=== PATIENT | female | born 1935 | race Caucasian/White ===

== ENCOUNTER 2016-05-08 07:19 | Inpatient (IN) | payer OTHER ==
[~2016-05-08] VITALS: Ht 154.9 cm; Wt 75.5 kg
[2016-05-08] VITALS (19 sets, daily range): BP systolic 97–136; BP diastolic 53–80; PULSE 81–98; TEMP 36.3–37.1; O2SAT 92–97; Ht 154.9 cm; Wt 75.5 kg
[~2016-05-08 07:19] MED LIST: ASPI81TA28 PO; CALC-354 PO; CLOP1TAB15 PO; DILT120C68 PO; IBUP-103 PO; LEVO25TA5 PO; LISI-787 PO; METO-551 PO; OMEG10007 PO; SIMV20TA2 PO; TRAM-10 PO
--- NOTE | 2016-05-08 07:33 | EMERGENCY ROOM VISIT NOTE ---
History Report prepared by Sejalibindiana: Lara Najera Under the Supervision of: Dr. Ad Means M.D. First contact with patient: 07:27 Chief Complaint: SHORTNESS OF BREATH Stated Complaint: SHORTNESS OF BREATH History of Present Illness The patient is a 81 year old female who presents to the Emergency Room via ambulance with complaints of persistent shortness of breath over the past couple of days. She also complains of a dry, hacking cough. She has been blowing her nose more than usual. She does not typically have shortness of breath and is not on oxygen at home. The patient was started on oxygen in the field. 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 She does not have any residual deficits. Denies fevers, or other complaints. 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 A total of 10 systems reviewed and were otherwise negative. Past Medical & Surgical Medical Problems: (1) Foreign body (2) Localized, primary osteoarthritis of the pelvic region and thigh Surgical Problems: (1) H/O colonoscopy Family History Patient reports no known family medical history. Social History Smoking Status: Never Smoker Marital Status: Housing Status: lives with significant other Occupation Status: retired Current/Historical Medications Scheduled Aspirin (Aspirin Ec), 81 MG PO DAILY Calcium Carbonate-Cholecalcife (Caltrate 600+D), 1 TAB PO BID Clopidogrel (Plavix), 75 MG PO QAM Diltiazem Hcl Ext Rel (Tiazac), 120 MG PO QAM Ibuprofen Tab (Advil), 400 MG PO Q4 Levothyroxine Sodium (Levothyroxine Sodium), 12.5 MG PO DAILY Lisinopril/Hctz (Zestoretic 20MG/12.5MG), 1 TAB PO QAM Metoprolol Tartrate (Lopressor), 25 MG PO BID Simvastatin (Zocor), 20 MG PO QPM Scheduled PRN Alprazolam (Xanax), 0.5 MG PO Q6H PRN for Anxiety Allergies Coded Allergies: Sulfa Antibiotics (Verified Allergy, Unknown, `, 03/05/16) Physical Exam Vital Signs Date Time Temp Pulse Resp B/P Pulse Ox O2 Delivery O2 Flow Rate FiO2 12/30/16 08:33 91 18 130/67 100 Nebulizer 05/08/16 07:55 81 16 95 Nasal Cannula 05/08/16 07:32 83 05/08/16 07:30 94 Nasal Cannula 2.0 05/08/16 07:20 91 Room Air 05/08/16 07:20 36.6 84 18 135/82 94 Nasal Cannula 2.0 Physical Exam GENERAL: Patient is a healthy-appearing well-nourished 81 year old female. HEAD: Normocephalic atraumatic EYES: Ocular movements intact pupils equal and react to light OROPHARYNX mucous membranes are moist no exudates present no erythema or edema present NECK: Supple no nuchal rigidity CHEST: Good equal expansion LUNGS: Clear and equal to auscultation CARDIAC: Normal S1 and S2 ABDOMEN: Soft nontender no guarding RECTAL: Brown stool, heme positive. BACK: No CVA tenderness EXTREMITIES: No pain upon palpation normal muscle strength in all groups no clubbing cyanosis or edema NEURO: Patient is following commands is answering questions appropriately. Alert and oriented x3 Cranial Nerves 2-12 grossly intact Medical Decision & Procedures ER Provider Diagnostic Interpretation: X-ray results as stated below per interpretation by me and the radiologist: CHEST ONE VIEW PORTABLE CLINICAL HISTORY: Pt c/o SOB dyspnea COMPARISON STUDY: 01/08/2015 FINDINGS: Development of a left and to lesser extent right basilar parenchymal infiltrative change. Upper lungs are considered clear. Heart is mildly enlarged. IMPRESSION: Bibasilar parenchymal infiltrates Electronically signed by: Jermaine Mullen M.D. 05/08/2016 7:58 AM Laboratory Results 05/08/16 06:42 Red Blood Count 2.39, Mean Corpuscular Volume 83.7, Mean Corpuscular Hemoglobin 25.9, Mean Corpuscular Hemoglobin Concent 31.0, Mean Platelet Volume 10.0, Neutrophils (%) (Auto) 59.9, Lymphocytes (%) (Auto) 28.3, Monocytes (%) (Auto) 7.5, Eosinophils (%) (Auto) 3.7, Basophils (%) (Auto) 0.4, Neutrophils # (Auto) 5.05, Lymphocytes # (Auto) 2.38, Monocytes # (Auto) 0.63, Eosinophils # (Auto) 0.31, Basophils # (Auto) 0.03 05/08/16 06:42 Test 05/08/16 06:42 05/08/16 06:48 05/08/16 07:45 White Blood Count 8.42 K/uL (4.8-10.8) Red Blood Count 2.39 M/uL (4.2-5.4) Hemoglobin 6.2 g/dL (12.0-16.0) Hematocrit 20.0 % (37-47) Mean Corpuscular Volume 83.7 fL (80-100) Mean Corpuscular Hemoglobin 25.9 pg (25-34) Mean Corpuscular Hemoglobin Concent 31.0 g/dl (32-36) Platelet Count 379 K/uL (130-400) Mean Platelet Volume 10.0 fL (7.4-10.4) Neutrophils (%) (Auto) 59.9 % Lymphocytes (%) (Auto) 28.3 % Monocytes (%) (Auto) 7.5 % Eosinophils (%) (Auto) 3.7 % Basophils (%) (Auto) 0.4 % Neutrophils # (Auto) 5.05 K/uL (1.4-6.5) Lymphocytes # (Auto) 2.38 K/uL (1.2-3.4) Monocytes # (Auto) 0.63 K/uL (0.11-0.59) Eosinophils # (Auto) 0.31 K/uL (0-0.5) Basophils # (Auto) 0.03 K/uL (0-0.2) RDW Standard Deviation 47.6 fL (36.4-46.3) RDW Coefficient of Variation 15.4 % (11.5-14.5) Immature Granulocyte % (Auto) 0.2 % Immature Granulocyte # (Auto) 0.02 K/uL (0.00-0.02) Polychromasia 1+ Hypochromasia PRESENT Prothrombin Time 11.1 SECONDS (9.0-12.0) Prothromb Time International Ratio 1.0 (0.9-1.1) Activated Partial Thromboplast Time 22.2 SECONDS (21.0-31.0) Partial Thromboplastin Ratio 0.9 Anion Gap 11.0 mmol/L (3-11) Est Creatinine Clear Calc Drug Dose 37.3 ml/min Estimated GFR () 54.5 Estimated GFR (Non- 47.0 BUN/Creatinine Ratio 19.0 (10-20) Calcium Level 8.1 mg/dl (8.5-10.1) Total Bilirubin 0.2 mg/dl (0.2-1) Aspartate Amino Transf (AST/SGOT) 16 U/L (15-37) Alanine Aminotransferase (ALT/SGPT) 17 U/L (12-78) Alkaline Phosphatase 96 U/L (45-117) Total Creatine Kinase 74 U/L (26-192) Creatine Kinase MB 2.7 ng/ml (0.5-3.6) Creatine Kinase MB Ratio 3.6 (0-3.0) Troponin I 0.018 ng/ml (0-0.045) Total Protein 6.1 gm/dl (6.4-8.2) Albumin 3.1 gm/dl (3.4-5.0) Globulin 3.0 gm/dl (2.5-4.0) Albumin/Globulin Ratio 1.0 (0.9-2) Iron Level 20 mcg/dl (35-150) Total Iron Binding Capacity 502 mcg/dl (250-450) Ferritin 7.8 ng/ml (8.0-388.0) Influenza Type A Antigen Neg for Influ A (NEG) Influenza Type B Antigen Neg for Influ B (NEG) Labs reviewed by ED physician. Medications Administered Medications (Trade) Dose Ordered Sig/Miguel Route Start Time Stop Time Status Last Admin Dose Admin Albuterol/ Ipratropium 12 ml 12 ml ONE ONCE INH 05/08/16 07:45 05/08/16 07:46 DC 05/08/16 07:55 12 ML Pantoprazole Sodium/Dextrose (Protonix Inj/D5 100ml) 120 ml @ 480 mls/hr NOW ONCE IV 05/08/16 09:00 05/08/16 09:14 DC 05/08/16 09:06 480 MLS/HR ECG Indication: SOB/dyspnea Rate (beats per minute): 78 Rhythm: sinus rhythm Findings: T-wave inversion (Inferior), no acute ischemic change, other ( premature supraventricular complexes) ED Course 0730: The patient was evaluated in room B. A complete history and physical examination was performed. 0745: Ordered DuoNeb 12 ml INH. 0821: I discussed the case with Dr. Sawant - [facility] [place] [facility]. The patient will be evaluated for further management. 0823: Upon reexamination the patient is resting comfortably. I discussed results and treatment plan with the patient. She verbalizes agreement and understanding. 0833: Ordered Pantoprazole Sodium 1 ea IV. Medical Decision Differential diagnosis: Etiologies such as infections, reactive airway disease, pneumonia, pneumothorax , COPD, CHF, cardiac ischemia, pulmonary embolism, musculoskeletal, gastrointestinal, as well as others were entertained. This is an 81-year-old female who presents emergency department complaining of shortness of breath. The patient is pale in appearance. She also has a heme positive rectal exam of of the stool is brown. For this reason the patient was started on a Protonix bolus and drip. She was found to be anemic with a hemoglobin of 6. She was typed and crossed with 2 units of packed red blood cells. I did discuss the case with the hospitalist service who agreed to admit the patient. Both patient and family were in agreement with the treatment plan. Consults Time Called: 08 Consulting Physician: Dr. Jese QUINONES Hospitalist Returned Call: 08 I discussed the case with him. The patient will be evaluated for further management. Impression Primary Impression: SOB (shortness of breath) Additional Impressions: Anemia, GI bleed Critical Care I have personally spent greater than 30 minutes of critical care time in the direct management of this patient. This includes bedside care, interpretation of diagnostic studies, and testing, discussion with consultants, patient, and family members, and other required patient management activities. This 30 minutes is in excess of all separately billable procedures. Scribe Attestation The scribe's documentation has been prepared under my direction and personally reviewed by me in its entirety. I confirm that the note above accurately reflects all work, treatment, procedures, and medical decision making performed by me. Departure Information Dispostion Being Evaluated By Hospitalist Referrals Timothy Garcia M.D. (PCP) Patient Instructions A Signature Page, My [facility]
[2016-05-08] MEDS ORDERED: ALPR-411 PO (07:39)
[2016-05-08] MEDS ORDERED: ALBUT/IPRATROP 3MG/0.5MG NEB 3 ML VIAL INH ONE (07:45)
--- NOTE | 2016-05-08 08:00 | DIAGNOSTIC IMAGING REPORT ---
CHEST ONE VIEW PORTABLE CLINICAL HISTORY: Pt c/o SOB dyspnea COMPARISON STUDY: 01/08/2015 FINDINGS: Development of a left and to lesser extent right basilar parenchymal infiltrative change. Upper lungs are considered clear. Heart is mildly enlarged. IMPRESSION: Bibasilar parenchymal infiltrates Electronically signed by: Jermaine Mullen M.D. 05/08/2016 7:58 AM
[2016-05-08 08:05] LABS: MEAN CELL VOLUME 83.7 fL (80-100); MEAN CORPUSCULAR HEMOGLOBIN 25.9 pg (25-34); PLATELET COUNT 379 K/uL (130-400); RED BLOOD COUNT 2.39 M/uL (4.2-5.4); WHITE BLOOD COUNT 8.42 K/uL (4.8-10.8)
[2016-05-08 08:13] LABS: CALCIUM 8.1 mg/dl (8.5-10.1); CREATININE 1.1 mg/dl (0.60-1.20); POTASSIUM 3.9 mmol/L (3.5-5.1)
[2016-05-08 08:18] LABS: CKMB/CK RATIO 3.6 (0-3.0)
[2016-05-08 08:28] LABS: BASO % 0.4 %; BASO ABS # 0.03 K/uL (0-0.2); COMPLETE YES; EOS % 3.7 %; HYPOCHROMIA PRESENT; IG% 0.2 %; LYMPH % 28.3 %; LYMPH ABS # 2.38 K/uL (1.2-3.4); MONO % 7.5 %; NEUT % 59.9 %; POLYCHROMASIA 1+
[2016-05-08] MEDS ORDERED: PANTOprazole INJ 80 MG in DEXTROSE 5% 100ML IV ONE (09:00)
[2016-05-08] MEDS ORDERED: ALPRAZOLAM 0.5 MG TAB PO PRN (09:15)
[2016-05-08] MEDS ORDERED: ONDANSETRON INJ 2 MG/ML 2 ML VIAL IV PRN (09:15)
[2016-05-08] MEDS ORDERED: ACETAMINOPHEN 325 MG TAB PO PRN (09:15)
[2016-05-08] MEDS ORDERED: PANTOprazole INJ 40 MG in DEXTROSE 5% 100ML IV SCH (09:15)
[2016-05-08 09:31] LABS: PARTIAL THROMBOPLASTIN RATIO 0.9; PROTHROMBIN TIME (PATIENT) 11.1 SECONDS (9.0-12.0)
--- NOTE | 2016-05-08 09:31 | History and Physical ---
History & Physical Date & Time of Service: May 08, 2016 at 09:12 Chief Complaint: Shortness Of Breath Primary Care Physician: Timothy Garcia M.D. History of Present Illness Source: patient, family, hospital records 81 yo female with history of CVA with residual right hand weakness as well as h/ o HTN and hyperlipidemia, presents to the ED with c/o progressive weakness and shortness of breath. The symptoms started a few weeks ago, started with some mild fatigue and she noticed that she would get short of breath on exertion when she would normally not have any issues. Over the past weeks she noticed that her breathing was more and more difficult whenever she exerted herself and it would take some time to catch her breath. Over the past two days she has been very tired and short of breath at rest. Her breathing reached the point last night that she and her were scared so they came to the ED for evaluation. She has had a non-productive cough, no fever or chills, no chest pain or palpitations. Her daughter noticed that she appeared more pale the past few days but patient did not recognize this. She denies any melena or bright red bleeding. She has had dark stools in the remote past but that was when she was on iron supplementation. She had a colonoscopy in 2010 that was normal. Never had an EGD. As for the breathing, she has never had shortness of breath like this. 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 She will see the neurologist in May for follow up. Otherwise, her medical issues including HTN and hyperlipidemia have been stable and she is compliant with her medications. In the ED her Hb was found to be 6.2 but vitals were all stable suggesting a probably slow bleed if in fact the source of anemia is a GI bleed. CXR showed some bibasilar opacities, likely atelectasis. Renal function stable. No coags available at this time. Consented for PRBC transfusion and two units ordered by the ED physician. 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, causing balance issues HTN hyperlipidemia s/p tonsillectomy s/p CAREY s/p hysterectomy Colonoscopy, last done in 2010 Family History Mother - of CHF complications Father - of Hodgkin's lymphoma in his 30's Brothers - all had colon cancer Children - all healthy Social History Smoking Status: Never Smoker Marital Status: Occupational Status: retired Immunizations History of Influenza Vaccine: Yes History of Tetanus Vaccine?: Unknown History of Pneumococcal: Yes History of Hepatitis B Vaccine: No Multi-Drug Resistant Organisms History of MDRO: No Allergies Coded Allergies: Sulfa Antibiotics (Verified Allergy, Unknown, `, 03/05/16) Home Medications Scheduled Aspirin (Aspirin Ec), 81 MG PO DAILY Calcium Carbonate-Cholecalcife (Caltrate 600+D), 1 TAB PO BID Clopidogrel (Plavix), 75 MG PO QAM Diltiazem Hcl Ext Rel (Tiazac), 120 MG PO QAM Ibuprofen Tab (Advil), 400 MG PO Q4 Levothyroxine Sodium (Levothyroxine Sodium), 12.5 MG PO DAILY Lisinopril/Hctz (Zestoretic 20MG/12.5MG), 1 TAB PO QAM Metoprolol Tartrate (Lopressor), 25 MG PO BID Simvastatin (Zocor), 20 MG PO QPM Scheduled PRN Alprazolam (Xanax), 0.5 MG PO Q6H PRN for Anxiety Review of Systems Constitutional: + fatigue, + weakness, No chills, No fever, No sweats, No weight loss Eyes: No diplopia, No discharge, No eye pain, No problem reported, No redness, No worsening of vision ENT: No dental problems, No hearing loss, No nasal symptoms, No problem reported, No sore throat, No tinnitus, No trouble swallowing, No unusual epistaxis Respiratory: + cough, + dyspnea at rest, + dyspnea on exertion, No hemoptysis, No shortness of breath, No sputum, No wheezing Cardiovascular: No PND, No chest pain, No claudication, No edema, No orthopnea , No palpitations, No problem reported Abdomen: No GI bleeding, No constipation, No diarrhea, No nausea, No pain, No problem reported, No vomiting Musculoskeletal: No calf pain, No joint pain, No muscle pain, No problem reported, No swelling Genitourinary - Female: No dysuria, No hematuria, No urinary frequency, No urinary incontinence, No urinary retention, No urinary urgency Neurologic: + balance problems, + weakness, No memory loss, No numbness/ tingling, No paralysis, No vertigo Psychiatric: No anhedonism, No anxiety, No depression symptoms, No insomnia, No problem reported, No substance abuse Endocrine: No excessive thirst, No excessive urination, No fatigue, No problem reported Hematologic / Lymphatic: No abnormal bleeding/bruising, No clotting problems, No night sweats, No problem reported, No swollen lymph nodes Integumentary: + color change (pale), No bleeding, No itch, No new/changing skin lesions, No problem reported, No rash Allergic / Immunologic: No environmental allergies, No food allergies, No frequent infections, No hives, No pet sensitivities, No poor healing, No problem reported, No prolonged convalescence, No seasonal allergies Physical Exam Vital Signs Date Time Temp Pulse Resp B/P Pulse Ox O2 Delivery O2 Flow Rate FiO2 05/08/16 08:33 91 18 130/67 100 Nebulizer 05/08/16 07:55 81 16 95 Nasal Cannula 05/08/16 07:32 83 05/08/16 07:30 94 Nasal Cannula 2.0 05/08/16 07:20 91 Room Air 05/08/16 07:20 36.6 84 18 135/82 94 Nasal Cannula 2.0 General Appearance: WD/WN, no apparent distress Head: normocephalic, atraumatic Eyes: normal inspection, EOMI, + abnormal sclerae exam (pallor) ENT: normal ENT inspection, hearing grossly normal, pharynx normal Neck: supple, no adenopathy, thyroid normal, no JVD, trachea midline Respiratory/Chest: chest non-tender, lungs clear, normal breath sounds, no respiratory distress, no accessory muscle use Cardiovascular: regular rate, rhythm, no edema, no gallop, no JVD, no murmur, normal peripheral pulses Abdomen/GI: normal bowel sounds, non tender, soft, no organomegaly Back: normal inspection, no CVA tenderness, no muscle spasm, normal range of motion Extremities/Musculoskelatal: normal inspection, no calf tenderness, normal capillary refill, no pedal edema, normal range of motion, pelvis stable 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, alert, normal mood/affect, normal reflexes, oriented x 3, + motor weakness (right hand mild weakness and poor grasp, chronic issue) Skin: warm/dry, no rash, + pallor Diagnostics Laboratory Results Results Past 24 Hours Test 05/08/16 06:42 05/08/16 07:45 05/08/16 09:04 Range/Units White Blood Count 8.42 4.8-10.8 K/uL Red Blood Count 2.39 4.2-5.4 M/uL Hemoglobin 6.2 12.0-16.0 g/dL Hematocrit 20.0 37-47 % Mean Corpuscular Volume 83.7 80-100 fL Mean Corpuscular Hemoglobin 25.9 25-34 pg Mean Corpuscular Hemoglobin Concent 31.0 32-36 g/dl Platelet Count 379 130-400 K/uL Mean Platelet Volume 10.0 7.4-10.4 fL Neutrophils (%) (Auto) 59.9 % Lymphocytes (%) (Auto) 28.3 % Monocytes (%) (Auto) 7.5 % Eosinophils (%) (Auto) 3.7 % Basophils (%) (Auto) 0.4 % Neutrophils # (Auto) 5.05 1.4-6.5 K/uL Lymphocytes # (Auto) 2.38 1.2-3.4 K/uL Monocytes # (Auto) 0.63 0.11-0.59 K/uL Eosinophils # (Auto) 0.31 0-0.5 K/uL Basophils # (Auto) 0.03 0-0.2 K/uL RDW Standard Deviation 47.6 36.4-46.3 fL RDW Coefficient of Variation 15.4 11.5-14.5 % Immature Granulocyte % (Auto) 0.2 % Immature Granulocyte # (Auto) 0.02 0.00-0.02 K/uL Polychromasia 1+ Hypochromasia PRESENT Sodium Level 144 136-145 mmol/L Potassium Level 3.9 3.5-5.1 mmol/L Chloride Level 111 98-107 mmol/L Carbon Dioxide Level 22 21-32 mmol/L Anion Gap 11.0 3-11 mmol/L Blood Urea Nitrogen 21 7-18 mg/dl Creatinine 1.10 0.60-1.20 mg/dl Est Creatinine Clear Calc Drug Dose 37.3 ml/min Estimated GFR () 54.5 Estimated GFR (Non- 47.0 BUN/Creatinine Ratio 19.0 10-20 Random Glucose 112 70-99 mg/dl Calcium Level 8.1 8.5-10.1 mg/dl Total Bilirubin 0.2 0.2-1 mg/dl Aspartate Amino Transf (AST/SGOT) 16 15-37 U/L Alanine Aminotransferase (ALT/SGPT) 17 12-78 U/L Alkaline Phosphatase 96 45-117 U/L Total Creatine Kinase 74 26-192 U/L Creatine Kinase MB 2.7 0.5-3.6 ng/ml Creatine Kinase MB Ratio 3.6 0-3.0 Troponin I 0.018 0-0.045 ng/ml Total Protein 6.1 6.4-8.2 gm/dl Albumin 3.1 3.4-5.0 gm/dl Globulin 3.0 2.5-4.0 gm/dl Albumin/Globulin Ratio 1.0 0.9-2 Influenza Type A Antigen Neg for Influ A NEG Influenza Type B Antigen Neg for Influ B NEG Diagnostic Radiology CXR: bibasilar parenchymal infiltrates EKG NSR, TW inversions and TW flattening in inferior leads, no signs of acute ischemia Impression Assessment and Plan 81 yo female with history of CVA, HTN 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, presents with profound dyspnea, fatigue, progressive and found to have Hb of 6.2 - Anemia causing dyspnea and fatigue: will transfuse 2 units PRBC no signs of GI bleeding but would be top of differential, d/w GI, they will evaluate for EGD today, NPO order anemia panel (iron, TIBC, ferritin, b12, folic acid) H/H q8, check coagulation profile admit to telemetry - Dyspnea: appears that anemia would be source, look for symptoms to improve with transfusion no evidence of heart failure, pneumonia or COPD - HTN: will continue metoprolol but hold Lisinopril/HCTZ and diltiazem, will add back if she is hypertensive - h/o CVA: hold aspirin and Plavix until okay to resume per GI - 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 Y/N: Yes Risk Level: High Given or contraindicated: SCD's Additional Copies To Timothy Garcia M.D.
[2016-05-08 09:50] LABS: FERRITIN 7.8 ng/ml (8.0-388.0)
[2016-05-08] MEDS ORDERED: ERYTHROMYCIN IV 250 MG in SODIUM CHLORIDE 0.9% 250ML 250 ML IV ONE (11:00)
--- NOTE | 2016-05-08 11:06 | Gastrointestinal Consultation ---
Gastrointestinal Consultation Date of Consultation: May 08, 2016 Attending Physician: Dr. Sawant Consulting Physician: Dr. Villegas Reason for Consultation: Anemia History of Present Illness Patient is a 81 year old female patient of Dr. Timothy Garcia with a hx of distant, mild CVA, HTN and a balance issue that is being worked up by neurology. She presented to the ED today for SOB. GI is consulted for anemia. The patient is awake, alert, oriented, talkative, w/o hypotension or tachycardia who is seen and examined while she is resting in bed on the telemetry floor. 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 She tells me that she first noticed exertional SOB a few months ago. This became persistent a few weeks ago, then worsened 2-3 days ago. She has not had any epigastric pain, nausea/vomiting, chest pain, melena, hematochezia. Her baseline bowel pattern has been 1-3 formed brown BMs/day. This has not changed. On arrival, Hb 6. 2/Hct 20. MCV is 83. BUN is normal at 21. INR is also normal. She denies any regular use of NSAIDs and is not on any antiplatelets or anticoagulant medications. Past Medical/Surgical History Medical Problems: (1) Anemia Status: Acute (2) GI bleed Status: Acute (3) Iliopsoas muscle hematoma Status: Acute (4) SOB (shortness of breath) Status: Acute Past Medical History: 1. HTN 2. Distant CVA 3. 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 Past Surgical History: 1. KALYN and appendectomy in the 1969's. 2. Right hip replacement 2013. 3. Childhood tonsillectomy. 4. Most recent Colonoscopy with Dr. Arora in 2010. No prior EGDs. Family History Patient reports no known family medical history. Social History Smoking Status: Never Smoker Marital Status: Housing Status: lives with significant other Occupation Status: retired Allergies Coded Allergies: Sulfa Antibiotics (Verified Allergy, Unknown, `, 03/05/16) Current Medications Home Meds and Scripts Medications Dose Route/Sig Max Daily Dose Days Date Category Dose Instructions Xanax (Alprazolam) 0.5 Mg Tab 0.5 Mg PO Q6H PRN 05/08/16 Reported Advil (Ibuprofen) 200 Mg Tab 400 Mg PO Q4 03/05/16 Reported Lopressor (Metoprolol Tartrate) 50 Mg Tab 25 Mg PO BID 03/05/16 Reported half tab BID Levothyroxine Sodium 25 Mcg Tab 12.5 Mg PO DAILY 03/05/16 Reported Plavix (Clopidogrel Bisulfate) 75 Mg Tab 75 Mg PO QAM 03/05/16 Reported Zocor (Simvastatin) 20 Mg Tab 20 Mg PO QPM 03/05/16 Reported Caltrate 600+D (Calcium Carbonate-Cholecalcife) 1 Tab Tab 1 Tab PO BID 03/05/16 Reported 1 at 0530 1 at 1730 Aspirin Ec (Aspirin) 81 Mg Tab 81 Mg PO DAILY 03/05/16 Reported 1 at 1730 daily Tiazac (Diltiazem HCl) 120 Mg Capcr 120 Mg PO QAM 03/05/16 Reported Zestoretic 20MG/12.5MG (HCTZ/Lisinopril) Tab 1 Tab PO QAM 03/05/16 Reported half tab in morning Review of Systems Constitutional: No chills, No fever, No sweats, No weakness, No weight loss Eyes: No eye pain, No redness ENT: No pain on swallowing, No sore throat, No trouble swallowing Respiratory: + cough (chronic, non productive cough), + dyspnea on exertion, + shortness of breath, No wheezing Cardiac: No chest pain, No edema, No palpitations Abdomen: + see HPI, No GI bleeding, No constipation, No diarrhea, No nausea, No pain, No vomiting Neuro: No balance problems, No memory loss, No numbness/tingling, No vertigo, No weakness Psych: No anxiety, No depression symptoms, No insomnia Heme: No abnormal bleeding/bruising, No night sweats Endo: No excessive thirst, No excessive urination Skin: No itch, No jaundice, No new/changing skin lesions, No rash Physical Exam Date Time Temp Pulse Resp B/P Pulse Ox O2 Delivery O2 Flow Rate FiO2 05/08/16 10:45 36.5 94 22 111/77 05/08/16 10:00 36.6 94 16 114/71 94 Nasal Cannula 2.0 05/08/16 09:31 101 18 138/62 96 Nasal Cannula 2.0 05/08/16 09:20 100 05/08/16 08:33 91 18 130/67 100 Nebulizer 05/08/16 07:55 81 16 95 Nasal Cannula 12/30/16 07:32 83 05/08/16 07:30 94 Nasal Cannula 2.0 05/08/16 07:20 91 Room Air 05/08/16 07:20 36.6 84 18 135/82 94 Nasal Cannula 2.0 General Appearance: no apparent distress Eyes: normal inspection, EOMI Neck: supple, no adenopathy, thyroid normal Respiratory/Chest: chest non-tender, lungs clear, normal breath sounds, no accessory muscle use Cardiovascular: regular rate, rhythm, no JVD, no murmur Abdomen: normal bowel sounds, non tender, soft, no organomegaly Extremities: normal inspection, no pedal edema, normal capillary refill Neurologic/Psych: alert, normal mood/affect, oriented x 3 Skin: normal color, no jaundice, warm/dry, no rash Laboratory Results Last 24 Hours Test 05/08/16 06:42 05/08/16 06:48 05/08/16 07:45 05/08/16 10:06 White Blood Count 8.42 K/uL Red Blood Count 2.39 M/uL Hemoglobin 6.2 g/dL Hematocrit 20.0 % Mean Corpuscular Volume 83.7 fL Mean Corpuscular Hemoglobin 25.9 pg Mean Corpuscular Hemoglobin Concent 31.0 g/dl Platelet Count 379 K/uL Mean Platelet Volume 10.0 fL Neutrophils (%) (Auto) 59.9 % Lymphocytes (%) (Auto) 28.3 % Monocytes (%) (Auto) 7.5 % Eosinophils (%) (Auto) 3.7 % Basophils (%) (Auto) 0.4 % Neutrophils # (Auto) 5.05 K/uL Lymphocytes # (Auto) 2.38 K/uL Monocytes # (Auto) 0.63 K/uL Eosinophils # (Auto) 0.31 K/uL Basophils # (Auto) 0.03 K/uL RDW Standard Deviation 47.6 fL RDW Coefficient of Variation 15.4 % Immature Granulocyte % (Auto) 0.2 % Immature Granulocyte # (Auto) 0.02 K/uL Polychromasia 1+ Hypochromasia PRESENT Prothrombin Time 11.1 SECONDS Prothromb Time International Ratio 1.0 Activated Partial Thromboplast Time 22.2 SECONDS Partial Thromboplastin Ratio 0.9 Sodium Level 144 mmol/L Potassium Level 3.9 mmol/L Chloride Level 111 mmol/L Carbon Dioxide Level 22 mmol/L Anion Gap 11.0 mmol/L Blood Urea Nitrogen 21 mg/dl Creatinine 1.10 mg/dl Est Creatinine Clear Calc Drug Dose 37.3 ml/min Estimated GFR () 54.5 Estimated GFR (Non- 47.0 BUN/Creatinine Ratio 19.0 Random Glucose 112 mg/dl Calcium Level 8.1 mg/dl Total Bilirubin 0.2 mg/dl Aspartate Amino Transf (AST/SGOT) 16 U/L Alanine Aminotransferase (ALT/SGPT) 17 U/L Alkaline Phosphatase 96 U/L Total Creatine Kinase 74 U/L Creatine Kinase MB 2.7 ng/ml Creatine Kinase MB Ratio 3.6 Troponin I 0.018 ng/ml Total Protein 6.1 gm/dl Albumin 3.1 gm/dl Globulin 3.0 gm/dl Albumin/Globulin Ratio 1.0 Iron Level 20 mcg/dl Total Iron Binding Capacity 502 mcg/dl Ferritin 7.8 ng/ml Influenza Type A Antigen Neg for Influ A Influenza Type B Antigen Neg for Influ B Vitamin B12 Level 506 pg/mL Folate 13.39 ng/mL Impression Patient is a 81 year old female with normocytic anemia, progressive SOB, no gross GI bleeding. UGI bleeding from ulcers should be ruled out, but she doesn' t have risk factor or symptoms for this. Plan 1. EGD. Unfortunately, at 5AM she drank one cup of coffee and ate one donut. She has been NPO since then. Will give a dose of e-mycin to emypty the stomach and plan to do the procedure around 1PM (8 hrs after). Will need to get anesthesia approval to go forward with procedure due to having eaten this morning. 2. If normal EGD will need colonoscopy, though not necessarily as an OP. 3. If normal EGD, would also recommend full lab testing to w/u anemia: iron, ferritin, B12, folate, sed rate, Haptoglobin and LDH. I have seen and examined the patient with GAURI Pop whose note reflects our findings and plan. Halie was admitted with SOB and symptomatic anemia. No melena or hematochezia. She tells me she was on iron a few months ago and at that time her stools were dark, however, they have been brown since she stopped the iron. MCV is normal. BUN is not elevated. No history of ulcer disease. She has never had an EGD. Last colonoscopy was almost 30 years ago. Will do an EGD today. If the EGD is negative, agree with work-up for other non- GI causes of anemia and she will need an outpatient colonoscopy.
[2016-05-08] MEDS ORDERED: LIDOCAINE HCL 2% 2 ML VIAL (20MG/ML) ONE (12:41)
[2016-05-08] MEDS ORDERED: ONDANSETRON INJ 2 MG/ML 2 ML VIAL ONE (12:41)
[2016-05-08] MEDS ORDERED: MIDAZOLAM HCL 1 MG/ML 2ML VIAL ONE (12:41)
[2016-05-08] MEDS ORDERED: PROPOFOL IV EMULSION 10 MG/ML 20 ML VIAL IV ONE (12:41)
[2016-05-08 13:18] LABS: URINE APPEARANCE CLEAR (CLEAR); URINE BILIRUBIN NEG (NEG); URINE COLOR YELLOW; URINE NITRITE NEG (NEG); URINE SPECIFIC GRAVITY 1.017 (1.000-1.030); UROBILINOGEN NEG (NEG)
[2016-05-08 13:21] LABS: MANUAL MICROSCOPIC REQUIRED? NO; REVIEW REQ? NO
[2016-05-08] MEDS ORDERED: PHENYLEPHRINE 100MCG/ML 5ML SYR ONE (14:04)
--- NOTE | 2016-05-08 14:06 | GI REPORT ---
Procedure Date: 05/08/2016 1:39 PM Procedure: Upper GI endoscopy Indications: Symptomatic anemia, no melena or hematochezia Medicines: Propofol per Anesthesia Complications: No immediate complications. Estimated blood loss: Minimal. Estimated Blood Loss: Estimated blood loss was minimal. Procedure: Pre-Anesthesia Assessment: - Prior to the procedure, a History and Physical was performed, and patient medications, allergies and sensitivities were reviewed. The patient's tolerance of previous anesthesia was reviewed. - The risks and benefits of the procedure and the sedation options and risks were discussed with the patient. All questions were answered and informed consent was obtained. - Patient identification and proposed procedure were verified prior to the procedure by the physician and the nurse. The procedure was verified in the pre-procedure area in the procedure room. - Mental Status Examination: alert and oriented. Airway Examination: normal oropharyngeal airway and neck mobility. Respiratory Examination: clear to auscultation. CV Examination: normal. Abdominal Examination: bowel sounds present, abdomen soft and non-tender, no masses or organomegaly noted. - ASA Grade Assessment: IV - A patient with severe systemic disease that is a constant threat to life. After obtaining informed consent, the endoscope was passed under direct vision. Throughout the procedure, the patient's blood pressure, pulse, and oxygen saturations were monitored continuously. The scope was introduced through the mouth, and advanced to the second part of duodenum. The upper GI endoscopy was accomplished without difficulty. The patient tolerated the procedure well. Findings: The esophagus was normal. The stomach was normal. The examined duodenum was normal. Biopsies for histology were taken with a cold forceps for evaluation of celiac disease. Verification of patient identification for the specimen was done by the physician and nurse using the patient's name and date. Estimated blood loss was minimal. Impression: - Normal esophagus. - Normal stomach. - Normal examined duodenum. Biopsied. Recommendation: - Await pathology results. - Return patient to [facility] for ongoing care. Jayda Villegas D.O. Jayda Villegas DO 05/08/2016 2:04:33 PM This report has been signed electronically. Note Initiated On: 05/08/2016 1:39 PM
--- NOTE | 2016-05-08 14:35 | Anesthesiology Progress Note ---
Anesthesia Post Op Note Date & Time May 08, 2016 at 14:34 Vital Signs Pain Intensity: 0 Vital Signs Past 12 Hours Date Time Temp Pulse Resp B/P Pulse Ox O2 Delivery O2 Flow Rate FiO2 05/08/16 14:20 91 16 108/62 95 Nasal Cannula 2 05/08/16 14:05 99 16 112/70 92 Nasal Cannula 2 05/08/16 13:28 36.9 96 20 127/58 97 2.0 05/08/16 13:26 36.9 96 20 127/58 97 Nasal Cannula 2 05/08/16 13:15 36.7 96 18 130/72 92 Nasal Cannula 2.0 05/08/16 12:32 36.7 96 18 130/72 92 Nasal Cannula 05/08/16 12:00 Room Air 05/08/16 11:57 36.9 91 16 105/54 94 05/08/16 11:30 36.4 92 18 97/53 97 Nasal Cannula 2.0 05/08/16 11:00 36.3 98 18 109/62 95 05/08/16 10:45 36.5 94 22 111/77 05/08/16 10:00 36.6 94 16 114/71 94 Nasal Cannula 2.0 05/08/16 09:31 101 18 138/62 96 Nasal Cannula 2.0 05/08/16 09:20 100 05/08/16 08:33 91 18 130/67 100 Nebulizer 05/08/16 07:55 81 16 95 Nasal Cannula 05/08/16 07:32 83 05/08/16 07:30 94 Nasal Cannula 2.0 05/08/16 07:20 91 Room Air 05/08/16 07:20 36.6 84 18 135/82 94 Nasal Cannula 2.0 Notes Mental Status: alert / awake / arousable Nausea / Vomiting: adequately controlled Pain: adequately controlled Airway Patency, RR, SpO2: stable & adequate BP & HR: stable & adequate Hydration State: stable & adequate Anesthetic Complications: no major complications apparent
[2016-05-08 19:23] LABS: HEMATOCRIT 26.5 % (37-47)
[2016-05-08] MEDS ORDERED: FUROSEMIDE INJ 40 MG in SYRINGE 0 ML IV ONE (21:15)
[2016-05-08] MEDS ORDERED: NURSING VERBAL MED ORDER ONE (21:15)
[2016-05-08] MEDS: METOPROLOL TARTRATE 50 MG TAB PO SCH (21:24)
[2016-05-08] MEDS: PANTOprazole INJ 40 MG in SYRINGE 0 ML IV SCH (21:24)
[2016-05-09] VITALS (17 sets, daily range): BP systolic 120–137; BP diastolic 63–83; PULSE 57–105; TEMP 36.6–36.9; O2SAT 90–96
[2016-05-09 05:45] LABS: BASO % 0.1 %; BASO ABS # 0.01 K/uL (0-0.2); COMPLETE YES; EOS % 5.3 %; HEMATOCRIT 28.3 % (37-47); IG% 0.1 %; LYMPH % 18.7 %; LYMPH ABS # 1.28 K/uL (1.2-3.4); MEAN CORPUSCULAR HEMOGLOBIN 26.4 pg (25-34); MEAN CORPUSCULAR HGB CONC 32.2 g/dl (32-36); MONO % 8.2 %; NEUT % 67.6 %; PLATELET COUNT 296 K/uL (130-400); RED BLOOD COUNT 3.45 M/uL (4.2-5.4); WHITE BLOOD COUNT 6.84 K/uL (4.8-10.8)
[2016-05-09] MEDS: LEVOTHYROXINE 25 MCG TAB PO SCH (06:05)
[2016-05-09 06:11] LABS: BUN/CREATININE RATIO 12.3 (10-20); CALCIUM 8.1 mg/dl (8.5-10.1); CREATININE 1.3 mg/dl (0.60-1.20); POTASSIUM 3.9 mmol/L (3.5-5.1)
[2016-05-09] MEDS: PANTOprazole INJ 40 MG in SYRINGE 0 ML IV SCH ×2 (08:31→20:02)
[2016-05-09] MEDS: METOPROLOL TARTRATE 50 MG TAB PO SCH ×2 (08:32→18:38)
[2016-05-09] MEDS ORDERED: FERROUS SULFATE 325 MG TAB PO ONE (09:15)
[2016-05-09] MEDS ORDERED: AZITHROMYCIN 250 MG TAB PO ONE (09:15)
[2016-05-09] MEDS: ALBUT/IPRATROP 3MG/0.5MG NEB 3 ML VIAL INH SCH ×3 (11:32→20:00)
[2016-05-09 14:16] LABS: HEMATOCRIT 30.9 % (37-47)
--- NOTE | 2016-05-09 15:20 | Progress Note ---
Subjective Date of Service: May 09, 2016. Subjective Pt evaluation today including: conversation w/ patient, physical exam, lab review, review of inpatient medication list Pain: no pain PO Intake: adequate Voiding: no voiding problems patient feeling slightly better but she has more shortness of breath she received Lasix over night and had a brisk response most likely some edema due to PRBC transfusion slight wheezing today OOB in chair later in the morning, breathing better, off of oxygen d/w family, going to try to d/c tomorrow Problem List Medical Problems: (1) Anemia Status: Acute (2) GI bleed Status: Acute (3) Iliopsoas muscle hematoma Status: Acute (4) SOB (shortness of breath) Status: Acute Review of Systems Constitutional: + fatigue, + weakness Respiratory: + cough, + dyspnea on exertion, + shortness of breath, + wheezing All Other Systems: Reviewed and Negative Medications Current Inpatient Medications Medications (Trade) Dose Ordered Sig/Miguel Route Start Time Stop Time Status Last Admin Dose Admin Acetaminophen (Tylenol Tab) 650 mg Q4H PRN PO 05/08/16 09:15 06/07/16 09:14 Ondansetron HCl (Zofran Inj) 4 mg Q6H PRN IV 05/08/16 09:15 06/07/16 09:14 Alprazolam (Xanax Tab) 0.5 mg Q6H PRN PO 05/08/16 09:15 06/07/16 09:14 Levothyroxine Sodium (Synthroid Tab) 12.5 mcg DAILYBB PO 05/09/16 06:30 06/08/16 06:59 Metoprolol Tartrate 25 mg 25 mg BID PO 05/08/16 21:00 06/07/16 20:59 05/09/16 08:32 25 MG Pantoprazole Sodium/Syringe (Protonix Inj/ Syringe) 10 ml @ 5 mls/min DAILY@ IV 05/08/16 21:00 06/07/16 20:59 05/09/16 08:31 5 MLS/MIN Albuterol/ Ipratropium (Duoneb) 3 ml QIDR INH 05/09/16 12:00 06/08/16 11:59 05/09/16 11:32 3 ML Ferrous Sulfate (Feosol Tab) 325 mg BIDM PO 05/09/16 17:00 06/08/16 16:59 Docusate Sodium (coLACE CAP) 100 mg BID PO 05/09/16 21:00 06/08/16 08:59 Objective Vital Signs Date Time Temp Pulse Resp B/P Pulse Ox O2 Delivery O2 Flow Rate FiO2 05/09/16 12:03 36.8 75 20 125/83 93 Room Air 05/09/16 12:00 96 Nasal Cannula 05/09/16 11:32 84 16 95 Nasal Cannula 05/09/16 08:30 64 05/09/16 08:00 96 Nasal Cannula 2.0 05/09/16 07:39 36.6 57 18 133/76 96 Nasal Cannula 2.0 05/09/16 04:43 36.6 95 18 137/71 91 2.0 05/09/16 04:00 92 Nasal Cannula 2.0 05/09/16 00:10 36.9 75 18 126/75 95 2.0 05/09/16 00:05 92 Nasal Cannula 2.0 05/08/16 20:05 92 Nasal Cannula 2.0 05/08/16 19:23 37.1 92 20 124/62 92 Nasal Cannula 2.0 05/08/16 17:05 36.8 82 18 130/74 95 Nasal Cannula 2.0 05/08/16 16:35 36.6 84 18 128/68 95 05/08/16 16:22 36.8 88 18 118/73 95 Nasal Cannula 2.0 88 05/08/16 16:05 36.6 87 132/76 95 87 05/08/16 16:00 94 Nasal Cannula 2.0 05/08/16 15:48 36.8 86 18 136/80 96 Nasal Cannula 2.0 86 05/08/16 15:34 36.8 90 18 103/61 96 Physical Exam General Appearance: WD/WN, no apparent distress ENT: normal ENT inspection, hearing grossly normal, pharynx normal Neck: supple, no adenopathy, no JVD, trachea midline Respiratory/Chest: chest non-tender, no respiratory distress, no accessory muscle use, + wheezing Cardiovascular: regular rate, rhythm, no edema, no gallop, no JVD, no murmur Abdomen: normal bowel sounds, non tender, soft, no organomegaly Extremities: normal range of motion, non-tender, normal inspection, no pedal edema, no calf tenderness Neurologic/Psychiatric: manager drive II-XII nml as tested, no motor/sensory deficits, alert, normal mood/affect, oriented x 3 Skin: normal color, warm/dry, no rash Laboratory Results Last 24 Hours Test 05/08/16 19:15 05/09/16 05:07 05/09/16 14:02 Hemoglobin 8.5 g/dL 9.1 g/dL 10.0 g/dL Hematocrit 26.5 % 28.3 % 30.9 % White Blood Count 6.84 K/uL Red Blood Count 3.45 M/uL Mean Corpuscular Volume 82.0 fL Mean Corpuscular Hemoglobin 26.4 pg Mean Corpuscular Hemoglobin Concent 32.2 g/dl Platelet Count 296 K/uL Mean Platelet Volume 10.0 fL Neutrophils (%) (Auto) 67.6 % Lymphocytes (%) (Auto) 18.7 % Monocytes (%) (Auto) 8.2 % Eosinophils (%) (Auto) 5.3 % Basophils (%) (Auto) 0.1 % Neutrophils # (Auto) 4.62 K/uL Lymphocytes # (Auto) 1.28 K/uL Monocytes # (Auto) 0.56 K/uL Eosinophils # (Auto) 0.36 K/uL Basophils # (Auto) 0.01 K/uL RDW Standard Deviation 45.4 fL RDW Coefficient of Variation 15.3 % Immature Granulocyte % (Auto) 0.1 % Immature Granulocyte # (Auto) 0.01 K/uL Sodium Level 144 mmol/L Potassium Level 3.9 mmol/L Chloride Level 109 mmol/L Carbon Dioxide Level 27 mmol/L Anion Gap 8.0 mmol/L Blood Urea Nitrogen 16 mg/dl Creatinine 1.30 mg/dl Est Creatinine Clear Calc Drug Dose 32.2 ml/min Estimated GFR () 44.6 Estimated GFR (Non- 38.4 BUN/Creatinine Ratio 12.3 Random Glucose 96 mg/dl Calcium Level 8.1 mg/dl Magnesium Level 2.0 mg/dl Assessment and Plan 81 yo female with history of CVA, HTN 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, presents with profound dyspnea, fatigue, progressive and found to have Hb of 6.2 - Anemia causing dyspnea and fatigue: will transfuse 2 units PRBC no signs of GI bleeding but would be top of differential, d/w GI, they will evaluate for EGD today, NPO order anemia panel (iron, TIBC, ferritin, b12, folic acid) H/H q8, check coagulation profile admit to telemetry - Dyspnea: appears that anemia would be source, symptoms slightly better today had some edema last night due to transfusion, diuresed well with Lasix one dose no hypoxia today on room air - Bronchitis: mild wheezing on exam, will treat with Prednisone and Zithromax, nebulizers - HTN: will continue metoprolol and add back Diltiazem, Lisinopril/HCTZ - h/o CVA: resume aspirin and Plavix - 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
[2016-05-09] MEDS: FERROUS SULFATE 325 MG TAB PO SCH (18:31)
[2016-05-09] MEDS: DOCUSATE SODIUM 100 MG CAP PO SCH ×2 (18:31→18:32)
[2016-05-09] MEDS ORDERED: SIMVASTATIN 20 MG TAB PO SCH (21:00)
[2016-05-10 05:04] VITALS: BP 138/73; PULSE 108; TEMP 36.7; O2SAT 90
[2016-05-10] MEDS: LEVOTHYROXINE 25 MCG TAB PO SCH (06:16)
[2016-05-10 08:00] VITALS: PULSE 94; O2SAT 93
[2016-05-10] MEDS: ALBUT/IPRATROP 3MG/0.5MG NEB 3 ML VIAL INH SCH (08:00)
[2016-05-10 08:01] LABS: BASO % 0.2 %; BASO ABS # 0.02 K/uL (0-0.2); COMPLETE YES; HEMATOCRIT 28.2 % (37-47); IG% 0.2 %; LYMPH % 23.1 %; LYMPH ABS # 2.44 K/uL (1.2-3.4); MEAN CELL VOLUME 81.3 fL (80-100); MEAN CORPUSCULAR HEMOGLOBIN 26.5 pg (25-34); MEAN CORPUSCULAR HGB CONC 32.6 g/dl (32-36); MEAN PLATELET VOLUME 10.4 fL (7.4-10.4); MONO % 9.4 %; NEUT % 66.1 %; PLATELET COUNT 326 K/uL (130-400); RED BLOOD COUNT 3.47 M/uL (4.2-5.4); WHITE BLOOD COUNT 10.54 K/uL (4.8-10.8)
[2016-05-10] MEDS: FERROUS SULFATE 325 MG TAB PO SCH (08:06)
[2016-05-10] MEDS: PANTOprazole INJ 40 MG in SYRINGE 0 ML IV SCH (08:06)
[2016-05-10] MEDS: DOCUSATE SODIUM 100 MG CAP PO SCH ×2 (08:07)
[2016-05-10] MEDS: METOPROLOL TARTRATE 50 MG TAB PO SCH (08:08)
[2016-05-10 08:11] VITALS: BP 159/77; PULSE 100; TEMP 36.5; O2SAT 91
[2016-05-10 08:30] LABS: BUN/CREATININE RATIO 16.7 (10-20); CALCIUM 8.5 mg/dl (8.5-10.1); CREATININE 1.1 mg/dl (0.60-1.20); MAGNESIUM 2.1 mg/dl (1.8-2.4); POTASSIUM 3.4 mmol/L (3.5-5.1)
[2016-05-10] MEDS ORDERED: ASPIRIN 81 MG ECTAB PO SCH (09:00)
[2016-05-10] MEDS ORDERED: DILTIAZEM HCL 120 MG EXT REL CAP PO SCH (09:00)
[2016-05-10] MEDS ORDERED: LISINOPRIL/HCTZ 20/12.5MG TAB PO SCH (09:00)
[2016-05-10] MEDS ORDERED: CLOPIDOGREL BISULFATE 75 MG TAB PO SCH (09:00)
--- NOTE | 2016-05-10 09:30 | DIAGNOSTIC IMAGING REPORT ---
TWO VIEW CHEST CLINICAL HISTORY: Hypoxia. FINDINGS: PA and lateral chest radiographs are compared to study dated 05/08/2016 and correlated with chest CT dated 10/27/2015. The heart is. Minimal projection and there is atherosclerotic calcification of the thoracic aorta. A large hiatal hernia is noted. Chronic interstitial thickening is unchanged. There are small to moderate pleural effusions with bibasilar consolidation. The upper lobes appear clear. There is no pneumothorax. The skeletal structures are osteopenic. There are healed right-sided rib fractures. Degenerative change is present throughout the thoracic spine. IMPRESSION: Bilateral pleural effusions with associated consolidation. This likely represents atelectasis. Correlate clinically for evidence of superimposed pneumonia. Electronically signed by: Carlos Saha M.D. 05/10/2016 9:28 AM
[2016-05-10 11:24] VITALS: BP 120/74; PULSE 78; TEMP 36.6; O2SAT 93
[2016-05-10] MEDS ORDERED: ZTHM250 PO (11:33)
[2016-05-10] MEDS ORDERED: PRED20TA PO (11:33)
[2016-05-10] MEDS ORDERED: DOCU-94 PO (11:33)
[2016-05-10] MEDS ORDERED: FERR325T74 PO (11:33)
--- NOTE | 2016-05-10 11:39 | Discharge Instructions ---
Discharge Instructions Admission Reason for Admission: Anemia, Sob (Shortness Of Breath) Discharge Discharge Diagnosis / Problem: Severe anemia, dyspnea, acute bronchitis Discharge Goals Goal(s): Decrease discomfort, Improve function Activity Recommendations Activity Limitations: resume your previous activity Lifting Limitations: none Exercise/Sports Limitations: as tolerated May Resume Sexual Activity: when tolerated Shower/Bathe: no limitations Driving or Machine Use: no limitations . Instructions / Follow-Up Instructions / Follow-Up Medications: - ZITHROMAX: 250mg daily x 3 more days then stop - PREDNISONE: 20mg daily x 5 more days then stop - FERROUS GLUCONATE: 325mg twice a day, do not stop until instructed to stop by PCP - COLACE: take twice a day to help prevent constipation Anemia: hemoglobin was 6.2, up to 9.0 after transfused 2 units, appropriate response, normal EGD, gastroenterology will call to schedule you for colonoscopy outpatient Iron deficiency: very deficient with ferritin quite low at 7, started on ferrous gluconate twice a day Bronchitis: contributing to shortness of breath, treated with Zithromax ( antibiotic) and Prednisone (steroid) and beta agonist inhalers FOLLOW UP - Please follow up with Dr. Garcia in one week, please call for appointment and request a hospital follow up, very important so that Dr. Garcia can review details of admission and new medications - [facility] gastroenterology will call to schedule a colonoscopy as outpatient You should have a repeat chest x-ray in one week, script provided You should have repeat lab work in one week, script provided Current Hospital Diet Patient's current hospital diet: AHA Diet (Heart Healthy) Discharge Diet Recommended Diet: AHA Diet (Heart Healthy) Pending Studies Studies pending at discharge: no Laboratory Results Last Resulted CBC 05/10/16 07:26 Red Blood Count 3.47, Mean Corpuscular Volume 81.3, Mean Corpuscular Hemoglobin 26.5, Mean Corpuscular Hemoglobin Concent 32.6, Mean Platelet Volume 10.4, Neutrophils (%) (Auto) 66.1, Lymphocytes (%) (Auto) 23.1, Monocytes (%) (Auto) 9.4, Eosinophils (%) (Auto) 1.0, Basophils (%) (Auto) 0.2, Neutrophils # (Auto) 6.96, Lymphocytes # (Auto) 2.44, Monocytes # (Auto) 0.99, Eosinophils # (Auto) 0.11, Basophils # (Auto) 0.02 Last Resulted BMP 05/10/16 07:26 Medical Emergencies . Who to Call and When: Medical Emergencies: If at any time you feel your situation is an emergency, please call 911 immediately. . Non-Emergent Contact Non-Emergency issues call your: Primary Care Provider Call Non-Emergent contact if: you have a fever, you have any medication questions . . "Provider Documentation" section prepared by Octavio Sawant. VTE Core Measure Inpt VTE Proph given/why not?: SCD's [place] Drug Monitoring Program Search Results: no issues identified
[2016-05-10] MEDS ORDERED: PRVHFAIN INH (11:40)
[2016-05-10] MEDS ORDERED: AZITHROMYCIN 250 MG TAB PO ONE (11:45)
[2016-05-10 11:59] VITALS: BP 120/74; PULSE 78; TEMP 36.6; O2SAT 93
[2016-05-10] MEDS ORDERED: IPRATROPIUM BROMIDE/ALBUTEROL respimat INH INH SCH (12:00)
--- NOTE | 2016-05-10 15:20 | Discharge Summary ---
Discharge Summary Admission Date: May 08, 2016 at 09:10 Discharge Date: May 10, 2016 Discharge Disposition: Home Principal Diagnosis: Acute anemia, iron deficiency Problems/Secondary Diagnoses: Acute bronchitis Pulmonary edema after PRBC transfusion Immunizations: Have You Had Influenza Vaccine: Yes History of Tetanus Vaccine?: Unknown History of Pneumococcal: Yes History of Hepatitis B Vaccine: No Procedures: EGD - normal findings PRBC transfusion x 2 Consultations: Gastroenterology Medication Reconciliation New Medications: Albuterol (Ventolin Hfa) 60 Puffs/5400 Mcg Aers 2 PUFFS INH QID PRN for Shortness of Breath for 5 Days, #1 INHALER 2 Refills Azithromycin (Azithromycin) 250 Mg Tab 250 MG PO DAILY for 3 Days, #3 TABS 0 Refills Docusate Sodium (Colace) 100 Mg Cap 1 CAP PO BID for 30 Days, #60 CAP 2 Refills Ferrous Gluconate (Ferrous Gluconate) 325 Mg Tab 1 TAB PO BID for 30 Days, #60 TABS 3 Refills Prednisone (Prednisone) 20 Mg Tab 1 TAB PO DAILY for 5 Days, #5 TAB Continued Medications: Alprazolam (Xanax) 0.5 Mg Tab 0.5 MG PO Q6H PRN for Anxiety, TAB Aspirin (Aspirin Ec) 81 Mg Tab 81 MG PO DAILY 1 at 1730 daily Calcium Carbonate-Cholecalcife (Caltrate 600+D) 1 Tab Tab 1 TAB PO BID 1 at 0530 1 at 1730 Clopidogrel (Plavix) 75 Mg Tab 75 MG PO QAM, TAB Diltiazem Hcl Ext Rel (Tiazac) 120 Mg Capcr 120 MG PO QAM, CAP Ibuprofen Tab (Advil) 200 Mg Tab 400 MG PO Q4 for Pain, TAB Levothyroxine Sodium (Levothyroxine Sodium) 25 Mcg Tab 12.5 MG PO DAILY, TAB Lisinopril/Hctz (Zestoretic 20MG/12.5MG) Tab 1 TAB PO QAM, TAB half tab in morning Metoprolol Tartrate (Lopressor) 50 Mg Tab 25 MG PO BID, TAB half tab BID Simvastatin (Zocor) 20 Mg Tab 20 MG PO QPM, TAB Discharge Exam Patient feeling much better today, breathing stable, sitting up in chair. No issues over night. Long talk with patient and family about plan for d/c to home, all questions answered. Review of Systems: Constitutional: No chills, No fatigue, No fever, No problem reported, No sweats, No weakness, No weight loss Eyes: No diplopia, No discharge, No eye pain, No problem reported, No redness, No worsening of vision ENT: No dental problems, No hearing loss, No nasal symptoms, No problem reported, No sore throat, No tinnitus, No trouble swallowing, No unusual epistaxis Respiratory: + dyspnea on exertion (minimal), No cough, No dyspnea at rest, No hemoptysis, No problem reported, No shortness of breath, No sputum, No wheezing Cardiovascular: No PND, No chest pain, No claudication, No edema, No orthopnea, No palpitations, No problem reported Abdomen: No GI bleeding, No constipation, No diarrhea, No nausea, No pain, No problem reported, No vomiting Musculoskeletal: No calf pain, No joint pain, No muscle pain, No problem reported, No swelling Genitourinary - Female: No dysuria, No urinary frequency, No urinary incontinence, No urinary urgency Neurologic: No balance problems, No memory loss, No numbness/tingling, No paralysis, No problem reported, No vertigo, No weakness Psychiatric: No anhedonism, No anxiety, No depression symptoms, No insomnia , No problem reported, No substance abuse Endocrine: No excessive thirst, No excessive urination, No fatigue, No problem reported Hematologic / Lymphatic: No abnormal bleeding/bruising, No clotting problems , No night sweats, No problem reported, No swollen lymph nodes Integumentary: No bleeding, No color change, No itch, No new/changing skin lesions, No problem reported, No rash Physical Exam: General Appearance: WD/WN, no apparent distress Eyes: normal inspection, EOMI, sclerae normal ENT: normal ENT inspection, hearing grossly normal, pharynx normal Neck: supple, no adenopathy, no JVD, trachea midline Respiratory/Chest: chest non-tender, lungs clear, normal breath sounds, no respiratory distress, no accessory muscle use Cardiovascular: regular rate, rhythm, no edema, no gallop, no JVD, no murmur , normal peripheral pulses Abdomen / GI: normal bowel sounds, non tender, soft, no organomegaly Extremities: normal inspection, no calf tenderness, normal capillary refill , no pedal edema, normal range of motion Neurologic/Psychiatric: 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 as tested, no motor/sensory deficits , alert, normal mood/affect, normal reflexes, oriented x 3 Skin: normal color, warm/dry, no rash Lymphatic: no adenopathy Hospital Course 81 yo female with history of CVA, HTN 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, presents with profound dyspnea, fatigue, progressive and found to have Hb of 6.2 - Severe anemia, iron deficient: transfused 2 units PRBC, Hb responded will, up 9 and stable for two days normal EGD on 05/08, GI will arrange for colonoscopy outpatient Ferritin quite low at 7, ferrous gluconate started BID, Colace added to prevent constipation d/c to home today, Hb stable, no signs of bleeding - Dyspnea: experienced some pulmonary edema after two units PRBC, responded well to Lasix with UO 2500cc breathing stable today no further wheezing, will continue to treat Bronchitis as outpatient - Bronchitis: Zithromax 250mg daily x 3 more days, Prednisone for 5 more days, provided with Ventolin to use PRN - Small pleural effusions: will order repeat CXR for one week from now with results to PCP - HTN: will continue metoprolol and add back Diltiazem, Lisinopril/HCTZ - h/o CVA: resume aspirin and Plavix - 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 Discharge Instructions Please refer to the electronic Patient Visit Report (Discharge Instructions) for additional information. Follow-Up Dr. Garcia in one week Additional Copies To Timothy Garcia M.D.; Keyona Sawant C.R.N.P.
[2016-05-12] MEDS ORDERED: ONDA4TAB65 PO (11:46)
[2016-05-12] MEDS ORDERED: PRLSR20 PO (11:46)
[2016-05-14] MEDS ORDERED: MCRK20 PO (12:08)
[2016-07-29] MEDS ORDERED: FERR325T49 PO (15:47)
[2016-12-09] MEDS ORDERED: IBUP-103 PO (09:06)
[2016-12-09] MEDS ORDERED: QSTP PO (09:06)
== END 2016-05-10 12:56 | disposition home or self-care (01) | DRG 812 ==
LOC: ENRESERVDT → ENRESERVTM → EDBD 07:19 → C.EDB 07:21 → C.MED 09:10
PROVIDERS: ADMIT Internal Medicine; ATTEND Internal Medicine
PROC: 0DB98ZX Excision of Duodenum, Via Natural or Artificial Opening Endoscopic, Diagnostic (ICD-10-PCS; principal; 2016-05-08 13:22)
DX: D50.9 Iron deficiency anemia, unspecified (principal); G12.21 Amyotrophic lateral sclerosis; J81.1 Chronic pulmonary edema; E78.5 Hyperlipidemia, unspecified; I10 Essential (primary) hypertension; M19.90 Unspecified osteoarthritis, unspecified site; R29.898 Other symptoms and signs involving the musculoskeletal system; J20.9 Acute bronchitis, unspecified; I69.398 Other sequelae of cerebral infarction; Z91.81 History of falling; Z80.7 Family history of other malignant neoplasms of lymphoid, hematopoietic and related tissues; Z80.0 Family history of malignant neoplasm of digestive organs; Z82.49 Family history of ischemic heart disease and other diseases of the circulatory system; Z79.02 Long term (current) use of antithrombotics/antiplatelets; Z79.82 Long term (current) use of aspirin; Z79.899 Other long term (current) drug therapy

== ENCOUNTER 2016-05-11 17:22 | Inpatient (IN) | payer OTHER ==
[~2016-05-11] VITALS: Ht 154.9 cm; Wt 71.3 kg
[~2016-05-11 17:22] MED LIST changes: +ALPR-411 PO; +AZIT-57 PO; +DOCU-94 PO; +FERR325T74 PO; -OMEG10007 PO; +PRED20TA PO; +PRVHFAIN INH; -TRAM-10 PO
[2016-05-11] MEDS ORDERED: SODIUM CHLORIDE 0.9% 1000ML 1,000 ML IV STA (18:28)
[2016-05-11] MEDS ORDERED: SODIUM CHLORIDE 0.9% 500ML 500 ML IV STA (18:28)
[2016-05-11 19:19] LABS: HEMATOCRIT 35.2 % (37-47); MEAN CELL VOLUME 84.4 fL (80-100); MEAN CORPUSCULAR HEMOGLOBIN 27.1 pg (25-34); MEAN CORPUSCULAR HGB CONC 32.1 g/dl (32-36); MEAN PLATELET VOLUME 10.5 fL (7.4-10.4); PLATELET COUNT 433 K/uL (130-400); RED BLOOD COUNT 4.17 M/uL (4.2-5.4)
[2016-05-11 19:22] LABS: ALKALINE PHOSPHATASE 104 U/L (45-117); ALT/SGPT 20 U/L (12-78); AST/SGOT 21 U/L (15-37); BUN/CREATININE RATIO 22.5 (10-20); CALCIUM 8.7 mg/dl (8.5-10.1); CARBON DIOXIDE 17 mmol/L (21-32); CHLORIDE 113 mmol/L (98-107); GLUCOSE 150 mg/dl (70-99); SODIUM 142 mmol/L (136-145)
[2016-05-11 19:35] LABS: COMPLETE YES; ECHINOCYTES 1+; EOS % 0.2 %; IG% 0.4 %; LYMPH % 8.4 %; LYMPH ABS # 0.42 K/uL (1.2-3.4); MONO % 6.2 %; NEUT % 84.8 %
[2016-05-11 19:43] LABS: BLOOD UREA NITROGEN 34 mg/dl (7-18)
[2016-05-11] MEDS ORDERED: METOPROLOL TARTRATE 50 MG TAB PO STA (22:32)
[2016-05-11] MEDS ORDERED: AZITHROMYCIN 250 MG TAB PO ONE (22:45)
[2016-05-11] MEDS ORDERED: LOPERAMIDE HCL 2 MG CAP PO STA (23:30)
[2016-05-12] MEDS ORDERED: ALBUTEROL HFA 8 GM INHALER INH PRN (00:45)
[2016-05-12] MEDS ORDERED: ONDANSETRON INJ 2 MG/ML 2 ML VIAL IV PRN (00:45)
[2016-05-12] MEDS ORDERED: ALPRAZOLAM 0.5 MG TAB PO PRN (00:45)
[2016-05-12] MEDS ORDERED: ACETAMINOPHEN 325 MG TAB PO PRN (00:45)
[2016-05-12 01:50] VITALS: BP 150/83; PULSE 83; TEMP 36.9; O2SAT 96; Ht 154.9 cm; Wt 71.3 kg
--- NOTE | 2016-05-12 02:01 | HISTORY & PHYSICAL EXAMINATION ---
DATE OF ADMISSION: 05/12/2016 REASON FOR ADMISSION: Nausea, vomiting, diarrhea, dehydration. HISTORY OF PRESENT ILLNESS: This is an 81-year-old female recently admitted to the hospital with anemia thought due to an occult GI bleed. She has a history of hypertension, hyperlipidemia and CVA with residual right-sided weakness. The patient had also been treated for bronchitis with a course of Zithromax and steroids prior to discharge. Upon discharge from the hospital, she developed diarrhea, then nausea and vomiting, and states that she has become progressively weak. She denies fever. She states that while in the hospital, an elderly patient that was transferred into her room developed a diarrheal illness which she feels she may have contracted by sharing her bathroom. She had been complaining of shortness of breath with exertion for several weeks and this has persisted, although it has not gotten worse. She denies a cough presently and states that her acute respiratory issues had largely resolved. PAST MEDICAL HISTORY: 1. 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 2. Hypertension. 3. She is under evaluation for primary lateral sclerosis. 4. Hyperlipidemia. 5. Anemia. She had presented with a hemoglobin of 6.2 on 05/08/2016 with a low iron. She had a normal endoscopy and is scheduled for an outpatient colonoscopy. She was transfused 2 units of PRBCs while in the hospital. SURGICAL HISTORY: 1. CAREY. 2. Hysterectomy. 3. She had a normal colonoscopy in 2010. SOCIAL HISTORY: The patient does not drink or smoke. She lives with her . FAMILY HISTORY: Mother from complications of CHF. Father from Hodgkin's lymphoma in his 30s. She has a brother that had colon cancer. REVIEW OF SYSTEMS: GENERAL: Describes weakness which has been progressive and malaise. CARDIOVASCULAR: Denies chest pain, palpitations, PND, orthopnea. RESPIRATORY: She has chronic exertional dyspnea which has not worsened. She denies productive cough or wheezing. GASTROINTESTINAL: The patient describes nausea, vomiting and diarrhea without hematochezia or hematemesis as above. All other systems reviewed and negative. PHYSICAL EXAMINATION: VITAL SIGNS: Blood pressure is 119/68, heart rate 101, respirations 18, temperature 36.8, satting at 98% on room air. GENERAL: This is a pleasant overweight elderly female. She is awake, alert, oriented x3, in no distress. HEAD AND NECK: No JVD, bruits, thrush or icterus. Dry mucosal membranes. HEART: S1, S2, regular. No murmurs. LUNGS: Clear to auscultation bilaterally with no crackles or wheezing. ABDOMEN: Nontender, nondistended. Bowel sounds present and hyperactive. EXTREMITIES: No clubbing, cyanosis or edema, with positive pulses. NEUROLOGIC: She has chronic right upper extremity weakness with contracture and no new focal deficits. She is awake, alert and oriented x3. SKIN: Negative for rashes or ulcers. LABORATORY DATA: White count is 5, hemoglobin 11.3, platelets 433. Sodium 142, potassium 4, chloride 113, CO2 17, BUN 34, creatinine 1.5 and glucose 150. ASSESSMENT AND PLAN: This is an 81-year-old female recently admitted to the hospital with anemia and upper respiratory symptoms. The patient had been transfused 2 units of packed red blood cells and underwent an endoscopy which was normal. She was treated for her upper respiratory symptoms with a short course of Zithromax and prednisone in addition to albuterol. While in the hospital, she states that she had a roommate that developed a diarrheal illness and was sharing the bathroom with her. Over the last 2 days following her discharge, she developed nausea, vomiting, diarrhea and resultant dehydration. The patient is admitted with the followin. Nausea, vomiting, diarrhea, dehydration. The patient will be given IV fluids, kept on a clear liquid diet, and we will culture her stool. C. diff toxin is currently negative. Electrolytes will be repeated in the a.m. as her BUN and creatinine are slightly elevated due to dehydration. 2. Upper respiratory symptoms during her previous admission. She has been treated with a short course of Zithromax and prednisone. This may be contributing to her nausea and vomiting. She does not currently have any acute respiratory symptoms. There is also no clear evidence of pneumonia, although she does have chronic bilateral pleural effusions on imaging. We will hold her antibiotics and steroids pending a.m. reevaluation as these can likely be discontinued. She does describe exertional dyspnea, but again, this is chronic. 3. History of cerebrovascular accident. The patient is on aspirin and Plavix which we will continue. 4. Hypertension. We will continue her beta madelyn; however, we have held her lisinopril and HCTZ due to dehydration and BUN and creatinine increase. 5. Anemia, appears to have stabilized. We will repeat hemoglobin in the a.m. following IV hydration and she will continue her daily iron supplementation. She has apparently been scheduled for an outpatient colonoscopy as she had a normal EGD when in the hospital. Total time for this admit including chart review, discussion with the ER physician, review of labs, imaging, extensive recent records and discussion with the patient 40 minutes. The patient is a full code and has been placed on SCDs for prophylaxis due to suspected occult GI bleed. MTDD
--- NOTE | 2016-05-12 02:16 | EMERGENCY ROOM VISIT NOTE ---
History Report prepared by Mason: Devonte Peters Under the Supervision of: Dr. Colton Peres M.D. First contact with patient: 18:18 Chief Complaint: DIARRHEA Stated Complaint: SENT BY DOCTOR Nursing Triage Summary: Pt reports d/c from [facility] yesterday for vomiting Pt reports continued n/v/d into last night no vomiting today, just diarrhea Pt told to come back to ED for more nausea meds Pt denies nausea at this time History of Present Illness The patient is a 81 year old female who presents to the Emergency Room with complaints of persistent diarrhea beginning yesterday. She was discharged from the hospital yesterday with vomiting. She notes that she was found to be anemic at her visit, and was given two units of blood. The patient states that she had no diarrhea before her previous ED visit. She has associated continued vomiting. Her most recent episode of vomiting was 11 hours ago. The patient notes some shortness of breath but this is better than when she was first admitted. She feels generally weak. Pt denies LOC, headache, fevers, chills, diaphoresis, visual changes, neck pain, chest pain, abdominal pain, back pain, melena, hematochezia, urinary symptoms, numbness, lymphadenopathy, rash, or other complaints. Source of History: patient Onset: Yesterday Quality: other (diarrhea) Timing: other (persistent) Associated Symptoms: + vomiting, No abdominal pain, No nausea Review of Systems See HPI for pertinent positives and negatives. A total of ten systems were reviewed and were otherwise negative. Past Medical & Surgical Medical Problems: (1) Dehydration (2) Foreign body (3) Localized, primary osteoarthritis of the pelvic region and thigh (4) Nausea & vomiting Surgical Problems: (1) H/O colonoscopy Family History Patient reports no known family medical history. Social History Smoking Status: Never Smoker Marital Status: Housing Status: lives with significant other Occupation Status: retired Current/Historical Medications Scheduled Aspirin (Aspirin Ec), 81 MG PO DAILY Azithromycin (Azithromycin), 250 MG PO DAILY Calcium Carbonate-Cholecalcife (Caltrate 600+D), 1 TAB PO BID Clopidogrel (Plavix), 75 MG PO QAM Diltiazem Hcl Ext Rel (Tiazac), 120 MG PO QAM Docusate Sodium (Colace), 1 CAP PO BID Ferrous Gluconate (Ferrous Gluconate), 1 TAB PO BID Ibuprofen Tab (Advil), 400 MG PO Q4 Levothyroxine Sodium (Levothyroxine Sodium), 12.5 MG PO DAILY Lisinopril/Hctz (Zestoretic 20MG/12.5MG), 1 TAB PO QAM Metoprolol Tartrate (Lopressor), 25 MG PO BID Prednisone (Prednisone), 1 TAB PO DAILY Simvastatin (Zocor), 20 MG PO QPM Scheduled PRN Albuterol (Ventolin Hfa), 2 PUFFS INH QID PRN for Shortness of Breath Alprazolam (Xanax), 0.5 MG PO Q6H PRN for Anxiety Allergies Coded Allergies: Sulfa Antibiotics (Verified Allergy, Unknown, `, 03/05/16) Physical Exam Vital Signs Date Time Temp Pulse Resp B/P Pulse Ox O2 Delivery O2 Flow Rate FiO2 05/12/16 01:13 95 16 121/72 93 05/11/16 23:07 92 05/11/16 22:30 101 18 119/68 98 Room Air 05/11/16 19:42 96 20 124/73 98 Room Air 05/11/16 17:26 36.8 119 20 115/68 96 Room Air Physical Exam GENERAL: Awake, alert, uncomfortable appearing, no acute distress HEAD: Normocephalic, atraumatic. No edema. EYES: Normal conjunctiva. Sclera non-icteric. OROPHARYNX: Mucous membranes are dry. Lips, tongue, and mucosa unremarkable. No erythema or exudate. NECK: Supple. No nuchal rigidity. FROM. No adenopathy. RESPIRATORY: CTA bilaterally. No wheezes rales or rhonchi. CARDIAC: Regular rate, normal rhythm. ABDOMEN: Soft, non distended. No tenderness to palpation. No rebound or guarding. MUSCULOSKELETAL: Atraumatic. No edema. NEURO: Normal sensorium. SKIN: No rash or jaundice noted Medical Decision & Procedures Laboratory Results 05/11/16 18:43 Red Blood Count 4.17, Mean Corpuscular Volume 84.4, Mean Corpuscular Hemoglobin 27.1, Mean Corpuscular Hemoglobin Concent 32.1, Mean Platelet Volume 10.5, Neutrophils (%) (Auto) 84.8, Lymphocytes (%) (Auto) 8.4, Monocytes (%) (Auto) 6.2, Eosinophils (%) (Auto) 0.2, Basophils (%) (Auto) 0.0, Neutrophils # (Auto) 4.24, Lymphocytes # (Auto) 0.42, Monocytes # (Auto) 0.31, Eosinophils # (Auto) 0.01, Basophils # (Auto) 0.00 05/11/16 18:43 Test 05/11/16 18:43 White Blood Count 5.00 K/uL (4.8-10.8) Red Blood Count 4.17 M/uL (4.2-5.4) Hemoglobin 11.3 g/dL (12.0-16.0) Hematocrit 35.2 % (37-47) Mean Corpuscular Volume 84.4 fL (80-100) Mean Corpuscular Hemoglobin 27.1 pg (25-34) Mean Corpuscular Hemoglobin Concent 32.1 g/dl (32-36) Platelet Count 433 K/uL (130-400) Mean Platelet Volume 10.5 fL (7.4-10.4) Neutrophils (%) (Auto) 84.8 % Lymphocytes (%) (Auto) 8.4 % Monocytes (%) (Auto) 6.2 % Eosinophils (%) (Auto) 0.2 % Basophils (%) (Auto) 0.0 % Neutrophils # (Auto) 4.24 K/uL (1.4-6.5) Lymphocytes # (Auto) 0.42 K/uL (1.2-3.4) Monocytes # (Auto) 0.31 K/uL (0.11-0.59) Eosinophils # (Auto) 0.01 K/uL (0-0.5) Basophils # (Auto) 0.00 K/uL (0-0.2) RDW Standard Deviation 48.3 fL (36.4-46.3) RDW Coefficient of Variation 15.9 % (11.5-14.5) Immature Granulocyte % (Auto) 0.4 % Immature Granulocyte # (Auto) 0.02 K/uL (0.00-0.02) Echinocytes 1+ Anion Gap 12.0 mmol/L (3-11) Estimated GFR () 37.5 Estimated GFR (Non- 32.3 BUN/Creatinine Ratio 22.5 (10-20) Calcium Level 8.7 mg/dl (8.5-10.1) Total Bilirubin 0.3 mg/dl (0.2-1) Direct Bilirubin mg/dl (0-0.2) Aspartate Amino Transf (AST/SGOT) 21 U/L (15-37) Alanine Aminotransferase (ALT/SGPT) 20 U/L (12-78) Alkaline Phosphatase 104 U/L (45-117) Total Protein 7.2 gm/dl (6.4-8.2) Albumin 3.4 gm/dl (3.4-5.0) Lipase 76 U/L (73-393) Date/Time Source Procedure Growth Status 05/11/16 18:59 Stool C.difficile Toxin B Gene (PCR) - Final No C. difficile toxin B gene detected Complete Laboratory results reviewed by me Medications Administered Medications (Trade) Dose Ordered Sig/Miguel Route Start Time Stop Time Status Last Admin Dose Admin Sodium Chloride 1,000 ml @ 125 mls/hr Q8H STAT IV 05/11/16 18:28 05/12/16 02:27 05/11/16 18:28 125 MLS/HR Sodium Chloride (Nss 500ml) 500 ml @ 999 mls/hr Q31M STAT IV 05/11/16 18:28 05/11/16 18:58 DC 05/11/16 18:28 999 MLS/HR Metoprolol Tartrate (Lopressor Tab) 25 mg NOW STAT PO 05/11/16 22:32 05/11/16 22:34 DC 05/11/16 22:32 25 MG Prednisone (PredniSONE TAB) 20 mg NOW STAT PO 05/11/16 22:32 05/11/16 22:34 DC 05/11/16 22:32 20 MG Azithromycin (Zithromax Tab) 250 mg NOW ONCE PO 05/11/16 22:45 05/11/16 22:46 DC 05/11/16 22:45 250 MG Loperamide HCl (Imodium Cap) 2 mg NOW STAT PO 05/11/16 23:30 05/11/16 23:31 DC 05/11/16 23:30 2 MG ED Course 1823: The patient was evaluated in room A3. A complete history and physical exam was performed. 1827: Ordered NSS 500 mL @ 999 mL/hr IV, NSS 1000 mL @ 999 mL/hr IV. 1955: I reassessed the patient. She is resting comfortably. 2231: Ordered Prednisone Tab 20 mg PO, Lopressor Tab 25 mg PO, Zithromax Tab 250 mg PO. 2330: Ordered Imodium Cap 2 mg PO. 2335: Upon reexamination, the patient was resting comfortably. I discussed the test results and treatment plan with her. The patient will be evaluated for further management. Medical Decision Prior records/ancillary studies reviewed and summarized above. Nursing notes reviewed and agree them. Additional history obtained from family. The patient's history was concerning for altered mental status. Differential diagnosis: Etiologies such as gastroenteritis, food borne illness, infections, obstruction , pancreatitis, appendicitis, diverticulitis, inflammatory bowel disease, GI bleed, biliary pathology, toxicologic as well as others were entertained. Physical examination: As above. The patient appeared dehydrated. ER treatment provided: IV Lock Normal saline hydration at 125 mL an hour after a 500 mL bolus Patient declined nausea medication as her last episode of vomiting was early this morning. On reassessment the patient felt somewhat better. She was taking oral fluids. The patient then had multiple episodes of diarrhea. She still felt she would like to try and go home. She requested her evening medications. She was given 25 mg of Lopressor, 20 mg of prednisone, and her Zithromax. On reassessment the patient had several episodes of diarrhea and requested Imodium. She was given a dose. She felt generally weak, too weak to go home. Diagnostics interpretation by me: The labs revealed a mild anemia on CBC. Likely hemoconcentration present. Mild dehydration on chemistry panel. Stool testing revealed a negative C. difficile analysis. Culture pending. The patient is doing relatively well but is short of breath and weak with exertion. She was not hypoxic on exertion however did not feel well enough to go home here and she has had multiple episodes of vomiting and diarrhea throughout last night and today. She continues to have multiple episodes of diarrhea emergency department. I suspect a gastroenteritis on top of her pre- existing conditions. Consultation: A consultation was placed with the hospitalist. The case was discussed and diagnostics were reviewed. The patient was evaluated in the ER for further treatment. The chart was completed utilizing [employer] voice recognition software. Grammatical errors, random word insertions, pronoun errors, and incomplete sentences are an occasional consequence of this system due to software limitations, ambient noise, and hardware issues. Any formal questions or concerns about the content, text, or information contained within the body of this dictation should be directly addressed to the physician for clarification. Consults Time Called: 2315 Consulting Physician: Dr. John -STACIE Returned Call: [phone] Discussed the patient's case. The patient will be evaluated for further treatment and disposition. Impression Primary Impression: Nausea vomiting and diarrhea Additional Impressions: SOB (shortness of breath), Dehydration Scribe Attestation The scribe's documentation has been prepared under my direction and personally reviewed by me in its entirety. I confirm that the note above accurately reflects all work, treatment, procedures, and medical decision making performed by me. Departure Information Dispostion Being Evaluated By Hospitalist Timothy Lane M.D. (PCP) Patient Instructions A Signature Page, My [facility]
[2016-05-12] MEDS: SODIUM CHLORIDE 0.9% 1000ML 1,000 ML IV SCH ×5 (03:57→23:53)
[2016-05-12] MEDS ORDERED: IBUPROFEN 200 MG TAB PO PRN (04:00)
[2016-05-12] MEDS: LEVOTHYROXINE 25 MCG TAB PO SCH (05:44)
[2016-05-12] MEDS: DOCUSATE SODIUM 100 MG CAP PO SCH ×2 (08:00→20:36)
[2016-05-12] MEDS: CLOPIDOGREL BISULFATE 75 MG TAB PO SCH (08:17)
[2016-05-12] MEDS: FERROUS GLUCONATE 324 MG TAB PO SCH ×2 (08:18→20:37)
[2016-05-12] MEDS: ASPIRIN 81 MG ECTAB PO SCH (08:18)
[2016-05-12] MEDS: CALCIUM 600MG + VIT D 400 IU TAB PO SCH ×2 (08:18→20:36)
[2016-05-12] MEDS: DILTIAZEM HCL 120 MG EXT REL CAP PO SCH (08:19)
[2016-05-12 08:56] VITALS: BP 160/92; PULSE 83; TEMP 36.4; O2SAT 96
[2016-05-12 09:37] VITALS: BP 131/77; PULSE 92
[2016-05-12] MEDS: METOPROLOL TARTRATE 25 MG TAB PO SCH ×2 (09:41→20:39)
--- NOTE | 2016-05-12 10:03 | Clinical Documentation Query ---
CLINICAL DOCUMENTATION QUERY Dr. SMART, In your clinical opinion is this patient being managed for: ( x ) Acute kidney failure (POA) on CKD stage III ( ) Other explanation of clinical findings (Please Explain) ( ) Unable to determine (Please Define) ( ) Need to Discuss ( ) Not Agree The medical record reflects the following clinical findings, treatment, and risk factors. Clinical Indicators: 81 yo female presenting with persistent diarrhea as well as nausea and vomiting. Cr 1.5 compared to Cr 1.1 the prior day. Review of EMR showed Cr range of 1.1-1.2. GFR range of 32.3-47. Treatment:500 cc NSS bolus then continuous, stool for C diff as well as cultures, monitor PRP Risk Factors: age, vomiting and diarrhea Acute Kidney Injury is defined as any of the following: o Increase in SCr by (>/=) 0.3 mg/dl within 48 hours; or o Increase in SCr to (>/=)1.5 times baseline, which is known or presumed to have occurred within the prior 7 days; or o Urine volume <0.5 ml/kg/h for 6 hours. Please clarify and document your clinical opinion in the progress notes and discharge summary. Terms such as "probable", "suspected", "likely", "questionable", "possible", or "still to be ruled out" are acceptable. IF IN AGREEMENT, YOU MUST DOCUMENT ABOVE DIAGNOSTIC STATEMENT IN DAILY PROGRESS NOTES AND DISCHARGE SUMMARY. This document is not part of the patient's record. Thank You, Astrid Maher, PAULA [phone]
[2016-05-12] MEDS ORDERED: PRLSR20 PO (11:46)
[2016-05-12] MEDS ORDERED: ONDA4TAB65 PO (11:46)
--- NOTE | 2016-05-12 11:48 | Discharge Instructions ---
Discharge Instructions Admission Reason for Admission: Dehydration,Nausea And Vomiting Discharge Discharge Diagnosis / Problem: gastroenteritis Discharge Goals Goal(s): Increase independence, Improve disease control, Diagnostic testing, Therapeutic intervention Activity Recommendations Activity Limitations: resume your previous activity . Instructions / Follow-Up Instructions / Follow-Up . . stop oral steroids, ibuprofen and azithromycin start oral omeprazole twice a day and oral zofran as needed for nausea follow up Dr Villegas for colonoscopy in few weeks . . Current Hospital Diet Patient's current hospital diet: Full Liquid Diet Discharge Diet Recommended Diet: Regular Diet Pending Studies Studies pending at discharge: no Laboratory Results Last 24 Hours Test 05/11/16 18:43 White Blood Count 5.00 K/uL Red Blood Count 4.17 M/uL Hemoglobin 11.3 g/dL Hematocrit 35.2 % Mean Corpuscular Volume 84.4 fL Mean Corpuscular Hemoglobin 27.1 pg Mean Corpuscular Hemoglobin Concent 32.1 g/dl Platelet Count 433 K/uL Mean Platelet Volume 10.5 fL Neutrophils (%) (Auto) 84.8 % Lymphocytes (%) (Auto) 8.4 % Monocytes (%) (Auto) 6.2 % Eosinophils (%) (Auto) 0.2 % Basophils (%) (Auto) 0.0 % Neutrophils # (Auto) 4.24 K/uL Lymphocytes # (Auto) 0.42 K/uL Monocytes # (Auto) 0.31 K/uL Eosinophils # (Auto) 0.01 K/uL Basophils # (Auto) 0.00 K/uL RDW Standard Deviation 48.3 fL RDW Coefficient of Variation 15.9 % Immature Granulocyte % (Auto) 0.4 % Immature Granulocyte # (Auto) 0.02 K/uL Echinocytes 1+ Sodium Level 142 mmol/L Potassium Level 4.0 mmol/L Chloride Level 113 mmol/L Carbon Dioxide Level 17 mmol/L Anion Gap 12.0 mmol/L Blood Urea Nitrogen 34 mg/dl Creatinine 1.50 mg/dl Estimated GFR () 37.5 Estimated GFR (Non- 32.3 BUN/Creatinine Ratio 22.5 Random Glucose 150 mg/dl Calcium Level 8.7 mg/dl Total Bilirubin 0.3 mg/dl Direct Bilirubin mg/dl Aspartate Amino Transf (AST/SGOT) 21 U/L Alanine Aminotransferase (ALT/SGPT) 20 U/L Alkaline Phosphatase 104 U/L Total Protein 7.2 gm/dl Albumin 3.4 gm/dl Lipase 76 U/L Medical Emergencies . Who to Call and When: Medical Emergencies: If at any time you feel your situation is an emergency, please call 911 immediately. . Non-Emergent Contact Non-Emergency issues call your: Primary Care Provider Call Non-Emergent contact if: your pain is not controlled . Past History Medical & Surgical History: (1) Gastroenteritis . "Provider Documentation" section prepared by Jabari Reilly. VTE Core Measure Inpt VTE Proph given/why not?: SCD's
[2016-05-12 11:52] VITALS: BP 131/77; PULSE 83; TEMP 36.4; O2SAT 96
--- NOTE | 2016-05-12 11:52 | Discharge Summary ---
Discharge Summary Admission Date: May 12, 2016 at 00:38 Discharge Date: May 14, 2016 Discharge Disposition: Home Principal Diagnosis: gastroenteritis Problems/Secondary Diagnoses: acidosis, hypokalemia sec to diarrhea Immunizations: Have You Had Influenza Vaccine: Yes History of Tetanus Vaccine?: Unknown History of Pneumococcal: Yes History of Hepatitis B Vaccine: No Medication Reconciliation New Medications: Omeprazole (Prilosec) 20 Mg Capcr 20 MG PO BID, #60 CAP Ondansetron Hcl (Zofran) 4 Mg Tab 4 MG PO PRN PRN for Nausea, #20 TAB Potassium Chloride (Klor-Con M20) 20 Meq Tabcr 20 MEQ PO DAILY, #14 TABS Continued Medications: Albuterol (Ventolin Hfa) 60 Puffs/5400 Mcg Aers 2 PUFFS INH QID PRN for Shortness of Breath for 5 Days, #1 INHALER 2 Refills Alprazolam (Xanax) 0.5 Mg Tab 0.5 MG PO Q6H PRN for Anxiety, TAB Aspirin (Aspirin Ec) 81 Mg Tab 81 MG PO DAILY 1 at 1730 daily Calcium Carbonate-Cholecalcife (Caltrate 600+D) 1 Tab Tab 1 TAB PO BID 1 at 0530 1 at 1730 Clopidogrel (Plavix) 75 Mg Tab 75 MG PO QAM, TAB Diltiazem Hcl Ext Rel (Tiazac) 120 Mg Capcr 120 MG PO QAM, CAP Docusate Sodium (Colace) 100 Mg Cap 1 CAP PO BID for 30 Days, #60 CAP 2 Refills Ferrous Gluconate (Ferrous Gluconate) 325 Mg Tab 1 TAB PO BID for 30 Days, #60 TABS 3 Refills Levothyroxine Sodium (Levothyroxine Sodium) 25 Mcg Tab 12.5 MG PO DAILY, TAB Lisinopril/Hctz (Zestoretic 20MG/12.5MG) Tab 1 TAB PO QAM, TAB half tab in morning Metoprolol Tartrate (Lopressor) 50 Mg Tab 25 MG PO BID, TAB half tab BID Simvastatin (Zocor) 20 Mg Tab 20 MG PO QPM, TAB Discontinued Medications: Azithromycin (Azithromycin) 250 Mg Tab 250 MG PO DAILY for 3 Days, #3 TABS 0 Refills Ibuprofen Tab (Advil) 200 Mg Tab 400 MG PO Q4, TAB Prednisone (Prednisone) 20 Mg Tab 1 TAB PO DAILY for 5 Days, #5 TAB Referrals At Discharge Follow up Referrals: [facility] Referral - Within 2 Weeks with Jayda Villegas, DO Discharge Exam Review of Systems: Constitutional: No chills ENT: No unusual epistaxis Respiratory: No sputum Abdomen: No nausea Musculoskeletal: No muscle pain Genitourinary - Female: No urinary incontinence, No urinary retention Neurologic: No paralysis, No weakness Endocrine: No fatigue Integumentary: No rash Physical Exam: General Appearance: WD/WN, no apparent distress Eyes: normal inspection, PERRL ENT: hearing grossly normal, pharynx normal Neck: no adenopathy, no JVD Respiratory/Chest: chest non-tender, normal breath sounds Cardiovascular: no edema, no JVD Abdomen / GI: soft, no pulsatile mass Extremities: no calf tenderness Neurologic/Psychiatric: normal mood/affect Skin: normal color, no rash Hospital Course 81-year-old female recently admitted to the hospital with anemia and upper respiratory symptoms. The patient had been transfused 2 units of packed red blood cells and underwent an endoscopy which was normal. She was treated for her upper respiratory symptoms with a short course of Zithromax and prednisone in addition to albuterol. While in the hospital, she states that she had a roommate that developed a diarrheal illness and was sharing the bathroom with her. Over the last 2 days following her discharge, she developed nausea, vomiting, diarrhea and resultant dehydration. The patient is admitted with the followin. Nausea, vomiting, diarrhea, dehydration. Likely gastroenteritis in the setting of taking ibuprofen and prednisone and azithromycin, which we stopped tolerated clear liquid diet, nausea/vomiting and diarrhea improved, advanced diet, d/c on po potassium due to hypokalemia, drink plenty of fluids culture her stool neg. C. diff toxin is currently negative. start PPI bid, zofran prn po f/u GI 2 weeks 2. Upper respiratory symptoms during her previous admission. She has been treated with a short course of Zithromax and prednisone. This may be contributing to her nausea and vomiting. She does not currently have any acute respiratory symptoms. There is also no clear evidence of pneumonia, although she does have chronic bilateral pleural effusions on imaging. stopped prednisone and azithromycin 3. History of cerebrovascular accident. The patient is on aspirin and Plavix which we will continue. 4. Hypertension. We will continue her beta madelyn; lisinopril and HCTZ 5. Anemia, appears to have stabilized. She has apparently been scheduled for an outpatient colonoscopy as she had a normal EGD when in the hospital. d/c home and follow up Dr Villegas few weeks for colonoscopy pt was discharged home on 05/14/16 recs given: stop oral steroids, ibuprofen and azithromycin start oral omeprazole twice a day and oral zofran as needed for nausea start oral potassium daily follow up Dr Villegas for colonoscopy in few weeks Total Time Spent: Greater than 30 minutes This includes examination of the patient, discharge planning, medication reconciliation, and communication with other providers. Discharge Instructions Please refer to the electronic Patient Visit Report (Discharge Instructions) for additional information. Additional Copies To Jayda Villegas, DO
[2016-05-12] MEDS ORDERED: LOPERAMIDE HCL 2 MG CAP PO PRN (14:45)
--- NOTE | 2016-05-12 15:10 | Progress Note ---
Subjective Subjective Date of Service: May 12, 2016. Pt evaluation today including: conversation w/ patient, physical exam, chart review, review of studies, review of inpatient medication list Notes: discharge cancelled due to diarrhea x5 today, did not tolerate diet Problem List Medical Problems: (1) Anemia Status: Acute (2) GI bleed Status: Acute (3) Iliopsoas muscle hematoma Status: Acute (4) Nausea vomiting and diarrhea Status: Acute (5) SOB (shortness of breath) Status: Acute (6) SOB (shortness of breath) Status: Acute Review of Systems Constitutional: No fever ENT: No see HPI Respiratory: No cough Cardiac: No chest pain Abdomen: + diarrhea, No pain Female : No dysuria Neurologic: No memory loss Psychiatric: No depression symptoms Endo: No fatigue Physical Exam Vital Signs Vital Signs Past 24 Hours: Date Time Temp Pulse Resp B/P Pulse Ox O2 Delivery O2 Flow Rate FiO2 05/12/16 11:52 36.4 83 20 96 Room Air 05/12/16 09:37 92 131/77 05/12/16 08:56 36.4 83 20 160/92 96 Room Air 05/12/16 07:50 Room Air 05/12/16 01:50 36.9 83 22 150/83 96 Room Air 05/12/16 01:13 95 16 121/72 93 05/11/16 23:07 92 05/11/16 22:30 101 18 119/68 98 Room Air 05/11/16 19:42 96 20 124/73 98 Room Air 05/11/16 17:26 36.8 119 20 115/68 96 Room Air Physical Exam: General Appearance: WD/WN, no apparent distress Eyes: bilateral eyes normal inspection ENT: hearing grossly normal, pharynx normal Neck: supple, no JVD Respiratory/Chest: chest non-tender, normal breath sounds Cardiovascular: regular rate, rhythm, no gallop Abdomen: normal bowel sounds, soft Extremities: non-tender, no pedal edema Neurologic/Psychiatric: alert, normal mood/affect Skin: normal color, warm/dry Medications Medications: Current Inpatient Medications Medications (Trade) Dose Ordered Sig/Miguel Route Start Time Stop Time Status Last Admin Dose Admin Albuterol (Ventolin Hfa Inhaler) 2 puffs QID PRN INH 05/12/16 00:45 06/11/16 00:44 Alprazolam (Xanax Tab) 0.5 mg Q6H PRN PO 05/12/16 00:45 06/11/16 00:44 Aspirin (Ecotrin Tab) 81 mg DAILY PO 05/12/16 08:00 06/11/16 08:59 05/12/16 08:18 81 MG Clopidogrel Bisulfate (plAVix TAB) 75 mg QAM PO 05/12/16 08:00 06/11/16 08:59 05/12/16 08:17 75 MG Diltiazem HCl (TIAzac CAP) 120 mg QAM PO 05/12/16 08:00 06/11/16 08:59 05/12/16 08:19 120 MG Docusate Sodium (coLACE CAP) 100 mg BID PO 05/12/16 08:00 06/11/16 08:59 Ibuprofen (Advil Tab) 400 mg Q4 PRN PO 05/12/16 04:00 06/11/16 03:59 Levothyroxine Sodium (Synthroid Tab) 12.5 mcg DAILYBB PO 05/12/16 06:30 06/11/16 06:29 Metoprolol Tartrate (Lopressor Tab) 25 mg BID PO 05/12/16 08:00 06/11/16 08:59 05/12/16 09:41 25 MG Simvastatin (Zocor Tab) 20 mg QPM PO 05/12/16 21:00 06/11/16 20:59 Calcium/Vitamin D (Caltrate Plus Tab) 1 tab BID PO 05/12/16 08:00 06/11/16 08:59 05/12/16 08:18 1 TAB Ferrous Gluconate 324 mg 324 mg BID PO 05/12/16 08:00 06/11/16 08:59 05/12/16 08:18 324 MG Sodium Chloride (Nss 1000ml) 1,000 ml @ 125 mls/hr Q8H IV 05/12/16 00:45 06/11/16 00:44 05/12/16 14:39 125 MLS/HR Acetaminophen (Tylenol Tab) 650 mg Q4H PRN PO 05/12/16 00:45 06/11/16 00:44 Ondansetron HCl (Zofran Inj) 4 mg Q6H PRN IV 05/12/16 00:45 06/11/16 00:44 Loperamide HCl (Imodium Cap) 2 mg Q3H PRN PO 05/12/16 14:45 06/11/16 14:44 05/12/16 14:42 2 MG Laboratory Data Labs: Last 24 Hours Test 05/11/16 18:43 05/12/16 15:07 White Blood Count 5.00 K/uL Red Blood Count 4.17 M/uL Hemoglobin 11.3 g/dL Hematocrit 35.2 % Mean Corpuscular Volume 84.4 fL Mean Corpuscular Hemoglobin 27.1 pg Mean Corpuscular Hemoglobin Concent 32.1 g/dl Platelet Count 433 K/uL Mean Platelet Volume 10.5 fL Neutrophils (%) (Auto) 84.8 % Lymphocytes (%) (Auto) 8.4 % Monocytes (%) (Auto) 6.2 % Eosinophils (%) (Auto) 0.2 % Basophils (%) (Auto) 0.0 % Neutrophils # (Auto) 4.24 K/uL Lymphocytes # (Auto) 0.42 K/uL Monocytes # (Auto) 0.31 K/uL Eosinophils # (Auto) 0.01 K/uL Basophils # (Auto) 0.00 K/uL RDW Standard Deviation 48.3 fL RDW Coefficient of Variation 15.9 % Immature Granulocyte % (Auto) 0.4 % Immature Granulocyte # (Auto) 0.02 K/uL Echinocytes 1+ Sodium Level 142 mmol/L Potassium Level 4.0 mmol/L Chloride Level 113 mmol/L Carbon Dioxide Level 17 mmol/L Anion Gap 12.0 mmol/L Blood Urea Nitrogen 34 mg/dl Creatinine 1.50 mg/dl Estimated GFR () 37.5 Estimated GFR (Non- 32.3 BUN/Creatinine Ratio 22.5 Random Glucose 150 mg/dl Calcium Level 8.7 mg/dl Total Bilirubin 0.3 mg/dl Direct Bilirubin mg/dl Aspartate Amino Transf (AST/SGOT) 21 U/L Alanine Aminotransferase (ALT/SGPT) 20 U/L Alkaline Phosphatase 104 U/L Total Protein 7.2 gm/dl Albumin 3.4 gm/dl Lipase 76 U/L Assessment and Plan 81-year-old female recently admitted to the hospital with anemia and upper respiratory symptoms. The patient had been transfused 2 units of packed red blood cells and underwent an endoscopy which was normal. She was treated for her upper respiratory symptoms with a short course of Zithromax and prednisone in addition to albuterol. While in the hospital, she states that she had a roommate that developed a diarrhea, Over the last 2 days following her discharge, she developed nausea, vomiting, diarrhea and resultant dehydration. The patient is admitted with the followin. Nausea, vomiting, diarrhea, dehydration. Likely gastroenteritis in the setting of taking ibuprofen and prednisone and azithromycin, which we stopped tolerated clear liquid diet, nausea/vomiting and diarrhea which still persists today and her discharge was cancelled loperamide added, cdiff is negative culture her stool neg. PPI bid, zofran prn po f/u GI 2 weeks 2. Upper respiratory symptoms during her previous admission. She has been treated with a short course of Zithromax and prednisone. This may be contributing to her nausea and vomiting. She does not currently have any acute respiratory symptoms. There is also no clear evidence of pneumonia, although she does have chronic bilateral pleural effusions on imaging. stopped prednisone and azithromycin 3. History of cerebrovascular accident. The patient is on aspirin and Plavix which we will continue. 4. Hypertension. We will continue her beta madelyn; lisinopril and HCTZ 5. Anemia, appears to have stabilized. She has apparently been scheduled for an outpatient colonoscopy as she had a normal EGD when in the hospital. d/c home when ready and follow up Dr Villegas few weeks for colonoscopy
[2016-05-12 16:00] VITALS: BP 149/81; PULSE 75; TEMP 36.8; O2SAT 96
[2016-05-12 16:32] LABS: BUN/CREATININE RATIO 18.6 (10-20); CALCIUM 8.1 mg/dl (8.5-10.1); CREATININE 1.1 mg/dl (0.60-1.20); POTASSIUM 3.3 mmol/L (3.5-5.1)
[2016-05-12 16:39] LABS: BASO % 0.2 %; BASO ABS # 0.01 K/uL (0-0.2); COMPLETE YES; EOS % 0.2 %; HEMATOCRIT 29.8 % (37-47); IG% 0.6 %; LYMPH % 26.5 %; LYMPH ABS # 1.36 K/uL (1.2-3.4); MEAN CELL VOLUME 82.8 fL (80-100); MEAN CORPUSCULAR HEMOGLOBIN 26.4 pg (25-34); MEAN CORPUSCULAR HGB CONC 31.9 g/dl (32-36); MEAN PLATELET VOLUME 10.4 fL (7.4-10.4); NEUT % 58.5 %; PLATELET COUNT 324 K/uL (130-400); WHITE BLOOD COUNT 5.14 K/uL (4.8-10.8)
[2016-05-12 20:39] VITALS: BP 153/73; PULSE 110; O2SAT 97
[2016-05-12] MEDS: SIMVASTATIN 20 MG TAB PO SCH (21:00)
[2016-05-13 00:12] VITALS: BP 149/79; PULSE 78; TEMP 36.8; O2SAT 97
[2016-05-13] MEDS: LEVOTHYROXINE 25 MCG TAB PO SCH (06:00)
[2016-05-13] MEDS: SODIUM CHLORIDE 0.9% 1000ML 1,000 ML IV SCH (06:27)
[2016-05-13 08:14] VITALS: BP 153/75; PULSE 86; TEMP 36.8; O2SAT 95
[2016-05-13] MEDS ORDERED: POTASSIUM CHLORIDE 20 MEQ TABCR PO STA (08:30)
[2016-05-13 08:43] LABS: HEMATOCRIT 29.3 % (37-47); MEAN CELL VOLUME 82.1 fL (80-100); MEAN CORPUSCULAR HEMOGLOBIN 26.9 pg (25-34); MEAN CORPUSCULAR HGB CONC 32.8 g/dl (32-36); MEAN PLATELET VOLUME 9.9 fL (7.4-10.4); PLATELET COUNT 307 K/uL (130-400); RED BLOOD COUNT 3.57 M/uL (4.2-5.4); WHITE BLOOD COUNT 8.61 K/uL (4.8-10.8)
[2016-05-13] MEDS ORDERED: POTASSIUM CHLORIDE IV SCH (09:00)
[2016-05-13] MEDS ORDERED: DEXTROSE IV SCH (09:00)
[2016-05-13] MEDS ORDERED: [UNRECOGNIZED DRUG - OTHER] IV SCH (09:00)
[2016-05-13] MEDS ORDERED: SODIUM BICARBONATE IV SCH (09:00)
[2016-05-13 09:10] LABS: BUN/CREATININE RATIO 15.9 (10-20); CALCIUM 7.4 mg/dl (8.5-10.1); CREATININE 0.88 mg/dl (0.60-1.20); MAGNESIUM 1.7 mg/dl (1.8-2.4); POTASSIUM 2.9 mmol/L (3.5-5.1)
[2016-05-13 09:16] VITALS: BP 153/76; PULSE 87
[2016-05-13] MEDS: DOCUSATE SODIUM 100 MG CAP PO SCH ×2 (09:18→20:00)
[2016-05-13] MEDS: CALCIUM 600MG + VIT D 400 IU TAB PO SCH ×2 (09:18→20:52)
[2016-05-13] MEDS: CLOPIDOGREL BISULFATE 75 MG TAB PO SCH (09:19)
[2016-05-13] MEDS: FERROUS GLUCONATE 324 MG TAB PO SCH ×2 (09:19→20:51)
[2016-05-13] MEDS: DILTIAZEM HCL 120 MG EXT REL CAP PO SCH (09:19)
[2016-05-13] MEDS: ASPIRIN 81 MG ECTAB PO SCH (09:19)
[2016-05-13] MEDS: METOPROLOL TARTRATE 25 MG TAB PO SCH ×2 (09:19→20:54)
[2016-05-13] MEDS: [UNRECOGNIZED DRUG - OTHER] IV SCH ×2 (09:37→18:51)
[2016-05-13] MEDS: POTASSIUM CHLORIDE IV SCH ×2 (09:37→18:51)
[2016-05-13] MEDS: SODIUM BICARBONATE IV SCH ×2 (09:37→18:51)
[2016-05-13 11:13] LABS: ARTERIAL BLD GAS O2 SATURATION 96.4 % (90-95); ARTERIAL BLOOD GAS BASE EXCESS -6.8 mEq/L (-9-1.8); ARTERIAL BLOOD GAS HCO3 16 mmol/L (19-24); ARTERIAL BLOOD GAS PO2 85 mm/Hg (80-95); ARTERIAL BLOOD GAS pH 7.44 (7.35-7.45)
[2016-05-13 11:16] LABS: ALLEN TEST POS (POS); O2 ADMINISTRATION ROOM AIR
[2016-05-13] MEDS: MAGNESIUM SULFATE 1GM / D5W 1 GM in PREMIXED IN D5W 100 ML IV SCH ×2 (12:27→13:26)
[2016-05-13 15:41] VITALS: BP 138/72; PULSE 68; TEMP 36.6; O2SAT 97
[2016-05-13 16:00] VITALS: O2SAT 97
[2016-05-13 18:22] LABS: BUN/CREATININE RATIO 11.5 (10-20); CALCIUM 7.1 mg/dl (8.5-10.1); CREATININE 0.87 mg/dl (0.60-1.20); POTASSIUM 3.2 mmol/L (3.5-5.1)
[2016-05-13] MEDS ORDERED: POTASSIUM CHLORIDE 20 MEQ TABCR PO ONE (18:33)
--- NOTE | 2016-05-13 18:38 | Progress Note ---
Subjective Subjective Date of Service: May 13, 2016. Pt evaluation today including: conversation w/ patient, physical exam, chart review, review of studies, review of inpatient medication list Notes: diarrhea improving Problem List Medical Problems: (1) Anemia Status: Acute (2) GI bleed Status: Acute (3) Iliopsoas muscle hematoma Status: Acute (4) Nausea vomiting and diarrhea Status: Acute (5) SOB (shortness of breath) Status: Acute (6) SOB (shortness of breath) Status: Acute Review of Systems Constitutional: No fever ENT: No hearing loss Respiratory: No cough Cardiac: No chest pain Abdomen: + diarrhea, No pain Female : No dysuria Neurologic: No memory loss Endo: No fatigue Physical Exam Vital Signs Vital Signs Past 24 Hours: Date Time Temp Pulse Resp B/P Pulse Ox O2 Delivery O2 Flow Rate FiO2 05/13/16 15:41 36.6 68 20 138/72 97 Room Air 05/13/16 09:16 87 153/76 05/13/16 08:14 36.8 86 18 153/75 95 Room Air 05/13/16 07:30 Room Air 05/13/16 00:18 Room Air 05/13/16 00:12 36.8 78 18 149/79 97 Room Air 05/12/16 20:39 110 20 153/73 97 Room Air 05/12/16 20:00 Room Air Physical Exam: General Appearance: WD/WN, no apparent distress Eyes: bilateral eyes normal inspection ENT: hearing grossly normal, pharynx normal Neck: supple, no JVD Respiratory/Chest: lungs clear, no accessory muscle use Cardiovascular: regular rate, rhythm, no gallop Abdomen: normal bowel sounds, soft Extremities: normal range of motion, normal inspection Neurologic/Psychiatric: no motor/sensory deficits, alert Medications Medications: Current Inpatient Medications Medications (Trade) Dose Ordered Sig/Miguel Route Start Time Stop Time Status Last Admin Dose Admin Albuterol (Ventolin Hfa Inhaler) 2 puffs QID PRN INH 05/12/16 00:45 06/11/16 00:44 Alprazolam (Xanax Tab) 0.5 mg Q6H PRN PO 05/12/16 00:45 06/11/16 00:44 Aspirin (Ecotrin Tab) 81 mg DAILY PO 05/12/16 08:00 06/11/16 08:59 05/13/16 09:19 81 MG Clopidogrel Bisulfate (plAVix TAB) 75 mg QAM PO 05/12/16 08:00 06/11/16 08:59 05/13/16 09:19 75 MG Diltiazem HCl (TIAzac CAP) 120 mg QAM PO 05/12/16 08:00 06/11/16 08:59 05/13/16 09:19 120 MG Docusate Sodium (coLACE CAP) 100 mg BID PO 05/12/16 08:00 06/11/16 08:59 Ibuprofen (Advil Tab) 400 mg Q4 PRN PO 05/12/16 04:00 06/11/16 03:59 Levothyroxine Sodium (Synthroid Tab) 12.5 mcg DAILYBB PO 05/12/16 06:30 06/11/16 06:29 Metoprolol Tartrate (Lopressor Tab) 25 mg BID PO 05/12/16 08:00 06/11/16 08:59 05/13/16 09:19 25 MG Simvastatin (Zocor Tab) 20 mg QPM PO 05/12/16 21:00 06/11/16 20:59 Calcium/Vitamin D (Caltrate Plus Tab) 1 tab BID PO 05/12/16 08:00 06/11/16 08:59 05/12/16 08:18 1 TAB Ferrous Gluconate (Ferrous Gluconate Tab) 324 mg BID PO 05/12/16 08:00 06/11/16 08:59 05/13/16 09:19 324 MG Acetaminophen (Tylenol Tab) 650 mg Q4H PRN PO 05/12/16 00:45 06/11/16 00:44 Ondansetron HCl (Zofran Inj) 4 mg Q6H PRN IV 05/12/16 00:45 06/11/16 00:44 05/13/16 09:44 4 MG Loperamide HCl 2 mg 2 mg Q3H PRN PO 05/12/16 14:45 06/11/16 14:44 05/12/16 14:42 2 MG Sodium Bicarbonate/ Potassium Chloride/Dextrose/ Sodium Chloride (Sodium Bicarbonate 8.4% Inj/KCl Inj/D5W And 1/2nss) 1,110 ml @ 125 mls/hr Q8H53M IV 05/13/16 09:00 06/12/16 08:59 05/13/16 09:37 125 MLS/HR Laboratory Data Labs: Last 24 Hours Test 05/13/16 07:50 05/13/16 11:03 05/13/16 17:52 White Blood Count 8.61 K/uL Red Blood Count 3.57 M/uL Hemoglobin 9.6 g/dL Hematocrit 29.3 % Mean Corpuscular Volume 82.1 fL Mean Corpuscular Hemoglobin 26.9 pg Mean Corpuscular Hemoglobin Concent 32.8 g/dl RDW Standard Deviation 47.2 fL RDW Coefficient of Variation 16.0 % Platelet Count 307 K/uL Mean Platelet Volume 9.9 fL Sodium Level 144 mmol/L 142 mmol/L Potassium Level 2.9 mmol/L 3.2 mmol/L Chloride Level 117 mmol/L 113 mmol/L Carbon Dioxide Level 15 mmol/L 19 mmol/L Anion Gap 12.0 mmol/L 10.0 mmol/L Blood Urea Nitrogen 14 mg/dl 10 mg/dl Creatinine 0.88 mg/dl 0.87 mg/dl Est Creatinine Clear Calc Drug Dose 45.3 ml/min 45.8 ml/min Estimated GFR () 71.4 72.4 Estimated GFR (Non- 61.6 62.5 BUN/Creatinine Ratio 15.9 11.5 Random Glucose 82 mg/dl 125 mg/dl Calcium Level 7.4 mg/dl 7.1 mg/dl Magnesium Level 1.7 mg/dl Arterial Blood pH 7.44 Arterial Blood Partial Pressure CO2 24 mmHg Arterial Blood Partial Pressure O2 85 mm/Hg Arterial Blood HCO3 16 mmol/L Arterial Blood Oxygen Saturation 96.4 % Arterial Blood Base Excess -6.8 mEq/L Arterial Blood Gas Delivery ROOM AIR Juan J Test POS Lactic Acid Level 0.6 mmol/L Assessment and Plan 81-year-old female recently admitted to the hospital with anemia and upper respiratory symptoms. The patient had been transfused 2 units of packed red blood cells and underwent an endoscopy which was normal. She was treated for her upper respiratory symptoms with a short course of Zithromax and prednisone in addition to albuterol. While in the hospital, she states that she had a roommate that developed a diarrhea, Over the last 2 days following her discharge, she developed nausea, vomiting, diarrhea and resultant dehydration. The patient is admitted with the followin. Nausea, vomiting, diarrhea, dehydration. Likely gastroenteritis in the setting of taking ibuprofen and prednisone and azithromycin, which we stopped tolerated diet, diarrhea is improving loperamide added, cdiff is negative culture her stool neg. PPI bid, zofran prn po f/u GI 2 weeks 2. Metabolic acidosis with hypokalemia sec to diarrhea, cont IVF with bicarb, potassium replaced 2. ARF POA on CKD st 3, watch creatinine, cont IVF 2. Upper respiratory symptoms during her previous admission. She has been treated with a short course of Zithromax and prednisone. This may be contributing to her nausea and vomiting. She does not currently have any acute respiratory symptoms. There is also no clear evidence of pneumonia, although she does have chronic bilateral pleural effusions on imaging. stopped prednisone and azithromycin 3. History of cerebrovascular accident. The patient is on aspirin and Plavix which we will continue. 4. Hypertension. We will continue her beta madelyn; lisinopril and HCTZ 5. Anemia, appears to have stabilized. She has apparently been scheduled for an outpatient colonoscopy as she had a normal EGD when in the hospital. d/c home when ready and follow up Dr Villegas few weeks for colonoscopy
[2016-05-13] MEDS: SIMVASTATIN 20 MG TAB PO SCH (20:52)
[2016-05-13 20:54] VITALS: BP 121/78; PULSE 80
[2016-05-13 22:25] LABS: URINE APPEARANCE CLEAR (CLEAR); URINE BILIRUBIN NEG (NEG); URINE COLOR YELLOW; URINE NITRITE NEG (NEG); URINE PH 5.5 (4.5-7.5); URINE SPECIFIC GRAVITY 1.013 (1.000-1.030); UROBILINOGEN NEG (NEG); ZZUR CULT IF INDIC CLEAN CATCH NO
[2016-05-13 22:27] LABS: MANUAL MICROSCOPIC REQUIRED? NO; REVIEW REQ? NO
[2016-05-14 00:47] VITALS: BP 137/68; PULSE 75; TEMP 36.6; O2SAT 92
[2016-05-14] MEDS: SODIUM BICARBONATE IV SCH (02:53)
[2016-05-14] MEDS: [UNRECOGNIZED DRUG - OTHER] IV SCH (02:53)
[2016-05-14] MEDS: POTASSIUM CHLORIDE IV SCH (02:53)
[2016-05-14] MEDS: LEVOTHYROXINE 25 MCG TAB PO SCH (06:09)
[2016-05-14 06:59] LABS: BASO % 0.2 %; BASO ABS # 0.02 K/uL (0-0.2); EOS % 1.6 %; HEMATOCRIT 26.4 % (37-47); IG% 0.3 %; MEAN CELL VOLUME 81.7 fL (80-100); MEAN CORPUSCULAR HEMOGLOBIN 26.9 pg (25-34); MEAN PLATELET VOLUME 9.8 fL (7.4-10.4); MONO % 8.9 %; PLATELET COUNT 269 K/uL (130-400); RED BLOOD COUNT 3.23 M/uL (4.2-5.4); WHITE BLOOD COUNT 10.01 K/uL (4.8-10.8)
[2016-05-14 07:34] LABS: CREATININE 0.8 mg/dl (0.60-1.20)
[2016-05-14 07:35] LABS: CALCIUM 7.1 mg/dl (8.5-10.1); MAGNESIUM 1.9 mg/dl (1.8-2.4); POTASSIUM 3.3 mmol/L (3.5-5.1)
[2016-05-14 07:37] VITALS: BP 122/71; PULSE 72; TEMP 36.7; O2SAT 94
[2016-05-14 07:47] LABS: COMPLETE YES
[2016-05-14] MEDS: DOCUSATE SODIUM 100 MG CAP PO SCH (08:00)
[2016-05-14] MEDS ORDERED: POTASSIUM CHLORIDE 20 MEQ TABCR PO STA (08:08)
[2016-05-14] MEDS: DILTIAZEM HCL 120 MG EXT REL CAP PO SCH (08:45)
[2016-05-14] MEDS: METOPROLOL TARTRATE 25 MG TAB PO SCH (08:45)
[2016-05-14] MEDS: CLOPIDOGREL BISULFATE 75 MG TAB PO SCH (08:45)
[2016-05-14] MEDS: FERROUS GLUCONATE 324 MG TAB PO SCH (08:45)
[2016-05-14] MEDS: CALCIUM 600MG + VIT D 400 IU TAB PO SCH (08:45)
[2016-05-14] MEDS: ASPIRIN 81 MG ECTAB PO SCH (08:45)
[2016-05-14] MEDS ORDERED: MCRK20 PO (12:08)
[2016-05-14 12:12] VITALS: BP 122/71; PULSE 72; TEMP 36.7; O2SAT 94
[2016-07-29] MEDS ORDERED: FERR325T49 PO (15:47)
[2016-12-09] MEDS ORDERED: IBUP-103 PO (09:06)
[2016-12-09] MEDS ORDERED: QSTP PO (09:06)
== END 2016-05-14 15:14 | disposition home health service (06) | DRG 683 ==
LOC: ENRESERVTM → ENRESERVDT → C.EDB 17:23 → C.MS4W 05-12 00:38
PROVIDERS: ADMIT Internal Medicine; ATTEND Hospitalist
DX: N17.9 Acute kidney failure, unspecified (principal); E87.2 Acidosis; J90 Pleural effusion, not elsewhere classified; I69.359 Hemiplegia and hemiparesis following cerebral infarction affecting unspecified side; K52.9 Noninfective gastroenteritis and colitis, unspecified; N18.9 Chronic kidney disease, unspecified; D64.9 Anemia, unspecified; E86.0 Dehydration; E78.5 Hyperlipidemia, unspecified; I12.9 Hypertensive chronic kidney disease with stage 1 through stage 4 chronic kidney disease, or unspecified chronic kidney disease; E87.6 Hypokalemia; R06.02 Shortness of breath; Z79.82 Long term (current) use of aspirin; Z79.02 Long term (current) use of antithrombotics/antiplatelets; Z79.899 Other long term (current) drug therapy; Z79.1 Long term (current) use of non-steroidal anti-inflammatories (NSAID); Z79.52 Long term (current) use of systemic steroids

== ENCOUNTER → 2016-05-15 | Outpatient (CLI) | payer OTHER ==
[~2016-05-15] MED LIST changes: +ASPEC81 PO; -AZIT-57 PO; +DOCU100C31 PO; +FERR325T49 PO; +FRRG PO; +MCRK20 PO; +METH-307 PO; +ONDA4TAB65 PO; -PRED20TA PO; +PRLSR20 PO; +QSTP PO
[2016-05-15 10:06] LABS: HEMATOCRIT 30.2 % (37-47); MEAN CELL VOLUME 83.4 fL (80-100); MEAN CORPUSCULAR HEMOGLOBIN 26.5 pg (25-34); MEAN CORPUSCULAR HGB CONC 31.8 g/dl (32-36); MEAN PLATELET VOLUME 10.5 fL (7.4-10.4); PLATELET COUNT 305 K/uL (130-400); RED BLOOD COUNT 3.62 M/uL (4.2-5.4); WHITE BLOOD COUNT 9.66 K/uL (4.8-10.8)
== END | disposition home or self-care (01) ==
LOC: C.LABSPEC 09:50
PROVIDERS: ATTEND Internal Medicine
DX: D50.9 Iron deficiency anemia, unspecified (principal)

== ENCOUNTER → 2016-05-16 | Outpatient (CLI) | payer OTHER ==
[~2016-05-16] MED LIST changes: -DOCU100C31 PO
[2016-05-16 10:39] LABS: HEMATOCRIT 29.5 % (37-47); MEAN CELL VOLUME 81.7 fL (80-100); MEAN CORPUSCULAR HEMOGLOBIN 26.6 pg (25-34); MEAN PLATELET VOLUME 10.4 fL (7.4-10.4); PLATELET COUNT 302 K/uL (130-400); RED BLOOD COUNT 3.61 M/uL (4.2-5.4); WHITE BLOOD COUNT 8.98 K/uL (4.8-10.8)
[2016-05-16 10:41] LABS: MEAN CORPUSCULAR HGB CONC 32.5 g/dl (32-36)
== END | disposition home or self-care (01) ==
LOC: C.LABSPEC 14:28
PROVIDERS: ATTEND Family Medicine
DX: D64.9 Anemia, unspecified (principal)

== ENCOUNTER → 2016-05-18 | Outpatient (CLI) | payer OTHER ==
[~2016-05-18] MED LIST changes: +DOCU100C31 PO
[2016-05-18 13:18] LABS: BASO % 0.4 %; BASO ABS # 0.03 K/uL (0-0.2); HEMATOCRIT 31.3 % (37-47); LYMPH % 26.1 %; LYMPH ABS # 1.89 K/uL (1.2-3.4); MEAN CELL VOLUME 82.6 fL (80-100); MEAN CORPUSCULAR HEMOGLOBIN 25.9 pg (25-34); MEAN PLATELET VOLUME 10.8 fL (7.4-10.4); MONO % 10.4 %; NEUT % 58.1 %; PLATELET COUNT 356 K/uL (130-400); RED BLOOD COUNT 3.79 M/uL (4.2-5.4); WHITE BLOOD COUNT 7.23 K/uL (4.8-10.8)
[2016-05-18 13:20] LABS: MEAN CORPUSCULAR HGB CONC 31.3 g/dl (32-36)
[2016-05-18 13:41] LABS: FERRITIN 15.6 ng/ml (8.0-388.0)
[2016-05-18 14:05] LABS: COMPLETE YES
--- NOTE | 2016-05-29 06:54 | CODING QUERY NO DIAGNOSIS ---
Valid Physician Order Needed A valid physician order must be submitted in order to properly bill for the service(s) provided, including date of service(s), valid diagnosis, and physician signature. If these tests are done on a recurring basis the original physican order must be submitted in order to code and bill for the service(s) provided. Please fax us the original, signed physician order so that we may expedite billing to [phone] DOS 05/18/16 * CBC, retic count, vitamin B12, ferritin, iron ordered by Dr. Obregon Thank you [facility] Information Management
== END | disposition home or self-care (01) ==
LOC: C.LABSPEC 12:44
PROVIDERS: ATTEND Family Medicine
DX: D64.9 Anemia, unspecified (principal)

== ENCOUNTER → 2016-06-03 | Outpatient (CLI) | payer OTHER ==
[~2016-06-03] MED LIST changes: -DOCU100C31 PO; -ONDA4TAB65 PO
[2016-06-03 11:24] LABS: HEMATOCRIT 34.2 % (37-47); MEAN CELL VOLUME 84.9 fL (80-100); MEAN CORPUSCULAR HEMOGLOBIN 26.8 pg (25-34); MEAN CORPUSCULAR HGB CONC 31.6 g/dl (32-36); MEAN PLATELET VOLUME 11.1 fL (7.4-10.4); PLATELET COUNT 379 K/uL (130-400); RED BLOOD COUNT 4.03 M/uL (4.2-5.4); WHITE BLOOD COUNT 5.91 K/uL (4.8-10.8)
--- NOTE | 2016-06-06 07:52 | CODING QUERY NO DIAGNOSIS ---
Valid Physician Order Needed A valid physician order must be submitted in order to properly bill for the service(s) provided, including date of service(s), valid diagnosis, and physician signature. If these tests are done on a recurring basis the original physican order must be submitted in order to code and bill for the service(s) provided. Please fax us the original, signed physician order so that we may expedite billing to [phone] DOS 06/03/16 * CBC AND OCCULT STOOL ORDERED BY DR. AMADO Thank you Swathi [facility] Information Management
== END | disposition home or self-care (01) ==
LOC: C.LABSPEC 11:06
PROVIDERS: ATTEND Family Medicine
DX: D50.9 Iron deficiency anemia, unspecified (principal); E86.0 Dehydration; I10 Essential (primary) hypertension

== ENCOUNTER → 2016-06-10 | Outpatient (CLI) | payer OTHER | END | disposition home or self-care (01) | LOC: C.LABSPEC 10:41 | PROVIDERS: ATTEND Family Medicine | DX: E86.0 Dehydration (principal); D50.9 Iron deficiency anemia, unspecified; I10 Essential (primary) hypertension ==

== ENCOUNTER → 2016-06-17 | Outpatient (CLI) | payer OTHER ==
--- NOTE | 2016-06-18 10:45 | CODING QUERY NO DIAGNOSIS ---
Valid Physician Order Needed A valid physician order must be submitted in order to properly bill for the service(s) provided, including date of service(s), valid diagnosis, and physician signature. If these tests are done on a recurring basis the original physician order must be submitted in order to code and bill for the service(s) provided. Please fax us the original, signed physician order so that we may expedite billing to [phone] DOS 06/17/2016 * OCCULT BLOOD, FECAL Thank you Everette [facility] Information Management
== END | disposition home or self-care (01) ==
LOC: C.LABSPEC 09:53
PROVIDERS: ATTEND Family Medicine
DX: E86.0 Dehydration (principal); D50.9 Iron deficiency anemia, unspecified; I10 Essential (primary) hypertension

== ENCOUNTER 2016-06-19 14:09 | Emergency (ER) | payer OTHER ==
[~2016-06-19] VITALS: Ht 152.4 cm; Wt 73.0 kg
[~2016-06-19 14:09] MED LIST changes: -ASPEC81 PO; -FERR325T49 PO; -FRRG PO; -IBUP-103 PO; -METH-307 PO; -QSTP PO
[2016-06-19 14:13] VITALS: TEMP 36.6; Ht 152.4 cm; Wt 73.0 kg
[2016-06-19] MEDS ORDERED: IBUPROFEN 200 MG TAB PO STA (14:39)
--- NOTE | 2016-06-19 15:49 | DIAGNOSTIC IMAGING REPORT ---
RIGHT HIP UNILATERAL 2 VIEWS CLINICAL HISTORY: eval for fx Right trauma COMPARISON: None. DISCUSSION: Total right hip arthroplasty good position. No evidence for acetabular protrusion. There is no evidence for soft tissue swelling. IMPRESSION: No acute process Electronically signed by: Jermaine Mullen M.D. 06/19/2016 3:48 PM Dictated Date/Time: 06/19/2016 3:47 PM
--- NOTE | 2016-06-19 15:50 | DIAGNOSTIC IMAGING REPORT ---
RIGHT HUMERUS MIN 2 VIEWS ROUTINE CLINICAL HISTORY: upper humeral pain eval for fx Right pain COMPARISON: None. DISCUSSION: The bones and joint spaces appear intact. There is no evidence of fracture, dislocation or bony disease. Moderate degenerative change right shoulder. Cortical margins are intact. Several old right-sided rib fractures. 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 No acute process. Electronically signed by: Jermaine Mullen M.D. 06/19/2016 3:49 PM Dictated Date/Time: 06/19/2016 3:48 PM
--- NOTE | 2016-06-19 15:51 | DIAGNOSTIC IMAGING REPORT ---
PELVIS 1 OR 2 VIEW ROUTINE CLINICAL HISTORY: eval for fx trauma. Pain. COMPARISON: 06/23/2012 DISCUSSION: Prior total right hip replacement. Moderate degenerative change left hip as well as low lumbar spine. No acute bony abnormality. There is no evidence for soft tissue swelling. IMPRESSION: No acute process. Chronic and postoperative change is noted. Electronically signed by: Jermaine Mullen M.D. 06/19/2016 3:50 PM Dictated Date/Time: 06/19/2016 3:49 PM
[2016-06-19 17:07] VITALS: BP 140/64; PULSE 73; O2SAT 95
--- NOTE | 2016-06-19 17:07 | DIAGNOSTIC IMAGING REPORT ---
CT OF THE PELVIS WITHOUT CONTRAST CT DOSE: 1304.28 mGy.cm CLINICAL HISTORY: Right hip and groin pain. Evaluate for fracture. TECHNIQUE: Axial images of the pelvis and hips were obtained without IV contrast. Coronal and sagittal reformats were viewed. COMPARISON STUDY: CT of the pelvis March 05, 2016 and right hip radiographs performed earlier today. FINDINGS: Alignment of the total right hip arthroplasty is anatomic. There is no periprosthetic fracture. The hardware is intact. No acute fracture is identified within the pelvis or the hips. This exam is mildly compromised by streak artifact from the surgical hardware. The left iliacus hematoma shown on exam of March 05, 2016 has resolved. No hematoma is identified within the pelvis. There is sigmoid diverticulosis without evidence for acute diverticulitis. The appendix is normal. There is no pelvic lymphadenopathy or mass. IMPRESSION: 1. No acute fracture within the pelvis or hips. 2. Status post total right hip arthroplasty. Anatomic alignment with no periprosthetic fracture. Electronically signed by: Etienne Paredes M.D. 06/19/2016 5:05 PM Dictated Date/Time: 06/19/2016 4:59 PM
--- NOTE | 2016-06-19 22:12 | EMERGENCY ROOM VISIT NOTE ---
History Report prepared by Mason: Nicol Galloway Under the Supervision of: Dr. Jese Bellamy M.D. First contact with patient: 14:30 Chief Complaint: HIP PAIN Stated Complaint: PAIN IN RT HIP/GROIN History of Present Illness The patient is an 81 year old female who presents to the Emergency Room with complaints of worsening right hip pain for the past 6 days. She is accompanied by her . She reports she fell 6 days ago, when she lost on her balance going down steps on her porch and fell, landing on her buttocks and right hip. Her was able to partially catch her, but her face hit the porch railing as she fell. She denies any loss of consciousness. The pain radiates into her groin and she rates her discomfort as a 7/10. Movement worsens her discomfort. She describes the pain as feeling "sharp" in nature and notes Advil has only provided mild relief. The patient denies any headache or neck pain. She is on daily Plavix, but denies any dizziness or lightheadedness. She denies any abdominal pain, nausea or vomiting. 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 A total of 10 systems reviewed and were otherwise negative. Past Medical & Surgical Medical Problems: (1) Dehydration (2) Foreign body (3) Gastroenteritis (4) Localized, primary osteoarthritis of the pelvic region and thigh (5) Nausea & vomiting Surgical Problems: (1) H/O colonoscopy Family History Patient reports no known family medical history. Social History Smoking Status: Never Smoker Alcohol Use: occasionally Drug Use: none Marital Status: Housing Status: lives with significant other Occupation Status: retired Current/Historical Medications Scheduled Calcium Carbonate-Cholecalcife (Caltrate 600+D), 1 TAB PO BID Clopidogrel (Plavix), 75 MG PO QAM Diltiazem Hcl Ext Rel (Tiazac), 120 MG PO QAM Docusate Sodium (Colace), 1 CAP PO BID Ferrous Gluconate (Fe Gluconate), 1 TAB PO BID Levothyroxine Sodium (Levothyroxine Sodium), 25 MCG PO DAILY Lisinopril/Hctz (Zestoretic 20MG/12.5MG), 0.5 TAB PO QAM Metoprolol Tartrate (Lopressor), 25 MG PO BID Simvastatin (Zocor), 20 MG PO QPM Scheduled PRN Albuterol (Ventolin Hfa), 2 PUFFS INH QID PRN for Shortness of Breath Alprazolam (Xanax), 0.5 MG PO Q6H PRN for Anxiety Allergies Coded Allergies: Sulfa Antibiotics (Verified Allergy, Unknown, `, 06/19/16) Physical Exam Vital Signs Date Time Temp Pulse Resp B/P Pulse Ox O2 Delivery O2 Flow Rate FiO2 06/19/16 17:07 73 16 140/64 95 Room Air 06/19/16 14:13 36.6 95 20 163/77 96 Room Air Physical Exam Constitutional: Vital signs reviewed. Eyes: Pupils are equal round reactive to light. Conjunctiva are noninjected. ENT: Pharynx is clear without erythema or exudate. Mucous membranes are moist. Neck supple without meningeal signs. No midline tenderness to the cervical spine. Slight bruising to right cheekbone, without bony tenderness to face or orbit. Respiratory: Clear to auscultation bilaterally. Breath sounds are equal bilaterally. Cardiovascular: Regular rate and rhythm. No rubs or gallops. GI: Soft, nondistended and nontender. Bowel sounds are present. Musculoskeletal: Bruising and tenderness to the proximal right humerus, without deformity. Normal distal pulses. Contracture of the right arm at the elbow and wrist. Tenderness to right hip, without shortening or deformity. Integumentary: No cyanosis. Neurological: The patient is awake and alert. Cranial nerves II-XII are intact. Motor is 5 out of 5 all extremities, except unable to assess right hand and arm due to chronic deficit. Sensation is intact to light touch all extremities. Normal speech. No pronator drift. Psychiatric: Normal affect. Medical Decision & Procedures ER Provider Diagnostic Interpretation: These X-Rays were reviewed and interpreted by myself and the radiologist. RIGHT HIP UNILATERAL 2 VIEWS CLINICAL HISTORY: eval for fx Right trauma COMPARISON: None. DISCUSSION: Total right hip arthroplasty good position. No evidence for acetabular protrusion. There is no evidence for soft tissue swelling. IMPRESSION: No acute process Electronically signed by: Jermaine Mullen M.D. 06/19/2016 3:48 PM RIGHT HUMERUS MIN 2 VIEWS ROUTINE CLINICAL HISTORY: upper humeral pain eval for fx Right pain COMPARISON: None. DISCUSSION: The bones and joint spaces appear intact. There is no evidence of fracture, dislocation or bony disease. Moderate degenerative change right shoulder. Cortical margins are intact. Several old right-sided rib fractures. 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 No acute process. Electronically signed by: Jermaine Mullen M.D. 06/19/2016 3:49 PM PELVIS 1 OR 2 VIEW ROUTINE CLINICAL HISTORY: eval for fx trauma. Pain. COMPARISON: 06/23/2012 DISCUSSION: Prior total right hip replacement. Moderate degenerative change left hip as well as low lumbar spine. No acute bony abnormality. There is no evidence for soft tissue swelling. IMPRESSION: No acute process. Chronic and postoperative change is noted. Electronically signed by: Jermaine Mullen M.D. 06/19/2016 3:[address] scan was reviewed and interpreted by the radiologist and reviewed by myself. CT OF THE PELVIS WITHOUT CONTRAST CT DOSE: 1304.28 mGy.cm CLINICAL HISTORY: Right hip and groin pain. Evaluate for fracture. TECHNIQUE: Axial images of the pelvis and hips were obtained without IV contrast. Coronal and sagittal reformats were viewed. COMPARISON STUDY: CT of the pelvis March 05, 2016 and right hip radiographs performed earlier today. FINDINGS: Alignment of the total right hip arthroplasty is anatomic. There is no periprosthetic fracture. The hardware is intact. No acute fracture is identified within the pelvis or the hips. This exam is mildly compromised by streak artifact from the surgical hardware. The left iliacus hematoma shown on exam of March 05, 2016 has resolved. No hematoma is identified within the pelvis. There is sigmoid diverticulosis without evidence for acute diverticulitis. The appendix is normal. There is no pelvic lymphadenopathy or mass. IMPRESSION: 1. No acute fracture within the pelvis or hips. 2. Status post total right hip arthroplasty. Anatomic alignment with no periprosthetic fracture. Electronically signed by: Etienne Paredes M.D. 06/19/2016 5:05 PM Medications Administered Medications (Trade) Dose Ordered Sig/Miguel Route Start Time Stop Time Status Last Admin Dose Admin Ibuprofen (Advil Tab) 400 mg NOW STAT PO 06/19/16 14:39 06/19/16 14:42 DC 06/19/16 14:47 400 MG ED Course 1432: The patient was evaluated in room B4B. A complete history and physical exam was performed. 1439: Ibuprofen 400 mg PO. 1605: I reevaluated the patient. I let her know her X-Rays are negative and she agrees to a CT scan. 1747: I reevaluated the patient. I discussed her test results. She states she has Tylenol with Codeine in it which she will use for pain. She also has a walker to help her ambulate. She will follow up with [facility]. Medical Decision This is an 81-year-old female who presents with right hip pain after a fall. Differential diagnosis includes muscle tear, hip fracture, prosthetic hardware failure, pelvic fracture, radiculopathy. I did perform a limited focused review of portions of the patient's old chart on the electronic medical record. The patient was admitted to the hospital on May 12, 2016, for gastroenteritis. She has a history of anemia and her Hemoglobin was 10.8 on June 03, 2016. I did evaluate the patient as noted above. The patient is presenting with hip and groin pain after a fall 6 days ago. She did hit her face but denies any headache, nausea, vomiting or dizziness. I did treat patient with ibuprofen. I did order and personally review the patient's x-rays as described above. There is no evidence of acute fracture or dislocation. I did order a CT of the pelvis. I did review the images myself as well as the radiology report as described above. There is no evidence of fracture on CT scanning. I did discuss the test results with the patient. She was advised follow with [facility] for further evaluation and possible outpatient MRI should she have continued pain. She does state that she has Tylenol No. 3 at home which she will use for breakthrough pain. She also will use a walker. She was discharged in good condition. Impression Primary Impression: Right hip pain Additional Impressions: Facial contusion Right shoulder injury Fall Scribe Attestation The scribe's documentation has been prepared under my direct and personally reviewed by me in its entirety. I confirm that the note above accurately reflects all work, treatment, procedures, and medical decision making performed by me. Departure Information Dispostion Home / Self-Care Referrals Timothy Garcia M.D. (PCP) Patient Instructions ED Head Injury Closed, My [facility] Additional Instructions You have been examined and treated today on an emergency basis only. This is not a substitute for, or an effort to provide, complete comprehensive medical care. It is impossible to recognize and treat all injuries or illnesses in a single emergency department visit. It is therefore important that you follow up closely with [facility]. Call as soon as possible for an appointment. If you have persistent pain to your hip you may require an outpatient MRI to look for a possible occult fracture or muscular/tendon injury. Return for worsening symptoms or if you develop fever, vomiting, abdominal pain, swelling or redness to the hip or leg or any other concerning symptoms. Problem Qualifiers
[2016-07-29] MEDS ORDERED: FERR325T49 PO (15:47)
[2016-12-09] MEDS ORDERED: QSTP PO (09:06)
[2016-12-09] MEDS ORDERED: IBUP-103 PO (09:06)
== END 2016-06-19 18:13 | disposition home or self-care (01) ==
LOC: C.EDB 14:10
DX: M25.551 Pain in right hip (principal); S00.83XA Contusion of other part of head, initial encounter; S49.91XA Unspecified injury of right shoulder and upper arm, initial encounter; W10.9XXA Fall (on) (from) unspecified stairs and steps, initial encounter

== ENCOUNTER → 2016-06-23 | Outpatient (CLI) | payer OTHER ==
[~2016-06-23] MED LIST changes: +ASPEC81 PO; -ASPI81TA28 PO; +FERR325T49 PO; -FERR325T74 PO; +FRRG PO; +IBUP-103 PO; -MCRK20 PO; +METH-307 PO; -PRLSR20 PO; +QSTP PO
--- NOTE | 2016-06-25 09:46 | CODING QUERY NO DIAGNOSIS ---
Valid Physician Order Needed A valid physician order must be submitted in order to properly bill for the service(s) provided, including date of service(s), valid diagnosis, and physician signature. If these tests are done on a recurring basis the original physican order must be submitted in order to code and bill for the service(s) provided. Please fax us the original, signed physician order so that we may expedite billing to [phone] DOS 06/23/16 * OCCULT STOOL ORDERED BY DR. AMADO Thank you Swathi [facility] Information Management
== END | disposition home or self-care (01) ==
LOC: C.LABSPEC 11:08
PROVIDERS: ATTEND Family Medicine
DX: E86.0 Dehydration (principal); D50.9 Iron deficiency anemia, unspecified; I10 Essential (primary) hypertension

== ENCOUNTER 2016-07-29 19:47 | Inpatient (IN) | payer OTHER ==
[~2016-07-29] VITALS: Ht 152.4 cm; Wt 72.1 kg
[~2016-07-29 19:47] MED LIST changes: -ASPEC81 PO; -FRRG PO; -IBUP-103 PO; -METH-307 PO; -QSTP PO
[2016-07-29] MEDS ORDERED: SODIUM CHLORIDE 0.9% 1000ML 1,000 ML IV SCH (20:02)
[2016-07-29 20:09] LABS: BASO % 0.3 %; BASO ABS # 0.02 K/uL (0-0.2); COMPLETE YES; EOS % 3.1 %; HEMATOCRIT 37.7 % (37-47); IG% 0.2 %; LYMPH ABS # 1.53 K/uL (1.2-3.4); MEAN CELL VOLUME 87.7 fL (80-100); MEAN CORPUSCULAR HEMOGLOBIN 29.1 pg (25-34); MEAN CORPUSCULAR HGB CONC 33.2 g/dl (32-36); NEUT % 63.4 %; PLATELET COUNT 215 K/uL (130-400); WHITE BLOOD COUNT 5.89 K/uL (4.8-10.8)
[2016-07-29] MEDS ORDERED: IBUP-103 PO (20:15)
[2016-07-29 20:22] LABS: BLOOD UREA NITROGEN 24 mg/dl (7-18); BUN/CREATININE RATIO 19.9 (10-20); CALCIUM 8.7 mg/dl (8.5-10.1); CARBON DIOXIDE 24 mmol/L (21-32); CHLORIDE 109 mmol/L (98-107); GLUCOSE 201 mg/dl (70-99); POTASSIUM 3.8 mmol/L (3.5-5.1); SODIUM 141 mmol/L (136-145)
[2016-07-29 20:27] LABS: CKMB/CK RATIO 3.1 (0-3.0)
--- NOTE | 2016-07-29 20:30 | DIAGNOSTIC IMAGING REPORT ---
CHEST ONE VIEW PORTABLE CLINICAL HISTORY: Stroke COMPARISON STUDY: 05/10/2016 FINDINGS: The heart is normal in size. There is no failure. There is no lobar consolidation. There is a retrocardiac opacity consistent with a hiatal hernia. There are old right-sided rib deformities. There are linear subsegmental atelectatic changes within the left midlung zone.[ IMPRESSION: No active disease in the chest. Electronically signed by: Tez العلي M.D. 07/29/2016 8:29 PM Dictated Date/Time: 07/29/2016 8:29 PM
[2016-07-29 20:41] LABS: INR 1.1 (0.9-1.1)
--- NOTE | 2016-07-29 20:42 | DIAGNOSTIC IMAGING REPORT ---
CT HEAD WITHOUT CONTRAST (CT) CLINICAL HISTORY: Stroke COMPARISON STUDY: 03/05/2016 TECHNIQUE: Axial CT of the brain is performed from the vertex to the skull base. IV contrast was not administered for this examination. CT DOSE: 537.48 mGy.cm FINDINGS: No intra or extra-axial mass lesions are visualized. There is no CT evidence of acute cortical infarction. There is no evidence of midline shift. There is no acute hemorrhage. No calvarial fractures are visualized. There are minimal white matter hypodensities likely on a small vessel basis. There is no evidence of pathologic ventricular dilatation. There is no evidence of acute sinusitis IMPRESSION: No acute intracranial findings Electronically signed by: Tez العلي M.D. 07/29/2016 8:41 PM Dictated Date/Time: 07/29/2016 8:39 PM
[2016-07-29 20:57] LABS: ALKALINE PHOSPHATASE 104 U/L (45-117); ALT/SGPT 17 U/L (12-78); AST/SGOT 15 U/L (15-37)
[2016-07-29 21:33] LABS: URINE APPEARANCE CLEAR (CLEAR); URINE BILIRUBIN NEG (NEG); URINE COLOR YELLOW; URINE EPITHELIAL CELL AUTO 20-30 /lpf (0-5); URINE NITRITE NEG (NEG); URINE SPECIFIC GRAVITY 1.011 (1.000-1.030); UROBILINOGEN NEG (NEG)
[2016-07-29 21:37] LABS: MANUAL MICROSCOPIC REQUIRED? NO; REVIEW REQ? NO
[2016-07-29 21:53] LABS: BENZODIAZEPINE, URINE NEG (NEG); COCAINE,URINE NEG (NEG); PHENCYCLIDINE, URINE NEG (NEG)
--- NOTE | 2016-07-29 22:45 | History and Physical ---
History & Physical Date & Time of Service: Jul 29, 2016 at 22:40 Chief Complaint: Tia Sx Primary Care Physician: Timothy Garcia M.D. 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 She was standing in the kitchen and noticed she couldn't remember what words to say, and started asking her about irrelevant foods. This lasted for 1 hour. She did not fall, but has a history of multiple falls due to her neurological disease. She denied any chest pain, shortness of breath, nausea or vomiting at the time. During that hour she continued to eat her supper. This ended about 3 hours ago, but her was concerned so brought her to the ED. Currently, she denies any change in cognition and is aware of her symptoms which occurred. Past Medical/Surgical History Medical Problems: (1) Foreign body Status: Resolved (2) Localized, primary osteoarthritis of the pelvic region and thigh Status: Resolved (3) UTI (urinary tract infection) Status: Resolved (4) Partial lateral sclerosis (5) Hx of TIA Surgical Problems: (1) H/O colonoscopy Status: Resolved Family History Patient reports no known family medical history. No pertinent FHx Social History Smoking Status: Current Every Day Smoker Drug Use: none Marital Status: Occupational Status: retired Immunizations History of Influenza Vaccine: Yes History of Tetanus Vaccine?: Unknown History of Pneumococcal: Yes History of Hepatitis B Vaccine: No Multi-Drug Resistant Organisms History of MDRO: No Allergies Coded Allergies: Sulfa Antibiotics (Verified Allergy, Unknown, `, 06/19/16) Home Medications Scheduled Calcium Carbonate-Cholecalcife (Caltrate 600+D), 1 TAB PO BID Clopidogrel (Plavix), 75 MG PO QAM Diltiazem Hcl Ext Rel (Tiazac), 120 MG PO QAM Docusate Sodium (Colace), 1 CAP PO BID Ferrous Gluconate (Fe Gluconate), 1 TAB PO BID Levothyroxine Sodium (Levothyroxine Sodium), 25 MCG PO DAILY Lisinopril/Hctz (Zestoretic 20MG/12.5MG), 0.5 TAB PO QAM Metoprolol Tartrate (Lopressor), 25 MG PO BID Simvastatin (Zocor), 20 MG PO QPM Scheduled PRN Ibuprofen Tab (Advil), 400 MG PO Q4 PRN for Pain Review of Systems See HPI for pertinent positives & negatives. A total of 10 systems reviewed and were otherwise negative. Physical Exam Vital Signs Date Time Temp Pulse Resp B/P Pulse Ox O2 Delivery O2 Flow Rate FiO2 07/29/16 22:07 69 18 169/95 96 Room Air 07/29/16 21:00 70 18 159/76 97 Room Air 07/29/16 20:53 73 07/29/16 20:45 70 18 146/67 93 Room Air 07/29/16 20:30 79 20 166/102 96 Room Air 07/29/16 20:13 73 20 167/72 96 Room Air 07/29/16 20:00 97 Room Air 07/29/16 19:53 36.8 85 20 158/87 97 Room Air GENERAL: Awake, alert, well appearing, no distress HENT: Normocephalic, atraumatic. TM's normal. Oropharynx unremarkable. EYES: PERRL. Normal conjunctiva. Sclera non-icteric. Fundi normal. EOMI NECK: Supple. No nuchal rigidity. FROM. RESPIRATORY: CTA CARDIAC: RRR. Extremities warm and well perfused. ABDOMEN: Soft, non distended. No tenderness to palpation. No rebound or guarding. No masses. MUSCULOSKELETAL: Unremarkable. EXTREMITIES: No edema. No discoloration. Gross motor strength 5/5 bilaterally. NEURO: Normal sensorium. No sensory or motor deficits noted. Gait normal. Speech normal. Cranial nerves two through 12 intact. No pronator drift. Negative Romberg. Normal rapid alternating movements. SKIN: No rash or jaundice noted. LYMPH: No adenopathy. Diagnostics Laboratory Results Results Past 24 Hours Test 07/29/16 19:55 07/29/16 20:09 07/29/16 21:10 Range/Units White Blood Count 5.89 4.8-10.8 K/uL Red Blood Count 4.30 4.2-5.4 M/uL Hemoglobin 12.5 12.0-16.0 g/dL Hematocrit 37.7 37-47 % Mean Corpuscular Volume 87.7 80-100 fL Mean Corpuscular Hemoglobin 29.1 25-34 pg Mean Corpuscular Hemoglobin Concent 33.2 32-36 g/dl Platelet Count 215 130-400 K/uL Mean Platelet Volume 11.0 7.4-10.4 fL Neutrophils (%) (Auto) 63.4 % Lymphocytes (%) (Auto) 26.0 % Monocytes (%) (Auto) 7.0 % Eosinophils (%) (Auto) 3.1 % Basophils (%) (Auto) 0.3 % Neutrophils # (Auto) 3.74 1.4-6.5 K/uL Lymphocytes # (Auto) 1.53 1.2-3.4 K/uL Monocytes # (Auto) 0.41 0.11-0.59 K/uL Eosinophils # (Auto) 0.18 0-0.5 K/uL Basophils # (Auto) 0.02 0-0.2 K/uL RDW Standard Deviation 56.7 36.4-46.3 fL RDW Coefficient of Variation 17.9 11.5-14.5 % Immature Granulocyte % (Auto) 0.2 % Immature Granulocyte # (Auto) 0.01 0.00-0.02 K/uL Prothrombin Time 12.0 9.0-12.0 SECONDS Prothromb Time International Ratio 1.1 0.9-1.1 Activated Partial Thromboplast Time 25.8 21.0-31.0 SECONDS Partial Thromboplastin Ratio 1.0 Sodium Level 141 136-145 mmol/L Potassium Level 3.8 3.5-5.1 mmol/L Chloride Level 109 98-107 mmol/L Carbon Dioxide Level 24 21-32 mmol/L Anion Gap 8.0 3-11 mmol/L Blood Urea Nitrogen 24 7-18 mg/dl Creatinine 1.20 0.60-1.20 mg/dl Est Creatinine Clear Calc Drug Dose 32.9 ml/min Estimated GFR () 49.1 Estimated GFR (Non- 42.4 BUN/Creatinine Ratio 19.9 10-20 Random Glucose 201 70-99 mg/dl Calcium Level 8.7 8.5-10.1 mg/dl Total Bilirubin 0.2 0.2-1 mg/dl Direct Bilirubin < 0.1 0-0.2 mg/dl Aspartate Amino Transf (AST/SGOT) 15 15-37 U/L Alanine Aminotransferase (ALT/SGPT) 17 12-78 U/L Alkaline Phosphatase 104 45-117 U/L Total Creatine Kinase 58 26-192 U/L Creatine Kinase MB 1.8 0.5-3.6 ng/ml Creatine Kinase MB Ratio 3.1 0-3.0 Troponin I < 0.015 0-0.045 ng/ml Total Protein 7.1 6.4-8.2 gm/dl Albumin 3.5 3.4-5.0 gm/dl Bedside Prothrombin Time INR 1.1 0.9-1.1 Bedside Glucose 193 70-90 mg/dl Urine Color YELLOW Urine Appearance CLEAR CLEAR Urine pH 5.0 4.5-7.5 Urine Specific [place] 1.011 1.000-1.030 Urine Protein NEG NEG Urine Glucose (UA) NEG NEG Urine Ketones NEG NEG Urine Occult Blood NEG NEG Urine Nitrite NEG NEG Urine Bilirubin NEG NEG Urine Urobilinogen NEG NEG Urine Leukocyte Esterase NEG NEG Urine WBC (Auto) 1-5 0-5 /hpf Urine RBC (Auto) 0-4 0-4 /hpf Urine Hyaline Casts (Auto) 0 0-5 /lpf Urine Epithelial Cells (Auto) 20-30 0-5 /lpf Urine Bacteria (Auto) NEG NEG Urine Opiates Screen NEG NEG Urine Methadone, Qualitative NEG NEG Urine Barbiturates NEG NEG Urine Phencyclidine (PCP) Level NEG NEG Ur Amphetamine/Methamphetamine NEG NEG MDMA (Ecstasy) Screen NEG NEG Urine Benzodiazepines Screen NEG NEG Urine Cocaine Metabolite NEG NEG Urine Marijuana (THC) NEG NEG Diagnostic Radiology CT head: No acute intracranial findings CXR normal Normal EKG, No change from prior EKG Impression Assessment and Plan 81 yo F with previous TIA and partial lateral sclerosis presents with acute aphasia / confusion for 1 hour, which has now resolved. Plan: TIA workup - Will obtain MRI, MRA head and neck - Will obtain Echocardiogram - Consult Neuro (Dr Sharma) - Telemetry monitoring - Trend cardiac enzymes History of TIA - Will continue plavix HTN - Continue diltiazem and metoprolol Level of Care Telemetry Resuscitation Status DO NOT RESUSCITATE VTE Prophylaxis VTE Risk Assessment Done? Y/N: Yes Risk Level: Moderate Resident Tracking Resident Involvement: Resident Care Provided Care Provided: Adult Hospital Medicine Assessment and Plan Attending Addendum: I have physically seen and examined this patient, have directed their medical care, have supervised the medical residents activities, and agree with the H&P as noted above, with the following changes: The patient is awake, well-developed and adequately nourished, alert and oriented 3, normocephalic and atraumatic, lying in bed and in no acute distress. HEENT--PERRL, EOMI, mucous membranes and oropharynx dry with thrush. Neck--supple, no JVD or bruits, thyroid normal, trachea midline, no adenopathy. Heart--normal S1 and S2, no extra beats, no murmurs, rubs or gallops. Lungs--clear bilaterally, no respiratory distress, no accessory muscle use. Abdomen--normal bowel sounds and soft, nontender and nondistended, no hernias or masses, no organomegaly. Extremities--no cyanosis, clubbing or edema. There are good distal pulses b/l. Dermatologic--normal skin turgor, normal color, warm and dry, no abnormal lymph nodes, no rash. Neurologic--cranial nerves II through XII grossly intact, motor and sensory examination normal. Rheumatologic--normal range of motion, nontender, muscles and joints. Psychiatric--normal affect. Assessment and Plan: TIA/hypertension/partial lateral sclerosis--CT of the head does not show any acute event. We'll order an MRI of the brain combo, MRA of the neck combo, MRA of the head without contrast, 2-D echocardiogram with Dopplers, and an EEG. Consult her neurologist Dr. Sharma. Continue clopidogrel 75 mg by mouth every morning, diltiazem ER 120 mg by mouth every morning, lisinopril/HCTZ 20/12.5 one half tablet by mouth daily, and metoprolol tartrate 25 mg by mouth twice a day. We will add aspirin 81 mg by mouth every morning. Hypercholesterolemia--continue simvastatin 20 mg by mouth every afternoon. Hypothyroidism--continue levothyroxine sodium at 25 g by mouth daily. Pain management--we will avoid NSAIDs with could interfere with the antiplatelet effect of aspirin.
[2016-07-30] VITALS (7 sets, daily range): BP systolic 122–174; BP diastolic 68–92; PULSE 73–83; TEMP 36.4–37; O2SAT 92–96; Ht 152.4 cm; Wt 72.1 kg
--- NOTE | 2016-07-30 01:00 | EMERGENCY ROOM VISIT NOTE ---
History Report prepared by Mason: Homero Da Silva Under the Supervision of: Dr. Alex Powell D.O. First contact with patient: 19:50 Chief Complaint: STROKE SYMPTOMS Stated Complaint: TIA SX History of Present Illness The patient is an 81 year old female who presents to the Emergency Room with complaints of sudden confusion beginning two and a half hours prior to arrival. She states her memory appeared to go bad at that time. As per , the patient appeared frightened and did not understand what the was saying. The states the episode lasted about an hour. The denies experiencing slurred speech. The patient states she has a history of a stroke, in which, she has residual right arm weakness. She notes she takes aspirin and Plavix. The patient denies being on oxygen at home. She notes she recently finished antibiotics six days ago for a urinary tract infection. Pt denies new weakness in the arms or legs, headache, change in vision, fevers, chest pain, shortness of breath, nausea, vomiting, diarrhea, pain with urination, and melena. 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 A total of 10 systems reviewed and were otherwise negative. Past Medical & Surgical Medical Problems: (1) Dehydration (2) Foreign body (3) Gastroenteritis (4) Localized, primary osteoarthritis of the pelvic region and thigh (5) Nausea & vomiting (6) TIA (transient ischemic attack) (7) UTI (urinary tract infection) Surgical Problems: (1) H/O colonoscopy Family History Patient reports no known family medical history. Social History Smoking Status: Never Smoker Alcohol Use: occasionally Drug Use: none Marital Status: Housing Status: lives with significant other Occupation Status: retired Current/Historical Medications Scheduled Calcium Carbonate-Cholecalcife (Caltrate 600+D), 1 TAB PO BID Clopidogrel (Plavix), 75 MG PO QAM Diltiazem Hcl Ext Rel (Tiazac), 120 MG PO QAM Docusate Sodium (Colace), 1 CAP PO BID Ferrous Gluconate (Fe Gluconate), 1 TAB PO BID Levothyroxine Sodium (Levothyroxine Sodium), 25 MCG PO DAILY Lisinopril/Hctz (Zestoretic 20MG/12.5MG), 0.5 TAB PO QAM Metoprolol Tartrate (Lopressor), 25 MG PO BID Simvastatin (Zocor), 20 MG PO QPM Scheduled PRN Ibuprofen Tab (Advil), 400 MG PO Q4 PRN for Pain Allergies Coded Allergies: Sulfa Antibiotics (Verified Allergy, Unknown, `, 06/19/16) Physical Exam Vital Signs Date Time Temp Pulse Resp B/P Pulse Ox O2 Delivery O2 Flow Rate FiO2 07/29/16 22:07 69 18 169/95 96 Room Air 07/29/16 21:00 70 18 159/76 97 Room Air 07/29/16 20:53 73 07/29/16 20:45 70 18 146/67 93 Room Air 07/29/16 20:30 79 20 166/102 96 Room Air 07/29/16 20:13 73 20 167/72 96 Room Air 07/29/16 20:00 97 Room Air 07/29/16 19:53 36.8 85 20 158/87 97 Room Air Physical Exam GENERAL: disheveled, sitting up in bed, chronically ill appearing, no acute distress EYE EXAM: normal conjunctiva, PERRL and EOM's intact OROPHARYNX: no exudate, no erythema, lips, buccal mucosa, and tongue normal and mucous membranes are moist NECK: supple, no nuchal rigidity, no adenopathy, non-tender LUNGS: Clear to auscultation. Normal chest wall mechanics HEART: no murmurs, S1 normal and S2 normal ABDOMEN: abdomen soft, non-tender, normo-active bowel sounds, no masses, no rebound or guarding. BACK: Back is symmetrical on inspection and there is no deformity, no midline tenderness, no CVA tenderness. SKIN: no rashes and no bruising UPPER EXTREMITIES: upper extremities are grossly normal. LOWER EXTREMITIES: No pitting edema. NEURO EXAM: Normal sensorium, cranial nerves II-XII intact, normal speech, minimal grasp along with flexion/extension in elbow of right upper extremity residual from old stroke, no weakness in left upper extremity, no weakness of legs. Unable to perform drift and finger to nose test. Medical Decision & Procedures ER Provider Diagnostic Interpretation: Xray results per the radiologist and my interpretation. Other results have been interpreted by the radiologist and reviewed by me. CHEST ONE VIEW PORTABLE CLINICAL HISTORY: Stroke COMPARISON STUDY: 05/10/2016 FINDINGS: The heart is normal in size. There is no failure. There is no lobar consolidation. There is a retrocardiac opacity consistent with a hiatal hernia. There are old right-sided rib deformities. There are linear subsegmental atelectatic changes within the left midlung zone.[ IMPRESSION: No active disease in the chest. Electronically signed by: Tez العلي M.D. 07/29/2016 8:[address] HEAD WITHOUT CONTRAST (CT) CLINICAL HISTORY: Stroke COMPARISON STUDY: 03/05/2016 TECHNIQUE: Axial CT of the brain is performed from the vertex to the skull base. IV contrast was not administered for this examination. CT DOSE: 537.48 mGy.cm FINDINGS: No intra or extra-axial mass lesions are visualized. There is no CT evidence of acute cortical infarction. There is no evidence of midline shift. There is no acute hemorrhage. No calvarial fractures are visualized. There are minimal white matter hypodensities likely on a small vessel basis. There is no evidence of pathologic ventricular dilatation. There is no evidence of acute sinusitis IMPRESSION: No acute intracranial findings Electronically signed by: Tez العلي M.D. 07/29/2016 8:41 PM Laboratory Results 07/29/16 19:55 Red Blood Count 4.30, Mean Corpuscular Volume 87.7, Mean Corpuscular Hemoglobin 29.1, Mean Corpuscular Hemoglobin Concent 33.2, Mean Platelet Volume 11.0, Neutrophils (%) (Auto) 63.4, Lymphocytes (%) (Auto) 26.0, Monocytes (%) (Auto) 7.0, Eosinophils (%) (Auto) 3.1, Basophils (%) (Auto) 0.3, Neutrophils # (Auto) 3.74, Lymphocytes # (Auto) 1.53, Monocytes # (Auto) 0.41, Eosinophils # (Auto) 0.18, Basophils # (Auto) 0.02 07/29/16 19:55 Test 07/29/16 19:55 07/29/16 20:09 07/29/16 21:10 White Blood Count 5.89 K/uL (4.8-10.8) Red Blood Count 4.30 M/uL (4.2-5.4) Hemoglobin 12.5 g/dL (12.0-16.0) Hematocrit 37.7 % (37-47) Mean Corpuscular Volume 87.7 fL (80-100) Mean Corpuscular Hemoglobin 29.1 pg (25-34) Mean Corpuscular Hemoglobin Concent 33.2 g/dl (32-36) Platelet Count 215 K/uL (130-400) Mean Platelet Volume 11.0 fL (7.4-10.4) Neutrophils (%) (Auto) 63.4 % Lymphocytes (%) (Auto) 26.0 % Monocytes (%) (Auto) 7.0 % Eosinophils (%) (Auto) 3.1 % Basophils (%) (Auto) 0.3 % Neutrophils # (Auto) 3.74 K/uL (1.4-6.5) Lymphocytes # (Auto) 1.53 K/uL (1.2-3.4) Monocytes # (Auto) 0.41 K/uL (0.11-0.59) Eosinophils # (Auto) 0.18 K/uL (0-0.5) Basophils # (Auto) 0.02 K/uL (0-0.2) RDW Standard Deviation 56.7 fL (36.4-46.3) RDW Coefficient of Variation 17.9 % (11.5-14.5) Immature Granulocyte % (Auto) 0.2 % Immature Granulocyte # (Auto) 0.01 K/uL (0.00-0.02) Prothrombin Time 12.0 SECONDS (9.0-12.0) Prothromb Time International Ratio 1.1 (0.9-1.1) Activated Partial Thromboplast Time 25.8 SECONDS (21.0-31.0) Partial Thromboplastin Ratio 1.0 Anion Gap 8.0 mmol/L (3-11) Est Creatinine Clear Calc Drug Dose 32.9 ml/min Estimated GFR () 49.1 Estimated GFR (Non- 42.4 BUN/Creatinine Ratio 19.9 (10-20) Calcium Level 8.7 mg/dl (8.5-10.1) Total Bilirubin 0.2 mg/dl (0.2-1) Direct Bilirubin < 0.1 mg/dl (0-0.2) Aspartate Amino Transf (AST/SGOT) 15 U/L (15-37) Alanine Aminotransferase (ALT/SGPT) 17 U/L (12-78) Alkaline Phosphatase 104 U/L (45-117) Total Creatine Kinase 58 U/L (26-192) Creatine Kinase MB 1.8 ng/ml (0.5-3.6) Creatine Kinase MB Ratio 3.1 (0-3.0) Troponin I < 0.015 ng/ml (0-0.045) Total Protein 7.1 gm/dl (6.4-8.2) Albumin 3.5 gm/dl (3.4-5.0) Bedside Prothrombin Time INR 1.1 (0.9-1.1) Bedside Glucose 193 mg/dl (70-90) Urine Color YELLOW Urine Appearance CLEAR (CLEAR) Urine pH 5.0 (4.5-7.5) Urine Specific [place] 1.011 (1.000-1.030) Urine Protein NEG (NEG) Urine Glucose (UA) NEG (NEG) Urine Ketones NEG (NEG) Urine Occult Blood NEG (NEG) Urine Nitrite NEG (NEG) Urine Bilirubin NEG (NEG) Urine Urobilinogen NEG (NEG) Urine Leukocyte Esterase NEG (NEG) Urine WBC (Auto) 1-5 /hpf (0-5) Urine RBC (Auto) 0-4 /hpf (0-4) Urine Hyaline Casts (Auto) 0 /lpf (0-5) Urine Epithelial Cells (Auto) 20-30 /lpf (0-5) Urine Bacteria (Auto) NEG (NEG) Urine Opiates Screen NEG (NEG) Urine Methadone, Qualitative NEG (NEG) Urine Barbiturates NEG (NEG) Urine Phencyclidine (PCP) Level NEG (NEG) Ur Amphetamine/Methamphetamine NEG (NEG) MDMA (Ecstasy) Screen NEG (NEG) Urine Benzodiazepines Screen NEG (NEG) Urine Cocaine Metabolite NEG (NEG) Urine Marijuana (THC) NEG (NEG) Laboratory results per my review. Medications Administered Medications (Trade) Dose Ordered Sig/Miguel Route Start Time Stop Time Status Last Admin Dose Admin Sodium Chloride (Nss 1000ml) 1,000 ml @ 50 mls/hr Q20H IV 07/29/16 20:02 07/29/16 23:55 DC 07/29/16 20:23 50 MLS/HR ECG Indication: altered mental status Rate (beats per minute): 73 Rhythm: normal sinus Findings: other (Normal axis. Poor baseline inferiorly. Early R wave progression.) ED Course ED COURSE: Vital signs were reviewed and showed hypertensive signs. The patients medical record was reviewed The above diagnostic studies were performed and reviewed. ED treatments and interventions as stated above. 1953: The patient was evaluated in room A2. A complete history and physical examination was performed. 2001: Ordered Sodium Chloride 1,000 ml @ 50 mls/hr IV. 2036: Reevaluated the patient at this time, and she just got back from CT and is doing well. 2205: I spoke to GAIL Soler (Polishing Machine Tender) about the patient's case, and she will follow the patient for further evaluation. 2214: Upon reevaluation, the patient is doing well.I discussed my findings with the patient and she understands and agrees with the treatment plan. Based on the patients age, coexisting illnesses, exam and lab findings the decision to treat as an inpatient was made. The patient remained stable while under my care. The patient will be evaluated for further management. Medical Decision Differential diagnoses includes but is not limited to toxic, metabolic, infectious, traumatic, cardiac, neurologic, hematologic, psychiatric and inflammatory etiologies. Patient is an 81-year-old female the past mental history of previous strokes and presents the ER for an hour worth of confusion and disorientation. She is completely back to baseline. Labs show no significant leukocytosis or anemia. BMP along with LFTs are unremarkable. Tox along with UA was negative. CT head was negative. EKG was unremarkable. Patient was completely neurologically intact. There is no signs of infection. I question whether this could've been a TIA. Based on this a discussed case with internal medicine and they agreed to observe her overnight. Consults Time Called: 2203 Consulting Physician: GAIL Soler (Polishing Machine Tender) Returned Call: 2205 I spoke to GAIL Soler (Polishing Machine Tender) about the patient's case, and she will follow the patient for further evaluation. Impression Primary Impression: Altered mental status Scribe Attestation The scribe's documentation has been prepared under my direction and personally reviewed by me in its entirety. I confirm that the note above accurately reflects all work, treatment, procedures, and medical decision making performed by me. Departure Information Dispostion Being Evaluated By Hospitalist (GAIL Soler (Hospitalist Resident)) Referrals Timothy Garcia M.D. (PCP) Problem Qualifiers Primary Impression: Altered mental status Altered mental status type: unspecified Qualified Codes: R41.82 - Altered mental status, unspecified
[2016-07-30] MEDS ORDERED: LEVOTHYROXINE 25 MCG TAB PO SCH (06:00)
[2016-07-30 07:06] LABS: CKMB/CK RATIO 3.9 (0-3.0)
--- NOTE | 2016-07-30 07:15 | DIAGNOSTIC IMAGING REPORT ---
Brain MRA HISTORY: Stroke symptoms. tia TECHNIQUE: 3-D [id number] MRA of the brain was performed without contrast. COMPARISON STUDY: None. FINDINGS: Visualized intracranial internal carotid arteries, distal vertebral arteries, and basilar artery are widely patent. There is no significant stenosis, occlusion, or aneurysm seen within the bilateral ACAs, MCAs, or slotter operator helper. IMPRESSION: No significant stenosis, occlusion, or aneurysm within the [place]. Electronically signed by: Terry Centeno M.D. 07/30/2016 7:14 AM Dictated Date/Time: 07/30/2016 7:11 AM
--- NOTE | 2016-07-30 07:25 | DIAGNOSTIC IMAGING REPORT ---
MRI OF THE BRAIN WITHOUT AND WITH IV CONTRAST CLINICAL HISTORY: TIA mental status change COMPARISON STUDY: No previous studies for comparison. TECHNIQUE: Utilizing a 1.5 Shazia magnet and dedicated coil, multiplanar, multiecho imaging of the brain was performed pre and postcontrast administration. IV administration of 8 mL of Gadavist contrast was uneventful. FINDINGS: Generalized moderate cerebellar as well as cerebral atrophy. Moderate chronic small vessel change of aging. No acute intracranial abnormality. Ventricular system is midline. No evidence for abnormal postcontrast enhancement IMPRESSION: No acute process. Atrophy and chronic small vessel change. Electronically signed by: Jermaine Mullen M.D. 07/30/2016 7:24 AM Dictated Date/Time: 07/30/2016 7:20 AM
--- NOTE | 2016-07-30 07:28 | DIAGNOSTIC IMAGING REPORT ---
NECK MRA HISTORY: Mental status change TIA TECHNIQUE: [id number] and gadolinium-enhanced MRA of the neck was performed both before and after the intravenous administration of contrast. All measurements were calculated based on NASCET criteria. COMPARISON STUDY: None. FINDINGS: The aortic arch and proximal great vessels are widely patent. There is no significant stenosis, occlusion, or dissection identified within the bilateral common carotid, internal carotid, or vertebral arteries. IMPRESSION: No significant stenosis, occlusion, or dissection identified within the carotid or vertebral arteries. Electronically signed by: Jermaine Mullen M.D. 07/30/2016 7:27 AM Dictated Date/Time: 07/30/2016 7:26 AM
[2016-07-30] MEDS ORDERED: CLOPIDOGREL BISULFATE 75 MG TAB PO SCH (09:00)
[2016-07-30] MEDS ORDERED: DOCUSATE SODIUM 100 MG CAP PO SCH (09:00)
[2016-07-30] MEDS ORDERED: METOPROLOL TARTRATE 50 MG TAB PO SCH (09:00)
[2016-07-30] MEDS ORDERED: LISINOPRIL/HCTZ 20/12.5MG TAB PO SCH (09:00)
[2016-07-30] MEDS ORDERED: DILTIAZEM HCL 120 MG EXT REL CAP PO SCH (09:00)
--- NOTE | 2016-07-30 10:26 | Neurology Consultation ---
Neurology Consultation Date of Consultation: Jul 30, 2016. Attending Physician: Jesse Huff M.D. Primary Care Physician: Timothy Garcia M.D. Reason for Consultation: Episode of confusion History of Present Illness Source: patient, spouse, clinic records, hospital records The patient is an 81-year-old female who presented to the emergency department yesterday for further evaluation of change in mental status with a duration of about 1 hour. The symptoms began several hours prior to her presentation. She was at home with her , reportedly eating dinner. She appeared frightened and had difficulty with expressive speech. She cannot seem to find the proper words and made some unusual comments about food. The patient and her are unaware of any other associated symptoms. She denies headache or feeling dizzy at the time of the event. There was no loss of consciousness. Awareness was maintained during the episode. Her indicates that she seemed to be very forgetful during this time span. The patient has never had a similar episode previously. She denies expressing a significant problems with memory or word finding in the past, either episodically or as a persistent progressive problem. This patient's past medical history is notable for a somewhat undifferentiated, chronic, neurological condition characterized by progressive loss of motor control of the right upper extremity with associated rigidity or hypertonicity that began about 4 years ago. Although she is right handed, she has been learning to do many things with the left. She does not have associated tremor, atrophy, or sensory loss. She complains that the right hand and arm had become increasingly difficult to control. She sometimes needs to concentrate to keep the fingers of her right hand and extended position. The right hand sometimes seems to move in an awkward pattern on its own. She does not have a resting tremor. The patient denies associated problems with speech or swallowing. She denies experiencing significant associated problems with strength or motor function of the legs. This particular issue has been evaluated by both Dr. Aguilar and more recently Dr. Sharma. Dr. Aguilar and postulated whether or not she could have an atypical hemiparetic/spastic Parkinson's variant. She did not respond well to a trial of Sinemet or baclofen. Dr. Sharma has speculated whether or not she could have primary lateral sclerosis. An EMG of the right upper extremity was not suggestive of lower motor neuron dysfunction that may otherwise suggest ALS in spite of her lack of atrophy or fasciculations in the limb. Furthermore, recent and previous brain MRIs failed to reveal evidence of a stroke that would explain this particular issue. 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 Electrocardiogram reveals a normal sinus rhythm with PACs. A transthoracic echocardiogram has been completed, results pending. Labs obtained upon presentation are generally unremarkable although patient's blood glucose was elevated, 201. CBC within normal limits, urine tox screen unremarkable. Past Medical/Surgical History Medical Problems: (1) Altered mental status Status: Acute (2) Anemia Status: Acute (3) GI bleed Status: Acute (4) Iliopsoas muscle hematoma Status: Acute (5) Nausea vomiting and diarrhea Status: Acute (6) SOB (shortness of breath) Status: Acute (7) SOB (shortness of breath) Status: Acute Family History The patient denies any known family history of neurodegenerative disease that would potentially shed additional light on her diagnosis or affect her current evaluation and management. Social History Smoking Status: Never smoker Drug Use: none Marital Status: Housing Status: lives with significant other Occupation Status: retired Allergies Coded Allergies: Sulfa Antibiotics (Verified Allergy, Unknown, `, 06/19/16) Current Inpatient Medications Current Inpatient Medications Medications (Trade) Dose Ordered Sig/Miguel Route Start Time Stop Time Status Last Admin Dose Admin Clopidogrel Bisulfate (plAVix TAB) 75 mg QAM PO 07/30/16 09:00 08/29/16 08:59 07/30/16 08:17 75 MG Diltiazem HCl (TIAzac CAP) 120 mg QAM PO 07/30/16 09:00 08/29/16 08:59 07/30/16 08:17 120 MG Docusate Sodium (coLACE CAP) 100 mg BID PO 07/30/16 09:00 08/29/16 08:59 Levothyroxine Sodium (Synthroid Tab) 25 mcg DAILYBB PO 07/30/16 06:00 08/29/16 05:59 07/30/16 06:13 25 MCG HCTZ/Lisinopril (Prinzide 20-12.5MG Tab) 0.5 tab QAM PO 07/30/16 09:00 08/29/16 08:59 07/30/16 08:17 0.5 TAB Metoprolol Tartrate (Lopressor Tab) 25 mg BID PO 07/30/16 09:00 08/29/16 08:59 07/30/16 08:18 25 MG Simvastatin (Zocor Tab) 20 mg QPM PO 07/30/16 21:00 08/29/16 20:59 Review of Systems The patient denies fever, chills, malaise, weight loss, chest pain, palpitations , shortness of breath, coughing, wheezing, abdominal pain, diarrhea, nausea, dysuria, allyson incontinence of urine, rash, skin lesions, swollen glands, easy bruising or bleeding, muscle pain, depression or anxiety. She does complain of chronic right shoulder girdle pain related to a rotator cuff issue. A full 10 point review of systems was obtained from this patient and is as described in the history of present illness and otherwise listed above. Physical Exam Vital Signs (Past 24 Hrs): Date Time Temp Pulse Resp B/P Pulse Ox O2 Delivery O2 Flow Rate FiO2 07/30/16 07:34 36.7 73 16 146/69 94 Room Air 07/30/16 07:10 36.4 83 18 166/78 96 Room Air 07/30/16 04:00 Room Air 07/30/16 03:13 36.6 79 19 157/72 95 Room Air 07/30/16 02:16 36.6 83 20 174/92 96 Room Air 07/30/16 00:09 70 24 155/74 95 Room Air 07/29/16 23:00 66 16 151/71 97 Room Air 07/29/16 22:07 69 18 169/95 96 Room Air 07/29/16 21:00 70 18 159/76 97 Room Air 07/29/16 20:53 73 07/29/16 20:45 70 18 146/67 93 Room Air 07/29/16 20:30 79 20 166/102 96 Room Air 07/29/16 20:13 73 20 167/72 96 Room Air 07/29/16 20:00 97 Room Air 07/29/16 19:53 36.8 85 20 158/87 97 Room Air The patient is a well-developed elderly female. She is lying comfortably in bed , her is at bedside area she is pleasant and cooperative and in no acute distress. The patient is alert and oriented to person place and time. She exhibits normal attention and concentration as well as intact recent and remote memory. She is able to name objects, repeat phrases, and read simple text without difficulty. Her speech is non-dysarthric and fluent. She exhibits a normal age appropriate fund of knowledge and normal vocabulary. Visual lopez full to confrontation. Visual acuity normal with corrective eyewear. Pupils equal round reactive to light and accommodation. Eye movements intact. There is no nystagmus. There is normal facial symmetry and strength. There is no facial droop. Facial sensation intact bilaterally. The palate elevates to midline. The tongue protrudes to midline. There is no lingual atrophy or fasciculations. Shoulder shrug strength intact bilaterally. Hearing intact to finger rub bilaterally. Sensation intact to light touch, temperature, proprioception, and vibration for all 4 limbs. There is no dysmetria with finger to nose on the left or with heel to lewis bilaterally. The patient has considerable difficulty performing finger to nose with the right hand. She is able to initiate movement although movement is very slow and with a limited range of motion. The patient denies being limited by pain, however. The movement appears apractic. She is unable to demonstrate simple tasks with the right hand such as using a pair of scissors, or saluting with the right hand. She is able to do these things with the left. Ophthalmoscopic examination reveals normal-appearing optic nerves and posterior elements. No papilledema, no hemorrhages. Carotid pulses normal bilaterally, no bruits to auscultation. Musculoskeletal examination reveals normal strength for the left upper extremity as well as both lower extremities proximally and distally. There is no wrist drop for the left. There is no foot drop or either lower limb. Strength testing for the right upper extremity is difficult and cannot be reliably performed. She has considerable leadpipe rigidity of the right upper extremity or perhaps markedly increased muscle tone which can be slowly overcome with passive resistance. Muscle tone for the left upper limb as well as both lower limbs is normal. There is no atrophy of any of the limbs. No fasciculations observed. There is no rest, postural, or action tremor. The right hand appears to intermittently move on its own accord. The fingers will sometimes extended an awkward fashion with some associated abduction at the MCP joints. The patient has to keep the right upper limb in a modestly flexed posture at the elbow although the wrists are held in a somewhat extended posture. The right arm will sometimes move laterally and the patient will grab the right arm with her left hand to bring it back towards her midline. I did observe this patient ambulate at bedside to a limited degree. She tends to hold the right arm in a flexed posture with ambulation and appears a bit unsteady. Her gait does seem to resemble a hemiparetic gait pattern although it is difficult to find any significant motor deficits with direct testing of the right lower limb in isolation of her stance and walking. Laboratory Results Past 24 Hours: 07/29/16 19:55 Red Blood Count 4.30, Mean Corpuscular Volume 87.7, Mean Corpuscular Hemoglobin 29.1, Mean Corpuscular Hemoglobin Concent 33.2, Mean Platelet Volume 11.0, Neutrophils (%) (Auto) 63.4, Lymphocytes (%) (Auto) 26.0, Monocytes (%) (Auto) 7.0, Eosinophils (%) (Auto) 3.1, Basophils (%) (Auto) 0.3, Neutrophils # (Auto) 3.74, Lymphocytes # (Auto) 1.53, Monocytes # (Auto) 0.41, Eosinophils # (Auto) 0.18, Basophils # (Auto) 0.02 07/29/16 19:55 Test 07/29/16 19:55 07/29/16 20:09 07/29/16 21:10 07/30/16 06:18 White Blood Count 5.89 K/uL (4.8-10.8) Red Blood Count 4.30 M/uL (4.2-5.4) Hemoglobin 12.5 g/dL (12.0-16.0) Hematocrit 37.7 % (37-47) Mean Corpuscular Volume 87.7 fL (80-100) Mean Corpuscular Hemoglobin 29.1 pg (25-34) Mean Corpuscular Hemoglobin Concent 33.2 g/dl (32-36) Platelet Count 215 K/uL (130-400) Mean Platelet Volume 11.0 fL (7.4-10.4) Neutrophils (%) (Auto) 63.4 % Lymphocytes (%) (Auto) 26.0 % Monocytes (%) (Auto) 7.0 % Eosinophils (%) (Auto) 3.1 % Basophils (%) (Auto) 0.3 % Neutrophils # (Auto) 3.74 K/uL (1.4-6.5) Lymphocytes # (Auto) 1.53 K/uL (1.2-3.4) Monocytes # (Auto) 0.41 K/uL (0.11-0.59) Eosinophils # (Auto) 0.18 K/uL (0-0.5) Basophils # (Auto) 0.02 K/uL (0-0.2) RDW Standard Deviation 56.7 fL (36.4-46.3) RDW Coefficient of Variation 17.9 % (11.5-14.5) Immature Granulocyte % (Auto) 0.2 % Immature Granulocyte # (Auto) 0.01 K/uL (0.00-0.02) Prothrombin Time 12.0 SECONDS (9.0-12.0) Prothromb Time International Ratio 1.1 (0.9-1.1) Activated Partial Thromboplast Time 25.8 SECONDS (21.0-31.0) Partial Thromboplastin Ratio 1.0 Anion Gap 8.0 mmol/L (3-11) Est Creatinine Clear Calc Drug Dose 32.9 ml/min Estimated GFR () 49.1 Estimated GFR (Non- 42.4 BUN/Creatinine Ratio 19.9 (10-20) Calcium Level 8.7 mg/dl (8.5-10.1) Total Bilirubin 0.2 mg/dl (0.2-1) Direct Bilirubin < 0.1 mg/dl (0-0.2) Aspartate Amino Transf (AST/SGOT) 15 U/L (15-37) Alanine Aminotransferase (ALT/SGPT) 17 U/L (12-78) Alkaline Phosphatase 104 U/L (45-117) Total Protein 7.1 gm/dl (6.4-8.2) Albumin 3.5 gm/dl (3.4-5.0) Bedside Prothrombin Time INR 1.1 (0.9-1.1) Bedside Glucose 193 mg/dl (70-90) Urine Color YELLOW Urine Appearance CLEAR (CLEAR) Urine pH 5.0 (4.5-7.5) Urine Specific [place] 1.011 (1.000-1.030) Urine Protein NEG (NEG) Urine Glucose (UA) NEG (NEG) Urine Ketones NEG (NEG) Urine Occult Blood NEG (NEG) Urine Nitrite NEG (NEG) Urine Bilirubin NEG (NEG) Urine Urobilinogen NEG (NEG) Urine Leukocyte Esterase NEG (NEG) Urine WBC (Auto) 1-5 /hpf (0-5) Urine RBC (Auto) 0-4 /hpf (0-4) Urine Hyaline Casts (Auto) 0 /lpf (0-5) Urine Epithelial Cells (Auto) 20-30 /lpf (0-5) Urine Bacteria (Auto) NEG (NEG) Urine Opiates Screen NEG (NEG) Urine Methadone, Qualitative NEG (NEG) Urine Barbiturates NEG (NEG) Urine Phencyclidine (PCP) Level NEG (NEG) Ur Amphetamine/Methamphetamine NEG (NEG) MDMA (Ecstasy) Screen NEG (NEG) Urine Benzodiazepines Screen NEG (NEG) Urine Cocaine Metabolite NEG (NEG) Urine Marijuana (THC) NEG (NEG) Total Creatine Kinase 56 U/L (26-192) Creatine Kinase MB 2.2 ng/ml (0.5-3.6) Creatine Kinase MB Ratio 3.9 (0-3.0) Troponin I < 0.015 ng/ml (0-0.045) Imaging I did review the images and radiologist's interpretation of the recently completed brain MRI as well as the MR angiography of the head and neck. There is no evidence of acute or subacute stroke. There are 2, tiny, subcortical lacunar infarcts within the right cerebral hemisphere as described above in the history of present illness. There is an element of generalized atrophy although there is not appear to be a particular pattern such as prominent cerebellar or frontotemporal involvement. Both hippocampi appear to be within normal limits, but are not grossly atrophied out of proportion to other brain elements. There is no evidence of normal pressure hydrocephalus. There is no evidence of vascular lesion or occlusion on angiography. Impression This patient may have had a TIA localizing to the left cerebral hemisphere presenting with confusion and expressive speech difficulty. These symptoms have resolved. There is no evidence of acute or subacute stroke on MRI. No evidence of an occlusive lesion on MR angiography of the head or neck. Although her electrocardiogram revealed PACs, there is no supportive evidence of atrial fibrillation at this time. However, a cardioembolic TIA cannot be excluded. Also, this patient has a somewhat undifferentiated, chronic, neurological disorder that primarily affects the motor control of her right upper limb that began about 4 years ago. 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 As described in the history, she has been evaluated by 2 other neurologists, Dr. Aguilar, and Dr. Sharma for this condition and her diagnosis is by no means certain. I agree that she does not have typical Parkinson's disease or ALS. Primary lateral sclerosis or PLS is certainly possible although I think it is difficult to determine whether or not her abnormalities in muscle tone are mediated by basal ganglia dysfunction, corticospinal tract dysfunction, or are cortically based. I do not really find an upgoing toe on the right and I believe her abnormal tone for the right upper extremity (which affects flexors and extensors) could be an example a profound leadpipe rigidity. 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 Plan Follow up with results of transthoracic echocardiogram. If further testing reveals evidence of a potential cardioembolic source then it would be reasonable to consider anticoagulation for this patient given her recent, probable, TIA. Otherwise, continue with antiplatelet therapy. I do not have a treatment for this patient's chronic neurological disorder. There is no known treatment for cortical basal degeneration. She has already failed a Sinemet trial. Her medical record indicates that she has also been given baclofen in the past. Likewise, there is no known treatment for primary lateral sclerosis. Her examination and previous testing do not suggest ALS and I would therefore not recommend treatment for this disorder which is largely limited to Rilutek and supportive care. The patient will continue to follow with Dr. Sharma in neurology clinic for ongoing monitoring of her neurological condition. I did discuss with the patient the possibility of obtaining a consultation with a movement disorder specialist at a tertiary center for further consideration of cortical basal degeneration or a another atypical movement disorder. The patient may discuss this issue with Dr. Sharma. I've no further immediate recommendations.
--- NOTE | 2016-07-30 15:20 | Discharge Instructions ---
Discharge Instructions Date of Service Jul 30, 2016. Admission Reason for Admission: Tia (Transient Ischemic Attack Discharge Discharge Diagnosis / Problem: Transient Ischemic Attack - Mini Stroke Discharge Goals Goal(s): Decrease discomfort, Improve function, Increase independence Activity Recommendations Activity Limitations: resume your previous activity . Instructions / Follow-Up Instructions / Follow-Up Transient Ischemic Attack - Mini Stroke: - Given the length of your symptoms and complete resolution is suggested that the symptoms are related to a TIA or a mini stroke - Imaging of the brain and evaluation of the vessels in your neck and brain do not support findings of a stroke or poor blood perfusion to the brain - He will be continued on her home medications of Plavix and Zocor for prevention. - He will be restarted on aspirin 81 mg daily Since we restarted you on daily aspirin we would advise to avoid ibuprofen, aleve, motrin for pain as this can increase stomach issues and bleeding of the stomach. For mild pain we would recommend using Tylenol and following dosing instructions. Follow-Up: - Please follow-up with your neurologist, Dr. 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 SIGNS AND SYMPTOMS OF A STROKE - REMEMBER THE ACRONYM FAST F = FACE - facial dropping A = ARM - arm weakness/numbness S = SPEECH - slurred speech or difficulty finding words T = TIME - if you develop any symptoms it is important to call 911 immediately - DO NOT DELAY Current Hospital Diet Patient's current hospital diet: AHA Diet (Heart Healthy) Discharge Diet Recommended Diet: AHA Diet (Heart Healthy) Pending Studies Studies pending at discharge: no Laboratory Results Lipid Panel Test 07/30/16 06:18 Range/Units Triglycerides Level 162 H 0-150 mg/dl Cholesterol Level 138 0-200 mg/dl HDL Cholesterol 46 mg/dl Cholesterol/HDL Ratio 3.0 LDL Cholesterol, Calculated 60 mg/dl Medical Emergencies . Who to Call and When: Medical Emergencies: If at any time you feel your situation is an emergency, please call 911 immediately. . Non-Emergent Contact Non-Emergency issues call your: Primary Care Provider Call Non-Emergent contact if: you have a fever, your pain is concerning you, you have any medication questions . . "Provider Documentation" section prepared by Maddy Ashby. VTE Core Measure Inpt VTE Proph given/why not?: Jaime Lr, SCD's
[2016-07-30] MEDS ORDERED: ASPEC81 PO (15:34)
--- NOTE | 2016-07-30 17:50 | ECHOCARDIOGRAM REPORT ---
*NOTICE TO RECEIVING CONSTITUTION PARTY AGENCY This information is strictly Confidential and protected under [place] law. [place] law prohibits you from making any further disclosure of this information unless further disclosure is expressly permitted by the written consent of the person to whom it pertains or is authorized by law. A general authorization for the release of medical or other information is not sufficient for this purpose. Hospital accepts no responsibility if the information is made available to any other person, INCLUDING THE PATIENT. Interpretation Summary * Name: CHIKA TAPIA Study Date: 07/30/2016 07:22 AM BP: 146/69 mmHg * Patient Location: C.2T\S\S229\S\1 HR: 76 * : 1935 (M/d/yyyy) Gender: Female Height: 60 in * Age: 81 yrs Ethnicity: [place] Weight: 161 lb * Ordering Physician: Xiomara Moreno * Referring Physician: Self, Referred * Performed By: Cassidy El [facility] * * Reason For Study: ALT OF CONSCIOUSNESS / TIA * BSA: 1.7 m2 * -- Conclusions -- * 1. Normal left ventricular size with hyperdynamic systolic function. EF 65-70%. No regional wall motion abnormalities. Mild concentric left ventricular hypertrophy with asymmetric hypertrophy of the septal base. Type 2 diastolic dysfunction. * 2. The left atrium is moderately dilated. * 3. No visualized ASD or PFO via color Doppler. No visualized right to left interatrial shunt following agitated saline injection. * 4. No significant valvular abnormalities visualized. * 5. Top-normal estimated right ventricular systolic pressure; 37 mmHg. * 6. No significant change from prior study on 01/08/2015. Procedure Details * A complete two-dimensional transthoracic echocardiogram was performed (2D, M-mode, Doppler and color flow Doppler). * A saline contrast injection was performed to assess for cardiac shunting. * The injection was performed through an intravenous line in the left arm. * The attending nurse who injected the saline contrast was KURTIS LEE, RN. * A total of 20 cc of agitated saline was given. Left Ventricle * Normal left ventricular size with hyperdynamic systolic function. EF 65-70%. No regional wall motion abnormalities. Mild concentric left ventricular hypertrophy with asymmetric hypertrophy of the septal base. Type 2 diastolic dysfunction. Right Ventricle * The right ventricle is normal in size and function. Atria * The left atrium is moderately dilated. * Right atrial size is normal. * No visualized ASD or PFO via color Doppler. No visualized right to left interatrial shunt following agitated saline injection. Mitral Valve * There is mild mitral annular calcification. * There is no mitral valve stenosis. * There is trace mitral regurgitation. Tricuspid Valve * The tricuspid valve is not well visualized, but is grossly normal. * There is no tricuspid stenosis. * There is trace tricuspid regurgitation. Aortic Valve * The aortic valve is trileaflet. * No hemodynamically significant valvular aortic stenosis. * Trace aortic regurgitation. Pulmonic Valve * The pulmonary valve is inadequately visualized, but the Doppler data is adequate for interpretation. * There is no pulmonic valvular stenosis. * Trace pulmonic valvular regurgitation. Great Vessels * The aortic root is normal size. * Ascending aorta of normal dimension * Normal pulmonary venous flow pattern. Pericardium/Pleural * There is no pericardial effusion. Great Vessels * Normal inferior vena cava size and collapsability with sniff indicates a normal right atrial pressure of 3 mmHg MMode 2D Measurements and Calculations IVSd 1.2 cm IVSs 1.9 cm LVIDd 3.9 cm LVIDs 2.3 cm LVPWd 1.3 cm LVPWs 1.5 cm IVS/LVPW 0.97 FS 42.2 % EDV(Teich) 67.2 ml ESV(Teich) 17.6 ml EF(Teich) 73.9 % EDV(cubed) 60.8 ml ESV(cubed) 11.7 ml EF(cubed) 80.7 % % IVS thick 49.8 % % LVPW thick 13.8 % LV mass(C)d 172.9 grams LV mass(C)dI 101.6 grams/m\S\2 LV mass(C)s 135.2 grams LV mass(C)sI 79.4 grams/m\S\2 SV(Teich) 49.7 ml SI(Teich) 29.2 ml/m\S\2 SV(cubed) 49.1 ml SI(cubed) 28.8 ml/m\S\2 Ao root diam 3.2 cm Ao root area 8.1 cm\S\2 LA dimension 4.6 cm asc Aorta Diam 2.8 cm LA/Ao 1.4 LVOT diam 2.0 cm LVOT area 3.0 cm\S\2 Doppler Measurements and Calculations MV E max darlene 81.4 cm/sec MV A max darlene 57.7 cm/sec MV E/A 1.4 MV P1/2t max darlene 87.1 cm/sec MV P1/2t 53.7 msec MVA(P1/2t) 4.1 cm\S\2 MV dec slope 475.0 cm/sec\S\2 MV dec time 0.19 sec Ao V2 max 131.8 cm/sec Ao max PG 7.0 mmHg Ao max PG (full) 0.14 mmHg ROHAN(V,A) 3.0 cm\S\2 ROHAN(V,D) 3.0 cm\S\2 LV V1 max PG 6.8 mmHg LV V1 max 130.5 cm/sec MR max darlene 289.6 cm/sec MR max PG 33.5 mmHg PA V2 max 101.2 cm/sec PA max PG 4.1 mmHg TR max darlene 294.3 cm/sec RVSP(TR) 37.6 mmHg RAP systole 3.0 mmHg
[2016-07-30] MEDS ORDERED: SIMVASTATIN 20 MG TAB PO SCH (21:00)
--- NOTE | 2016-07-31 18:13 | Discharge Summary ---
Discharge Summary Date of Service Jul 31, 2016. Discharge Summary Admission Date: Jul 29, 2016 at 22:39 Discharge Date: Jul 30, 2016 Discharge Disposition: Home Principal Diagnosis: Transient Ischemic Attack Immunizations: Have You Had Influenza Vaccine: Yes History of Tetanus Vaccine?: Unknown History of Pneumococcal: Yes History of Hepatitis B Vaccine: No Procedures: 1. CT HEAD WITHOUT CONTRAST (CT) CLINICAL HISTORY: Stroke COMPARISON STUDY: 03/05/2016 TECHNIQUE: Axial CT of the brain is performed from the vertex to the skull base. IV contrast was not administered for this examination. CT DOSE: 537.48 mGy.cm FINDINGS: No intra or extra-axial mass lesions are visualized. There is no CT evidence of acute cortical infarction. There is no evidence of midline shift. There is no acute hemorrhage. No calvarial fractures are visualized. There are minimal white matter hypodensities likely on a small vessel basis. There is no evidence of pathologic ventricular dilatation. There is no evidence of acute sinusitis IMPRESSION: No acute intracranial findings 2. MRI OF THE BRAIN WITHOUT AND WITH IV CONTRAST CLINICAL HISTORY: TIA mental status change COMPARISON STUDY: No previous studies for comparison. TECHNIQUE: Utilizing a 1.5 Shazia magnet and dedicated coil, multiplanar, multiecho imaging of the brain was performed pre and postcontrast administration. IV administration of 8 mL of Gadavist contrast was uneventful. FINDINGS: Generalized moderate cerebellar as well as cerebral atrophy. Moderate chronic small vessel change of aging. No acute intracranial abnormality. Ventricular system is midline. No evidence for abnormal postcontrast enhancement IMPRESSION: No acute process. Atrophy and chronic small vessel change. 3. NECK MRA HISTORY: Mental status change TIA TECHNIQUE: [id number] and gadolinium-enhanced MRA of the neck was performed both before and after the intravenous administration of contrast. All measurements were calculated based on NASCET criteria. COMPARISON STUDY: None. FINDINGS: The aortic arch and proximal great vessels are widely patent. There is no significant stenosis, occlusion, or dissection identified within the bilateral common carotid, internal carotid, or vertebral arteries. IMPRESSION: No significant stenosis, occlusion, or dissection identified within the carotid or vertebral arteries. 4. Brain MRA HISTORY: Stroke symptoms. tia TECHNIQUE: 3-D [id number] MRA of the brain was performed without contrast. COMPARISON STUDY: None. FINDINGS: Visualized intracranial internal carotid arteries, distal vertebral arteries, and basilar artery are widely patent. There is no significant stenosis, occlusion, or aneurysm seen within the bilateral ACAs, MCAs, or coat cutter. IMPRESSION: No significant stenosis, occlusion, or aneurysm within the skull valley of [place]. Consultations: 1. Neurology 2. PT Medication Reconciliation New Medications: Aspirin (Aspirin EC Low Dose) 81 Mg Ectab 81 MG PO DAILY, #30 Continued Medications: Calcium Carbonate-Cholecalcife (Caltrate 600+D) 1 Tab Tab 1 TAB PO BID 1 at 0530 1 at 1730 Clopidogrel (Plavix) 75 Mg Tab 75 MG PO QAM, TAB Diltiazem Hcl Ext Rel (Tiazac) 120 Mg Capcr 120 MG PO QAM, CAP Docusate Sodium (Colace) 100 Mg Cap 1 CAP PO BID for 30 Days, #60 CAP 2 Refills Ferrous Gluconate (Fe Gluconate) 325 Mg Tab 1 TAB PO BID Levothyroxine Sodium (Levothyroxine Sodium) 25 Mcg Tab 25 MCG PO DAILY, TAB Lisinopril/Hctz (Zestoretic 20MG/12.5MG) Tab 0.5 TAB PO QAM, TAB half tab in morning Metoprolol Tartrate (Lopressor) 50 Mg Tab 25 MG PO BID, TAB half tab BID Simvastatin (Zocor) 20 Mg Tab 20 MG PO QPM, TAB Discontinued Medications: Ibuprofen Tab (Advil) 200 Mg Tab 400 MG PO Q4 PRN for Pain, TAB Discharge Exam Review of Systems: Constitutional: No chills, No fever Eyes: No worsening of vision ENT: No nasal symptoms, No sore throat, No trouble swallowing Respiratory: No cough, No shortness of breath Cardiovascular: No chest pain Abdomen: No constipation, No diarrhea, No nausea, No pain, No vomiting Musculoskeletal: No calf pain, No swelling Genitourinary - Female: No dysuria Neurologic: + problem reported (H/O R partial primary lateral sclerosis), + weakness (chronic RUE - baseline per patient) Hematologic / Lymphatic: No abnormal bleeding/bruising, No clotting problems Integumentary: No rash Physical Exam: General Appearance: WD/WN, no apparent distress, + pertinent finding (no evidence of resting or intention tremor) Eyes: sclerae normal ENT: hearing grossly normal Neck: supple, no JVD, trachea midline Respiratory/Chest: lungs clear, normal breath sounds, no respiratory distress, no accessory muscle use Cardiovascular: regular rate, rhythm, no gallop, no murmur Abdomen / GI: normal bowel sounds, non tender, soft Extremities: no calf tenderness, no pedal edema Neurologic/Psychiatric: alert, oriented x 3, + pertinent finding (Limited motion of right upper extremity; facial features symmetrical at rest and with movement; weakness of right upper extremity) Skin: normal color, warm/dry Hospital Course ADMISSION: Halie is an 81 yo 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 She was standing in the kitchen and noticed she couldn't remember what words to say, and started asking her about irrelevant foods. This lasted for 1 hour. She did not fall, but has a history of multiple falls due to her neurological disease. She denied any chest pain, shortness of breath, nausea or vomiting at the time. During that hour she continued to eat her supper. This ended about 3 hours ago, but her was concerned so brought her to the ED. Currently, she denies any change in cognition and is aware of her symptoms which occurred. HOSPITAL COURSE: Ms. Bello was admitted for suspicion of TIA given acute aphasia/ confusion that lasted approximately one hour and resolved prior to admission. Patient was admitted to telemetry for heart rhythm monitoring. Cardiac enzymes trended and negative. Head CT revealing chronic small vessel changes but no acute intracranial processes. Brain MRI obtained which reveals moderate chronic small vessel changes, moderate cerebellar and cerebral atrophy, but no acute intracranial abnormalities. Head and neck MRA without significant stenosis or evidence of dissection or occlusion. Please see procedures for official imaging report. Echocardiogram obtained with EF 65-70%, no regional wall motion abnormalities, mild concentric left ventricular hypertrophy with asymmetric hypertrophy of septal base, moderate dilated left atrium, and type II diastolic dysfunction. Echo did not reveal shunting or PFO or suggest embolic source of TIA. Neurology consulted with recommendations to continue anti-platelet therapy. Patient had a previously established follow-up appointment with neurology and was instructed to discuss possible consultation for a movement disorder specialist for her lateral sclerosis. Patient was previously prescribed ASA 81 mg and Plavix 75 mg daily. On previous admission her ASA was discontinued due to microcytic anemia and need for blood transfusion. However patient had EGD and outpatient colonoscopy which did not reveal a source of bleeding. Patient is instructed to reinstitute ASA 81 mg daily in addition to Plavix 75 mg daily. She was instructed to discontinue ibuprofen due to risk of increase bleeding with ASA. Advised to use Tylenol for mild pain. She was continued on all home medications without dosage adjustment. Lipid panel obtained which was largely unremarkable except for triglycerides 162. Due to her chronic movement condition PT evaluations obtained. Patient would benefit from further PT services and home health services. This was discussed with patient who declined home health at this time. She states she is actively in the process of obtaining assistance through the [facility]. Patient reporting at her baseline function, she is alert and oriented, and no new neurological deficits appreciated. She is optimal for discharge home with neurology follow-up. Total Time Spent: Greater than 30 minutes This includes examination of the patient, discharge planning, medication reconciliation, and communication with other providers. Discharge Instructions Please refer to the electronic Patient Visit Report (Discharge Instructions) for additional information. Additional Copies To Timothy Garcia M.D.
[2016-12-09] MEDS ORDERED: QSTP PO (09:06)
[2016-12-09] MEDS ORDERED: IBUP-103 PO (09:06)
== END 2016-07-30 17:38 | disposition home or self-care (01) | DRG 69 ==
LOC: ENRESERVDT → ENRESERVTM → EDBD 19:47 → C.EDA 19:48 → C.2T 22:39
PROVIDERS: ADMIT Hospitalist; ATTEND Hospitalist
DX: G45.9 Transient cerebral ischemic attack, unspecified (principal); G12.21 Amyotrophic lateral sclerosis; F17.210 Nicotine dependence, cigarettes, uncomplicated; E78.00 Pure hypercholesterolemia, unspecified; E03.9 Hypothyroidism, unspecified; G31.85 Corticobasal degeneration; Z88.2 Allergy status to sulfonamides

== ENCOUNTER 2016-12-31 09:21 | Emergency (ER) | payer OTHER ==
[~2016-12-31 09:21] MED LIST changes: -ALPR-411 PO; +ASPEC81 PO; -DOCU-94 PO; +IBUP-103 PO; -PRVHFAIN INH; +QSTP PO
[2016-12-31 09:22] VITALS: TEMP 36.6; Ht 152.4 cm
[2016-12-31 09:45] VITALS: O2SAT 95
[2016-12-31 10:25] LABS: BASO % 0.2 %; BASO ABS # 0.01 K/uL (0-0.2); COMPLETE YES; EOS % 4.8 %; HEMATOCRIT 30.2 % (37-47); IG% 0.2 %; LYMPH % 30.3 %; LYMPH ABS # 1.82 K/uL (1.2-3.4); MEAN CELL VOLUME 98.7 fL (80-100); MEAN CORPUSCULAR HEMOGLOBIN 31.4 pg (25-34); MEAN CORPUSCULAR HGB CONC 31.8 g/dl (32-36); MEAN PLATELET VOLUME 11.5 fL (7.4-10.4); MONO % 6.8 %; NEUT % 57.7 %; PLATELET COUNT 274 K/uL (130-400); RED BLOOD COUNT 3.06 M/uL (4.2-5.4); WHITE BLOOD COUNT 6.01 K/uL (4.8-10.8)
[2016-12-31] MEDS ORDERED: FRRG PO (10:36)
[2016-12-31] MEDS ORDERED: METH-307 PO (10:37)
[2016-12-31 10:45] LABS: BLOOD UREA NITROGEN 23 mg/dl (7-18); BUN/CREATININE RATIO 23.4 (10-20); CALCIUM 8.6 mg/dl (8.5-10.1); CARBON DIOXIDE 27 mmol/L (21-32); CHLORIDE 109 mmol/L (98-107); GLUCOSE 99 mg/dl (70-99); POTASSIUM 4.7 mmol/L (3.5-5.1); SODIUM 140 mmol/L (136-145)
[2016-12-31 11:37] VITALS: BP 129/59; PULSE 90; O2SAT 96
--- NOTE | 2016-12-31 11:49 | DIAGNOSTIC IMAGING REPORT ---
LEFT LOWER EXTREMITY VENOUS DOPPLER HISTORY: Left leg pain. COMPARISON STUDY: None. FINDINGS: There is normal compressibility, flow, and augmentation within the left lower extremity deep venous system. Within the medial distal thigh there is a heterogeneous 9.6 x 4.1 x 1.9 cm fluid collection within the deep subcutaneous fat. IMPRESSION: No DVT within the left lower extremity. A 9.6 x 4.1 x 1.9 cm heterogeneous fluid collection within the distal thigh. This favors a hematoma and could be due to direct injury or underlying muscle injury/tear. Electronically signed by: Terry Centeno M.D. 12/31/2016 11:47 AM Dictated Date/Time: 12/31/2016 11:45 AM
--- NOTE | 2016-12-31 16:48 | EMERGENCY ROOM VISIT NOTE ---
History Report prepared by Mason: Lety Peck Under the Supervision of: Dr. Alex Powell D.O. First contact with patient: 09:26 Chief Complaint: LEG PAIN,LEG INJURY Stated Complaint: CRAMP - LEFT LEG, SWOLLEN/BLACK & BLUE History of Present Illness The patient is a 81 year old female who presents to the Emergency Room with complaints of intermittent left leg cramping for the past 5 days. The patient states that initially she was having severe cramping in her left leg that was occurring every 15 minutes throughout the night. She was not massaging her calf or squeezing it. was applying heat and Icy/Hot. The patient states that nothing helped to alleviate her pain. She has continued to have cramping over the last three days, although it is less severe than it had been. She saw her PCP three days ago and they stopped her Lisinopril, HCTZ, and Nystatin. The patient states that her cramping has continued today and she noticed that her left leg is swollen and bruised today. She rates her pain as a 3/10 in severity. She denies any recent trauma or injury. She takes Plavix and aspirin and has not missed any doses. Source of History: patient, spouse/significant other Onset: 5 days ago Position: leg (left) Symptom Intensity: 3/10 Quality: cramping Timing: intermittent Note: Pt notes swelling and bruising to left leg. Pt denies recent trauma or injury. Review of Systems See HPI for pertinent positives & negatives. A total of 10 systems reviewed and were otherwise negative. Past Medical & Surgical Medical Problems: (1) Dehydration (2) Foreign body (3) Gastroenteritis (4) Localized, primary osteoarthritis of the pelvic region and thigh (5) Nausea & vomiting (6) TIA (transient ischemic attack) (7) UTI (urinary tract infection) Surgical Problems: (1) H/O colonoscopy Family History Patient reports no known family medical history. Social History Smoking Status: Never Smoker Alcohol Use: occasionally Drug Use: none Marital Status: Housing Status: lives with significant other Occupation Status: retired Current/Historical Medications Scheduled Aspirin (Aspirin EC Low Dose), 81 MG PO DAILY Calcium Carbonate-Cholecalcife (Caltrate 600+D), 1 TAB PO BID Clopidogrel (Plavix), 75 MG PO QAM Diltiazem Hcl Ext Rel (Tiazac), 120 MG PO QAM Ferrous Gluconate (Ferrous Gluconate), 324 MG PO DAILY Levothyroxine Sodium (Levothyroxine Sodium), 25 MCG PO DAILY Methocarbamol (Robaxin), 750 MG PO DAILY Metoprolol Tartrate (Lopressor), 25 MG PO BID Scheduled PRN Ibuprofen Tab (Advil), 200 MG PO Q4H PRN for PRN Allergies Coded Allergies: Sulfa Antibiotics (Verified Allergy, Unknown, `, 06/19/16) Physical Exam Vital Signs Date Time Temp Pulse Resp B/P (MAP) Pulse Ox O2 Delivery O2 Flow Rate FiO2 12/31/16 11:37 90 16 129/59 96 Room Air 12/31/16 09:50 71 12/31/16 09:45 95 Room Air 12/31/16 09:22 36.6 80 18 138/79 96 Room Air Physical Exam GENERAL: alert,sitting up in bed, well appearing, well nourished, no distress, non-toxic EYE EXAM: normal conjunctiva OROPHARYNX: no exudate, no erythema, lips, buccal mucosa, and tongue normal and mucous membranes are moist NECK: supple, no nuchal rigidity, no adenopathy, non-tender LUNGS: Clear to auscultation. Normal chest wall mechanics HEART: no murmurs, S1 normal and S2 normal ABDOMEN: abdomen soft, non-tender, normo-active bowel sounds, no masses, no rebound or guarding. SKIN: no rashes and no bruising UPPER EXTREMITIES: upper extremities are grossly normal. LOWER EXTREMITIES: Bruising on the posterior left mid-thigh tracking down to her calf with swelling, DP 2/4 bilaterally, full active and passive ROM, no bony tenderness. NEURO EXAM: Normal sensorium, cranial nerves II-XII grossly intact, normal speech, no gross weakness of arms, no gross weakness of legs. Medical Decision & Procedures ER Provider Diagnostic Interpretation: Radiology results as stated below per my review and the radiologist's interpretation: LEFT LOWER EXTREMITY VENOUS DOPPLER HISTORY: Left leg pain. COMPARISON STUDY: None. FINDINGS: There is normal compressibility, flow, and augmentation within the left lower extremity deep venous system. Within the medial distal thigh there is a heterogeneous 9.6 x 4.1 x 1.9 cm fluid collection within the deep subcutaneous fat. IMPRESSION: No DVT within the left lower extremity. A 9.6 x 4.1 x 1.9 cm heterogeneous fluid collection within the distal thigh. This favors a hematoma and could be due to direct injury or underlying muscle injury/tear. Electronically signed by: Terry Centeno M.D. 12/31/2016 11:47 AM Dictated Date/Time: 12/31/2016 11:45 AM Laboratory Results 12/31/16 09:40 Red Blood Count 3.06, Mean Corpuscular Volume 98.7, Mean Corpuscular Hemoglobin 31.4, Mean Corpuscular Hemoglobin Concent 31.8, Mean Platelet Volume 11.5, Neutrophils (%) (Auto) 57.7, Lymphocytes (%) (Auto) 30.3, Monocytes (%) (Auto) 6.8, Eosinophils (%) (Auto) 4.8, Basophils (%) (Auto) 0.2, Neutrophils # (Auto) 3.47, Lymphocytes # (Auto) 1.82, Monocytes # (Auto) 0.41, Eosinophils # (Auto) 0.29, Basophils # (Auto) 0.01 12/31/16 09:40 Test 12/31/16 09:40 White Blood Count 6.01 K/uL (4.8-10.8) Red Blood Count 3.06 M/uL (4.2-5.4) Hemoglobin 9.6 g/dL (12.0-16.0) Hematocrit 30.2 % (37-47) Mean Corpuscular Volume 98.7 fL (80-100) Mean Corpuscular Hemoglobin 31.4 pg (25-34) Mean Corpuscular Hemoglobin Concent 31.8 g/dl (32-36) Platelet Count 274 K/uL (130-400) Mean Platelet Volume 11.5 fL (7.4-10.4) Neutrophils (%) (Auto) 57.7 % Lymphocytes (%) (Auto) 30.3 % Monocytes (%) (Auto) 6.8 % Eosinophils (%) (Auto) 4.8 % Basophils (%) (Auto) 0.2 % Neutrophils # (Auto) 3.47 K/uL (1.4-6.5) Lymphocytes # (Auto) 1.82 K/uL (1.2-3.4) Monocytes # (Auto) 0.41 K/uL (0.11-0.59) Eosinophils # (Auto) 0.29 K/uL (0-0.5) Basophils # (Auto) 0.01 K/uL (0-0.2) RDW Standard Deviation 49.1 fL (36.4-46.3) RDW Coefficient of Variation 13.7 % (11.5-14.5) Immature Granulocyte % (Auto) 0.2 % Immature Granulocyte # (Auto) 0.01 K/uL (0.00-0.02) Anion Gap 4.0 mmol/L (3-11) Estimated GFR () 61.2 Estimated GFR (Non- 52.8 BUN/Creatinine Ratio 23.4 (10-20) Calcium Level 8.6 mg/dl (8.5-10.1) Chemistry Specimen Hemolysis Laboratory results per my review. ED Course ED COURSE: Vital signs were reviewed and showed hypertensive. The patients medical record was reviewed The above diagnostic studies were performed and reviewed. ED treatments and interventions as stated above. 0934: The patient was evaluated in room B6. A complete history and physical examination was performed. 1224: Upon reevaluation, the patient is feeling better and resting comfortably. I discussed my findings with the patient and she understands and agrees with the treatment plan. Based on the patients age, coexisting illnesses, exam and lab findings the decision to treat as an outpatient was made. The patient remained stable while under my care. The patient appeared well at the time of discharge. Medical Decision Differential diagnosis: Etiologies such as DVT, musculoskeletal, infection, joint effusion, trauma, lymphedema, idiopathic, CHF, as well as others were entertained. Patient is an 81-year-old female who presents the ER for bruising on the posterior aspect of her left leg. She notes that she has been getting cramps intermittently over the past several days. She denies any trauma or falls. She does take Plavix. No bony tenderness on exam. She is neurovascularly intact. CBC shows anemia at 9.6 which is close to her baseline of 10. Duplex of the lower extremities shows no DVT by 9 x 4 cm fluid collection likely hematoma. She was updated regards to findings. Her with Cipro and HCTZ has been stopped by her PCP. She was discharged follow-up with her primary care doctor for cramping and contusion to her leg. Discussed with Pt concerning signs and symptoms to watch out for. Pt was instructed to follow up with their PCP and discussed with the patient their option to return to the ED at anytime for persistent or worsening symptoms. The appropriate anticipatory guidance and out-patient management, including indications for return to the emergency department, were explained at length to the patient and understood. Medication Reconcilliation Current Medication List: was personally reviewed by me Blood Pressure Screening Patient's blood pressure: Elevated blood pressure Blood pressure disposition: Elevated BP felt to be situational Impression Primary Impression: Leg pain, left Additional Impression: Contusion of leg, left Scribe Attestation The scribe's documentation has been prepared under my direction and personally reviewed by me in its entirety. I confirm that the note above accurately reflects all work, treatment, procedures, and medical decision making performed by me. Departure Information Dispostion Home / Self-Care Referrals Timothy Garcia M.D. (PCP) Forms HOME CARE DOCUMENTATION FORM, IMPORTANT VISIT INFORMATION Patient Instructions ED Contusion Lower Ext, Leg Low Back Pain Poss Causes, My [facility] Additional Instructions Please follow up with your primary care doctor or if you are a student, [facility] with in the next 24 hours. Any worsening of your symptoms, please return to the ED immediately. This includes any fevers greater than 100.4, worsening pain, chest pain, unable to walk, shortness breath, persistent nausea, vomiting, unable to eat or drink, or any other concerning signs or symptoms from your standpoint. Please take Tylenol as needed for pain. Problem Qualifiers Additional Impression: Contusion of leg, left Encounter type: initial encounter Qualified Codes: S80.12XA - Contusion of left lower leg, initial encounter
== END 2016-12-31 12:40 | disposition home or self-care (01) ==
LOC: C.EDB 09:21
DX: S80.12XA Contusion of left lower leg, initial encounter (principal); X58.XXXA Exposure to other specified factors, initial encounter; Z79.01 Long term (current) use of anticoagulants; Z79.82 Long term (current) use of aspirin; Z87.440 Personal history of urinary (tract) infections; Z86.73 Personal history of transient ischemic attack (TIA), and cerebral infarction without residual deficits; Z79.899 Other long term (current) drug therapy

== ENCOUNTER 2017-01-25 08:13 | Observation (INO) | payer OTHER ==
[~2017-01-25] VITALS: Ht 152.4 cm; Wt 74.9 kg
[~2017-01-25 08:13] MED LIST changes: -FERR325T49 PO; +FRRG PO; -IBUP-103 PO; -LISI-787 PO; -QSTP PO; -SIMV20TA2 PO
--- NOTE | 2017-01-25 08:28 | EMERGENCY ROOM VISIT NOTE ---
History Report prepared by Mason: Luda Omalley Under the Supervision of: Dr. Carlos Kang M.D. First contact with patient: 08:18 Stated Complaint: SEVERE PAIN IN RIGHT HIP History of Present Illness The patient is an 82 year old female who presents to the Emergency Room with complaints of gradually worsening right hip pain that began Labor Day after a fall. The patient reports a history of a right hip replacement five years ago by Dr. Garcia of [facility]. She states that since the fall she has had difficulty walking. The patient states that she reports increased pain with weight bearing, but notes that her pain is alleviated with rest. She denies any additional fall since Labor Day. The patient denies any increased swelling to her right leg compared to her right. She reports a history of hypertension, noting that she took her blood pressure medications around 0630 this morning. Source of History: patient Onset: Position: other (right hip) Timing: worsening (gradually) Modifying Factors (Worsening): other (weight bearing) Modifying Factors (Relieving): other (rest) Review of Systems See HPI for pertinent positives & negatives. A total of 10 systems reviewed and were otherwise negative. Past Medical & Surgical Medical Problems: (1) Dehydration (2) Foreign body (3) Gastroenteritis (4) Localized, primary osteoarthritis of the pelvic region and thigh (5) Nausea & vomiting (6) TIA (transient ischemic attack) (7) UTI (urinary tract infection) Surgical Problems: (1) H/O colonoscopy Family History Patient reports no known family medical history. Social History Smoking Status: Never Smoker Alcohol Use: occasionally Drug Use: none Marital Status: Housing Status: lives with significant other Occupation Status: retired Current/Historical Medications Scheduled Aspirin (Aspirin EC Low Dose), 81 MG PO DAILY Calcium Carbonate-Cholecalcife (Caltrate 600+D), 1 TAB PO BID Clopidogrel (Plavix), 75 MG PO QAM Diltiazem Hcl Ext Rel (Tiazac), 120 MG PO QAM Ferrous Gluconate (Ferrous Gluconate), 324 MG PO DAILY Levothyroxine Sodium (Levothyroxine Sodium), 25 MCG PO DAILY Metoprolol Tartrate (Lopressor), 25 MG PO BID Scheduled PRN Ibuprofen Tab (Advil), 400 MG PO Q6 PRN for Pain Allergies Coded Allergies: Sulfa Antibiotics (Verified Allergy, Unknown, `, 01/25/17) Physical Exam Vital Signs Date Time Temp Pulse Resp B/P (MAP) Pulse Ox O2 Delivery O2 Flow Rate FiO2 01/25/17 14:45 74 16 129/56 95 Room Air 01/25/17 13:45 81 24 143/65 97 Room Air 01/25/17 12:14 75 01/25/17 11:40 80 16 138/61 98 Room Air 01/25/17 10:10 78 21 164/73 95 Room Air 01/25/17 08:26 73 147/74 94 Room Air 01/25/17 08:24 72 01/25/17 08:20 36.6 74 20 165/118 96 Room Air Physical Exam GENERAL: Patient is in no acute distress. HEENT: No acute trauma, normocephalic atraumatic, mucous membranes moist, no nasal congestion, no scleral icterus. NECK: No stridor, no adenopathy, no meningismus, trachea is midline. LUNGS: Clear to auscultation bilaterally, no wheeze, no rhonchi, breath sounds equal. HEART: Without murmurs gallops or rubs, regular rate and rhythm. ABDOMEN: Soft, nontender, bowel sounds positive, no hernias, no peritonitis. EXTREMITIES: Mild bilateral pedal edema. No cellulitis. No gross deformity to either lower extremity. Passive motion of the right hip does not cause any pain , but she does have some mild tenderness over the lateral right hip to palpation. NEUROLOGIC: Oriented x 3, no acute motor or sensory deficits, no focal weakness. SKIN: No rash, no jaundice, no diaphoresis. Medical Decision & Procedures ER Provider Diagnostic Interpretation: Radiology results as stated below per my review and radiologist interpretation: RIGHT LOWER EXTREMITY WITHOUT CT DOSE: 1282.72 mGy.cm HISTORY: Trauma Right hip pain, fall, replacement Right TECHNIQUE: Multiaxial CT images of the right hip were performed and reformatted in the sagittal and coronal plane without the use of contrast. A dose lowering technique was utilized adhering to the principles of ALARA. COMPARISON: None. FINDINGS: No fracture or dislocation. Soft tissues are unremarkable. Evidence for a total right hip replacement. Degenerative change of the lumbosacral spine. Sacral foramina are symmetric.] Prosthetic is intact. IMPRESSION: No acute process status post total right hip replacement. Degenerative bony change as described The above report was generated using voice recognition software. It may contain grammatical, syntax or spelling errors. Electronically signed by: Jermaine Mullen M.D. 01/25/2017 9:36 AM Dictated Date/Time: 01/25/2017 9:32 AM RIGHT HIP UNILATERAL 2 VIEWS CLINICAL HISTORY: pain right hip Right pain COMPARISON: 06/19/2016 DISCUSSION: Anatomic alignment status post total joint replacement. No evidence for fracture or dislocation. Linear lucency mid femoral shaft felt to represent a nutrient canal. No evidence for acetabular protrusion. There is no evidence for soft tissue swelling. IMPRESSION: No acute process post total right hip arthroplasty The above report was generated using voice recognition software. It may contain grammatical, syntax or spelling errors. Electronically signed by: Jermaine Mullen M.D. 01/25/2017 11:06 AM Dictated Date/Time: 01/25/2017 11:05 AM Laboratory Results 01/25/17 08:40 Red Blood Count 3.08, Mean Corpuscular Volume 96.8, Mean Corpuscular Hemoglobin 30.2, Mean Corpuscular Hemoglobin Concent 31.2, Mean Platelet Volume 10.3, Neutrophils (%) (Auto) 64.2, Lymphocytes (%) (Auto) 21.9, Monocytes (%) (Auto) 9.5, Eosinophils (%) (Auto) 3.9, Basophils (%) (Auto) 0.3, Neutrophils # (Auto) 4.11, Lymphocytes # (Auto) 1.40, Monocytes # (Auto) 0.61, Eosinophils # (Auto) 0.25, Basophils # (Auto) 0.02 01/25/17 08:40 Test 01/25/17 00:00 01/25/17 08:40 Urine Color YELLOW Urine Appearance CLEAR (CLEAR) Urine pH 5.0 (4.5-7.5) Urine Specific [place] 1.018 (1.000-1.030) Urine Protein NEG (NEG) Urine Glucose (UA) NEG (NEG) Urine Ketones NEG (NEG) Urine Occult Blood NEG (NEG) Urine Nitrite NEG (NEG) Urine Bilirubin NEG (NEG) Urine Urobilinogen NEG (NEG) Urine Leukocyte Esterase NEG (NEG) White Blood Count 6.40 K/uL (4.8-10.8) Red Blood Count 3.08 M/uL (4.2-5.4) Hemoglobin 9.3 g/dL (12.0-16.0) Hematocrit 29.8 % (37-47) Mean Corpuscular Volume 96.8 fL (80-100) Mean Corpuscular Hemoglobin 30.2 pg (25-34) Mean Corpuscular Hemoglobin Concent 31.2 g/dl (32-36) Platelet Count 366 K/uL (130-400) Mean Platelet Volume 10.3 fL (7.4-10.4) Neutrophils (%) (Auto) 64.2 % Lymphocytes (%) (Auto) 21.9 % Monocytes (%) (Auto) 9.5 % Eosinophils (%) (Auto) 3.9 % Basophils (%) (Auto) 0.3 % Neutrophils # (Auto) 4.11 K/uL (1.4-6.5) Lymphocytes # (Auto) 1.40 K/uL (1.2-3.4) Monocytes # (Auto) 0.61 K/uL (0.11-0.59) Eosinophils # (Auto) 0.25 K/uL (0-0.5) Basophils # (Auto) 0.02 K/uL (0-0.2) RDW Standard Deviation 45.5 fL (36.4-46.3) RDW Coefficient of Variation 13.0 % (11.5-14.5) Immature Granulocyte % (Auto) 0.2 % Immature Granulocyte # (Auto) 0.01 K/uL (0.00-0.02) Erythrocyte Sedimentation Rate 10 mm/hr (0-21) Prothrombin Time 11.3 SECONDS (9.0-12.0) Prothromb Time International Ratio 1.1 (0.9-1.1) Activated Partial Thromboplast Time 23.8 SECONDS (21.0-31.0) Partial Thromboplastin Ratio 0.9 Anion Gap 8.0 mmol/L (3-11) Est Creatinine Clear Calc Drug Dose 35.6 ml/min Estimated GFR () 54.1 Estimated GFR (Non- 46.7 BUN/Creatinine Ratio 24.2 (10-20) Calcium Level 8.6 mg/dl (8.5-10.1) Total Bilirubin 0.2 mg/dl (0.2-1) Aspartate Amino Transf (AST/SGOT) 16 U/L (15-37) Alanine Aminotransferase (ALT/SGPT) 18 U/L (12-78) Alkaline Phosphatase 113 U/L (45-117) Total Protein 6.7 gm/dl (6.4-8.2) Albumin 3.4 gm/dl (3.4-5.0) Globulin 3.3 gm/dl (2.5-4.0) Albumin/Globulin Ratio 1.0 (0.9-2) Laboratory results reviewed by me. ED Course 0819: The patient was evaluated in room B6. A complete history and physical exam was performed. 0956: I reevaluated the patient and she is resting comfortably. She is going to attempt to provide a urine sample. 1035: I discussed the patients case with Dr. Martinez, Orthopedics. He is going to have his PA come evaluate the patient and they will decide from there what to do for the patient. 1039: I spoke to Elias dEmondson, Orthopedics. He is going to get x-rays of the patients hip and will go from there on disposition of the patient. 1147: I discussed the patients case with [facility]. They state that the patients films are normal and they recommend rehabilitation. 1149: Case Management was consulted. They are going to look in to rehabilitation options for the patient. 1220: I reevaluated the patient and she is resting comfortably. She states that she is unsure if she wants to go to rehab. She would like to have her neurologist consulted. 1236: I discussed the patients case with Dr. Sharma, Neurology. He states that her disease process does not cause pain, but he states that it may cause weakness. He believes that rehabilitation would be worth a try for the patient. 1241: I reevaluated the patient and she is willing to undergo rehabilitation. Case Management is going to work on disposition. 1451: Per Case Management, [facility] does not have an available bed until tomorrow. They note that the patient will need to be evaluated for further treatment until then. 1457: I discussed the patients case with Dr. Harvey [facility]. He is going to evaluate the patient for further treatment. Medical Decision The patient is an 82 year old female who presents to the ED with complaints of right hip pain. Differential diagnoses considered include Hematoma or bursitis , fracture, strain, contusion, infection. There is no leukocytosis. A mild anemia was noted-the value was not critical, she has a history of anemia. No significant electrolyte abnormality, kidney failure or hepatitis. There is no coagulopathy. Urinalysis does not show infection. Right hip film does not show loosening or dislocation, no fracture seen. Right hip CT does not show fracture or loosening. The prosthesis was in proper position. Sedimentation rate was not elevated making ongoing infection/ inflammation less likely. The patient does not have pain unless she is moving or tries to bear weight. I did consult orthopedics who evaluated the patient in the ER. They recommended rehabilitation. I spoke with her neurologist who also recommended rehabilitation. I spoke to the patient at length. She did agree to rehabilitation and strengthening. The patient though cannot be sent to rehabilitation until tomorrow. She will need to stay in the hospital overnight until a rehab bed becomes available. The patient is aware of all her findings, case management has been involved, the on-call hospitalist was consulted. At this point, the cause for the hip pain is not completely clear. PTT/ rehabilitation has been suggested to alleviate symptoms. Medication Reconcilliation Current Medication List: was personally reviewed by me Blood Pressure Screening Patient's blood pressure: Elevated blood pressure Blood pressure disposition: Elevated BP felt to be situational, Did not require urgent referral Consults Time Called: 1000 Consulting Physician: Dr. Martinez, Orthopedics Returned Call: [phone] I discussed the patients case with Dr. Martinez, Orthopedics. He is going to have his PA come evaluate the patient and they will decide from there what to do for the patient. Additional Consults: Time Called: 1231 Consulted Physician: Dr. Sharma, Neurology Returned Call: [phone] Additional Comments: I discussed the patients case with Dr. Sharma, Neurology. He states that her disease process does not cause pain, but he states that it may cause weakness. He believes that rehabilitation would be worth a try for the patient. Time Called: [phone] Consulted Physician: GAIL Ortega Returned Call: [phone] Additional Comments: I discussed the patients case with GAIL Ortega. He is going to evaluate the patient for further treatment. Impression Primary Impression: Right hip pain Additional Impressions: History of recent fall History of right hip replacement Scribe Attestation The scribe's documentation has been prepared under my direction and personally reviewed by me in its entirety. I confirm that the note above accurately reflects all work, treatment, procedures, and medical decision making performed by me. Departure Information Dispostion Being Evaluated By Hospitalist Referrals Timothy Garcia M.D. (PCP) Problem Qualifiers
[2017-01-25] MEDS ORDERED: IBUP-103 PO (08:34)
[2017-01-25 08:57] LABS: BASO % 0.3 %; BASO ABS # 0.02 K/uL (0-0.2); COMPLETE YES; EOS % 3.9 %; HEMATOCRIT 29.8 % (37-47); IG% 0.2 %; LYMPH % 21.9 %; MEAN CELL VOLUME 96.8 fL (80-100); MEAN CORPUSCULAR HEMOGLOBIN 30.2 pg (25-34); MEAN CORPUSCULAR HGB CONC 31.2 g/dl (32-36); MEAN PLATELET VOLUME 10.3 fL (7.4-10.4); MONO % 9.5 %; NEUT % 64.2 %; PLATELET COUNT 366 K/uL (130-400); RED BLOOD COUNT 3.08 M/uL (4.2-5.4)
[2017-01-25 09:06] LABS: INR 1.1 (0.9-1.1); PARTIAL THROMBOPLASTIN RATIO 0.9; PROTHROMBIN TIME (PATIENT) 11.3 SECONDS (9.0-12.0)
[2017-01-25 09:09] LABS: BUN/CREATININE RATIO 24.2 (10-20); CALCIUM 8.6 mg/dl (8.5-10.1); CREATININE 1.1 mg/dl (0.60-1.20); POTASSIUM 4.5 mmol/L (3.5-5.1)
--- NOTE | 2017-01-25 09:38 | DIAGNOSTIC IMAGING REPORT ---
RIGHT LOWER EXTREMITY WITHOUT CT DOSE: 1282.72 mGy.cm HISTORY: Trauma Right hip pain, fall, replacement Right TECHNIQUE: Multiaxial CT images of the right hip were performed and reformatted in the sagittal and coronal plane without the use of contrast. A dose lowering technique was utilized adhering to the principles of ALARA. COMPARISON: None. FINDINGS: No fracture or dislocation. Soft tissues are unremarkable. Evidence for a total right hip replacement. Degenerative change of the lumbosacral spine. Sacral foramina are symmetric.] Prosthetic is intact. IMPRESSION: No acute process status post total right hip replacement. Degenerative bony change as described The above report was generated using voice recognition software. It may contain grammatical, syntax or spelling errors. Electronically signed by: Jermaine Mullen M.D. 01/25/2017 9:36 AM Dictated Date/Time: 01/25/2017 9:32 AM
[2017-01-25 10:22] LABS: URINE APPEARANCE CLEAR (CLEAR); URINE BILIRUBIN NEG (NEG); URINE COLOR YELLOW; URINE NITRITE NEG (NEG); URINE SPECIFIC GRAVITY 1.018 (1.000-1.030); UROBILINOGEN NEG (NEG)
[2017-01-25 10:23] LABS: MANUAL MICROSCOPIC REQUIRED? NO; REVIEW REQ? NO
--- NOTE | 2017-01-25 11:07 | DIAGNOSTIC IMAGING REPORT ---
RIGHT HIP UNILATERAL 2 VIEWS CLINICAL HISTORY: pain right hip Right pain COMPARISON: 06/19/2016 DISCUSSION: Anatomic alignment status post total joint replacement. No evidence for fracture or dislocation. Linear lucency mid femoral shaft felt to represent a nutrient canal. No evidence for acetabular protrusion. There is no evidence for soft tissue swelling. IMPRESSION: No acute process post total right hip arthroplasty The above report was generated using voice recognition software. It may contain grammatical, syntax or spelling errors. Electronically signed by: Jermaine Mullen M.D. 01/25/2017 11:06 AM Dictated Date/Time: 01/25/2017 11:05 AM
[2017-01-25] MEDS ORDERED: ACETAMINOPHEN 325 MG TAB PO PRN (15:30)
[2017-01-25] MEDS ORDERED: IBUPROFEN 200 MG TAB PO PRN (15:30)
[2017-01-25] MEDS ORDERED: ONDANSETRON INJ 2 MG/ML 2 ML VIAL IV PRN (15:30)
--- NOTE | 2017-01-25 15:38 | History and Physical ---
History & Physical Date & Time of Service: Jan 25, 2017 at 15:28 Chief Complaint: Severe Pain In Right Hip Primary Care Physician: Timothy Garcia M.D. History of Present Illness Source: patient, spouse Pt is an 82 yo female who presents to the ER with complaints of gradually worsening right hip pain that began Labor Day after a mechanical fall. Pt has had difficulty with ambulation for about 2 yrs and according to the has fallen about 16 times in that period. Pt has walker at home and fortunately at home has been there for all the reported falls. 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 Pt has chronic right upper extremity spasticity. The patient also reports a history of a right hip replacement five years ago by Dr. Garcia of [facility]. Pt denies any chest pain, shortness of breath, F/C/N/V/D/abd pain or urinary symptoms. Past Medical/Surgical History Medical Problems: (1) Foreign body Status: Resolved (2) Localized, primary osteoarthritis of the pelvic region and thigh Status: Resolved (3) UTI (urinary tract infection) Status: Resolved Surgical Problems: (1) H/O colonoscopy Status: Resolved Family History Patient reports no known family medical history. Social History Smoking Status: Never Smoker Smokeless Tobacco Use: No Alcohol Use: none Drug Use: none Marital Status: Housing status: lives with family Occupational Status: retired Immunizations History of Influenza Vaccine: Yes History of Tetanus Vaccine?: Unknown History of Pneumococcal: Yes History of Hepatitis B Vaccine: No Multi-Drug Resistant Organisms History of MDRO: No Allergies Coded Allergies: Sulfa Antibiotics (Verified Allergy, Unknown, `, 01/25/17) Home Medications Scheduled Aspirin (Aspirin EC Low Dose), 81 MG PO DAILY Calcium Carbonate-Cholecalcife (Caltrate 600+D), 1 TAB PO BID Clopidogrel (Plavix), 75 MG PO QAM Diltiazem Hcl Ext Rel (Tiazac), 120 MG PO QAM Ferrous Gluconate (Ferrous Gluconate), 324 MG PO DAILY Levothyroxine Sodium (Levothyroxine Sodium), 25 MCG PO DAILY Metoprolol Tartrate (Lopressor), 25 MG PO BID Scheduled PRN Ibuprofen Tab (Advil), 400 MG PO Q6 PRN for Pain Review of Systems Constitutional: No fever, No chills, No sweats, No weakness Respiratory: + dyspnea on exertion, No cough, No sputum, No wheezing, No shortness of breath Cardiovascular: No chest pain, No orthopnea, No PND, No edema Abdomen: No pain, No nausea, No vomiting, No diarrhea Musculoskeletal: + joint pain, No muscle pain, No swelling, No calf pain Genitourinary - Female: No dysuria, No urinary frequency, No urinary urgency, No urinary incontinence Neurologic: + problem reported (spasticity in right upper arm), No memory loss , No weakness Psychiatric: No depression symptoms, No anhedonism, No anxiety, No insomnia Endocrine: No fatigue, No excessive thirst Hematologic / Lymphatic: No abnormal bleeding/bruising, No clotting problems Integumentary: No rash, No itch Physical Exam Vital Signs Date Time Temp Pulse Resp B/P (MAP) Pulse Ox O2 Delivery O2 Flow Rate FiO2 01/25/17 14:45 74 16 129/56 95 Room Air 01/25/17 13:45 81 24 143/65 97 Room Air 01/25/17 12:14 75 01/25/17 11:40 80 16 138/61 98 Room Air 01/25/17 10:10 78 21 164/73 95 Room Air 01/25/17 08:26 73 147/74 94 Room Air 01/25/17 08:24 72 01/25/17 08:20 36.6 74 20 165/118 96 Room Air General Appearance: WD/WN, no apparent distress Head: normocephalic, atraumatic Eyes: normal inspection, PERRL, EOMI, sclerae normal Neck: supple, no adenopathy, thyroid normal, no JVD Respiratory/Chest: chest non-tender, lungs clear, normal breath sounds, no respiratory distress Cardiovascular: no edema, no gallop, no JVD, no murmur Abdomen/GI: normal bowel sounds, non tender, soft, no organomegaly Back: normal inspection, no CVA tenderness, no muscle spasm, normal range of motion Extremities/Musculoskelatal: normal inspection, no pedal edema Neurologic/Psych: alert, normal mood/affect, oriented x 3, + pertinent finding (right upper extremity spasticity) Skin: normal color, warm/dry, no rash Lymphatic: no adenopathy Diagnostics Laboratory Results Results Past 24 Hours Test 01/25/17 00:00 01/25/17 08:40 Range/Units Urine Color YELLOW Urine Appearance CLEAR CLEAR Urine pH 5.0 4.5-7.5 Urine Specific [place] 1.018 1.000-1.030 Urine Protein NEG NEG Urine Glucose (UA) NEG NEG Urine Ketones NEG NEG Urine Occult Blood NEG NEG Urine Nitrite NEG NEG Urine Bilirubin NEG NEG Urine Urobilinogen NEG NEG Urine Leukocyte Esterase NEG NEG White Blood Count 6.40 4.8-10.8 K/uL Red Blood Count 3.08 4.2-5.4 M/uL Hemoglobin 9.3 12.0-16.0 g/dL Hematocrit 29.8 37-47 % Mean Corpuscular Volume 96.8 80-100 fL Mean Corpuscular Hemoglobin 30.2 25-34 pg Mean Corpuscular Hemoglobin Concent 31.2 32-36 g/dl Platelet Count 366 130-400 K/uL Mean Platelet Volume 10.3 7.4-10.4 fL Neutrophils (%) (Auto) 64.2 % Lymphocytes (%) (Auto) 21.9 % Monocytes (%) (Auto) 9.5 % Eosinophils (%) (Auto) 3.9 % Basophils (%) (Auto) 0.3 % Neutrophils # (Auto) 4.11 1.4-6.5 K/uL Lymphocytes # (Auto) 1.40 1.2-3.4 K/uL Monocytes # (Auto) 0.61 0.11-0.59 K/uL Eosinophils # (Auto) 0.25 0-0.5 K/uL Basophils # (Auto) 0.02 0-0.2 K/uL RDW Standard Deviation 45.5 36.4-46.3 fL RDW Coefficient of Variation 13.0 11.5-14.5 % Immature Granulocyte % (Auto) 0.2 % Immature Granulocyte # (Auto) 0.01 0.00-0.02 K/uL Erythrocyte Sedimentation Rate 10 0-21 mm/hr Prothrombin Time 11.3 9.0-12.0 SECONDS Prothromb Time International Ratio 1.1 0.9-1.1 Activated Partial Thromboplast Time 23.8 21.0-31.0 SECONDS Partial Thromboplastin Ratio 0.9 Sodium Level 141 136-145 mmol/L Potassium Level 4.5 3.5-5.1 mmol/L Chloride Level 109 98-107 mmol/L Carbon Dioxide Level 24 21-32 mmol/L Anion Gap 8.0 3-11 mmol/L Blood Urea Nitrogen 27 7-18 mg/dl Creatinine 1.10 0.60-1.20 mg/dl Est Creatinine Clear Calc Drug Dose 35.6 ml/min Estimated GFR () 54.1 Estimated GFR (Non- 46.7 BUN/Creatinine Ratio 24.2 10-20 Random Glucose 87 70-99 mg/dl Calcium Level 8.6 8.5-10.1 mg/dl Total Bilirubin 0.2 0.2-1 mg/dl Aspartate Amino Transf (AST/SGOT) 16 15-37 U/L Alanine Aminotransferase (ALT/SGPT) 18 12-78 U/L Alkaline Phosphatase 113 45-117 U/L Total Protein 6.7 6.4-8.2 gm/dl Albumin 3.4 3.4-5.0 gm/dl Globulin 3.3 2.5-4.0 gm/dl Albumin/Globulin Ratio 1.0 0.9-2 Impression Assessment and Plan Pt is a 82 yo female who presents to ER with gradual generalized weakness s/p fall on Generalized weakness/mutliple falls - Will place on observation at this time. [facility] can't take pt till tomorrow. CT lower ext and right hip XR neg for any acute pathology. Consult PT/OT at this time. Fall likely mechanical. 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 Follows with Dr Sharma as as outpatient HTN - Cont diltiazem at this time, stable Hypothyroidism - Cont synthroid Hx of CVA in 2011 - Cont plavix and ASA DNR code status VTE Prophylaxis VTE Risk Assessment Done? Y/N: Yes Risk Level: Moderate
[2017-01-25] MEDS ORDERED: IV FLUIDS COMPLETED PRN (16:00)
[2017-01-25 17:07] VITALS: BP 144/63; PULSE 85; TEMP 36.7; O2SAT 96; Ht 152.4 cm; Wt 74.9 kg
[2017-01-25 21:00] VITALS: BP 143/69; PULSE 78
[2017-01-25] MEDS: METOPROLOL TARTRATE 25 MG TAB PO SCH (21:02)
[2017-01-25] MEDS: HEPARIN SOD 5000 UNIT/0.5 ML CARP SQ SCH (22:26)
[2017-01-25 23:25] VITALS: BP 127/72; PULSE 79; TEMP 36.6; O2SAT 94
[2017-01-26] MEDS: HEPARIN SOD 5000 UNIT/0.5 ML CARP SQ SCH (05:30)
[2017-01-26] MEDS ORDERED: LEVOTHYROXINE 25 MCG TAB PO SCH (06:00)
[2017-01-26 07:56] VITALS: BP 139/83; PULSE 95; TEMP 36.7; O2SAT 94
[2017-01-26] MEDS ORDERED: CLOPIDOGREL BISULFATE 75 MG TAB PO SCH (09:00)
[2017-01-26] MEDS ORDERED: DILTIAZEM HCL 120 MG EXT REL CAP PO SCH (09:00)
[2017-01-26] MEDS ORDERED: ASPIRIN 81 MG ECTAB PO SCH (09:00)
[2017-01-26] MEDS ORDERED: FERROUS GLUCONATE 324 MG TAB PO SCH (09:00)
[2017-01-26] MEDS: METOPROLOL TARTRATE 25 MG TAB PO SCH (09:22)
--- NOTE | 2017-01-26 11:42 | Discharge Instructions ---
Discharge Instructions Date of Service Jan 26, 2017. Admission Reason for Admission: Fall, Right Hip Pain Discharge Discharge Diagnosis / Problem: Generalized weakness; falls Discharge Goals Goal(s): Decrease discomfort, Improve function, Increase independence, Prevent Disease Progression Activity Recommendations Activity Level: Up Ad Marie, Self Positioning, OOB In Chair Therapies: Physical Therapy, Occupational Therapy . Additional Information Patient informed of condition: Yes Advance Directives: Yes DNR: Yes Level of Care: Acute Rehab Communicable Disease: No Prognosis: Stable [place] Catheter: No Instructions / Follow-Up Instructions / Follow-Up Generalized weakness/multiple falls, likely mechanical: - Lower abdominal hip x-ray and CT- negative for acute pathology/findings - PT/OT consultation- recommend rehab h/o primary lateral sclerosis, chronic right upper extremity spasticity- follows w/ Dr. Sharma HTN- STABLE: Continue Diltiazem 120 mg QAM and Metoprolol 25 mg BID Hypothyroidism: Continue Synthroid 25 mcg daily h/o CVA in 2011: Continue Plavix 75 mg daily and ASA 81 mg daily Chronic iron deficiency anemia- STABLE: Continue Ferrous Sulfate 325 mg daily DVT prophylaxis: Heparin SQ TID Code Status: LEVEL V, DNR Dispo: Discharge to [facility] FOLLOW-UPS: Follow-up with [facility] provider within 24-48 hours Please follow-up with your PCP within 5-7 days after discharge from [facility] Please follow-up/keep all of your subspecialty appointments Current Hospital Diet Patient's current hospital diet: Low Sodium Diet (2gm Na) Discharge Diet Recommended Diet: AHA Diet (Heart Healthy) Pending Studies Studies pending at discharge: no Physician Orders On Transfer Special Precautions: Fall precautions Dressing Changes: None IV Therapy: None Vital Signs: Routine POLST Discussion: without POLST completion Medical Emergencies . Who to Call and When: Medical Emergencies: If at any time you feel your situation is an emergency, please call 911 immediately. . Non-Emergent Contact Non-Emergency issues call your: Primary Care Provider Call Non-Emergent contact if: you have a fever, your pain is not controlled, your pain is worsening, your pain is unusual for you, your pain is concerning you, you have any medication questions . . "Provider Documentation" section prepared by Charmaine Brito. . Core Measure Problem Core Measures: None
--- NOTE | 2017-01-26 11:43 | Discharge Summary ---
Discharge Summary Date of Service Jan 26, 2017. 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 A dose lowering technique was utilized adhering to the principles of ALARA. COMPARISON: None. FINDINGS: No fracture or dislocation. Soft tissues are unremarkable. Evidence for a total right hip replacement. Degenerative change of the lumbosacral spine. Sacral foramina are symmetric.] Prosthetic is intact. IMPRESSION: No acute process status post total right hip replacement. Degenerative bony change as described The above report was generated using voice recognition software. It may contain grammatical, syntax or spelling errors. Electronically signed by: Jermaine Mullen M.D. 01/25/2017 9:36 AM Dictated Date/Time: 01/25/2017 9:32 AM The status of this report is Signed. Draft = Not yet reviewed or approved by Radiologist. Signed = Reviewed and approved by Radiologist. RIGHT HIP UNILATERAL 2 VIEWS CLINICAL HISTORY: pain right hip Right pain COMPARISON: 06/19/2016 DISCUSSION: Anatomic alignment status post total joint replacement. No evidence for fracture or dislocation. Linear lucency mid femoral shaft felt to represent a nutrient canal. No evidence for acetabular protrusion. There is no evidence for soft tissue swelling. IMPRESSION: No acute process post total right hip arthroplasty The above report was generated using voice recognition software. It may contain grammatical, syntax or spelling errors. Electronically signed by: Jermaine Mullen M.D. 01/25/2017 11:06 AM Dictated Date/Time: 01/25/2017 11:05 AM The status of this report is Signed. Draft = Not yet reviewed or approved by Radiologist. Signed = Reviewed and approved by Radiologist. (Charmaine Brito PA-C) Medication Reconciliation Continued Medications: Aspirin (Aspirin EC Low Dose) 81 Mg Ectab 81 MG PO DAILY, #30 Calcium Carbonate-Cholecalcife (Caltrate 600+D) 1 Tab Tab 1 TAB PO BID 1 at 0530 1 at 1730 Clopidogrel (Plavix) 75 Mg Tab 75 MG PO QAM, TAB Diltiazem Hcl Ext Rel (Tiazac) 120 Mg Capcr 120 MG PO QAM, CAP Ferrous Gluconate (Ferrous Gluconate) 324 Mg Tab 324 MG PO DAILY Ibuprofen Tab (Advil) 200 Mg Tab 400 MG PO Q6 PRN for Pain, TAB Levothyroxine Sodium (Levothyroxine Sodium) 25 Mcg Tab 25 MCG PO DAILY, TAB Metoprolol Tartrate (Lopressor) 50 Mg Tab 25 MG PO BID, TAB half tab BID Discharge Exam Review of Systems: Constitutional: + weakness, No fever, No chills, No sweats, No fatigue ENT: No hearing loss Respiratory: No cough, No shortness of breath, No hemoptysis Cardiovascular: No chest pain, No edema, No palpitations Abdomen: No pain, No nausea, No vomiting, No diarrhea, No constipation, No GI bleeding Musculoskeletal: No joint pain, No muscle pain, No swelling, No calf pain Genitourinary - Female: No dysuria, No hematuria Neurologic: + weakness, No numbness/tingling Psychiatric: No depression symptoms, No anxiety Endocrine: No fatigue Hematologic / Lymphatic: No abnormal bleeding/bruising Integumentary: No rash, No itch, No new/changing skin lesions Physical Exam: General Appearance: no apparent distress, + obese Eyes: normal inspection, PERRL ENT: hearing grossly normal Neck: supple Respiratory/Chest: lungs clear, no respiratory distress, no accessory muscle use Cardiovascular: regular rate, rhythm Abdomen / GI: normal bowel sounds, non tender, soft Extremities: no calf tenderness, no pedal edema Neurologic/Psychiatric: alert, normal mood/affect, oriented x 3 Skin: normal color, warm/dry, no rash (Charmaine Brito ., PA-C) Hospital Course Admission H&P: Pt is an 82 yo female who presents to the ER with complaints of gradually worsening right hip pain that began Labor Day after a mechanical fall. Pt has had difficulty with ambulation for about 2 yrs and according to the has fallen about 16 times in that period. Pt has walker at home and fortunately at home has been there for all the reported falls. 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 Pt has chronic right upper extremity spasticity. The patient also reports a history of a right hip replacement five years ago by Dr. Garcia of [facility]. Pt denies any chest pain, shortness of breath , F/C/N/V/D/abd pain or urinary symptoms. Physical Exam Vital Signs Date Time Temp Pulse Resp B/P (MAP) Pulse Ox O2 Delivery O2 Flow Rate FiO2 01/25/17 14:45 74 16 129/56 95 Room Air 01/25/17 13:45 81 24 143/65 97 Room Air 01/25/17 12:14 75 01/25/17 11:40 80 16 138/61 98 Room Air 01/25/17 10:10 78 21 164/73 95 Room Air 01/25/17 08:26 73 147/74 94 Room Air 01/25/17 08:24 72 01/25/17 08:20 36.6 74 20 165/118 96 Room Air General Appearance: WD/WN, no apparent distress Head: normocephalic, atraumatic Eyes: normal inspection, PERRL, EOMI, sclerae normal Neck: supple, no adenopathy, thyroid normal, no JVD Respiratory/Chest: chest non-tender, lungs clear, normal breath sounds, no respiratory distress Cardiovascular: no edema, no gallop, no JVD, no murmur Abdomen/GI: normal bowel sounds, non tender, soft, no organomegaly Back: normal inspection, no CVA tenderness, no muscle spasm, normal range of motion Extremities/Musculoskelatal: normal inspection, no pedal edema Neurologic/Psych: alert, normal mood/affect, oriented x 3, + pertinent finding (right upper extremity spasticity) Skin: normal color, warm/dry, no rash Lymphatic: no adenopathy Hospital Course: Generalized weakness/multiple falls, likely mechanical: - Lower abdominal hip x-ray and CT- negative for acute pathology/findings - PT/OT consultation- recommend rehab h/o primary lateral sclerosis, chronic right upper extremity spasticity- follows w/ Dr. Sharma HTN- STABLE: Continue Diltiazem 120 mg QAM and Metoprolol 25 mg BID Hypothyroidism: Continue Synthroid 25 mcg daily h/o CVA in 2012: Continue Plavix 75 mg daily and ASA 81 mg daily Chronic iron deficiency anemia- STABLE: Continue Ferrous Sulfate 325 mg daily DVT prophylaxis: Heparin SQ TID Code Status: LEVEL V, DNR Dispo: Discharge to [facility] Total Time Spent: Greater than 30 minutes This includes examination of the patient, discharge planning, medication reconciliation, and communication with other providers. (Charmaine Brito, PA-C) i personally examined pt and verified all [place] bruna Brito PAC feeling OK for rehab, no new complaints vitals noted nad breathing unlabored acute on chronic weakness -for [facility], then ongoing neurology follow up (Alex Olivera D.O.) Discharge Instructions Please refer to the electronic Patient Visit Report (Discharge Instructions) for additional information. (Charmaine Brito, PA-C) Follow-Up Follow-up with [facility] provider within 24-48 hours Please follow-up with your PCP within 5-7 days after discharge from [facility] Please follow-up/keep all of your subspecialty appointments (Charmaine Brito, PA-C) Additional Copies To Ericka Pollock
[2017-01-26 13:42] VITALS: BP 139/83; PULSE 95; TEMP 36.7; O2SAT 94
== END 2017-01-26 14:43 ==
LOC: EDBD 08:13 → C.EDB 08:14 → C.MSW 15:25 → ENRESERV 15:45 → C.MSW 21:54
PROVIDERS: ADMIT Hospitalist; ATTEND Family Medicine
DX: R53.1 Weakness (principal); Z91.81 History of falling; I10 Essential (primary) hypertension; E03.9 Hypothyroidism, unspecified; D50.9 Iron deficiency anemia, unspecified; Z86.73 Personal history of transient ischemic attack (TIA), and cerebral infarction without residual deficits; Z96.641 Presence of right artificial hip joint; Z87.440 Personal history of urinary (tract) infections; Z79.82 Long term (current) use of aspirin; Z66 Do not resuscitate

== ENCOUNTER 2017-02-13 00:50 | Emergency (ER) | payer OTHER ==
[~2017-02-13] VITALS: Ht 154.9 cm; Wt 77.1 kg
[~2017-02-13 00:50] MED LIST changes: +IBUP-103 PO
[2017-02-13 00:54] VITALS: TEMP 36.6; Ht 154.9 cm; Wt 77.1 kg
--- NOTE | 2017-02-13 01:01 | EMERGENCY ROOM VISIT NOTE ---
History Report prepared by Mason: Erin Amaro Under the Supervision of: Dr. Jarad Horn M.D. First contact with patient: 00:55 Chief Complaint: FALL Stated Complaint: FALL History of Present Illness The patient is a 82 year old female who presents to the Emergency Room with complaints of a sudden fall happening two hours prior to arrival. She states that she normally ambulates with a walker. Her states that he found the patient on the floor moaning afterwards. She states that she has pain in her forehead and her shoulder. The patient denies chest pain, neck pain, and shortness of breath. The patient reports that she was seen in the ED recently for severe hip pain and was seen at [facility]. Her states that this is the patient's 17th fall within the last 2 years. The patient states that she takes Aspirin. Source of History: patient, spouse/significant other () Onset: 2 hours prior to arrival Position: other (global) Quality: other (fall) Timing: other (sudden) Associated Symptoms: No chest pain, No SOB Note: additional symptoms:forehead and shoulder pain Review of Systems See HPI for pertinent positives & negatives. A total of 10 systems reviewed and were otherwise negative. Past Medical & Surgical Medical Problems: (1) Dehydration (2) Foreign body (3) Gastroenteritis (4) Localized, primary osteoarthritis of the pelvic region and thigh (5) Nausea & vomiting (6) TIA (transient ischemic attack) (7) UTI (urinary tract infection) Surgical Problems: (1) H/O colonoscopy Family History Patient reports no known family medical history. Social History Smoking Status: Never Smoker Alcohol Use: occasionally Drug Use: none Marital Status: Housing Status: lives with significant other Occupation Status: retired Current/Historical Medications Scheduled Aspirin (Aspirin Ec), 81 MG PO DAILY Calcium Carbonate-Cholecalcife (Caltrate 600+D), 1 TAB PO BID Clopidogrel (Plavix), 75 MG PO QAM Diltiazem Hcl Ext Rel (Tiazac), 120 MG PO QAM Docusate Sodium (Docusate Sodium), 100 MG PO BID Ferrous Gluconate (Ferrous Gluconate), 324 MG PO DAILY Levothyroxine Sodium (Levothyroxine Sodium), 25 MCG PO DAILY Metoprolol Tartrate (Lopressor), 25 MG PO BID Scheduled PRN Ibuprofen Tab (Advil), 400 MG PO Q6 PRN for Pain Allergies Coded Allergies: Sulfa Antibiotics (Verified Allergy, Unknown, `, 02/13/17) Physical Exam Vital Signs Date Time Temp Pulse Resp B/P (MAP) Pulse Ox O2 Delivery O2 Flow Rate FiO2 02/13/17 06:16 79 16 133/88 97 02/13/17 04:30 87 20 128/54 95 Room Air 02/13/17 03:05 88 20 147/70 96 Room Air 02/13/17 02:30 79 20 153/63 95 Room Air 02/13/17 00:54 36.6 81 20 148/67 93 Room Air Physical Exam GENERAL: Patient is well appearing and in no acute distress. HEENT: No acute trauma, normocephalic atraumatic, mucous membranes moist, no nasal congestion, no scleral icterus. NECK: No stridor, no adenopathy, no meningismus, trachea is midline. LUNGS: No dyspnea. Clear to auscultation and equal bilaterally. No wheeze, no rhonchi. HEART: Regular rate and rhythm. No murmurs, rubs, gallops appreciated. ABDOMEN: Soft, nontender, bowel sounds positive, no masses appreciated, no peritonitis. BACK: No midline tenderness, no CVA tenderness EXTREMITIES: Chronic frozen right arm. Bruising to the right anterior shoulder with tenderness to palpation. Abrasion on the right forehead extending down her face. NEUROLOGIC: Alert and oriented, no acute motor or sensory deficits, no focal weakness, cranial nerves grossly intact. SKIN: No rash, no jaundice, no diaphoresis. Medical Decision & Procedures ER Provider Diagnostic Interpretation: Radiology results and stated below per [employer]. CT HEAD: Patchy areas of subarachnoid hemorrhage seen within the frontal lobes. Hemorrhagic contusion within the right frontal lobe (218). No acute calvarial abnormality. CT C SPINE: Degenerative changes without evidence of fracture or traumatic malalignment. Probable mild pulmonary vessel congestion seen within the lung apices. Vascular calcifications. X-ray 1 view chest: No fracture, no dislocation, no pneumothorax. Similar to previous. X-ray 2 view right humerus: No fracture, no dislocation. Pelvis Xray: 1 view: right hip replacement. No fracture/dislocation. Laboratory Results 02/13/17 01:35 Red Blood Count 3.05, Mean Corpuscular Volume 91.5, Mean Corpuscular Hemoglobin 29.2, Mean Corpuscular Hemoglobin Concent 31.9, Mean Platelet Volume 10.4, Neutrophils (%) (Auto) 71.1, Lymphocytes (%) (Auto) 20.0, Monocytes (%) (Auto) 6.1, Eosinophils (%) (Auto) 2.4, Basophils (%) (Auto) 0.3, Neutrophils # (Auto) 5.13, Lymphocytes # (Auto) 1.44, Monocytes # (Auto) 0.44, Eosinophils # (Auto) 0.17, Basophils # (Auto) 0.02 02/13/17 01:35 Test 02/13/17 01:35 02/13/17 01:55 White Blood Count 7.21 K/uL (4.8-10.8) Red Blood Count 3.05 M/uL (4.2-5.4) Hemoglobin 8.9 g/dL (12.0-16.0) Hematocrit 27.9 % (37-47) Mean Corpuscular Volume 91.5 fL (80-100) Mean Corpuscular Hemoglobin 29.2 pg (25-34) Mean Corpuscular Hemoglobin Concent 31.9 g/dl (32-36) Platelet Count 269 K/uL (130-400) Mean Platelet Volume 10.4 fL (7.4-10.4) Neutrophils (%) (Auto) 71.1 % Lymphocytes (%) (Auto) 20.0 % Monocytes (%) (Auto) 6.1 % Eosinophils (%) (Auto) 2.4 % Basophils (%) (Auto) 0.3 % Neutrophils # (Auto) 5.13 K/uL (1.4-6.5) Lymphocytes # (Auto) 1.44 K/uL (1.2-3.4) Monocytes # (Auto) 0.44 K/uL (0.11-0.59) Eosinophils # (Auto) 0.17 K/uL (0-0.5) Basophils # (Auto) 0.02 K/uL (0-0.2) RDW Standard Deviation 43.5 fL (36.4-46.3) RDW Coefficient of Variation 13.0 % (11.5-14.5) Immature Granulocyte % (Auto) 0.1 % Immature Granulocyte # (Auto) 0.01 K/uL (0.00-0.02) Red Blood Cell Morphology Unremarkable Prothrombin Time 11.6 SECONDS (9.0-12.0) Prothromb Time International Ratio 1.1 (0.9-1.1) Activated Partial Thromboplast Time 23.2 SECONDS (21.0-31.0) Partial Thromboplastin Ratio 0.9 Anion Gap 8.0 mmol/L (3-11) Est Creatinine Clear Calc Drug Dose 45.3 ml/min Estimated GFR () 69.0 Estimated GFR (Non- 59.5 BUN/Creatinine Ratio 25.1 (10-20) Calcium Level 8.2 mg/dl (8.5-10.1) Phosphorus Level 3.1 mg/dl (2.5-4.9) Magnesium Level 2.0 mg/dl (1.8-2.4) Total Creatine Kinase 64 U/L (26-192) Creatine Kinase MB 3.0 ng/ml (0.5-3.6) Creatine Kinase MB Ratio 4.7 (0-3.0) Troponin I < 0.015 ng/ml (0-0.045) Urine Color YELLOW Urine Appearance CLEAR (CLEAR) Urine pH 5.0 (4.5-7.5) Urine Specific [place] 1.023 (1.000-1.030) Urine Protein NEG (NEG) Urine Glucose (UA) NEG (NEG) Urine Ketones NEG (NEG) Urine Occult Blood NEG (NEG) Urine Nitrite NEG (NEG) Urine Bilirubin NEG (NEG) Urine Urobilinogen NEG (NEG) Urine Leukocyte Esterase TRACE (NEG) Urine WBC (Auto) 1-5 /hpf (0-5) Urine RBC (Auto) 0-4 /hpf (0-4) Urine Hyaline Casts (Auto) 1-5 /lpf (0-5) Urine Epithelial Cells (Auto) >30 /lpf (0-5) Urine Bacteria (Auto) NEG (NEG) Laboratory results as reviewed by me. ECG Indication: other (fall) Rate (beats per minute): 77 Rhythm: sinus rhythm Findings: no acute ischemic change, no ectopy, other (poor baseline) ED Course 0055: The patient was evaluated in room B2. A complete history and physical exam was performed. 0200: I checked on the patient. She has no current complaints. 0240: The patient is stable. We are paging [place] for a neuro evaluation. 0255: Discussed the patient's case with Dr. Gibson. The patient will be evaluated for further treatment and disposition. The patient will be transferred to [facility] in [place]. 0300: The patient is stable. Medical Decision Differential: Vaso-vagal, Intracerebral Event, Neurologic, Infectious, Volume Deficiency, Hypoglycemia, Electrolyte Abnormality, Cardiac Source, Toxicologic, amongst other pathologies entertained. Pleasant 82 yr old female with frequent falls/injuries and periodic ED visits. Usually mechanical in nature secondary to lateral sclerosis, stroke, and frozen right shoulder. Today arrives with somewhat different story of remembering getting up but not the actual fall and confusion after this which was unusual. She has contusion to right forehead though by this time is completely back to baseline with GCS 15 and without complaint other than sore forehead. With head injury and loss of memory went ahead with CT head. ICH with subdural/ sah noted. No shift and patient without neuro deficits and resolution of headache. No indication for emergent surgery at this time and thus no clear evidence of need for air medivac currently. No NRSG here nor TRSG thus will transfer to tertiary care center. Patient request [place]. No TTP cervical spine thus with normal CT Cervical I do not feel that collar required. Bruising noted right shoulder though no obvious fracture by imaging. CXR and Pelv clear and without abdominal pain nor cp/sob/etc. On plavix/asa. No indication for plt transfusion currently. No evidence infection. EKG/Trop unremarkable. Stable throughout ED stay. Prolonged ED stay prior to transfer given no ground EMS availability. Patient makes clear she is DNR if cardiac/pulmonary arrest. Head Trauma GCS Score: 15 Medication Reconcilliation Current Medication List: was personally reviewed by ri Blood Pressure Screening Patient's blood pressure: Elevated blood pressure The patient is hypertensive but is improving while here. She will be continually monitored. Consults Time Called: [phone] Consulting Physician: Dr. Gibson-[place] Returned Call: [phone] Discussed the patient's case. The patient will be evaluated for further treatment and disposition. The patient will be transferred to [facility] in [place]. Impression Primary Impression: Subarachnoid hemorrhage Additional Impressions: Subdural hematoma Facial contusion Shoulder contusion Syncope Critical Care I have personally spent greater than 45 minutes of critical care time in the direct management of this patient. This was a life/limb threatening event. This includes time spent evaluating patient, direct bedside care, chart review, placing orders, interpretation of diagnostic studies, discussion with consultants, patient, and family members, as well as other required patient management activities. This 45 minutes is in excess of all separately billable procedures. Scribe Attestation The scribe's documentation has been prepared under my direction and personally reviewed by me in its entirety. I confirm that the note above accurately reflects all work, treatment, procedures, and medical decision making performed by me. Departure Information Dispostion Discharge/Transfer to [facility] Referrals Timothy Garcia M.D. (PCP) Patient Instructions [facility] Problem Qualifiers
[2017-02-13 01:42] LABS: BASO % 0.3 %; BASO ABS # 0.02 K/uL (0-0.2); EOS % 2.4 %; HEMATOCRIT 27.9 % (37-47); IG% 0.1 %; LYMPH ABS # 1.44 K/uL (1.2-3.4); MEAN CELL VOLUME 91.5 fL (80-100); MEAN CORPUSCULAR HEMOGLOBIN 29.2 pg (25-34); MEAN CORPUSCULAR HGB CONC 31.9 g/dl (32-36); MEAN PLATELET VOLUME 10.4 fL (7.4-10.4); MONO % 6.1 %; NEUT % 71.1 %; PLATELET COUNT 269 K/uL (130-400); RED BLOOD COUNT 3.05 M/uL (4.2-5.4); WHITE BLOOD COUNT 7.21 K/uL (4.8-10.8)
[2017-02-13] MEDS ORDERED: DOCU100C31 PO (01:43)
[2017-02-13] MEDS ORDERED: ASPI81TA28 PO (01:43)
[2017-02-13 02:03] LABS: BLOOD UREA NITROGEN 23 mg/dl (7-18); BUN/CREATININE RATIO 25.1 (10-20); CALCIUM 8.2 mg/dl (8.5-10.1); CARBON DIOXIDE 23 mmol/L (21-32); CHLORIDE 113 mmol/L (98-107); GLUCOSE 106 mg/dl (70-99); POTASSIUM 4.2 mmol/L (3.5-5.1); SODIUM 144 mmol/L (136-145)
[2017-02-13 02:04] LABS: INR 1.1 (0.9-1.1); PARTIAL THROMBOPLASTIN RATIO 0.9; PROTHROMBIN TIME (PATIENT) 11.6 SECONDS (9.0-12.0)
[2017-02-13 02:09] LABS: URINE APPEARANCE CLEAR (CLEAR); URINE BILIRUBIN NEG (NEG); URINE COLOR YELLOW; URINE EPITHELIAL CELL AUTO >30 /lpf (0-5); URINE NITRITE NEG (NEG); URINE SPECIFIC GRAVITY 1.023 (1.000-1.030); UROBILINOGEN NEG (NEG); ZZUR CULT IF INDIC CLEAN CATCH NO
[2017-02-13 02:14] LABS: COMPLETE YES
[2017-02-13 02:20] LABS: CKMB/CK RATIO 4.7 (0-3.0); PHOSPHORUS 3.1 mg/dl (2.5-4.9)
[2017-02-13 02:25] LABS: MANUAL MICROSCOPIC REQUIRED? NO; REVIEW REQ? NO
[2017-02-13 06:16] VITALS: BP 133/88; PULSE 79; O2SAT 97
--- NOTE | 2017-02-13 07:00 | DIAGNOSTIC IMAGING REPORT ---
HEAD WITHOUT CONTRAST (CT) CLINICAL HISTORY: 82 years-old Female with Syncope, right head injury. Acute head injury with syncope. Bruising of the right side of the head TECHNIQUE: Multiple axial CT images of the head were obtained without contrast. A dose lowering technique was utilized adhering to the principles of ALARA. CT DOSE: 940.45 mGy.cm COMPARISON: CT head 07/29/2016. FINDINGS: Focal parenchymal contusion of the right frontal lobe, 7 x 5 mm is seen on image 19 of series 2. Additionally, there is mildly increased attenuation of the adjacent frontal lobe sulci which may reflect subtle subarachnoid hemorrhage as seen on image 15 of series 2. Small right convexity subdural hematoma is seen measuring up to 3 mm on image 18 of series 2. No significant edema, mass effect or midline shift. No hydrocephalus or intracranial mass. No territorial ischemia. There is atrophy with background chronic microvascular ischemic changes. Remote lacunar infarction of the right lentiform nucleus. No calvarial fracture. Mastoid air cells are clear. Mild polypoid mucosal thickening of the right maxillary sinus. There is mild right frontal scalp soft tissue swelling with 3.5 x 0.5 cm hematoma. Mild right periorbital soft tissue swelling. IMPRESSION: 1. 7 x 5 mm parenchymal contusion of the right frontal lobe noted with adjacent subtle right frontal subarachnoid hemorrhage. 2. Tiny right convexity subdural hematoma, 3 mm without definite mass effect or midline shift. 3. Small right frontal scalp hematoma without calvarial fracture. The above report was generated using voice recognition software. It may contain grammatical, syntax or spelling errors. Electronically signed by: Pritesh Banegas M.D. 02/13/2017 6:58 AM Dictated Date/Time: 02/13/2017 6:53 AM
--- NOTE | 2017-02-13 07:01 | DIAGNOSTIC IMAGING REPORT ---
CHEST ONE VIEW PORTABLE HISTORY: 82 years-old Female Generalized Weakness acute generalized weakness. Acute right arm pain status post fall COMPARISON: Chest radiograph 07/29/2016 TECHNIQUE: Portable upright AP view of the chest FINDINGS: Cardiac silhouette is within normal limits. There is atherosclerosis of the aorta. Lateral left midlung subsegmental linear atelectasis. No pneumothorax, pleural effusion or focal airspace consolidation. Small hiatal hernia redemonstrated. Multiple remote right-sided rib fractures are again seen. Degenerative changes are seen throughout the spine and shoulders. IMPRESSION: No acute cardiopulmonary process. The above report was generated using voice recognition software. It may contain grammatical, syntax or spelling errors. Electronically signed by: Pritesh Banegas M.D. 02/13/2017 7:00 AM Dictated Date/Time: 02/13/2017 6:59 AM
--- NOTE | 2017-02-13 09:01 | DIAGNOSTIC IMAGING REPORT ---
R HUMERUS MIN 2 VIEWS ROUTINE HISTORY: 82 years-old Female right arm pain s/p fall acute right arm pain status post fall COMPARISON: Right humerus radiographs 06/19/2016 TECHNIQUE: 2 views of the right humerus FINDINGS: Severe acromioclavicular osteoarthritis. Humeral head is high right within the glenoid fossa with at least moderate glenohumeral osteoarthritis. Bones are moderately demineralized. No acute fracture or dislocation identified. Remote right-sided rib fractures noted. Soft tissues are unremarkable. IMPRESSION: Degenerative changes as above without acute bony abnormality. The above report was generated using voice recognition software. It may contain grammatical, syntax or spelling errors. Electronically signed by: Pritesh Banegas M.D. 02/13/2017 9:00 AM Dictated Date/Time: 02/13/2017 8:58 AM
--- NOTE | 2017-02-13 09:21 | DIAGNOSTIC IMAGING REPORT ---
PELVIS 1 OR 2 VIEW ROUTINE HISTORY: 82 years-old Female fall, trauma acute pelvic pain status post fall COMPARISON: Right hip radiographs 01/25/2017 TECHNIQUE: AP view of the pelvis FINDINGS: Bones are mildly demineralized. Right hip arthroplasty noted without evidence of hardware complication. Moderate osteoarthritis of the left femoral acetabular joint. There are phleboliths within the pelvis. Degenerative changes involve the lower lumbar spine. No acute fracture or dislocation identified. IMPRESSION: 1. No acute bony abnormality. 2. Right hip arthroplasty without evidence of hardware complication. 3. Moderate left hip osteoarthritis. The above report was generated using voice recognition software. It may contain grammatical, syntax or spelling errors. Electronically signed by: Pritesh Banegas M.D. 02/13/2017 9:20 AM Dictated Date/Time: 02/13/2017 9:18 AM
--- NOTE | 2017-02-13 09:27 | DIAGNOSTIC IMAGING REPORT ---
CERVICAL SPINE W/O CLINICAL HISTORY: 82 years-old Female with fall, right head injury. Acute head injury status post fall COMPARISON: CT cervical spine 03/05/2016. TECHNIQUE: Multiple axial CT images of the cervical spine were obtained without contrast. A dose lowering technique was utilized adhering to the principles of ALARA. FINDINGS: Vertebral body heights and alignment are normal. No fracture or subluxation is identified. Stepwise anterolisthesis of 2 to 3 mm is again noted involving C4-C5, C5-C6, C6-C7 and C7-T1 which appears unchanged, likely secondary to long-standing facet arthropathy. Multilevel severe facet disease is again noted. The bones are mildly demineralized. Advanced intervertebral disc space narrowing is present at C5-C6 with broad-based posterior disc osteophyte complex formation. This causes moderate left foraminal stenosis. There are varying degrees of neuroforaminal stenosis throughout the cervical spine. No high-grade central canal narrowing identified. The cervical soft tissues appear unremarkable. No pneumothorax. Atelectasis/scarring involves lung apices. There is atherosclerosis of the aortic arch. Plaquing of the carotid bulbs also noted. IMPRESSION: 1. No acute cervical spine fracture or subluxation. 2. Background osteopenia with multilevel discogenic degenerative changes and facet arthropathy as above, unchanged. 3. Remote fracture of the left clavicular head. The above report was generated using voice recognition software. It may contain grammatical, syntax or spelling errors. Electronically signed by: Pritesh Banegas M.D. 02/13/2017 9:26 AM Dictated Date/Time: 02/13/2017 9:22 AM
== END 2017-02-13 06:20 | disposition short-term general hospital (02) ==
LOC: EDBD 00:50 → C.EDB 00:51
DX: S06.6X0A Traumatic subarachnoid hemorrhage without loss of consciousness, initial encounter (principal); S06.5X0A Traumatic subdural hemorrhage without loss of consciousness, initial encounter; S00.83XA Contusion of other part of head, initial encounter; S40.011A Contusion of right shoulder, initial encounter; R55 Syncope and collapse; W19.XXXA Unspecified fall, initial encounter; Y92.019 Unspecified place in single-family (private) house as the place of occurrence of the external cause; Z86.73 Personal history of transient ischemic attack (TIA), and cerebral infarction without residual deficits; Z87.440 Personal history of urinary (tract) infections; K52.9 Noninfective gastroenteritis and colitis, unspecified; M19.90 Unspecified osteoarthritis, unspecified site; Z79.82 Long term (current) use of aspirin; Z79.02 Long term (current) use of antithrombotics/antiplatelets; Z79.899 Other long term (current) drug therapy

== ENCOUNTER 2017-06-03 10:46 | Day surgery (SDC) | payer OTHER ==
--- NOTE | 2017-05-26 10:30 | PAT Medication Instructions ---
Service Date May 26, 2017. Current Home Medication List Acetaminophen (Tylenol), 650 MG PO PRN Diltiazem Hcl Ext Rel (Tiazac), 120 MG PO QAM Docusate Sodium (Docusate Sodium), 100 MG PO QPM Ferrous Gluconate (Ferrous Gluconate), 324 MG PO BID Levothyroxine Sodium (Levothyroxine Sodium), 25 MCG PO QAM Metoprolol Tartrate (Lopressor), 25 MG PO BID Medication Instructions For Your Scheduled Surgery - Hold the following medications the morning of surgery: Ferrous Gluconate (Ferrous Gluconate), 324 MG PO BID - Take the following medications the morning of surgery with a sip of water: Metoprolol Tartrate (Lopressor), 25 MG PO BID Levothyroxine Sodium (Levothyroxine Sodium), 25 MCG PO QAM Acetaminophen (Tylenol), 650 MG PO PRN (if needed, can be taken up to four hours before surgery) Diltiazem Hcl Ext Rel (Tiazac), 120 MG PO QAM - Take the following medications as scheduled the night before surgery: Metoprolol Tartrate (Lopressor), 25 MG PO BID Ferrous Gluconate (Ferrous Gluconate), 324 MG PO BID Docusate Sodium (Docusate Sodium), 100 MG PO QPM If you have any questions please call us at [phone] or [phone] or [phone]
[2017-05-26 11:06] LABS: BASO % 0.3 %; BASO ABS # 0.02 K/uL (0-0.2); EOS % 2.4 %; EOS ABS # 0.14 K/uL (0-0.5); HEMATOCRIT 43.6 % (37-47); HEMOGLOBIN 14.3 g/dL (12.0-16.0); IG# 0.02 K/uL (0.00-0.02); LYMPH % 28.3 %; LYMPH ABS # 1.65 K/uL (1.2-3.4); MEAN CELL VOLUME 92.8 fL (80-100); MEAN CORPUSCULAR HEMOGLOBIN 30.4 pg (25-34); MEAN CORPUSCULAR HGB CONC 32.8 g/dl (32-36); MEAN PLATELET VOLUME 11.7 fL (7.4-10.4); MONO % 8.4 %; MONO ABS # 0.49 K/uL (0.11-0.59); NEUT % 60.3 %; NEUT ABS # 3.51 K/uL (1.4-6.5); PLATELET COUNT 247 K/uL (130-400); RED CELL DISTRIBUTION WIDTH CV 16.2 % (11.5-14.5); RED CELL DISTRIBUTION WIDTH SD 55.1 fL (36.4-46.3); WHITE BLOOD COUNT 5.83 K/uL (4.8-10.8)
[2017-05-26 11:20] LABS: CALCIUM 8.9 mg/dl (8.5-10.1); CREATININE 1.01 mg/dl (0.60-1.20); POTASSIUM 4.2 mmol/L (3.5-5.1)
[~2017-06-03] VITALS: Ht 152.4 cm; Wt 71.3 kg
[~2017-06-03 10:46] MED LIST changes: +ACET-1175 PO; -ASPEC81 PO; +ATROPINE SULFATE 0.1 MG/ML 5ML SYR IV PRN; -CALC-354 PO; +CIPROFLOXACIN / D5W 400 MG IV SCH; -CLOP1TAB15 PO; +DEXAMETHASONE SOD INJ 4 MG/ML VIAL ONE; +DOCU100C31 PO; +EpHEDrine SULFATE INJ 50 MG/ML AMP IV PRN; +FENTANYL CITRATE INJ 50 MCG/1 ML 2 ML VIAL IV PRN; +FENTANYL CITRATE INJ 50 MCG/1 ML 2 ML VIAL ONE; +GLYCOPYRROLATE INJ 0.2 MG/ML VIAL ONE; -IBUP-103 PO; +LACTATED RINGER'S 1000ML 1,000 ML IV SCH; +LIDOCAINE HCL 2% 2 ML VIAL (20MG/ML) ONE; +MIDAZOLAM HCL 1 MG/ML 2ML VIAL ONE; +NEOSTIGMINE METHYLSULFATE 5 MG/5 ML SYR ONE; +ONDANSETRON INJ 2 MG/ML 2 ML VIAL IV PRN; +ONDANSETRON INJ 2 MG/ML 2 ML VIAL ONE; +PROPOFOL IV EMULSION 10 MG/ML 20 ML VIAL IV ONE; +ROCURONIUM BROMIDE 10 MG/ML 5 ML VIAL IV ONE
[2017-06-03 11:22] VITALS: BP 177/81; PULSE 73; TEMP 36.6; O2SAT 95; Ht 152.4 cm; Wt 71.3 kg
--- NOTE | 2017-06-03 12:18 | History & Physical Bridge Note ---
H&P Re-Evaluation Bridge Note: I have examined the patient, reviewed the History & Physical and in the interval since the performance of the History & Physical I have noted the following changes of clinical significance: No changes noted
[2017-06-03] MEDS ORDERED: KETAMINE HCL INJ 50 MG/ML 10 ML VIAL ONE (13:35)
--- NOTE | 2017-06-03 13:55 | [facility] Post Operative Brief Note ---
Immediate Operative Summary Operative Date Jun 03, 2017. Pre-Operative Diagnosis Abnormal bladder mucosa Post-Operative Diagnosis Abnormal bladder mucosa Procedure(s) Performed cysto bladder biopsies and fulguration Surgeon jay jay Testing Coordinator Surgeon(s) none Estimated Blood Loss none Findings Consistent with Post-Op Diagnosis Specimens bladder biopsies x3 Drains None Anesthesia Type MAC Complication(s) none Disposition Accompanied Pt To Recover: yes Disposition: Recovery Room / PACU
[2017-06-03] MEDS ORDERED: TRAMTAB5 PO (13:56)
--- NOTE | 2017-06-03 13:57 | Discharge Instructions ---
Discharge Instructions Date of Service Jun 03, 2017. 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 Post Anesthesia Instructions: If you have had General Anesthesia or IV Sedation: * Do not drive today. * Resume driving when surgeon permits. * Do not make important decisions or sign legal documents today. * Call surgeon for: 1. Temperature elevations greater than 101 degrees F. 2. Uncontrollable pain. 3. Excessive bleeding. 4. Persistent nausea and vomiting. 5. Medication intolerance (nausea, vomiting or rash). * For nausea and vomiting use only clear liquids such as: tea, soda, bouillon until nausea subsides, then gradually increase diet as tolerated. * If you have any concerns or questions, call your surgeon's office. If physician is unavailable and it is an emergency, call 911 or go to the nearest emergency room. . Diet Recommendations Recommended Home Diet: resume previous diet Procedures Procedures Performed: cysto bladder biopsies and fulguration Pending Studies Studies pending at discharge: no Medical Emergencies . Who to Call and When: Medical Emergencies: If at any time you feel your situation is an emergency, please call 911 immediately. . Non-Emergent Contact Non-Emergency issues call your: Urologist Call Non-Emergent contact if: temperature is above 101.5, your pain is not controlled . . "Provider Documentation" section prepared by Filemon Jarrett. . [place] Drug Monitoring Program Search Results: patient reviewed within database
[2017-06-03] MEDS ORDERED: TRAMADOL/ACETAMINOPHEN 37.5/325MG TAB PO PRN (14:00)
--- NOTE | 2017-06-03 14:12 | [facility] Operative Report ---
Operative Report Operative Date Jun 03, 2017. Pre-Operative Diagnosis Abnormal bladder mucosa Post-Operative Diagnosis Abnormal bladder mucosa Procedure(s) Performed cysto bladder biopsies and fulguration Surgeon jay jay Field Investigator Surgeon(s) none Estimated Blood Loss none Findings Cystoscopic exam revealed a normal urethra and bladder showed several areas of erythema primarily at the dome. Both ureteral orifices were effluxing clear urine Specimens a. Abnormal bladder mucosa biopsies Drains none Anesthesia MAC Complication(s) None Disposition Recovery Room / PACU Indications 82-year-old white female who on cystoscopy for evaluation of irritative voiding symptoms was found to have abnormal bladder mucosa being brought in for biopsy Description of Procedure After the induction of an adequate level of intravenous sedation and appropriate timeout patient was placed in the dorsal lithotomy position. Lower abdomen and genitalia were prepped with Hibiclens and draped in a sterile fashion. Using a 22 [place] cystoscope routine cystoscopic exam was performed with the 30 and 70 lenses with the above-noted findings. Next using cold cup biopsy forceps the abnormal mucosa was biopsied and then using a Bugbee electrode was fulgurated for hemostasis. After completing the biopsies and fulguration patient's bladder was drained. Cystoscope and sheath removed. All needle sponge and instrument counts were correct at the end of the case. Patient tolerated the procedure well and was taken to the recovery room in stable condition. I attest to the content of the Intraoperative Record and any orders documented therein. Any exceptions are noted below.
--- NOTE | 2017-06-03 14:41 | Anesthesiology Progress Note ---
Anesthesia Post Op Note Date & Time Jun 03, 2017 at 14:41 Vital Signs Pain Intensity: 0 Vital Signs Past 12 Hours Date Time Temp Pulse Resp B/P (MAP) Pulse Ox O2 Delivery O2 Flow Rate FiO2 06/03/17 14:20 63 17 130/65 96 Oxymask 2 06/03/17 14:10 69 17 142/64 96 Oxymask 10 06/03/17 14:04 36.2 75 10 140/73 99 Oxymask 10 06/03/17 11:22 36.6 73 20 177/81 (113) 95 Room Air Notes Mental Status: alert / awake / arousable, participated in evaluation Pt Amnestic to Procedure: Yes Nausea / Vomiting: adequately controlled Pain: adequately controlled Airway Patency, RR, SpO2: stable & adequate BP & HR: stable & adequate Hydration State: stable & adequate Anesthetic Complications: no major complications apparent
[2017-06-03 14:50] VITALS: BP 143/67; PULSE 72; TEMP 36.6; O2SAT 94
[2017-06-03 15:20] VITALS: BP 155/63; PULSE 86; TEMP 36.6; O2SAT 96
== END 2017-06-03 15:58 | disposition home or self-care (01) ==
LOC: C.ACU 10:46
PROVIDERS: ATTEND Urology
DX: D49.4 Neoplasm of unspecified behavior of bladder (principal); I10 Essential (primary) hypertension; G56.03 Carpal tunnel syndrome, bilateral upper limbs; M19.90 Unspecified osteoarthritis, unspecified site; R26.9 Unspecified abnormalities of gait and mobility; G81.91 Hemiplegia, unspecified affecting right dominant side; E03.9 Hypothyroidism, unspecified; G62.9 Polyneuropathy, unspecified; G12.23 Primary lateral sclerosis; Z86.73 Personal history of transient ischemic attack (TIA), and cerebral infarction without residual deficits; Z90.710 Acquired absence of both cervix and uterus; Z96.649 Presence of unspecified artificial hip joint; Z01.810 Encounter for preprocedural cardiovascular examination; Z01.812 Encounter for preprocedural laboratory examination; Z82.49 Family history of ischemic heart disease and other diseases of the circulatory system; Z83.3 Family history of diabetes mellitus; Z80.7 Family history of other malignant neoplasms of lymphoid, hematopoietic and related tissues

== ENCOUNTER 2017-07-08 04:44 | Emergency (ER) | payer OTHER ==
[~2017-07-08] VITALS: Ht 160 cm; Wt 73.4 kg
[~2017-07-08 04:44] MED LIST changes: -ATROPINE SULFATE 0.1 MG/ML 5ML SYR IV PRN; -CIPROFLOXACIN / D5W 400 MG IV SCH; -DEXAMETHASONE SOD INJ 4 MG/ML VIAL ONE; -EpHEDrine SULFATE INJ 50 MG/ML AMP IV PRN; -FENTANYL CITRATE INJ 50 MCG/1 ML 2 ML VIAL IV PRN; -FENTANYL CITRATE INJ 50 MCG/1 ML 2 ML VIAL ONE; -GLYCOPYRROLATE INJ 0.2 MG/ML VIAL ONE; -LACTATED RINGER'S 1000ML 1,000 ML IV SCH; -LIDOCAINE HCL 2% 2 ML VIAL (20MG/ML) ONE; -MIDAZOLAM HCL 1 MG/ML 2ML VIAL ONE; -NEOSTIGMINE METHYLSULFATE 5 MG/5 ML SYR ONE; -ONDANSETRON INJ 2 MG/ML 2 ML VIAL IV PRN; -ONDANSETRON INJ 2 MG/ML 2 ML VIAL ONE; -PROPOFOL IV EMULSION 10 MG/ML 20 ML VIAL IV ONE; -ROCURONIUM BROMIDE 10 MG/ML 5 ML VIAL IV ONE; +TRAMTAB5 PO
[2017-07-08 04:49] VITALS: TEMP 37; Ht 160 cm; Wt 73.4 kg
[2017-07-08 04:56] VITALS: O2SAT 91
[2017-07-08 05:03] LABS: BASO % 0.3 %; BASO ABS # 0.03 K/uL (0-0.2); EOS % 1.7 %; EOS ABS # 0.16 K/uL (0-0.5); HEMATOCRIT 37.9 % (37-47); HEMOGLOBIN 13.1 g/dL (12.0-16.0); IG# 0.02 K/uL (0.00-0.02); LYMPH % 23.1 %; LYMPH ABS # 2.21 K/uL (1.2-3.4); MEAN CELL VOLUME 93.3 fL (80-100); MEAN CORPUSCULAR HEMOGLOBIN 32.3 pg (25-34); MEAN CORPUSCULAR HGB CONC 34.6 g/dl (32-36); MEAN PLATELET VOLUME 10.7 fL (7.4-10.4); MONO % 8.8 %; MONO ABS # 0.84 K/uL (0.11-0.59); NEUT % 65.9 %; NEUT ABS # 6.31 K/uL (1.4-6.5); PLATELET COUNT 288 K/uL (130-400); RED CELL DISTRIBUTION WIDTH CV 13.5 % (11.5-14.5); WHITE BLOOD COUNT 9.57 K/uL (4.8-10.8)
[2017-07-08 05:20] LABS: ALBUMIN 3.1 gm/dl (3.4-5.0); CALCIUM 8.9 mg/dl (8.5-10.1); CREATININE 0.94 mg/dl (0.60-1.20)
[2017-07-08 05:26] LABS: TOTAL PROTEIN 7.3 gm/dl (6.4-8.2)
--- NOTE | 2017-07-08 05:37 | EMERGENCY ROOM VISIT NOTE ---
ED Visit Note First contact with patient: 04:47 I have personally evaluated and examined this patient. I agree with assessment and plan of Amandeep Recinos PA-C. 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 Right chest wall pain this evening 6 hours ago which she came in to have checked not an NE. She looks well and has no symptoms currently. Re-affirms she is DNR and does not wish to be admitted/obs unless absolutely necessary.
[2017-07-08] MEDS ORDERED: OXYC-57 PO (06:15)
[2017-07-08] MEDS: FUROSEMIDE INJ 20 MG in SYRINGE 0 ML IV ONE (06:42)
[2017-07-08 06:57] VITALS: BP 142/77; PULSE 77; O2SAT 93
--- NOTE | 2017-07-08 07:12 | DIAGNOSTIC IMAGING REPORT ---
CHEST ONE VIEW PORTABLE CLINICAL HISTORY: right side chest pains dyspnea COMPARISON STUDY: 02/13/2017 FINDINGS: Mild cardia megaly. Fixed hiatal hernia. Diaphragms are smooth. Several old right-sided rib fractures. Scattered chronic platelike atelectasis. No acute infiltrate. IMPRESSION: Chronic change. No acute process. The above report was generated using voice recognition software. It may contain grammatical, syntax or spelling errors. Electronically signed by: Jermaine Mullen M.D. 07/08/2017 7:11 AM Dictated Date/Time: 07/08/2017 7:07 AM
--- NOTE | 2017-07-09 02:01 | EMERGENCY ROOM VISIT NOTE ---
History First contact with patient: 04:47 Chief Complaint: CHEST PAIN Stated Complaint: CHEST PAIN Nursing Triage Summary: Pt arrived from home via ALS. Pt states left sided chest pain "under the breast " started around 2300 last evening. Pt states pain radiated to right shoulder, "thats when I called the ambulance". History of Present Illness The patient is a 82 year old female who presents to the Emergency Room via ALS with complaint of right sided chest and back pain. The patient's symptoms began roughly 5 hours ago, admitted difficult for her to sleep. She took a Percocet at home, and was able to sleep for 2 or 3 hours. The patient awoke a second time with increasing tightness, and took a second Percocet. At this time her became more worried and contacted EMS. The patient states that she is DO NOT RESUSCITATE and does not wish to be admitted unless absolutely necessary. She is essentially here to make sure she is not having a heart attack. She is not having lightheadedness, dizziness, left-sided chest pains, or abdominal discomfort. The patient does have some swelling in the top of her feet that seems worse than normal. Overall the patient does not ambulate very much she has neurodegenerative disease that will cause her spasms throughout her body. She does admit that her discomfort tonight could be the result of one of her spasms. She feels significantly better after the second Percocet and rates her current discomfort a 0/10. Review of Systems More than 10 systems were reviewed and otherwise negative with the exception of history of present illness. Past Medical/Surgical History Medical Problems: (1) Dehydration (2) Foreign body (3) Gastroenteritis (4) Localized, primary osteoarthritis of the pelvic region and thigh (5) Nausea & vomiting (6) TIA (transient ischemic attack) (7) UTI (urinary tract infection) Surgical Problems: (1) H/O colonoscopy Family History Patient reports no known family medical history. Social History Smoking Status: Never Smoker Alcohol Use: occasionally Drug Use: none Marital Status: Housing Status: lives with significant other Occupation Status: retired Current/Historical Medications Scheduled Diltiazem Hcl Ext Rel (Tiazac), 120 MG PO QAM Docusate Sodium (Docusate Sodium), 100 MG PO QPM Ferrous Gluconate (Ferrous Gluconate), 324 MG PO DAILY Levothyroxine Sodium (Levothyroxine Sodium), 25 MCG PO QAM Metoprolol Tartrate (Lopressor), 25 MG PO BID Scheduled PRN Oxycodone/Acetaminophen 5MG/325MG (Percocet 5MG/325MG), 1-2 TABLETS PO q4-6 hrs PRN for Pain Physical Exam Vital Signs Date Time Temp Pulse Resp B/P (MAP) Pulse Ox O2 Delivery O2 Flow Rate FiO2 07/08/17 06:57 77 22 142/77 93 07/08/17 06:01 85 22 134/97 91 Room Air 07/08/17 05:01 82 22 127/73 90 Room Air 07/08/17 05:00 97 07/08/17 04:56 91 Room Air 07/08/17 04:49 37.0 98 18 106/66 91 Room Air 07/08/17 04:49 Room Air Physical Exam VITALS: Vitals are noted on the nurse's note and reviewed by myself. Vital signs stable. GENERAL: Elderly appearing female who is comfortable in her ER bed. She is cooperative with exam. NECK: Supple without nuchal rigidity. No lymphadenopathy. No thyromegaly. Cervical spine is nontender. HEART: Regular rate and rhythm LUNGS: Very scant bibasilar rales appreciated. Otherwise clear. ABDOMEN: Positive normal bowel sounds x 4. Soft, nontender, without masses or organomegaly. No guarding or rebound tenderness. MUSCULOSKELETAL: Trace pretibial edema. No reproducible tenderness across the right shoulder or right sided chest wall. NEURO: Patient was alert and oriented to person place and time. CN II through XII grossly intact. Medical Decision & Procedures ER Provider Diagnostic Interpretation: CHEST ONE VIEW PORTABLE CLINICAL HISTORY: right side chest pains dyspnea COMPARISON STUDY: 02/13/2017 FINDINGS: Mild cardia megaly. Fixed hiatal hernia. Diaphragms are smooth. Several old right-sided rib fractures. Scattered chronic platelike atelectasis. No acute infiltrate. IMPRESSION: Chronic change. No acute process. Laboratory Results 07/08/17 04:25 Red Blood Count 4.06, Mean Corpuscular Volume 93.3, Mean Corpuscular Hemoglobin 32.3, Mean Corpuscular Hemoglobin Concent 34.6, Mean Platelet Volume 10.7, Neutrophils (%) (Auto) 65.9, Lymphocytes (%) (Auto) 23.1, Monocytes (%) (Auto) 8.8, Eosinophils (%) (Auto) 1.7, Basophils (%) (Auto) 0.3, Neutrophils # (Auto) 6.31, Lymphocytes # (Auto) 2.21, Monocytes # (Auto) 0.84, Eosinophils # (Auto) 0.16, Basophils # (Auto) 0.03 07/08/17 04:25 Test 07/08/17 04:25 07/08/17 04:58 White Blood Count 9.57 K/uL (4.8-10.8) Red Blood Count 4.06 M/uL (4.2-5.4) Hemoglobin 13.1 g/dL (12.0-16.0) Hematocrit 37.9 % (37-47) Mean Corpuscular Volume 93.3 fL (80-100) Mean Corpuscular Hemoglobin 32.3 pg (25-34) Mean Corpuscular Hemoglobin Concent 34.6 g/dl (32-36) Platelet Count 288 K/uL (130-400) Mean Platelet Volume 10.7 fL (7.4-10.4) Neutrophils (%) (Auto) 65.9 % Lymphocytes (%) (Auto) 23.1 % Monocytes (%) (Auto) 8.8 % Eosinophils (%) (Auto) 1.7 % Basophils (%) (Auto) 0.3 % Neutrophils # (Auto) 6.31 K/uL (1.4-6.5) Lymphocytes # (Auto) 2.21 K/uL (1.2-3.4) Monocytes # (Auto) 0.84 K/uL (0.11-0.59) Eosinophils # (Auto) 0.16 K/uL (0-0.5) Basophils # (Auto) 0.03 K/uL (0-0.2) RDW Standard Deviation 46.0 fL (36.4-46.3) RDW Coefficient of Variation 13.5 % (11.5-14.5) Immature Granulocyte % (Auto) 0.2 % Immature Granulocyte # (Auto) 0.02 K/uL (0.00-0.02) Anion Gap 8.0 mmol/L (3-11) Est Creatinine Clear Calc Drug Dose 44.3 ml/min Estimated GFR () 65.5 Estimated GFR (Non- 56.5 BUN/Creatinine Ratio 15.0 (10-20) Calcium Level 8.9 mg/dl (8.5-10.1) Magnesium Level 2.1 mg/dl (1.8-2.4) Total Bilirubin 0.7 mg/dl (0.2-1) Aspartate Amino Transf (AST/SGOT) 13 U/L (15-37) Alanine Aminotransferase (ALT/SGPT) 19 U/L (12-78) Alkaline Phosphatase 150 U/L (45-117) Pro-B-Type Natriuretic Peptide 2187 pg/ml (0-1800) Total Protein 7.3 gm/dl (6.4-8.2) Albumin 3.1 gm/dl (3.4-5.0) Globulin 4.2 gm/dl (2.5-4.0) Albumin/Globulin Ratio 0.7 (0.9-2) Lipase 69 U/L (73-393) Bedside Troponin I < 0.030 ng/ml (0-0.045) Medications Administered Medications (Trade) Dose Ordered Sig/Miguel Route Start Time Stop Time Status Last Admin Dose Admin Furosemide 20 mg/ Syringe 2 ml @ 4 mls/min ONE ONCE IV 07/08/17 05:45 07/08/17 05:46 DC 07/08/17 06:42 4 MLS/MIN ED Course Physical exam and history were performed. Nursing notes, EMR, and Medication List were personally reviewed. Patient appears to have right-sided back and chest pain that began several hours ago. The patient does not appear toxic on examination. EKG was performed and was normal sinus rhythm at 97 beats per minute without ST elevation per my interpretation. EKG is essentially unchanged from 05/26/2017. IV access was established and labs were obtained. Portable chest x-ray was performed. The patient's blood work is as above and was reviewed. She does not have a significantly elevated white blood cell count, gross anemia, or significant electrolyte imbalance. Troponin 1 is negative. Chest x-ray was reviewed by myself and radiology showing no acute process. Lipase and transaminases were not diagnostic. She remained in normal sinus rhythm on the monitoring tech. Her BNP is slightly elevated, and reviewing the EMR shows that she may be roughly 2 kg heavier than her last visit. Because of this she was given 20 mg Lasix which she has tolerated in the past. I discussed the case with my attending physician, Dr. Horn, who also independently evaluated the patient. We discussed options of care with the patient who does not have any interest in admission as she is DO NOT RESUSCITATE. The patient does not appear to have had an KS at this point, and she is comfortable following with her PCP. The patient is to continue her at home medications as this appears to have helped. Her symptoms may be the result of a spasm, which she has had in the past. She was otherwise invited back to the ER with any new, worsening, or concerning symptoms. The chart was completed utilizing [employer] Speech Voice Recognition Software. Grammatical errors, random word insertions, pronoun errors, and incomplete sentences are an occasional consequence of this system due to software limitations, ambient noise, and hardware issues. Any formal questions or concerns about the content, text, or information contained within the body of this dictation should be directly addressed to the provider for clarification. . Medical Decision Differential diagnosis includes, but is not limited to: Myocardial infarction, dysrhythmia, pericarditis, pneumothorax, aortic aneurysm/dissection, DVT/PE, anxiety, GERD, PUD, electrolyte imbalance, thyroid disorder, pneumonia, bronchitis, pancreatitis, and others Impression Primary Impression: Right-sided back pain Additional Impression: CHF (congestive heart failure) Departure Information Dispostion Home / Self-Care Condition GOOD Forms HOME CARE DOCUMENTATION FORM, IMPORTANT VISIT INFORMATION Patient Instructions My [facility] [employer] Additional Instructions You were seen and evaluated today on an emergency basis only. This is not a substitute for, or an effort to provide, complete comprehensive medical care. It is not possible to recognize and treat all injuries or illnesses in a single emergency department visit. For this reason it is recommended that you followup with your primary care physician tomorrow for recheck of your condition. Continue your at-home medications You are welcome to return to the emergency department anytime with new, worsening, or concerning symptoms. Problem Qualifiers
== END 2017-07-08 06:58 | disposition home or self-care (01) ==
LOC: EDBD 04:44 → C.EDA 04:45
DX: M54.5 Low back pain (principal); I50.9 Heart failure, unspecified; Z86.73 Personal history of transient ischemic attack (TIA), and cerebral infarction without residual deficits

== ENCOUNTER 2017-12-13 08:53 | Emergency (ER) | payer OTHER ==
[~2017-12-13] VITALS: Ht 160 cm; Wt 69.0 kg
[~2017-12-13 08:53] MED LIST changes: -ACET-1175 PO; +OXYC-57 PO; -TRAMTAB5 PO
[2017-12-13 09:00] VITALS: Ht 160 cm; Wt 69.0 kg
[2017-12-13 09:05] VITALS: O2SAT 95
[2017-12-13] MEDS ORDERED: LEVO50TA6 PO (09:10)
[2017-12-13] MEDS ORDERED: FURO-85 PO (09:10)
[2017-12-13] MEDS ORDERED: TRAM-10 PO (09:11)
[2017-12-13] MEDS ORDERED: ONDANSETRON INJ 2 MG/ML 2 ML VIAL IV STA (09:20)
[2017-12-13] MEDS ORDERED: HYDROmorphone INJ 0.5 MG/0.5 ML SYR IV STA (09:20)
--- NOTE | 2017-12-13 09:34 | EMERGENCY ROOM VISIT NOTE ---
History Report prepared by Mason: Raj Frey Under the Supervision of: Dr. Ad Means M.D. First contact with patient: 09:00 Chief Complaint: HIP PAIN Stated Complaint: R HIP PAIN History of Present Illness The patient is an 82 year old female who presents to the Emergency Room with complaints of worsening pain in the right hip that began yesterday. The patient notes that she had the hip replaced 6 years ago. As of yesterday she is unable to walk or bear weight on the foot. She denies any abdominal pain but notes that she has been having trouble emptying her bladder and is following with urology. Source of History: patient Onset: Yesterday Position: leg (right hip) Timing: worsening Modifying Factors (Worsening): other (putting weight on the leg, walking) Associated Symptoms: + urinary symptoms, No abdominal pain Review of Systems See HPI for pertinent positives & negatives. A total of 10 systems reviewed and were otherwise negative. Past Medical & Surgical Medical Problems: (1) Dehydration (2) Foreign body (3) Gastroenteritis (4) Localized, primary osteoarthritis of the pelvic region and thigh (5) Nausea & vomiting (6) TIA (transient ischemic attack) (7) UTI (urinary tract infection) Surgical Problems: (1) H/O colonoscopy Family History Patient reports no known family medical history. Social History Smoking Status: Never Smoker Alcohol Use: occasionally Drug Use: none Marital Status: Housing Status: lives with significant other Occupation Status: retired Current/Historical Medications Scheduled Diltiazem Hcl Ext Rel (Tiazac), 120 MG PO QAM Ferrous Gluconate (Ferrous Gluconate), 324 MG PO DAILY Furosemide (Lasix), 20 MG PO DAILY Levothyroxine Sodium (Levothyroxine Sodium), 50 MCG PO DAILY Metoprolol Tartrate (Lopressor), 25 MG PO BID Scheduled PRN Docusate Sodium (Docusate Sodium), 100 MG PO QPM PRN for Constipation Tramadol (Ultram), 1 TAB PO UD PRN for Pain Allergies Coded Allergies: Sulfa Antibiotics (Verified Allergy, Unknown, HANDS SWELLED, 12/13/17) Physical Exam Vital Signs Date Time Temp Pulse Resp B/P (MAP) Pulse Ox O2 Delivery O2 Flow Rate FiO2 12/13/17 15:38 86 24 154/72 93 12/13/17 15:02 78 23 94 12/13/17 15:01 135/68 12/13/17 14:34 84 26 132/66 94 Nasal Cannula 2.0 12/13/17 14:09 89 26 150/75 95 Nasal Cannula 2.0 12/13/17 13:10 36.8 83 24 93 Nasal Cannula 2.0 12/13/17 13:01 143/65 12/13/17 12:58 80 24 94 12/13/17 12:31 127/63 12/13/17 12:28 77 24 92 12/13/17 12:01 122/65 12/13/17 11:58 75 27 12/13/17 11:31 78 26 128/61 93 Room Air 12/13/17 10:32 76 12/13/17 10:14 78 16 126/65 94 Nasal Cannula 2.0 12/13/17 09:05 95 Nasal Cannula 2.0 12/13/17 09:00 36.9 89 16 143/78 88 Room Air Physical Exam GENERAL: Awake, alert, well-appearing, in no acute distress HENT: Normocephalic, atraumatic. Oropharynx unremarkable. EYES: Normal conjunctiva. Sclera non-icteric. NECK: Supple. No nuchal rigidity. FROM. No JVD. RESPIRATORY: Clear to auscultation. CARDIAC: Regular rate, normal rhythm. Extremities warm and well perfused. Pulses equal. ABDOMEN: Soft, non-distended. No tenderness to palpation. No rebound or guarding. No masses. RECTAL: Deferred. MUSCULOSKELETAL: Chest examination reveals no tenderness. The back is symmetrical on inspection without obvious abnormality. There is tenderness to L4-L5. LOWER EXTREMITIES: There is tenderness to the right hip. NEURO: Normal sensorium. No sensory or motor deficits noted. SKIN: No rash or jaundice noted. Medical Decision & Procedures ER Provider Diagnostic Interpretation: Radiology results as stated below per my review and radiologist interpretation: PELVIS CT CT DOSE: 1669.57 mGy.cm HISTORY: Pelvic pain. pelvic fx TECHNIQUE: Multiaxial CT images of the pelvis were performed and reformatted in the sagittal and coronal plane without the use of contrast. A dose lowering technique was utilized adhering to the principles of ALARA. COMPARISON: Pelvis CT 06/19/2016. FINDINGS: Nondisplaced right sacral ala fracture. This demonstrates slight sclerosis and may be subacute. There are also displaced fractures within the left superior and inferior rami. These demonstrate mild surrounding callus formation and are also considered to be subacute. The inferior pubic ramus fracture demonstrates up to 9 mm of displacement. No fracture or dislocation within the proximal left femur. There is a right total hip arthroplasty. Mild superior endplate compression fracture at L4 which also demonstrates mild sclerosis and is likely subacute. The bladder is decompressed by a Richmond catheter. Small intramuscular hematoma medial to the left pubic ring fracture. This does not result significant mass effect. Cholelithiasis. IMPRESSION: 1. Fractures within the left pubic ring and right sacrum as described above. These appear to be subacute. 2. Mild superior endplate compression fracture at L4 which is also likely subacute. 3. Small intramuscular hematoma medial to the left pubic ring fracture. No associated mass effect. Electronically signed by: Terry Centeno M.D. 12/13/2017 11:49 AM Dictated Date/Time: 12/13/2017 11:[address] WITHOUT CONTRAST CLINICAL HISTORY: Low back pain. COMPARISON STUDY: No previous studies for comparison. TECHNIQUE: Axial images of the lumbar spine were obtained without IV contrast. Sagittal and coronal reconstructions were viewed. The CT of the pelvis will be reported separately. FINDINGS: For purposes of numbering on this exam, the L5-S1 disc space is assigned to axial image 230 of 274. There is mild rightward curvature of the lumbar spine. A right sacral ala fracture minimally displaced. This is likely acute. Note is made of an L2 compression fracture with 70% loss of vertebral body height centrally and 4 mm of retropulsion. There is also a moderate compression fracture of the inferior endplate of L1 and a mild compression fracture of the superior plate of L4. These fractures are age indeterminate. Central canal is suboptimally assessed by CT. A hiatal hernia is partially imaged. Note is made of moderate to marked multilevel disc space narrowing, most throughout the L4-L5 and L5-S1. IMPRESSION: 1. Age indeterminate L1, L2 and L4 compression fractures with 4 mm of retropulsion of the L2 fracture. 2. Minimally displaced right sacral fracture which is likely acute. Electronically signed by: Etienne Paredes M.D. 12/13/2017 11:47 AM Dictated Date/Time: 12/13/2017 11:[address] OF THE HEAD WITHOUT CONTRAST CLINICAL HISTORY: Increasing slurred speech. COMPARISON STUDY: MRI of the brain July 30, [address] February 13, 2017. CT DOSE: 537.48 mGy.cm TECHNIQUE: Helical axial images of the head were obtained without IV contrast. Automated exposure control was utilized for the study. A dose lowering technique was utilized adhering to the principles of ALARA. FINDINGS: No acute intracranial hemorrhage, midline shift or mass effect is present. Ventricular system is normal. Basilar cisterns are patent. There are no extra-axial collections. 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 White matter hypodensity suggests small vessel disease. There are no findings to suggest acute dural sinus thrombosis or acute territorial infarct. There are no significant calvarial abnormalities. IMPRESSION: No acute intracranial findings. Electronically signed by: Etienne Paredes M.D. 12/13/2017 9:58 AM Dictated Date/Time: 12/13/2017 9:52 AM CHEST ONE VIEW PORTABLE CLINICAL HISTORY: Right hip pain. COMPARISON STUDY: Chest radiograph July 08, 2017. FINDINGS: There is no pneumothorax or pleural effusion. Mild cardiomegaly is unchanged. Hiatal hernia is noted. There is no consolidation or evidence for pulmonary edema. There are several old right rib fractures. IMPRESSION: No acute cardiopulmonary findings. Electronically signed by: Etienne Paredes M.D. 12/13/2017 11:20 AM Dictated Date/Time: 12/13/2017 11:18 AM PELVIS 1 OR 2 VIEW ROUTINE CLINICAL HISTORY: Right hip pain. COMPARISON STUDY: Pelvis radiograph February 13, 2017. FINDINGS: Alignment of the total right hip arthroplasty is anatomic. There is no periprosthetic fracture. Note is made of acute moderately displaced fractures of the left superior and inferior pubic rami. There may be slight widening of the symphysis pubis. Sacroiliac joints are intact. IMPRESSION: 1. Acute moderately displaced fractures of the left superior and inferior pubic rami. 2. Mild widening of the symphysis pubis. 3. Anatomic alignment of total right hip arthroplasty with no periprosthetic fracture. Electronically signed by: Etienne Paredes M.D. 12/13/2017 11:51 AM Dictated Date/Time: 12/13/2017 11:48 AM Laboratory Results 12/13/17 09:25 Red Blood Count 3.68, Mean Corpuscular Volume 92.4, Mean Corpuscular Hemoglobin 31.0, Mean Corpuscular Hemoglobin Concent 33.5, Mean Platelet Volume 10.6, Neutrophils (%) (Auto) 77.6, Lymphocytes (%) (Auto) 11.7, Monocytes (%) (Auto) 8.5, Eosinophils (%) (Auto) 1.6, Basophils (%) (Auto) 0.2, Neutrophils # (Auto) 6.97, Lymphocytes # (Auto) 1.05, Monocytes # (Auto) 0.76, Eosinophils # (Auto) 0.14, Basophils # (Auto) 0.02 12/13/17 09:25 Test 12/13/17 09:25 12/13/17 11:11 White Blood Count 8.98 K/uL (4.8-10.8) Red Blood Count 3.68 M/uL (4.2-5.4) Hemoglobin 11.4 g/dL (12.0-16.0) Hematocrit 34.0 % (37-47) Mean Corpuscular Volume 92.4 fL (80-100) Mean Corpuscular Hemoglobin 31.0 pg (25-34) Mean Corpuscular Hemoglobin Concent 33.5 g/dl (32-36) Platelet Count 298 K/uL (130-400) Mean Platelet Volume 10.6 fL (7.4-10.4) Neutrophils (%) (Auto) 77.6 % Lymphocytes (%) (Auto) 11.7 % Monocytes (%) (Auto) 8.5 % Eosinophils (%) (Auto) 1.6 % Basophils (%) (Auto) 0.2 % Neutrophils # (Auto) 6.97 K/uL (1.4-6.5) Lymphocytes # (Auto) 1.05 K/uL (1.2-3.4) Monocytes # (Auto) 0.76 K/uL (0.11-0.59) Eosinophils # (Auto) 0.14 K/uL (0-0.5) Basophils # (Auto) 0.02 K/uL (0-0.2) RDW Standard Deviation 47.4 fL (36.4-46.3) RDW Coefficient of Variation 14.0 % (11.5-14.5) Immature Granulocyte % (Auto) 0.4 % Immature Granulocyte # (Auto) 0.04 K/uL (0.00-0.02) Prothrombin Time 11.6 SECONDS (9.0-12.0) Prothromb Time International Ratio 1.1 (0.9-1.1) Activated Partial Thromboplast Time 26.4 SECONDS (21.0-31.0) Partial Thromboplastin Ratio 1.0 Anion Gap 10.0 mmol/L (3-11) Est Creatinine Clear Calc Drug Dose 42.5 ml/min Estimated GFR () 64.6 Estimated GFR (Non- 55.8 BUN/Creatinine Ratio 11.5 (10-20) Calcium Level 8.3 mg/dl (8.5-10.1) Urine Color YELLOW Urine Appearance CLEAR (CLEAR) Urine pH 6.5 (4.5-7.5) Urine Specific [place] 1.010 (1.000-1.030) Urine Protein NEG (NEG) Urine Glucose (UA) NEG (NEG) Urine Ketones NEG (NEG) Urine Occult Blood TRACE (NEG) Urine Nitrite NEG (NEG) Urine Bilirubin NEG (NEG) Urine Urobilinogen NEG (NEG) Urine Leukocyte Esterase NEG (NEG) Urine WBC (Auto) 0 /hpf (0-5) Urine RBC (Auto) 0-4 /hpf (0-4) Urine Hyaline Casts (Auto) 1-5 /lpf (0-5) Urine Epithelial Cells (Auto) 20-30 /lpf (0-5) Urine Bacteria (Auto) NEG (NEG) Labs reviewed by ED physician. Medications Administered Medications (Trade) Dose Ordered Sig/Miguel Route Start Time Stop Time Status Last Admin Dose Admin Hydromorphone HCl (Dilaudid Inj) 0.25 mg NOW STAT IV 12/13/17 09:20 12/13/17 09:22 DC 12/13/17 09:20 0.25 MG Ondansetron HCl (Zofran Inj) 4 mg NOW STAT IV 12/13/17 09:20 12/13/17 09:22 DC 12/13/17 09:20 4 MG Hydromorphone HCl (Dilaudid Inj) 0.25 mg Q20M PRN IV 12/13/17 11:15 12/13/17 16:23 DC 12/13/17 15:33 0.25 MG ECG Per My Interpretation Indication: other (Fall) Rate (beats per minute): 79 Rhythm: normal sinus Findings: other (No JACKELYN/STD) ED Course 0910: Past medical records reviewed. The patient was evaluated in room B7. A complete history and physical examination was performed. 1057: The patient is now complaining of back pain as well as pain in the hip. 1237: I discussed the case with Elias [facility]. He suggests transferring the patient to a tertiary care center. 1258: I discussed the case with Dr. Scot Taylor [facility]. He suggests transferring the patient to [facility] ED. 1259: I discussed the case with Dr. Shantanu Taylor [facility]. He will accept the patient for transfer. Medical Decision Prior records reviewed and summarized above. Triage Nursing notes reviewed. Differential diagnosis: Etiologies such as fracture, dislocation, neurovascular compromise, compartment syndrome, soft tissue injury, as well as others were entertained. This is an 82-year-old female who presents emergency department complaining of right hip pain that started acutely after being transferred on Wednesday. The patient was sent to x-ray and was found to have a pelvic fracture. For this reason the patient was then sent for CAT scan of the pelvis as well as the spine. This was concerning for an L4 fracture along with multiple pelvic breaks. I did discuss the case with the on-call orthopedic surgeon who asked that the patient be transferred. I then gave the patient and her their options. They requested [facility] in [place]. I did review this with case management. I did discuss the case with the trauma team as well as the emergency department in [place] who readily accepted the patient. Patient was in agreement with treatment plan. Medication Reconcilliation Current Medication List: was personally reviewed by me Blood Pressure Screening Patient's blood pressure: Normal blood pressure Consults Time Called: 1231 Consulting Physician: Elias Springer PA-C Returned Call: 1237 I discussed the case with Elias Springer PA-C. He suggests transferring the patient to a tertiary care center. Additional Consults: Time Called: 1245 Consulted Physician: Dr. Scot Taylor [facility] Returned Call: [phone] Additional Comments: I discussed the case with Dr. Scot GOMEZ Trauma. He suggests transferring the patient to [facility] ED. Time Called: 1258 Consulted Physician: Dr. Shantanu Taylor [facility] ED Returned Call: [phone] Additional Comments: I discussed the case with Dr. Shantanu [facility]. He will accept the patient for transfer. Impression Primary Impression: Fall Additional Impressions: Pelvic fracture L4 vertebral fracture Scribe Attestation The scribe's documentation has been prepared under my direction and personally reviewed by me in its entirety. I confirm that the note above accurately reflects all work, treatment, procedures, and medical decision making performed by me. Departure Information Dispostion Transfer Acute Care Facility Referrals Timothy Garcia M.D. (PCP) Patient Instructions My [facility] Problem Qualifiers Primary Impression: Fall Encounter type: initial encounter Qualified Codes: W19.XXXA - Unspecified fall, initial encounter Additional Impressions: Pelvic fracture Encounter type: initial encounter Pelvic bone location: multiple parts Fracture type: closed Fracture alignment: with stable disruption of pelvic ring Qualified Codes: S32.810A - Multiple fractures of pelvis with stable disruption of pelvic ring, initial encounter for closed fracture L4 vertebral fracture Encounter type: initial encounter Fracture type: closed Fracture morphology : unspecified fracture morphology Qualified Codes: S32.049A - Unspecified fracture of fourth lumbar vertebra, initial encounter for closed fracture
[2017-12-13 09:43] LABS: BASO % 0.2 %; BASO ABS # 0.02 K/uL (0-0.2); EOS % 1.6 %; EOS ABS # 0.14 K/uL (0-0.5); HEMOGLOBIN 11.4 g/dL (12.0-16.0); IG# 0.04 K/uL (0.00-0.02); LYMPH % 11.7 %; LYMPH ABS # 1.05 K/uL (1.2-3.4); MEAN CELL VOLUME 92.4 fL (80-100); MEAN CORPUSCULAR HGB CONC 33.5 g/dl (32-36); MEAN PLATELET VOLUME 10.6 fL (7.4-10.4); MONO % 8.5 %; MONO ABS # 0.76 K/uL (0.11-0.59); NEUT % 77.6 %; NEUT ABS # 6.97 K/uL (1.4-6.5); PLATELET COUNT 298 K/uL (130-400); RED CELL DISTRIBUTION WIDTH SD 47.4 fL (36.4-46.3); WHITE BLOOD COUNT 8.98 K/uL (4.8-10.8)
[2017-12-13 09:54] LABS: INR 1.1 (0.9-1.1); PTT PATIENT 26.4 SECONDS (21.0-31.0)
--- NOTE | 2017-12-13 09:59 | DIAGNOSTIC IMAGING REPORT ---
CT OF THE HEAD WITHOUT CONTRAST CLINICAL HISTORY: Increasing slurred speech. COMPARISON STUDY: MRI of the brain July 30, [address] February 13, 2017. CT DOSE: 537.48 mGy.cm TECHNIQUE: Helical axial images of the head were obtained without IV contrast. Automated exposure control was utilized for the study. A dose lowering technique was utilized adhering to the principles of ALARA. FINDINGS: No acute intracranial hemorrhage, midline shift or mass effect is present. Ventricular system is normal. Basilar cisterns are patent. There are no extra-axial collections. 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 White matter hypodensity suggests small vessel disease. There are no findings to suggest acute dural sinus thrombosis or acute territorial infarct. There are no significant calvarial abnormalities. IMPRESSION: No acute intracranial findings. Electronically signed by: Etienne Paredes M.D. 12/13/2017 9:58 AM Dictated Date/Time: 12/13/2017 9:52 AM
[2017-12-13 10:01] LABS: CALCIUM 8.3 mg/dl (8.5-10.1); CREATININE 0.95 mg/dl (0.60-1.20); POTASSIUM 3.7 mmol/L (3.5-5.1)
--- NOTE | 2017-12-13 11:21 | DIAGNOSTIC IMAGING REPORT ---
CHEST ONE VIEW PORTABLE CLINICAL HISTORY: Right hip pain. COMPARISON STUDY: Chest radiograph July 08, 2017. FINDINGS: There is no pneumothorax or pleural effusion. Mild cardiomegaly is unchanged. Hiatal hernia is noted. There is no consolidation or evidence for pulmonary edema. There are several old right rib fractures. IMPRESSION: No acute cardiopulmonary findings. Electronically signed by: Etienne Paredes M.D. 12/13/2017 11:20 AM Dictated Date/Time: 12/13/2017 11:18 AM
--- NOTE | 2017-12-13 11:48 | DIAGNOSTIC IMAGING REPORT ---
LUMBAR SPINE CT WITHOUT CONTRAST CLINICAL HISTORY: Low back pain. COMPARISON STUDY: No previous studies for comparison. TECHNIQUE: Axial images of the lumbar spine were obtained without IV contrast. Sagittal and coronal reconstructions were viewed. The CT of the pelvis will be reported separately. FINDINGS: For purposes of numbering on this exam, the L5-S1 disc space is assigned to axial image 230 of 274. There is mild rightward curvature of the lumbar spine. A right sacral ala fracture minimally displaced. This is likely acute. Note is made of an L2 compression fracture with 70% loss of vertebral body height centrally and 4 mm of retropulsion. There is also a moderate compression fracture of the inferior endplate of L1 and a mild compression fracture of the superior plate of L4. These fractures are age indeterminate. Central canal is suboptimally assessed by CT. A hiatal hernia is partially imaged. Note is made of moderate to marked multilevel disc space narrowing, most throughout the L4-L5 and L5-S1. IMPRESSION: 1. Age indeterminate L1, L2 and L4 compression fractures with 4 mm of retropulsion of the L2 fracture. 2. Minimally displaced right sacral fracture which is likely acute. Electronically signed by: Etienne Paredes M.D. 12/13/2017 11:47 AM Dictated Date/Time: 12/13/2017 11:35 AM
--- NOTE | 2017-12-13 11:50 | DIAGNOSTIC IMAGING REPORT ---
PELVIS CT CT DOSE: 1669.57 mGy.cm HISTORY: Pelvic pain. pelvic fx TECHNIQUE: Multiaxial CT images of the pelvis were performed and reformatted in the sagittal and coronal plane without the use of contrast. A dose lowering technique was utilized adhering to the principles of ALARA. COMPARISON: Pelvis CT 06/19/2016. FINDINGS: Nondisplaced right sacral ala fracture. This demonstrates slight sclerosis and may be subacute. There are also displaced fractures within the left superior and inferior rami. These demonstrate mild surrounding callus formation and are also considered to be subacute. The inferior pubic ramus fracture demonstrates up to 9 mm of displacement. No fracture or dislocation within the proximal left femur. There is a right total hip arthroplasty. Mild superior endplate compression fracture at L4 which also demonstrates mild sclerosis and is likely subacute. The bladder is decompressed by a Richmond catheter. Small intramuscular hematoma medial to the left pubic ring fracture. This does not result significant mass effect. Cholelithiasis. IMPRESSION: 1. Fractures within the left pubic ring and right sacrum as described above. These appear to be subacute. 2. Mild superior endplate compression fracture at L4 which is also likely subacute. 3. Small intramuscular hematoma medial to the left pubic ring fracture. No associated mass effect. Electronically signed by: Terry Centeno M.D. 12/13/2017 11:49 AM Dictated Date/Time: 12/13/2017 11:42 AM
--- NOTE | 2017-12-13 11:52 | DIAGNOSTIC IMAGING REPORT ---
PELVIS 1 OR 2 VIEW ROUTINE CLINICAL HISTORY: Right hip pain. COMPARISON STUDY: Pelvis radiograph February 13, 2017. FINDINGS: Alignment of the total right hip arthroplasty is anatomic. There is no periprosthetic fracture. Note is made of acute moderately displaced fractures of the left superior and inferior pubic rami. There may be slight widening of the symphysis pubis. Sacroiliac joints are intact. IMPRESSION: 1. Acute moderately displaced fractures of the left superior and inferior pubic rami. 2. Mild widening of the symphysis pubis. 3. Anatomic alignment of total right hip arthroplasty with no periprosthetic fracture. Electronically signed by: Etienne Paredes M.D. 12/13/2017 11:51 AM Dictated Date/Time: 12/13/2017 11:48 AM
[2017-12-13] MEDS: HYDROmorphone INJ 0.5 MG/0.5 ML SYR IV PRN ×2 (13:06→15:33)
[2017-12-13 13:10] VITALS: TEMP 36.8
[2017-12-13 15:38] VITALS: BP 154/72; PULSE 86; O2SAT 93
== END 2017-12-13 15:38 | disposition short-term general hospital (02) ==
LOC: EDBD 08:53 → C.EDB 08:56
DX: S32.810A Multiple fractures of pelvis with stable disruption of pelvic ring, initial encounter for closed fracture (principal); S32.049A Unspecified fracture of fourth lumbar vertebra, initial encounter for closed fracture; W19.XXXA Unspecified fall, initial encounter; Z87.39 Personal history of other diseases of the musculoskeletal system and connective tissue; Z88.2 Allergy status to sulfonamides

== ENCOUNTER 2018-05-08 11:24 | Inpatient (IN) ==
--- NOTE | 2018-05-08 12:23 | XRay Report ---
XR chest 1V portable HISTORY: 83 years-old Female Dyspnea acute shortness of breath COMPARISON: Chest radiograph 12/13/2017 TECHNIQUE: Portable AP view of the chest FINDINGS: Patient is slightly rotated to the right. Cardiac silhouette is mildly enlarged. Calcification of the thoracic aortic arch. No pneumothorax. Mild pulmonary vascular congestion. Small bilateral pleural e ffusions with left greater than right bibasilar opacities. Degenerative changes are seen about the sh oulders and spine. IMPRESSION: 1. Cardiomegaly with pulmonary vascular congestion. 2. Small bilateral pleural effusions with bibasilar opacities suggesting atelectasis or pneumonitis. The above report was generated using voice recognition software. It may contain grammatical, syntax o r spelling errors. Electronically signed by: Pritesh Banegas M.D. 05/08/2018 12:22 PM
[2018-05-08 12:54] LABS: Hematocrit (blood only) 21.9 % (37-47); Hemoglobin 6.7 g/dL (12.0-16.0); INR 1.2 (0.9-1.1); Mean Corpuscular Hgb Conc 30.6 g/dL (32-36); Mean Corpuscular Volume 95.6 fL (80-100); Mean Platelet Volume 9.5 fL (7.4-10.4); Partial Thromboplastin Time 25.4 Seconds (21.0-31.0); Platelet Count 300 K/uL (130-400); Prothrombin Time 12.1 Seconds (9.0-12.0); RDW Coefficient of Variation 14.2 % (11.5-14.5); RDW Standard Deviation 48.9 fL (36.4-46.3); Red Blood Count 2.29 M/uL (4.2-5.4)
[2018-05-08 12:58] LABS: Alanine Aminotransferase 18 U/L (12-78); Albumin Level 3.1 gm/dl (3.4-5.0); Aspartate Aminotransferase 14 U/L (15-37); BUN Creatinine Ratio 16.2 (10-20); Blood Urea Nitrogen 15 mg/dl (7-18); Carbon Dioxide 23 mmol/L (21-32); Chloride 107 mmol/L (98-107); Creatinine Clr Calc Pharmacy 40.5 ml/min; Est GFR (African American) 66.7; Est GFR (Non-African American) 57.6; Glucose 104 mg/dl (70-99); Potassium 3.8 mmol/L (3.5-5.1); Sodium 140 mmol/L (136-145)
[2018-05-08 13:03] LABS: Albumin Globulin Ratio 0.9 (0.9-2); Alkaline Phosphatase 123 U/L (45-117); Bilirubin,Total 0.3 mg/dl (0.2-1); Globulin 3.4 gm/dl (2.5-4.0); NT Pro B Type Natriuretic Pept 2637 pg/ml (0-1800); Total Protein 6.5 gm/dl (6.4-8.2); Troponin I < 0.015 ng/ml (0-0.045)
[2018-05-08 13:05] LABS: Basophils # (auto) 0.02 K/uL (0-0.2); Basophils % (auto) 0.3 %; Eosinophils % (auto) 1.6 %; Hypochromasia Present; Immature Granulocytes # (auto) 0.01 K/uL (0.00-0.02); Immature Granulocytes % (auto) 0.2 %; Lymphocytes # (auto) 1.44 K/uL (1.2-3.4); Lymphocytes % (auto) 23.2 %; Monocytes # (auto) 0.43 K/uL (0.11-0.59); Monocytes % (auto) 6.9 %; Neutrophils % (auto) 67.8 %; Polychromasia 1+
[2018-05-08 13:06] LABS: Appearance Urine Clear (Clear); Bilirubin Urine Negative (Negative); Color Urine Yellow; Glucose Urine UA Negative (Negative); Ketones Urine Negative (Negative); Leukocyte Esterase Urine Negative (Negative); Nitrite Urine Negative (Negative); Protein Urine Negative (Negative); Specific Gravity Urine 1.013 (1.000-1.030); Urobilinogen Urine Negative (Negative)
[2018-05-08] MEDS ORDERED: PANTOprazole 80 MG in DEXTROSE 5% 100 ML IV ONE (13:21)
[2018-05-08] MEDS ORDERED: PANTOPRAZOLE BOLUS/DRIP 1 EA IV STA (13:21)
[2018-05-08] MEDS ORDERED: FUROSEMIDE 40 MG/4 ML VIAL IV STA (13:21)
[2018-05-08 13:29] LABS: Hematocrit (blood only) 22.3 % (37-47); Hemoglobin 6.6 g/dL (12.0-16.0)
[2018-05-08] MEDS ORDERED: PANTOprazole 40 MG in DEXTROSE 5% 100 ML IV SCH (13:30)
--- NOTE | 2018-05-08 13:58 | Emergency Department Note ---
Entered by Julian Whitfield acting as a scribe for Doug Delgado M.D. History of Present Illness General Chief complaint: Shortness of Breath/Dyspnea Stated complaint: SOB Source: patient History of Present Illness Onset (ago): week(s) (past week) Location: chest (lungs) Pain Consistency: + intermittent Quality: + other (shortness of breath) Relieved By: + other (Xopenex inhaler, Duoneb) Exacerbated By: + other (lying down) Associated symptoms: + cough (occasional) and + other (leg swelling); no fever/ chills and no nausea/vomiting The patient is an 83 year old female who presents to the Emergency Room with complaints of intermittent shortness of breath for the past week. The patient reports that her symptoms are exacerbated by lying down and were relieved by a Xopenex inhaler this morning as well as Duoneb administered prior to arrival by EMS. She states that she has been sleeping in an upright position for the past week. She reports that her symptoms have been worsening in the past few days, stating that she has been waking up in the middle of the night due to her shortness of breath. She also reports swelling of the legs and states that she has been taking her prescribed Lasix. She notes an occasional cough. She denies fevers, pain, nausea, vomiting, or sick contact. She states that she regularly takes Eliquis. Her PCP is Dr. Cary Barnett. She notes that she has seen cardiology in the past. She reports a history of PLS. Home Medications Home Medications Medication Instructions Recorded Confirmed Type apixaban [Eliquis] 5 mg PO BID 05/08/18 05/08/18 History diltiazem HCl 120 mg PO DAILY 05/08/18 05/08/18 History docusate sodium [Colace] 100 mg PO BID 05/08/18 05/08/18 History ferrous sulfate 325 mg PO DAILY 05/08/18 05/08/18 History furosemide [Lasix] 20 mg PO DAILY 05/08/18 05/08/18 History levothyroxine 75 mcg PO DAILY 05/08/18 05/08/18 History metoprolol tartrate 25 mg PO BID 05/08/18 05/08/18 History Allergies Allergy/AdvReac Type Severity Reaction Status Date / Time Sulfa (Sulfonamide Allergy Unknown HANDS Verified 12/13/17 09:11 Antibiotics) SWELLED Past Med/Surg History Medical History CHF (congestive heart failure) TIA (transient ischemic attack) Social History Feels Safe at Home: Yes Smoking Status: Never smoker Preferred Language: Indonesian Review of Systems See HPI for pertinent positives & negatives. and A total of 10 systems reviewed and were otherwise negative Physical Exam Vital Signs Vital Signs - 24 hr 05/08/18 11:31 05/08/18 11:36 05/08/18 12:57 Temperature 37.0 C Temperature Source Oral Sepsis Recent Fever Within 48 Hours No Sepsis New/Unexplained Change in Mental Status No Sepsis Action Taken by Nursing No Action Required Pulse Rate 99 H Pulse Rate [Apical] 95 H Pulse Rhythm Regular Pulse Strength Normal Respiratory Rate 20 24 Respiratory Effort / Characteristics Non-Labored Spontaneous Non-Labored Respiratory Depth Normal Normal Respiratory Pattern Regular Regular Blood Pressure 158/91 H Blood Pressure [Left Arm] 137/67 Blood Pressure Mean 113 Blood Pressure Mean [Left Arm] 90 Pulse Oximetry 91 91 Oxygen Delivery Method Room Air Room Air Room Air 05/08/18 13:43 Temperature Temperature Source Sepsis Recent Fever Within 48 Hours Sepsis New/Unexplained Change in Mental Status Sepsis Action Taken by Nursing Pulse Rate Pulse Rate [Apical] 94 H Pulse Rhythm Pulse Strength Respiratory Rate 20 Respiratory Effort / Characteristics Respiratory Depth Respiratory Pattern Blood Pressure Blood Pressure [Left Arm] 138/74 Blood Pressure Mean Blood Pressure Mean [Left Arm] 95 Pulse Oximetry 95 Oxygen Delivery Method GENERAL: Awake, alert, well-appearing, in no distress HENT: Normocephalic, atraumatic. EYES: Normal conjunctiva. Sclera non-icteric. NECK: Supple. No nuchal rigidity. RESPIRATORY: Crackles at lung bases. No wheezes. Normal respiratory effort. CARDIAC: Normal rate. Normal rhythm. Extremities warm and well perfused. GI: Soft, non-distended. No tenderness to palpation. No rebound or guarding. No masses. RECTAL: Deferred. MUSCULOSKELETAL: Atraumatic. Chest examination reveals no tenderness. LOWER EXTREMITIES: Calves are equal size bilaterally and non-tender. 2+ bilateral edema. NEURO: Normal sensorium. No sensory deficits noted. No facial droop. No slurred speech. SKIN: Warm and dry. No rash or jaundice noted. RECTAL: Black stool, hemoccult positive. Course 1145: Past medical records reviewed. The patient was evaluated in room C9, and a complete history and physical examination were performed. 1315: I obtained the patients consent for blood transfusion. 1326: I consulted Dr. Olivera [facility] Hospitalist. He will reevaluate the patient for hospitalization. Consultations Consultation #1: I consulted Dr. Olivera [facility] Hospitalist. He will reevaluate the patient for hospitalization. Time: 13:26 Administered Medications Discontinued Medications Furosemide (Lasix) 10 mg IV NOW STA Stop: 05/08/18 13:22 Last Admin: 05/08/18 13:55 Dose: 10 mg Pantoprazole Sodium (Protonix Bolus/Drip) 0 mls @ 1 mls/hr IV ONE STA Stop: 05/08/18 13:22 Last Admin: 05/08/18 13:57 Dose: Not Given Pantoprazole Sodium 80 mg/ (Dextrose) 120 mls @ 400 mls/hr IV NOW ONE Stop: 05/08/18 13:38 Last Admin: 05/08/18 13:56 Dose: 400 mls/hr Medical Decision Making Differential Diagnosis Differential diagnosis: Etiologies such as infections, reactive airway disease, pneumonia, pneumothorax , COPD, CHF, cardiac ischemia, pulmonary embolism, musculoskeletal, gastrointestinal, as well as others were entertained. Medical Records Attestation: I reviewed the patient's medical records. Home Medications Current Medication List: was personally reviewed by me Laboratory Data Attestation: I reviewed the patient's lab results. Result diagrams: 05/08/18 13:11 05/08/18 12:25 Lab Results 05/08/18 05/08/18 05/08/18 Range/Units 12:25 12:25 12:25 WBC 6.20 (4.8-10.8) K/uL RBC 2.29 L (4.2-5.4) M/uL Hgb 6.7 L* (12.0-16.0) g/dL Hct 21.9 L (37-47) % MCV 95.6 (80-100) fL MCH 29.3 (25-34) pg MCHC 30.6 L (32-36) g/dL RDW Std Deviation 48.9 H (36.4-46.3) fL RDW Coeff of Erin 14.2 (11.5-14.5) % Plt Count 300 (130-400) K/uL MPV 9.5 (7.4-10.4) fL Immature Gran % (Auto) 0.2 % Neut % (Auto) 67.8 % Lymph % (Auto) 23.2 % [place] % (Auto) 6.9 % Eos % (Auto) 1.6 % Baso % (Auto) 0.3 % Immature Gran # (Auto) 0.01 (0.00-0.02) K/uL Neut # (Auto) 4.20 (1.4-6.5) K/uL Lymph # (Auto) 1.44 (1.2-3.4) K/uL [place] # (Auto) 0.43 (0.11-0.59) K/uL Eos # (Auto) 0.10 (0-0.5) K/uL Baso # (Auto) 0.02 (0-0.2) K/uL Giant Platelets 1+ Polychromasia 1+ Hypochromasia Present PT 12.1 H (9.0-12.0) Seconds INR 1.2 H (0.9-1.1) APTT 25.4 (21.0-31.0) Seconds PTT Ratio 1.0 Sodium 140 (136-145) mmol/L Potassium 3.8 (3.5-5.1) mmol/L Chloride 107 (98-107) mmol/L Carbon Dioxide 23 (21-32) mmol/L Anion Gap 10.0 (3-11) BUN 15 (7-18) mg/dl Creatinine 0.92 (0.6-1.2) mg/dl Est Cr Clr Drug Dosing 40.5 ml/min Est GFR ( Amer) 66.7 Est GFR (Non-Af Amer) 57.6 BUN/Creatinine Ratio 16.2 (10-20) Glucose 104 H (70-99) mg/dl Calcium 8.0 L (8.5-10.1) mg/dl Total Bilirubin 0.3 (0.2-1) mg/dl AST 14 L (15-37) U/L ALT 18 (12-78) U/L Alkaline Phosphatase 123 H (45-117) U/L Troponin I < 0.015 (0-0.045) ng/ml NT-Pro-B Natriuret Pep 2637 H (0-1800) pg/ml Total Protein 6.5 (6.4-8.2) gm/dl Albumin 3.1 L (3.4-5.0) gm/dl Globulin 3.4 (2.5-4.0) gm/dl Albumin/Globulin Ratio 0.9 (0.9-2) Urine Color Urine Appearance (Clear) Urine pH (4.5-7.5) Ur Specific [place] (1.000-1.030) Urine Protein (Negative) Urine Glucose (UA) (Negative) Urine Ketones (Negative) Urine Blood (Negative) Urine Nitrite (Negative) Urine Bilirubin (Negative) Urine Urobilinogen (Negative) Ur Leukocyte Esterase (Negative) Blood Type Antibody Screen Crossmatch 05/08/18 05/08/18 05/08/18 Range/Units 12:55 13:11 13:11 WBC (4.8-10.8) K/uL RBC (4.2-5.4) M/uL Hgb 6.6 L* (12.0-16.0) g/dL Hct 22.3 L (37-47) % MCV (80-100) fL MCH (25-34) pg MCHC (32-36) g/dL RDW Std Deviation (36.4-46.3) fL RDW Coeff of Erin (11.5-14.5) % Plt Count (130-400) K/uL MPV (7.4-10.4) fL Immature Gran % (Auto) % Neut % (Auto) % Lymph % (Auto) % [place] % (Auto) % Eos % (Auto) % Baso % (Auto) % Immature Gran # (Auto) (0.00-0.02) K/uL Neut # (Auto) (1.4-6.5) K/uL Lymph # (Auto) (1.2-3.4) K/uL [place] # (Auto) (0.11-0.59) K/uL Eos # (Auto) (0-0.5) K/uL Baso # (Auto) (0-0.2) K/uL Giant Platelets Polychromasia Hypochromasia PT (9.0-12.0) Seconds INR (0.9-1.1) APTT (21.0-31.0) Seconds PTT Ratio Sodium (136-145) mmol/L Potassium (3.5-5.1) mmol/L Chloride (98-107) mmol/L Carbon Dioxide (21-32) mmol/L Anion Gap (3-11) BUN (7-18) mg/dl Creatinine (0.6-1.2) mg/dl Est Cr Clr Drug Dosing ml/min Est GFR ( Amer) Est GFR (Non-Af Amer) BUN/Creatinine Ratio (10-20) Glucose (70-99) mg/dl Calcium (8.5-10.1) mg/dl Total Bilirubin (0.2-1) mg/dl AST (15-37) U/L ALT (12-78) U/L Alkaline Phosphatase (45-117) U/L Troponin I (0-0.045) ng/ml NT-Pro-B Natriuret Pep (0-1800) pg/ml Total Protein (6.4-8.2) gm/dl Albumin (3.4-5.0) gm/dl Globulin (2.5-4.0) gm/dl Albumin/Globulin Ratio (0.9-2) Urine Color Yellow Urine Appearance Clear (Clear) Urine pH 7.0 (4.5-7.5) Ur Specific [place] 1.013 (1.000-1.030) Urine Protein Negative (Negative) Urine Glucose (UA) Negative (Negative) Urine Ketones Negative (Negative) Urine Blood Negative (Negative) Urine Nitrite Negative (Negative) Urine Bilirubin Negative (Negative) Urine Urobilinogen Negative (Negative) Ur Leukocyte Esterase Negative (Negative) Blood Type O Positive Antibody Screen NEGATIVE Crossmatch See Detail Imaging Data Radiologist's Impression: Radiology results as stated below per my review and the radiologist's interpretation: XR chest 1V portable HISTORY: 83 years-old Female Dyspnea acute shortness of breath COMPARISON: Chest radiograph 12/13/2017 TECHNIQUE: Portable AP view of the chest FINDINGS: Patient is slightly rotated to the right. Cardiac silhouette is mildly enlarged. Calcification of the thoracic aortic arch. No pneumothorax. Mild pulmonary vascular congestion. Small bilateral pleural effusions with left greater than right bibasilar opacities. Degenerative changes are seen about the shoulders and spine. IMPRESSION: 1. Cardiomegaly with pulmonary vascular congestion. 2. Small bilateral pleural effusions with bibasilar opacities suggesting atelectasis or pneumonitis. The above report was generated using voice recognition software. It may contain grammatical, syntax or spelling errors. Electronically signed by: Pritesh Banegas M.D. 05/08/2018 12:22 PM ECG Data Attestation: I personally reviewed and interpreted this ECG as follows: Indication: SOB/dyspnea Rate (beats per minute): 91 Rhythm: sinus rhythm Findings: + other (normal axis) and + PVC; no ST depression and no ST elevation Blood Pressure Blood Pressure Findings: Elevated blood pressure Blood Pressure Disposition: further management by hospitalist MDM Narrative 83-year-old female with a history of PE, CHF, & PLS presenting today complaining of week of worsening shortness of breath and inability to lay flat. Does have some leg swelling. Anticoagulated on eliqus. Concern for possible fluid overload. No real fevers but chest x-ray completed help exclude pneumonia. Doubt pneumothorax, PE on AC, or dissection. EKG and troponin were completed to help exclude ACS of which have a lower suspicion. Troponin is negative. No acute electrode abnormality or kidney injury. ProBNP is elevated and chest x-ray shows signs of fluid overload. Patient does endorse some increased weakness recently. Hemoglobin is low and confirmed low around 6.7- 6.6. Normal platelet count. Hemoccult positive and does states she takes iron as has had chronic black stools but no bloody stools. Likely her acute anemia with a drop almost six-point over 2 months is contributing to her fluid overload status. Given a small amount of Lasix, consented for blood transfusion with patient and . No significant abdominal pain will defer CT imaging of the abdomen pelvis at this time but Protonix bolus and drip will be ordered. Initially 1 unit of red cells ordered. Discussed with hospitalist for admission. Impression & Plan GI bleed, Acute blood loss anemia, Fluid overload, Weakness Critical Care Time I have personally spent 45 minutes of critical care time in the direct management of this patient. This includes bedside care, interpretation of diagnostic studies, and testing, discussion with consultants, patient, and family members, and other required patient management activities. This 45 minutes is in excess of all separately billable procedures. Critical Care Time: Yes Total Critical Care Time: 45 Discharge Plan Visit Data Chief Complaint: Shortness of Breath/Dyspnea Stated Complaint: SOB ED Provider: Doug Delgado Discharge Problem: GI bleed, Acute blood loss anemia, Fluid overload, Weakness Patient Disposition: Being Evaluated by Hospitalist Forms Stand Alone Forms: My [facility] Prescriptions Prescriptions: No Action levothyroxine 75 mcg Tablet 75 mcg PO DAILY RF: 0 diltiazem HCl 120 mg Capsule,Extended Release 12 Hr 120 mg PO DAILY RF: 0 ferrous sulfate 325 mg (65 mg iron) Tablet 325 mg PO DAILY RF: 0 metoprolol tartrate 50 mg Tablet 25 mg PO BID RF: 0 docusate sodium [Colace] 100 mg Capsule 100 mg PO BID RF: 0 furosemide [Lasix] 20 mg Tablet 20 mg PO DAILY RF: 0 apixaban [Eliquis] 5 mg Tablet 5 mg PO BID RF: 0 Referrals Referrals: Anoop Townsend MD [Primary Care Provider] - The scribe's documentation has been prepared under my direction and personally reviewed by me in its entirety. I confirm that the note above accurately reflects all work, treatment, procedures, and medical decision making performed by me.
--- NOTE | 2018-05-08 14:51 | History & Physical Report ---
Date of Service May 08, 2018 Assessment & Plan (1) Dyspnea: Her dyspnea appears to be multifactorial, related to her anemia as well as her acute on chronic diastolic CHF. See below otherwise. (2) Anemia: This appears to be subacute blood loss more than likely a slow bleed unmasked and amplified by her anticoagulation. We will heme test stools to confirm this. For now we will hold her Eliquis, and follow her hemoglobin. She has 1 unit of red cells ordered and transfusing by the ER, I suspect that she will need a second, but we will wait and see her clinical and hemoglobin response to the first unit before transfusing further. Her last colonoscopy was about 7 years ago, we discussed that if she shows ongoing active bleeding and endoscopic workup will need to be done sooner rather than later, but if the bleeding seems to resolve and stabilizes after transfusion and stopping the Eliquis, that an endoscopic workup to look for the cause of the bleeding will be more open for discussion, given with her age and comorbidities she may not want the findings treated. We discussed common causes being peptic ulcer disease, AVMs, or cancers. They expressed understanding. If they have uncertainty, would refer to GI for a follow-up as an outpatient in the near future, and obviously if her hemoglobin continues to drop we will need to consult as an inpatient (3) CHF (congestive heart failure): She appears to have diastolic dysfunction on an echo from about a year and half ago, given its been that long we will repeat echocardiogram for more up -to-date findings. She is been given 10 of IV Lasix in the ER and still is a degree of rales and still needing oxygen, will give her an additional 20 now and then additional dosing as needed, continue her home dosing otherwise. More than likely this was due to increased workload on her heart from the rather significant anemia. (4) Left femoral vein DVT: I can tell, and is best the patient can recollect, her clot in December was her only clot. This appears to have been clearly provoked by trauma. She is been on Eliquis or some form of anticoagulation for at least 3 months, and therefore it should be L to be safe to be discontinued. That said, given that her immobility and her CHF would both be risk factors for ongoing or recurrent venous thromboembolic disease, will check Dopplers to be safe, before ceasing anticoagulation altogether. If the Dopplers show any kind of positive findings for clot, then we will need to consider anticoagulation versus a filter, however clinically I suspect the clot has resolved. (5) Primary lateral sclerosis: Supportive care (6) TIA (transient ischemic attack): Her prior cerebrovascular disease appears stable. Outpatient follow-up (7) Essential hypertension: Continue her home meds. (8) Osteoporosis: Outpatient follow-up, her DEXA was just done about 10 days ago. Her vitamin D was low, and she is a bit hypocalcemic. We will start vitamin D supplementation. (9) Pelvic fracture: This occurred in December, and appears to have stabilized (10) DVT prophylaxis: Pharmacologic DVT prophylaxis is obviously contraindicated with her anemia that appears to be acute blood loss. Mechanical DVT prophylaxis is of dubious benefit and certainly would be of risk of skin breakdown in her situation. Close vigilance (11) Discharge planning issues: I would anticipate her being able to be discharged home once it is clear that her hemoglobin is stable, with the remainder of her workup and treatment being outpatient. History of Present Illness Chief Complaint: shortness of breath Primary Care Provider: Anoop Townsend MD She has been feeling gradually worse weaker and more short of breath over the last week or so. She and the note that it came on so gradually is a little hard to tell exactly when it started. Most notably the last 2 nights she has had a hard time sleeping because of shortness of breath, and while she does not clearly endorse orthopnea or paroxysmal nocturnal dyspnea, she gives an account of symptoms that appear to be heavily in that direction. Her also notes her legs been more swollen recently. She has not noted any overt GI bleed. She does not seem to have any other respiratory symptoms other than being more short of breath worse whenever she is sleeping as well as worse with any type of exertion. Initially they were attributing it to progression of her primary lateral sclerosis, but once her shortness of breath had gotten far worse they decided to bring her here to the ER for further evaluation. Here she was found to have signs and symptoms consistent with congestive heart failure, as well as a hemoglobin of about 6.5 down considerably from before. She has been on Eliquis recently due to a DVT, she notes this is the first clot in a vein she has ever formed and she is never had a clot in her lungs, this was all in the context of pelvic and lumbar spine fractures for which she was seen here in the ER and transferred to [facility] in early December. Her last colonoscopy was about 7 years ago. Allergies Allergy/AdvReac Type Severity Reaction Status Date / Time Sulfa (Sulfonamide Allergy Unknown HANDS Verified 12/13/17 09:11 Antibiotics) SWELLED Home Medications Home Medications Medication Instructions Recorded Confirmed Type apixaban [Eliquis] 5 mg PO BID 05/08/18 05/08/18 History diltiazem HCl 120 mg PO DAILY 05/08/18 05/08/18 History docusate sodium [Colace] 100 mg PO BID 05/08/18 05/08/18 History ferrous sulfate 325 mg PO DAILY 05/08/18 05/08/18 History furosemide [Lasix] 20 mg PO DAILY 05/08/18 05/08/18 History levothyroxine 75 mcg PO DAILY 05/08/18 05/08/18 History metoprolol tartrate 25 mg PO BID 05/08/18 05/08/18 History Past Med/Surg History Medical History Bladder neoplasm Pelvic fracture Osteoporosis Essential hypertension Anemia Left femoral vein DVT Primary lateral sclerosis CHF (congestive heart failure) TIA (transient ischemic attack) Surgical History Hip joint replacement status History of tonsillectomy S/P [id number]-[id number] Family History Mother Congestive heart failure Type 2 diabetes mellitus without complications Essential hypertension Father Hodgkins lymphoma Brother Colon cancer Throat cancer Social History Current Living Situation: Spouse Other Information That Helps Us Care for You: No Feels Safe at Home: Yes Safety Concerns: Feels Safe At This Time Smoking Status: Never smoker Hx Alcohol Use: No Hx Substance Use: No Beliefs That Will Affect Care: Anabaptist Anabaptist Beliefs: Yarsanism Preferred Language: Yi Communication Ability: Effective Licensing Services Clerk Required: No Review of Systems All systems reviewed & are unremarkable except as noted in HPI & below Review of systems otherwise negative except for as above Physical Exam 2 Vital Signs (Past 24 Hours): Last Vital Signs Temp 36.9 C 05/08/18 14:28 Pulse 94 H 05/08/18 14:33 Resp 20 05/08/18 14:33 BP 136/68 05/08/18 14:33 Pulse Ox 95 05/08/18 14:33 Physical Exam: In general she is awake alert oriented x3, pleasant no acute distress, does appear fatigued. HEENT normocephalic atraumatic mucous membranes moist Cardio is regular without rubs murmurs or gallops Lungs show faint rales base right greater than left but more asymmetry probably due to difficult positioning and difficulty being able to cooperate with the exam given her baseline weakness, otherwise she shows no rales rhonchi or wheeze with good effort, no accessory muscle use Abdomen is soft nondistended nontender, most notably she shows no epigastric tenderness, she has no guarding no rebound and no rigidity Extremities show no cyanosis or clubbing she does have probably trace bilateral lower extremity edema it is equal Skin shows no rashes no pallor or icterus Neuro shows cranial nerves II through XII to be grossly intact overall she may be is a hint of facial droop and slurred speech of which she notes is chronic, her muscular exam is weak diffusely, and relates that overall this is chronic as it relates to her PLS. Musculoskeletal exam shows some muscle weakness but overall no gross abnormalities Mental status shows good recent and remote recall normal mood and affect good judgment and insight Results & Data Laboratory Results Reviewed, her most notable finding is her hemoglobin of 6.7, she also has a calcium of 8, and albumin is somewhat low, and a BNP that is elevated
[2018-05-08] MEDS ORDERED: FUROSEMIDE 40 MG/4 ML VIAL IV ONE (15:26)
[2018-05-08] MEDS ORDERED: ERGOCALCIFEROL 50,000 UNITS CAP PO SCH (15:26)
[2018-05-08] MEDS ORDERED: MAGNESIUM HYDROXIDE SUSP 30 ML UDC PO PRN (15:26)
[2018-05-08] MEDS ORDERED: ONDANSETRON INJ 2 MG/ML 2 ML VIAL IV PRN (15:26)
[2018-05-08] MEDS ORDERED: ALUMINUM/MAGNESIUM SUSP 30 ML UDC PO PRN (15:26)
[2018-05-08] MEDS ORDERED: POLYETHYLENE (MIRALAX) 17 GM PACK PO PRN (15:26)
[2018-05-08] MEDS ORDERED: FUROSEMIDE 20 MG in SYRINGE 0 ML IV ONE (16:00)
--- NOTE | 2018-05-08 19:02 | Ultrasound Report ---
BILATERAL LOWER EXTREMITY VENOUS DOPPLER HISTORY: Acute pain and swelling of the bilateral lower extremities recent DVT, now bleeding - ?any acute clot COMPARISON STUDY: Venous Doppler study 12/31/2016. FINDINGS: There is normal compressibility, flow, and augmentation within the bilateral lower extremit y deep venous systems. Mild subcutaneous edema about the lower legs. IMPRESSION: No sonographic evidence of deep venous thrombosis within the right or left lower extremity. Electronically signed by: Pritesh Baneags M.D. 05/08/2018 7:01 PM
[2018-05-08] MEDS: PANTOprazole 40 MG TAB PO SCH (20:10)
[2018-05-08] MEDS: METOPROLOL TARTRATE 25 MG TAB PO SCH (20:10)
[2018-05-08] MEDS: DOCUSATE SODIUM 100 MG CAP PO SCH (20:10)
[2018-05-08] MEDS: clonazePAM 0.5 MG TAB PO PRN (20:10)
[2018-05-09] MEDS: LEVOTHYROXINE SODIUM 75 MCG TABLET PO SCH (06:20)
[2018-05-09 06:58] LABS: BUN Creatinine Ratio 13.3 (10-20); Calcium 8.1 mg/dl (8.5-10.1); Creatinine Clr Calc Pharmacy 35.8 ml/min; Est GFR (African American) 57.5; Est GFR (Non-African American) 49.6; Potassium 3.8 mmol/L (3.5-5.1)
[2018-05-09 07:34] LABS: Basophils # (auto) 0.02 K/uL (0-0.2); Basophils % (auto) 0.3 %; Eosinophils # (auto) 0.23 K/uL (0-0.5); Eosinophils % (auto) 3.8 %; Hematocrit (blood only) 23.5 % (37-47); Hemoglobin 7.4 g/dL (12.0-16.0); Immature Granulocytes # (auto) 0.01 K/uL (0.00-0.02); Immature Granulocytes % (auto) 0.2 %; Lymphocytes # (auto) 1.03 K/uL (1.2-3.4); Lymphocytes % (auto) 16.9 %; Mean Corpuscular Hgb Conc 31.5 g/dL (32-36); Mean Corpuscular Volume 93.3 fL (80-100); Mean Platelet Volume 10.3 fL (7.4-10.4); Monocytes % (auto) 9.8 %; Neutrophils # (auto) 4.21 K/uL (1.4-6.5); Platelet Count 311 K/uL (130-400); RDW Coefficient of Variation 14.5 % (11.5-14.5); RDW Standard Deviation 49.2 fL (36.4-46.3); Red Blood Count 2.52 M/uL (4.2-5.4)
[2018-05-09 08:02] LABS: Anisocytosis Present; Hypochromasia Present; Polychromasia 1+; Stomatocytes 1+
[2018-05-09] MEDS: FUROSEMIDE 20 MG TAB PO SCH (08:29)
[2018-05-09] MEDS: CHOLECALCIFEROL 1,000 UNITS TAB PO SCH (08:29)
[2018-05-09] MEDS: METOPROLOL TARTRATE 25 MG TAB PO SCH ×2 (08:30→20:35)
[2018-05-09] MEDS: DOCUSATE SODIUM 100 MG CAP PO SCH ×2 (08:30→20:35)
[2018-05-09] MEDS: FERROUS SULFATE 325 MG TAB PO SCH (08:30)
[2018-05-09] MEDS: PANTOprazole 40 MG TAB PO SCH ×2 (08:30→20:35)
[2018-05-09] MEDS: dilTIAZem ER 120 MG CAPCR PO SCH (08:30)
[2018-05-09] MEDS ORDERED: FUROSEMIDE 20 MG in SYRINGE 0 ML IV ONE (13:50)
[2018-05-09 14:11] LABS: Hematocrit (blood only) 24.6 % (37-47); Hemoglobin 7.8 g/dL (12.0-16.0)
--- NOTE | 2018-05-09 15:48 | Family Medicine Progress Note ---
Date of Service May 09, 2018 Assessment & Plan (1) Dyspnea: Her dyspnea appears to be multifactorial, related to her anemia as well as her acute on chronic diastolic CHF. See below otherwise. (2) Anemia: This appears to be subacute blood loss more than likely a slow bleed unmasked and amplified by her anticoagulation. We will heme test stools to confirm this. For now we will hold her Eliquis, and follow her hemoglobin. She has 1 unit of red cells ordered and transfusing by the ER, I suspect that she will need a second, but we will wait and see her clinical and hemoglobin response to the first unit before transfusing further. Her last colonoscopy was about 7 years ago, we discussed that if she shows ongoing active bleeding and endoscopic workup will need to be done sooner rather than later, but if the bleeding seems to resolve and stabilizes after transfusion and stopping the Eliquis, that an endoscopic workup to look for the cause of the bleeding will be more open for discussion, given with her age and comorbidities she may not want the findings treated. We discussed common causes being peptic ulcer disease, AVMs, or cancers. They expressed understanding. If they have uncertainty, would refer to GI for a follow-up as an outpatient in the near future, and obviously if her hemoglobin continues to drop we will need to consult as an inpatient (3) CHF (congestive heart failure): She appears to have diastolic dysfunction on an echo from about a year and half ago, given its been that long we will repeat echocardiogram for more up -to-date findings. She is been given 10 of IV Lasix in the ER and still is a degree of rales and still needing oxygen, will give her an additional 20 now and then additional dosing as needed, continue her home dosing otherwise. More than likely this was due to increased workload on her heart from the rather significant anemia. (4) Left femoral vein DVT: I can tell, and is best the patient can recollect, her clot in December was her only clot. This appears to have been clearly provoked by trauma. She is been on Eliquis or some form of anticoagulation for at least 3 months, and therefore it should be L to be safe to be discontinued. That said, given that her immobility and her CHF would both be risk factors for ongoing or recurrent venous thromboembolic disease, will check Dopplers to be safe, before ceasing anticoagulation altogether. If the Dopplers show any kind of positive findings for clot, then we will need to consider anticoagulation versus a filter, however clinically I suspect the clot has resolved. (5) Primary lateral sclerosis: Supportive care (6) TIA (transient ischemic attack): Her prior cerebrovascular disease appears stable. Outpatient follow-up (7) Essential hypertension: Continue her home meds. (8) Osteoporosis: Outpatient follow-up, her DEXA was just done about 10 days ago. Her vitamin D was low, and she is a bit hypocalcemic. We will start vitamin D supplementation. (9) Pelvic fracture: This occurred in December, and appears to have stabilized (10) DVT prophylaxis: Pharmacologic DVT prophylaxis is obviously contraindicated with her anemia that appears to be acute blood loss. Mechanical DVT prophylaxis is of dubious benefit and certainly would be of risk of skin breakdown in her situation. Close vigilance (11) Discharge planning issues: I would anticipate her being able to be discharged home once it is clear that her hemoglobin is stable, with the remainder of her workup and treatment being outpatient. Physical Exam 2 Vital Signs (Past 24 Hours): Last Vital Signs Temp 36.7 C 05/09/18 15:15 Pulse 81 05/09/18 15:15 Resp 24 05/09/18 15:15 BP 103/64 05/09/18 15:15 Pulse Ox 93 05/09/18 15:15
--- NOTE | 2018-05-09 16:13 | Family Medicine Progress Note ---
Date of Service May 09, 2018 Assessment & Plan (1) Dyspnea: Ms Bello is a 83 year old woman here for shortness of breath and anemia 1)Dyspnea - Likely secondary to anemia combined with acute on chronic CHF - Much improved likely due to diuresis and transfusion 2) Anemia - On apixaban 5 mg for past 3 months for large DVT in left femoral vein - Has a history of noticing a maroon stool, likely a small GI bleed exacerbated by the apixaban - Pantoprazole 40 mg PO BID - Holding Apixaban, monitoring Hemoglobin q12h - Hemoglobin 7.8 today up from 7.4 this morning - No indication of acute hemorrhage happening now. - If hemoglobin remains stable, will appliance counselor to follow up with GI outpatient, if hemoglobin begins to indicate an active bleed, we will require more urgent inpatient evaluation 3) CHF - Came in in acute on chronic CHF BNP of 2637, diffuse rales, and orthopnea. - She was diuresed in the ED with 10 mg lasix in ED and 20 mg IV on admission and is doing much better - Patient doing much better today, but still some rales on exam, will give 20 mg more IV lasix - Could have been due to increased demand of myocardium 2/2 anemia - Will continue to monitor 4) Left femoral DVT - Doppler U/S shows no evidence for venous thrombosis in either lower extremity - Will be able to d/c apixaban permanently 5) Primary Lateral Sclerosis - Supportive care 6) Osteoporosis - Outpatient follow up 7) HTN - Continue outpatient medications, currently appears well controlled 8) DVT ppx Pharmacologic DVT prophylaxis is obviously contraindicated with her anemia that appears to be acute blood loss. Mechanical DVT prophylaxis is of dubious benefit and certainly would be of risk of skin breakdown in her situation. Close vigilance (2) Anemia: (3) CHF (congestive heart failure): (4) Left femoral vein DVT: (5) Primary lateral sclerosis: (6) TIA (transient ischemic attack): (7) Essential hypertension: (8) Osteoporosis: (9) Pelvic fracture: (10) DVT prophylaxis: (11) Discharge planning issues: Supervising Physician Co-Signing Physician Notes Attending attestation Pt seen and examined in concert with Dr. Yee. In agreement with the documented findings as noted in the resident documentation with any exceptions or additions as noted here. Pt seen and examined at bedside. Presently reports feeling overall tired with mildly improved SOB. Reports no chest pain, vision/hearing changes, n/v/d/c, sensation changes, rashes/lesions. On examination, S1/S2 nl RRR no MCG, CTAB though decreased at b/l bases. Abd NT/ ND BS +ve. RUE chronically contracted w/ weakness. Anemia, acute/subacute s/p 1U PRBC - trend H/H. FOBT negative from ED. CHF - diastolic dysfunction w/ pulmonary HTN and atrial enlargement - gentle diuresis to eliminate fluid related SOB in addition to anemia. DVT - s/p 3 months of AC and neg DVT - d/c Eliquis Else as noted in resident documentation. Anamika Barlow is an 83 year old woman who presented yesterday for anemia on apixaban for the last three months for a DVT. She is resting comfortably today and says she feels much better than yesterday. Her shortness of breath is much improved. She denies any chest pain, fatigue, shortness of breath, GI upset, bleeding or tarry stools. She tolerated the transfusion, echo and doppler ultrasounds all without issue. Physical Exam 2 Vital Signs (Past 24 Hours): Last Vital Signs Temp 36.7 C 05/09/18 15:15 Pulse 81 05/09/18 15:15 Resp 24 05/09/18 15:15 BP 103/64 05/09/18 15:15 Pulse Ox 93 05/09/18 15:15 Constitutional: no acute distress Frail Respiratory: normal respiratory effort; no respiratory distress, no labored breathing and does not use accessory muscles Auscultation: + crackles ( Bilaterally at basis) Cardiovascular: Rate/Rhythm: regular rate and regular rhythm Heart Sounds: normal S1 and normal S2; no click, no gallop, no murmur and no cardiac rub Gastrointestinal (Abdomen): Inspection/Auscultation: abdomen normal to inspection and normal bowel sounds; abdomen not distended Percussion/ Palpation: abdomen soft; abdomen nontender, no guarding and no hepatosplenomegaly Rectal Exam: heme negative stool Skin: Hematoma and ecchymosis left arm near antecubital fossa about 6 cm across
[2018-05-09] MEDS ORDERED: SODIUM CHLORIDE 0.65% NA SOLN 45 ML (OCEAN) PRN (18:41)
[2018-05-10] MEDS: LEVOTHYROXINE SODIUM 75 MCG TABLET PO SCH (06:09)
[2018-05-10 07:11] LABS: Basophils # (auto) 0.02 K/uL (0-0.2); Basophils % (auto) 0.3 %; Eosinophils # (auto) 0.33 K/uL (0-0.5); Eosinophils % (auto) 5.8 %; Hematocrit (blood only) 24.9 % (37-47); Hemoglobin 7.7 g/dL (12.0-16.0); Lymphocytes # (auto) 1.42 K/uL (1.2-3.4); Lymphocytes % (auto) 24.8 %; Mean Corpuscular Volume 93.6 fL (80-100); Mean Platelet Volume 9.6 fL (7.4-10.4); Monocytes # (auto) 0.47 K/uL (0.11-0.59); Monocytes % (auto) 8.2 %; Neutrophils # (auto) 3.49 K/uL (1.4-6.5); Neutrophils % (auto) 60.9 %; Platelet Count 286 K/uL (130-400); RDW Coefficient of Variation 14.1 % (11.5-14.5); RDW Standard Deviation 47.8 fL (36.4-46.3); Red Blood Count 2.66 M/uL (4.2-5.4); White Blood Count 5.73 K/uL (4.8-10.8)
--- NOTE | 2018-05-10 07:11 | Family Medicine Progress Note ---
Date of Service May 10, 2018 Assessment & Plan (1) Dyspnea: Ms Bello is a 83 year old woman here for shortness of breath and anemia 1)Dyspnea - Likely secondary to anemia combined with acute on chronic CHF - Much improved since diuresis and transfusion of one unit PRBC's 2) Anemia - On apixaban 5 mg for past 3 months for large DVT in left femoral vein - Has a history of noticing a maroon stool, likely a small GI bleed exacerbated by the apixaban - Pantoprazole 40 mg PO BID - Holding Apixaban, monitoring Hemoglobin q12h - Hemoglobin 7.7 this morning stable - No indication of acute hemorrhage happening now. - Follow up with GI as outpatient 3) CHF - Came in in acute on chronic CHF BNP of 2637, diffuse rales, and orthopnea. - She was diuresed in the ED with 10 mg lasix in ED and 20 mg IV on admission and is doing much better - Patient doing much better today, but still some rales on exam, will give 20 mg more IV lasix - Could have been due to increased demand of myocardium 2/2 anemia - Will continue to monitor 4) Left femoral DVT - Doppler U/S shows no evidence for venous thrombosis in either lower extremity - Will be able to d/c apixaban permanently 5) Primary Lateral Sclerosis - Supportive care 6) Osteoporosis - Outpatient follow up 7) HTN - Continue outpatient medications, currently appears well controlled 8) DVT ppx Pharmacologic DVT prophylaxis contraindicated with her anemia that appears to be acute blood loss. Mechanical DVT prophylaxis is of dubious benefit and certainly would be of risk of skin breakdown in her situation. Close vigilance (2) Anemia: (3) CHF (congestive heart failure): (4) Left femoral vein DVT: (5) Primary lateral sclerosis: (6) TIA (transient ischemic attack): (7) Essential hypertension: (8) Osteoporosis: (9) Pelvic fracture: (10) DVT prophylaxis: (11) Discharge planning issues: Supervising Physician Co-Signing Physician Notes Attending attestation Pt seen and examined in concert with Dr. Yee. In agreement with the documented findings as noted in the resident documentation with any exceptions or additions as noted here. Pt reports gradual improvement in shortness of breath and fatigue. Does endorse intermittent nighttime episodes of shortness of breath on awakening which causes her anxiety which occur with snoring as reported by . No previous evaluation for MERLE. Denies melena/hematochezia, abd pain, lightheadedness, chest pain. Does report feeling mildly 'punky' or anxious today, which happens intermittently and was previously addressed outpatient with ativan, though the expresses concerns for intermittent confusion and falls on this medicine. On examination, S1/S2 nl RRR no mCG. CTAB. Abd NT/ND BS +ve Exertional dyspnea and fatigue in the setting of acute anemia - hemoglobin stable, guiac negative after d/c of Eliquis. Would recommend outpatient GI evaluation and close primary care f/u with recheck of H/H. Continue PPI Episodic nocturnal dyspnea - concerning for sleep apnea by history and with elevated pulm pressures on echo as well. Recommend outpatient sleep study Acute on chronic congestive heart failure - continue diuresis to return to baseline likely tomorrow Else per resident documentation. Anamika Bello is an 83 year old woman who presented 05/09 for iron deficiency anemia likely 2/2 to a GI bleed on apixaban. Today she is feeling much better and not complaining of any shortness of breath or fatigue. She has no complaints at this time. She had a single episode of waking up in the night short of breath. She said she woke up and was gasping for air. She calmed down and her breathing quickly went back to normal and she had no lasting dyspnoea. Physical Exam 2 Vital Signs (Past 24 Hours): Last Vital Signs Temp 36.9 C 05/09/18 23:36 Pulse 86 05/09/18 23:36 Resp 18 05/09/18 23:36 BP 115/67 05/09/18 23:36 Pulse Ox 92 05/09/18 23:36 Constitutional: no acute distress Respiratory: normal respiratory effort; no respiratory distress, no labored breathing and does not use accessory muscles Cardiovascular: Rate/Rhythm: regular rate and regular rhythm Heart Sounds: normal S1 and normal S2; no click, no gallop, no murmur and no cardiac rub Gastrointestinal (Abdomen): Inspection/Auscultation: abdomen normal to inspection and normal bowel sounds; abdomen not distended Percussion/ Palpation: abdomen soft; abdomen nontender, no guarding and no hepatosplenomegaly Rectal Exam: heme negative stool
[2018-05-10 07:42] LABS: Hypochromasia Present; Mean Corpuscular Hgb Conc 30.9 g/dL (32-36)
[2018-05-10] MEDS: DOCUSATE SODIUM 100 MG CAP PO SCH ×2 (08:30→20:37)
[2018-05-10] MEDS: CHOLECALCIFEROL 1,000 UNITS TAB PO SCH (08:30)
[2018-05-10] MEDS: PANTOprazole 40 MG TAB PO SCH ×2 (08:30→20:37)
[2018-05-10] MEDS: dilTIAZem ER 120 MG CAPCR PO SCH (08:31)
[2018-05-10] MEDS: FUROSEMIDE 20 MG TAB PO SCH (08:31)
[2018-05-10] MEDS: METOPROLOL TARTRATE 25 MG TAB PO SCH ×2 (08:31→20:37)
[2018-05-10] MEDS: FERROUS SULFATE 325 MG TAB PO SCH (08:31)
[2018-05-10] MEDS: ACETAMINOPHEN 325 MG TAB PO PRN (11:02)
[2018-05-11] MEDS: ACETAMINOPHEN 325 MG TAB PO PRN (02:13)
[2018-05-11] MEDS: clonazePAM 0.5 MG TAB PO PRN (02:55)
[2018-05-11] MEDS: LEVOTHYROXINE SODIUM 75 MCG TABLET PO SCH (06:30)
[2018-05-11 06:41] LABS: Basophils # (auto) 0.02 K/uL (0-0.2); Basophils % (auto) 0.4 %; Eosinophils # (auto) 0.34 K/uL (0-0.5); Eosinophils % (auto) 6.7 %; Hematocrit (blood only) 24.4 % (37-47); Hemoglobin 7.8 g/dL (12.0-16.0); Lymphocytes # (auto) 1.45 K/uL (1.2-3.4); Lymphocytes % (auto) 28.5 %; Mean Corpuscular Volume 93.5 fL (80-100); Mean Platelet Volume 9.4 fL (7.4-10.4); Monocytes # (auto) 0.41 K/uL (0.11-0.59); Monocytes % (auto) 8.1 %; Neutrophils # (auto) 2.86 K/uL (1.4-6.5); Neutrophils % (auto) 56.3 %; Platelet Count 290 K/uL (130-400); RDW Coefficient of Variation 13.8 % (11.5-14.5); RDW Standard Deviation 47.1 fL (36.4-46.3); Red Blood Count 2.61 M/uL (4.2-5.4); White Blood Count 5.08 K/uL (4.8-10.8)
[2018-05-11] MEDS: DOCUSATE SODIUM 100 MG CAP PO SCH (07:51)
[2018-05-11] MEDS: METOPROLOL TARTRATE 25 MG TAB PO SCH (07:52)
[2018-05-11] MEDS: dilTIAZem ER 120 MG CAPCR PO SCH (07:52)
[2018-05-11] MEDS: CHOLECALCIFEROL 1,000 UNITS TAB PO SCH (07:52)
[2018-05-11] MEDS: PANTOprazole 40 MG TAB PO SCH (07:52)
[2018-05-11] MEDS: FERROUS SULFATE 325 MG TAB PO SCH (07:53)
[2018-05-11] MEDS: FUROSEMIDE 20 MG TAB PO SCH (07:53)
--- NOTE | 2018-05-11 17:30 | History & Physical Bridge Note ---
Date of Service May 11, 2018 Supervising Physician Co-Signing Physician Notes For full attending attestation and documentation, please see accompanying discharge note from same day. Pt resting comfortably in chair without acute complaint. Shortness of breath has resolved and fatigue has diminished. No melanotic or bloody BM appreciated by patient. Reports no chest pain, nausea, lightheadedness, WALL. On examination, S1/S2 nl RRR no MCG. CTAB. Abd NT/ND BS+ve. Exertional dyspnea and fatigue in the setting of acute anemia - hgb continues to be stable, negative guiac. Follow for outpatient GI evaluation and primary care. Continue PPI on discharge Episodic nocturnal dyspnea - reinforced outpatient sleep study with primary care Acute on chronic congestive heart failure - return to symptomatic baseline, encourage avoidance of dietary salts
--- NOTE | 2018-05-11 21:31 | Discharge Summary ---
Date of Service May 11, 2018 Admission HPI Per Admitting Provider She has been feeling gradually worse weaker and more short of breath over the last week or so. She and the note that it came on so gradually is a little hard to tell exactly when it started. Most notably the last 2 nights she has had a hard time sleeping because of shortness of breath, and while she does not clearly endorse orthopnea or paroxysmal nocturnal dyspnea, she gives an account of symptoms that appear to be heavily in that direction. Her also notes her legs been more swollen recently. She has not noted any overt GI bleed. She does not seem to have any other respiratory symptoms other than being more short of breath worse whenever she is sleeping as well as worse with any type of exertion. Initially they were attributing it to progression of her primary lateral sclerosis, but once her shortness of breath had gotten far worse they decided to bring her here to the ER for further evaluation. Here she was found to have signs and symptoms consistent with congestive heart failure, as well as a hemoglobin of about 6.5 down considerably from before. She has been on Eliquis recently due to a DVT, she notes this is the first clot in a vein she has ever formed and she is never had a clot in her lungs, this was all in the context of pelvic and lumbar spine fractures for which she was seen here in the ER and transferred to [facility] in early December. Her last colonoscopy was about 7 years ago. Admission Exam Per Admitting Provider Temp 36.9 C 05/08/18 14:28 Pulse 94 H 05/08/18 14:33 Resp 20 05/08/18 14:33 BP 136/68 05/08/18 14:33 Pulse Ox 95 05/08/18 14:33 Physical Exam: In general she is awake alert oriented x3, pleasant no acute distress, does appear fatigued. HEENT normocephalic atraumatic mucous membranes moist Cardio is regular without rubs murmurs or gallops Lungs show faint rales base right greater than left but more asymmetry probably due to difficult positioning and difficulty being able to cooperate with the exam given her baseline weakness, otherwise she shows no rales rhonchi or wheeze with good effort, no accessory muscle use Abdomen is soft nondistended nontender, most notably she shows no epigastric tenderness, she has no guarding no rebound and no rigidity Extremities show no cyanosis or clubbing she does have probably trace bilateral lower extremity edema it is equal Skin shows no rashes no pallor or icterus Neuro shows cranial nerves II through XII to be grossly intact overall she may be is a hint of facial droop and slurred speech of which she notes is chronic, her muscular exam is weak diffusely, and relates that overall this is chronic as it relates to her PLS. Musculoskeletal exam shows some muscle weakness but overall no gross abnormalities Mental status shows good recent and remote recall normal mood and affect good judgment and insight Principal Diagnosis Anemia, GI bleed on apixaban Discharge Exam Constitutional no acute distress Respiratory normal respiratory effort; no respiratory distress, no labored breathing and does not use accessory muscles Auscultation: + crackles (Bilaterally at basis) Cardiovascular Rate/Rhythm: regular rate and regular rhythm Heart Sounds: normal S1 and normal S2; no click, no gallop, no murmur and no cardiac rub Gastrointestinal (Abdomen) Inspection/Auscultation: abdomen normal to inspection and normal bowel sounds; abdomen not distended Percussion/Palpation: abdomen soft; abdomen nontender, no guarding and no hepatosplenomegaly Rectal Exam: heme negative stool Discharge Data Allergies Allergy/AdvReac Type Severity Reaction Status Date / Time Sulfa (Sulfonamide Allergy Unknown HANDS Verified 12/13/17 09:11 Antibiotics) SWELLED Consultations 05/08/18 13:27 ED Decision to Admit Stat 05/08/18 15:26 Consult Case Management - Discharge Planning Routine Ordered Studies 05/08/18 15:26 US venous doppler LE Stat Hospital Course (1) Dyspnea: Ms Bello is a 83 year old woman here for shortness of breath and anemia 1)Dyspnea - Likely secondary to anemia combined with acute on chronic CHF - Much improved since diuresis and transfusion of one unit PRBC's - Nightime waking up gasping with saying she snores heavily worth outpatient workup for sleep apnoea 2) Anemia - On apixaban 5 mg for past 3 months for large DVT in left femoral vein - Has a history of noticing a maroon stool, likely a small GI bleed exacerbated by the apixaban - Pantoprazole 40 mg PO BID - Holding Apixaban, monitoring Hemoglobin q12h - Hemoglobin 8 this morning stable over last 4 readings - No indication of acute hemorrhage happening now. - Follow up with GI as outpatient 3) CHF - Came in in acute on chronic CHF BNP of 2637, diffuse rales, and orthopnea. - She was diuresed in the ED with 10 mg lasix in ED and 20 mg IV on admission and is doing much better - Patient doing much better today, but still some rales on exam, will give 20 mg more IV lasix - Could have been due to increased demand of myocardium 2/2 anemia - Will continue to monitor 4) Left femoral DVT - Doppler U/S shows no evidence for venous thrombosis in either lower extremity - Will be able to d/c apixaban permanently 5) Primary Lateral Sclerosis - Supportive care 6) Osteoporosis - Outpatient follow up 7) HTN - Continue outpatient medications, currently appears well controlled (2) Anemia: (3) CHF (congestive heart failure): (4) Left femoral vein DVT: (5) Primary lateral sclerosis: (6) TIA (transient ischemic attack): (7) Essential hypertension: (8) Osteoporosis: (9) Pelvic fracture: (10) DVT prophylaxis: (11) Discharge planning issues: Total Time Total Time Spent Total Time Spent (In Minutes): 60 Total Time Includes: Examination of the Patient, Discharge Planning and Medication Reconciliation Discharge Plan Discharge Items Patient Disposition: Home - Home Health Services Reason For Visit: ANEMIA, CHF Discharge Diagnosis: Anemia Condition: Good Discharge Goals: Improve disease control Activity: Resume your previous activity Non-emergency contact: Primary Care Provider Call non-emergency contact if: your symptoms worsen Follow-up/Referrals: Anoop Townsend MD [Primary Care Provider] - 05/16/18 10:00 am (Please, follow up at Dr. Townsend's office with Jessica ASTORGA on WednesdayMay 16 at 10:00 am. *If you need to change this appointment call the office at [phone].) Diet: Heart Healthy Addtl Provider Instructions: Ms Eugenia, we have evaluated and treated you for your anemia. We believe you had a gastrointestinal bleed while on your apixaban for your deep vein thrombosis. We stopped your apixaban and have been checking your hemoglobin levels and checking your stool for blood and we feel that your bleed has resolved now that you're no longer on a blood thinner. We strongly recommend that you follow up with your primary care doctor within the next week as well as following up with gastroenterology. Prescriptions: Continue levothyroxine 75 mcg Tablet 75 mcg PO DAILY RF: 0 diltiazem HCl 120 mg Capsule,Extended Release 12 Hr 120 mg PO DAILY RF: 0 ferrous sulfate 325 mg (65 mg iron) Tablet 325 mg PO DAILY RF: 0 metoprolol tartrate 50 mg Tablet 25 mg PO BID RF: 0 docusate sodium [Colace] 100 mg Capsule 100 mg PO BID RF: 0 furosemide [Lasix] 20 mg Tablet 20 mg PO DAILY RF: 0 Discontinued apixaban [Eliquis] 5 mg Tablet 5 mg PO BID RF: 0 Visit Report Forms: [facility] [employer] Portal Stand-Alone Forms: [facility] [employer] Krames/Other Patient Handouts: Bleeding Gastrointestinal, Anemia Iron Deficiency Ch Discharge Orders: Discharge Order (Routine); Ordered 05/11/18 Ordered By: Zhang Yee Admission Data Admit Date/Time: 05/08/18 14:38 Attending Provider: Anoop Barros Admit Provider: Alex Olivera Primary Care Provider: Anoop Townsend Other Providers: Alex Olivera Service: Medical Other Interventions: Discharge Summary Assessment (RN) Last Done: 05/11/18 09:20 Pending Studies at Discharge: No DC Date/Time DO NOT enter until pt leaves facility: 05/11/18 09:40 Supervising Physician Co-Signing Physician Notes Attending attestation Pt seen and examined in concert with Dr. Yee. In agreement with the documented findings as noted in the resident documentation with any exceptions or additions as noted here. Pt resting comfortably in chair without acute complaint. Shortness of breath has resolved and fatigue has diminished. No melanotic or bloody BM appreciated by patient. Reports no chest pain, nausea, lightheadedness, WALL. On examination, S1/S2 nl RRR no MCG. CTAB. Abd NT/ND BS+ve. Exertional dyspnea and fatigue in the setting of acute anemia - hgb continues to be stable, negative guiac. Follow for outpatient GI evaluation and primary care. Continue PPI on discharge Episodic nocturnal dyspnea - reinforced outpatient sleep study with primary care Acute on chronic congestive heart failure - return to symptomatic baseline, encourage avoidance of dietary salts Else see resident documentation as noted.
== END 2018-05-11 09:40 | disposition home health service (06) | DRG 813 ==
LOC: ED 11:24 → 4E 14:38 → SUATTDRO 14:38 → 4E 14:56

== ENCOUNTER 2019-03-06 15:15 | Inpatient (IN) ==
[2019-03-06 17:49] LABS: Basophils # (auto) 0.01 K/uL (0-0.2); Basophils % (auto) 0.2 %; Eosinophils # (auto) 0.14 K/uL (0-0.5); Eosinophils % (auto) 2.1 %; Hematocrit (blood only) 33.9 % (37-47); Hemoglobin 10.6 g/dL (12.0-16.0); Lymphocytes # (auto) 1.58 K/uL (1.2-3.4); Lymphocytes % (auto) 23.8 %; Mean Corpuscular Hemoglobin 29.6 pg (25-34); Mean Corpuscular Hgb Conc 31.3 g/dL (32-36); Mean Corpuscular Volume 94.7 fL (80-100); Monocytes % (auto) 7.5 %; Neutrophils % (auto) 66.4 %; Platelet Count 246 K/uL (130-400); RDW Coefficient of Variation 13.6 % (11.5-14.5); RDW Standard Deviation 46.9 fL (36.4-46.3); Red Blood Count 3.58 M/uL (4.2-5.4); White Blood Count 6.63 K/uL (4.8-10.8)
[2019-03-06 18:02] LABS: INR 1.1 (0.9-1.1); Partial Thromboplastin Ratio 0.9; Partial Thromboplastin Time 23.2 Seconds (21.0-31.0); Prothrombin Time 11.2 Seconds (9.0-12.0)
[2019-03-06 18:12] LABS: Alanine Aminotransferase 17 U/L (12-78); Albumin Level 3.6 gm/dl (3.4-5.0); Aspartate Aminotransferase 15 U/L (15-37); BUN Creatinine Ratio 29.9 (10-20); Blood Urea Nitrogen 30 mg/dl (7-18); Calcium 8.8 mg/dl (8.5-10.1); Carbon Dioxide 27 mmol/L (21-32); Chloride 110 mmol/L (98-107); Creatinine Clr Calc Pharmacy 36.1 ml/min; Est GFR (African American) 60.6; Est GFR (Non-African American) 52.3; Glucose 107 mg/dl (70-99); Lipase 112 U/L (73-393); Potassium 3.8 mmol/L (3.5-5.1); Sodium 143 mmol/L (136-145)
[2019-03-06 18:16] LABS: Albumin Globulin Ratio 1.1 (0.9-2); Alkaline Phosphatase 123 U/L (45-117); Bilirubin,Total 0.2 mg/dl (0.2-1); Globulin 3.4 gm/dl (2.5-4.0); Troponin I < 0.015 ng/ml (0-0.045)
[2019-03-06] MEDS ORDERED: OPTIRAY 320 125ml IV PRN (18:43)
--- NOTE | 2019-03-06 19:00 | CT Scan Report ---
CT ANGIOGRAM OF THE CHEST CLINICAL HISTORY: Shortness of breath. Possible pulmonary embolism. DVT. COMPARISON STUDY: Noncontrast study dated 10/27/2015 TECHNIQUE: Following the IV administration of 117 mL of Optiray-320, CT angiogram of the thorax was p erformed from the thoracic inlet to the lung bases utilizing the pulmonary embolus protocol. Images a re reviewed in the axial, sagittal, and coronal planes. IV contrast was administered without complica tion. MIP imaging was performed. A dose lowering technique was utilized adhering to the principles o f ALARA. CT DOSE: 470.39 mGycm FINDINGS: There is a large hiatal hernia. No pathologically enlarged axillary mediastinal or hilar lymph nodes were visualized. There was no evidence of thoracic aortic dilatation. There were no pulmonary artery filling defects to indicate acute pulmonary embolism. There are no significant pleural effusions. There is no focal pulmonary consolidation. There is slight mosaic attenuation along is likely seconda ry to mild airway disease. There is a kyphoscoliosis. There are multiple mild thoracic compression deformities. There is an old left-sided rib fracture. IMPRESSION: 1. No evidence of acute pulmonary embolism 2. No evidence of focal pulmonary consolidation 3. Kyphoscoliosis. 4. Large hiatal hernia Electronically signed by: Tez العلي M.D. 03/06/2019 6:59 PM
--- NOTE | 2019-03-06 22:01 | History & Physical Report ---
Date of Service March 06, 2019 Assessment & Plan (1) Acute deep vein thrombosis (DVT) of right peroneal vein: Patient presents with acute DVT right peroneal vein. She has a history of previous intracranial bleed, and more recently had a lower GI bleed causing anemia while on anticoagulation with apixaban for a previous DVT of left femoral vein thought secondary to trauma. We will consult vascular surgery for consideration of placement of IVC filter, and loop of increasing risk for recurrent bleeding. Present on Admission?: Yes (2) History of GI bleed: History of GI bleed causing anemia while on apixaban for treatment of DVT of left femoral vein that occurred secondary to trauma during December 2017. Apixaban was discontinued during admission of 05/08/18 after venous Doppler was found to be negative. Present on Admission?: Yes (3) Essential hypertension: Continue metoprolol tartrate 25 mg p.o. twice daily and diltiazem 20 mg p.o. daily. Hold furosemide 40 mg daily. Present on Admission?: Yes (4) Deep vein thrombosis (DVT) of left iliofemoral vein: As noted in history above, occurred secondary to trauma in December 2017. Present on Admission?: Yes (5) History of intracerebral hemorrhage without residual deficit: Noted as a risk for future anticoagulation. 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 Patient does require help in transfers, and does not walk without assistance. Present on Admission?: Yes (7) Hemiparesis, right: See above Present on Admission?: Yes History of Present Illness Chief Complaint: The patient presented to her outpatient PCP today with com plaint of lower extremity swelling, was sent for bilateral lower extremity venous Dopplers, which were significant for an occlusive DVT of the right peroneal vein. Primary Care Provider: Frank Townsend MD The patient is an 84-year-old female with a past medical history including intracranial bleed and GI bleed, previously on anticoagulation for left femoral vein DVT, who was found to have a right peroneal vein DVT and outpatient venous Dopplers today. In the emergency department, she underwent a CTA of the chest that was negative for PE. She was referred for evaluation for admission for further management. Allergies Allergy/AdvReac Type Severity Reaction Status Date / Time Sulfa (Sulfonamide Allergy Unknown HANDS Verified 03/06/19 16:57 Antibiotics) SWELLED Home Medications Home Medications Medication Instructions Recorded Confirmed Type diltiazem HCl 120 mg PO DAILY 05/08/18 03/06/19 History cholecalciferol (vitamin D3) 5,000 5,000 units PO DAILY tab 10/12/18 03/06/19 History unit tablet metoprolol tartrate 25 mg tablet 25 mg PO BID #180 tab 11/28/18 03/06/19 Rx ferrous gluconate 324 mg (38 mg 324 mg PO Q48H tab 12/23/18 03/06/19 History iron) tablet hydroxyzine HCl 25 mg tablet 25 mg PO BID PRN #30 tab 01/11/19 03/06/19 Rx furosemide 40 mg tablet 40 mg PO DAILY #90 tab 02/13/19 03/06/19 Rx docusate sodium 100 mg capsule 100 mg PO Q2D cap 03/06/19 03/06/19 History Past Med/Surg History Medical History Hypothyroidism (Acute) Acute bronchitis with bronchospasm (Acute) Bilateral pleural effusion (Acute) Carpal tunnel syndrome, bilateral (Acute) Chronic diastolic (congestive) heart failure (Chronic) Chronic osteoarthritis (Acute) DVT of leg (deep venous thrombosis) (Acute) Disorder of bone (Acute) Dyspnea on exertion (Acute) Gait disturbance (Acute) Lumbar compression fracture (Acute) Muscle spasticity (Acute) Muscular deconditioning (Acute) Nocturia (Acute) Numbness of left hand (Acute) Other specified acquired deformities of right upper arm (Acute) Polyneuropathy (Acute) Stroke syndrome (Acute) Trochanteric bursitis of left hip (Acute) Urinary incontinence (Acute) Vitamin D deficiency (Acute) Vulvovaginitis (Acute) Hemiparesis, right (Chronic) Bladder neoplasm Osteoporosis (Chronic) Essential hypertension (Chronic) Anemia (Acute) Left femoral vein DVT (Acute) Primary lateral sclerosis (Chronic) TIA (transient ischemic attack) (Resolved) Acute blood loss anemia (Acute) CHF (congestive heart failure) (Acute) GI bleed (Acute) Multiple fractures of ribs of right side (Acute) Pelvic fracture (Resolved) Surgical History Hip joint replacement status (Resolved) History of tonsillectomy (Resolved) S/P KALYN-BSO (Resolved) History of bilateral salpingo-oophorectomy History of total abdominal hysterectomy Family History Mother Congestive heart failure Type 2 diabetes mellitus without complications Essential hypertension Myocardial infarction Hypertension Father Hodgkins lymphoma Brother Colon cancer Throat cancer Grandmother Myocardial infarction Stroke Social History Preferred Language: Croatian Communication Ability: Effective [employer]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 Beliefs That Will Affect Care: None Current Living Situation: Spouse Other Information That Helps Us Care for You: No Feels Safe at Home: Yes Safety Concerns: Feels Safe At This Time Smoking Status: Never smoker Hx Alcohol Use: No Hx Substance Use: No caffeine: Yes Seatbelt Use: always Review of Systems Review of Systems: The patient denies chest pain, palpitations, shortness of breath, dyspnea on exertion, cough, sore throat, fevers, chills, sweats, weight change, nausea, vomiting, diarrhea , constipation, abdominal pain, pelvic pain, blood in urine or stool, dysuria, urinary frequency or urgency, lightheadedness, dizziness, headache, memory loss, loss of consciousness, rash, abnormal bruising or bleeding, generalized arthralgias or myalgias, back or neck pain, or night sweats. The review of systems is otherwise negative other than for that already noted above, and at least 10 systems have been reviewed. Physical Exam Physical Exam: The patient is awake, alert and oriented 3, well developed and well nourished, normocephalic and atraumatic, lying in bed and in no acute distress. HEENT--PERRL, EOMI, mucous membranes and oropharynx dry. Neck--supple. No JVD. No bruits. Thyroid normal, trachea midline, no adenopathy. Heart--normal S1 and S2. No murmurs, rubs or gallops. Lungs--clear bilaterally, no respiratory distress, no accessory muscle use. Abdomen--normal bowel sounds and soft. Nontender. Nondistended. Extremities--no cyanosis or clubbing. No edema. There are good distal pulses b/l. Dermatologic--normal skin turgor, normal color, no abnormal lymph nodes, no rash. Neurologic--cranial nerves II through XII grossly intact. Right hemiparesis Rheumatologic--limited by neuro deficiency Psychiatric--normal affect. Results & Data Vital Signs (Past 12 Hours) Vital Signs Temp Pulse Resp BP Pulse Ox 03/06/19 21:22 99 H 22 160/85 H 95 03/06/19 20:00 101 H 26 H 94 03/06/19 19:30 96 H 25 H 95 03/06/19 19:08 99 H 20 94 03/06/19 19:01 104 H 24 158/95 H 90 03/06/19 19:00 102 H 25 H 93 03/06/19 18:30 85 25 H 94 03/06/19 18:00 91 H 29 H 96 03/06/19 17:42 91 H 20 95 03/06/19 15:25 98.2 F 83 18 139/66 95 Laboratory Results Laboratory Results WBC 6.63 K/uL (4.8-10.8) 03/06/19 17:38 RBC 3.58 M/uL (4.2-5.4) L 03/06/19 17:38 Hgb 10.6 g/dL (12.0-16.0) L 03/06/19 17:38 Hct 33.9 % (37-47) L 03/06/19 17:38 MCV 94.7 fL (80-100) 03/06/19 17:38 MCH 29.6 pg (25-34) 03/06/19 17:38 MCHC 31.3 g/dL (32-36) L 03/06/19 17:38 RDW Std Deviation 46.9 fL (36.4-46.3) H 03/06/19 17:38 RDW Coeff of Erin 13.6 % (11.5-14.5) 03/06/19 17:38 Plt Count 246 K/uL (130-400) 03/06/19 17:38 MPV 11.0 fL (7.4-10.4) H 03/06/19 17:38 Immature Gran % (Auto) 0.0 % 03/06/19 17:38 Neut % (Auto) 66.4 % 03/06/19 17:38 Lymph % (Auto) 23.8 % 03/06/19 17:38 Wetzel % (Auto) 7.5 % 03/06/19 17:38 Eos % (Auto) 2.1 % 03/06/19 17:38 Baso % (Auto) 0.2 % 03/06/19 17:38 Immature Gran # (Auto) 0.00 K/uL (0.00-0.02) 03/06/19 17:38 Neut # (Auto) 4.40 K/uL (1.4-6.5) 03/06/19 17:38 Lymph # (Auto) 1.58 K/uL (1.2-3.4) 03/06/19 17:38 Wetzel # (Auto) 0.50 K/uL (0.11-0.59) 03/06/19 17:38 Eos # (Auto) 0.14 K/uL (0-0.5) 03/06/19 17:38 Baso # (Auto) 0.01 K/uL (0-0.2) 03/06/19 17:38 PT 11.2 Seconds (9.0-12.0) 03/06/19 17:38 INR 1.1 (0.9-1.1) 03/06/19 17:38 APTT 23.2 Seconds (21.0-31.0) 03/06/19 17:38 PTT Ratio 0.9 03/06/19 17:38 Sodium 143 mmol/L (136-145) 03/06/19 17:38 Potassium 3.8 mmol/L (3.5-5.1) 03/06/19 17:38 Chloride 110 mmol/L (98-107) H 03/06/19 17:38 Carbon Dioxide 27 mmol/L (21-32) 03/06/19 17:38 Anion Gap 7.0 (3-11) 03/06/19 17:38 BUN 30 mg/dl (7-18) H 03/06/19 17:38 Creatinine 0.99 mg/dl (0.6-1.2) 03/06/19 17:38 Est Cr Clr Drug Dosing 36.1 ml/min 03/06/19 17:38 Est GFR ( Amer) 60.6 03/06/19 17:38 Est GFR (Non-Af Amer) 52.3 03/06/19 17:38 BUN/Creatinine Ratio 29.9 (10-20) H 03/06/19 17:38 Glucose 107 mg/dl (70-99) H 03/06/19 17:38 Calcium 8.8 mg/dl (8.5-10.1) 03/06/19 17:38 Total Bilirubin 0.2 mg/dl (0.2-1) 03/06/19 17:38 AST 15 U/L (15-37) 03/06/19 17:38 ALT 17 U/L (12-78) 03/06/19 17:38 Alkaline Phosphatase 123 U/L (45-117) H 03/06/19 17:38 Troponin I < 0.015 ng/ml (0-0.045) 03/06/19 17:38 Total Protein 7.0 gm/dl (6.4-8.2) 03/06/19 17:38 Albumin 3.6 gm/dl (3.4-5.0) 03/06/19 17:38 Globulin 3.4 gm/dl (2.5-4.0) 03/06/19 17:38 Albumin/Globulin Ratio 1.1 (0.9-2) 03/06/19 17:38 Lipase 112 U/L (73-393) 03/06/19 17:38 Diagnostic Findings [place], [place] [phone] Ultrasound Report Patient: CHIKA TAPIA EAdmit Date: 03/06/19 MR#: [id number]: Alfonso REDDY Acct ID:[id number]: [facility] Zip[facility] [place] [address] Age: 84Location: US1 Sex: F Room/Bed: Att Phy: Jessica Wagner CRNPDiagnosis: BILATERAL LOWER EXTREMITY EDEMA,R60.0,R06.09,I10,E Blessing Phy: Frank Townsend MDService Date: 03/06/19 Fam Phy:Interpreting Phy: Elton Banegas Admit Phy: Ordering Phy: Jessica Wagner CRNP cc: ~ BILATERAL LOWER EXTREMITY VENOUS DOPPLER HISTORY: Acute pain and swelling of the lower extremity Lower extremity edema. Pt with hx DVT LLE COMPARISON STUDY: Duplex venous Doppler study 05/08/2018. FINDINGS: There is normal compressibility, flow, and augmentation within the left lower extremity deep venous structures. Occlusive deep venous thrombosis involves one of the two paired peroneal veins of the right lower extremity. No additional deep venous thrombosis within the right lower extremity. IMPRESSION: 1. Occlusive deep venous thrombosis of the right peroneal vein. 2. No sonographic evidence of left lower extremity deep venous thrombosis. Electronically signed by: Pritesh Banegas M.D. 03/06/2019 2:26 PM Dictated: 03/06/19 1425 Transcribed: 03/06/19 1425 [place], [place] [phone] CT Scan Report Patient: CHIKA TAPIA EAdmit Date: 03/06/19 MR#: [id number]: 192 REGINA REDDY Acct ID:[id number]: [facility] Zip: [place] [address] Age: 84Location: ED Sex: F Room/Bed: Att Phy:Diagnosis: BAD ULTR WAS AT [facility] Phy: Frank Townsend MDService Date: 03/06/19 Fam Phy:Interpreting Phy: Tez العلي MD Admit Phy: Ordering Phy: Colton Peres MD cc: ~ CT ANGIOGRAM OF THE CHEST CLINICAL HISTORY: Shortness of breath. Possible pulmonary embolism. DVT. COMPARISON STUDY: Noncontrast study dated 10/27/2015 TECHNIQUE: Following the IV administration of 117 mL of Optiray-320, CT angiogram of the thorax was performed from the thoracic inlet to the lung bases utilizing the pulmonary embolus protocol. Images are reviewed in the axial, sagittal, and coronal planes. IV contrast was administered without complication. MIP imaging was performed. A dose lowering technique was utilized adhering to the principles of ALARA. CT DOSE: 470.39 mGycm FINDINGS: There is a large hiatal hernia. No pathologically enlarged axillary mediastinal or hilar lymph nodes were visualized. There was no evidence of thoracic aortic dilatation. There were no pulmonary artery filling defects to indicate acute pulmonary embolism. There are no significant pleural effusions. There is no focal pulmonary consolidation. There is slight mosaic attenuation along is likely secondary to mild airway disease. There is a kyphoscoliosis. There are multiple mild thoracic compression deformities. There is an old left-sided rib fracture. IMPRESSION: 1. No evidence of acute pulmonary embolism 2. No evidence of focal pulmonary consolidation 3. Kyphoscoliosis. 4. Large hiatal hernia Electronically signed by: Tez العلي M.D. 03/06/2019 6:59 PM Dictated: 03/06/191854 Transcribed: 03/06/191854 Code Status & VTE Plan Code Status DNR/DNI VTE Prophylaxis Plan VTE Prophylaxis will be ordered: Yes PG Care Time/CCT Total # of Minutes Spent Total Time Spent with Patient: Total time spent is greater than 50% in coordination of care (as documented) at patient's floor/unit and/or counseling patient:
[2019-03-06] MEDS ORDERED: ONDANSETRON INJ 2 MG/ML 2 ML VIAL IV PRN (23:19)
[2019-03-06] MEDS: ACETAMINOPHEN 325 MG TAB PO PRN (23:46)
--- NOTE | 2019-03-07 00:03 | Emergency Department Note ---
Entered by Eula Rios acting as a scribe for Colton Peres MD ED Provider Note CHIEF COMPLAINT: Right leg swelling HISTORY OF PRESENT ILLNESS: The patient is an 84 year old female with past medical history of CVA, SOB, polyneuropathy, DVT of leg, hypothyroidism, PLS, who presents to the Emergency Room with complaints of constant right leg swelling that happened today. The patient reports she went to her doctor and had ultrasound of both legs done. She notes she was referred by her doctor to come to the ED. The patient additionally states she has low leg pain along with chest discomfort and shortness of breath on excretion. She reports she had her oxygen levels checked and was told her nocturnal pulse symmetry was abnormal. The patient denies being on blood thinners. She additionally denies having history of irregular heartbeat or heart attack. She notes she has chronic weakness. Pt denies LOC, headache, fevers, chills, diaphoresis, visual changes, neck pain, chest pain, nausea, vomiting, abdominal pain, back pain, melena, hematochezia, urinary symptoms, numbness, left leg pain, lymphadenopathy, rash, or other complaints. REVIEW OF SYSTEMS: See HPI for pertinent positives and negatives. A total of ten systems were reviewed and were otherwise negative. PMHx/PSHx: Hypothyroidism Acute bronchitis with bronchospasm Chronic diastolic heart failure Bilateral pleural effusion DVT of leg Dyspnea on exertion SOB Anemia SOCIAL HISTORY: Patient lives at home. PHYSICAL EXAM: GENERAL: Awake, alert, well-appearing, in no distress HENT: Normocephalic, atraumatic. Oropharynx unremarkable. EYES: PERRL. Normal conjunctiva. Sclera non-icteric. NECK: Inspection normal. Non-tender. Supple. No nuchal rigidity. FROM. No masses. RESPIRATORY: Clear to auscultation. No wheezes. No rales. Normal respiratory effort. CARDIAC: Normal rate. Normal rhythm. No murmurs. No rubs. Extremities warm and well perfused. Pulses equal. No JVD. GI: Soft, non-distended. No tenderness to palpation. No rebound or guarding. No masses. RECTAL: Deferred. MUSCULOSKELETAL: Atraumatic. Chest examination reveals no tenderness. The back is symmetrical on inspection without obvious abnormality. There is no CVA tenderness to palpation. No joint edema. LOWER EXTREMITIES: Calves are equal size bilaterally and non-tender. 1+ lower extremity edema bilaterally. No discoloration. UPPER EXTREMITIES: Contracture of right upper extremity. NEURO: Normal sensorium. No sensory or motor deficits noted. SKIN: No rash or jaundice noted. EMERGENCY DEPARTMENT COURSE: 1608: Past medical records reviewed. The patient was evaluated in room A12A, and a complete history and physical examination were performed. 1954: I checked on the patient. 2002: I discussed the patients case with Dr. Huff, [facility] Hospitalist. He will evaluate the patient for further management. 2109: I reevaluated the patient and talked to her about the need to admit. The patient was agreeable. MEDICAL DECISION MAKING: A12A Prior records/ancillary studies reviewed. Triage Nursing notes reviewed and agree them. Additional history obtained from the family. The patient's history was concerning for leg pain and shortness of breath. Differential diagnosis: Etiologies such as DVT, pneumonia, COPD, reactive airway disease, CHF, cardiac ischemia, pulmonary embolism, pneumothorax, musculoskeletal, infections, gastrointestinal, as well as others were entertained. Physical examination: As above. ER treatment provided: Monitoring On reassessment the patient is stable. Diagnostic interpretation by me: The electrocardiogram was negative for pathologic change. The labs revealed mild anemia on CBC. Chemistry panel and LFTs unremarkable. Imaging studies: Ultrasound performed as an outpatient revealed a peroneal DVT. CT PE study was performed and was negative for pulmonary embolus. The patient has had a intracranial bleed as well as a GI bleed in the last year. She was taken off of anticoagulation secondary to the suspected GI bleed. The source was never found. Due to the complicated nature of anticoagulation for this patient and the fact that she is high risk for propagation given her sedentary nature further management in the hospital will be appropriate. The patient may need a filter placement. Consultation: A consultation was placed with the hospitalist. The case was discussed and diagnostics were reviewed. The patient was evaluated in the ER for further treatment. IMPRESSION: DVT History of ICH History of GI bleed Anemia PLAN: Admit The scribe's documentation has been prepared under my direction and personally reviewed by me in its entirety. I confirm that the note above accurately reflects all work, treatment, procedures, and medical decision making performed by me. Impression & Plan DVT (deep venous thrombosis), Anemia, History of intracerebral hemorrhage without residual deficit, History of GI bleed Past Med/Surg History Medical History Hypothyroidism (Acute) Acute bronchitis with bronchospasm (Acute) Bilateral pleural effusion (Acute) Carpal tunnel syndrome, bilateral (Acute) Chronic diastolic (congestive) heart failure (Chronic) Chronic osteoarthritis (Acute) DVT of leg (deep venous thrombosis) (Acute) Disorder of bone (Acute) Dyspnea on exertion (Acute) Gait disturbance (Acute) Lumbar compression fracture (Acute) Muscle spasticity (Acute) Muscular deconditioning (Acute) Nocturia (Acute) Numbness of left hand (Acute) Other specified acquired deformities of right upper arm (Acute) Polyneuropathy (Acute) Stroke syndrome (Acute) Trochanteric bursitis of left hip (Acute) Urinary incontinence (Acute) Vitamin D deficiency (Acute) Vulvovaginitis (Acute) Hemiparesis, right (Chronic) Bladder neoplasm Osteoporosis (Chronic) Essential hypertension (Chronic) Anemia (Acute) Left femoral vein DVT (Acute) Primary lateral sclerosis (Chronic) TIA (transient ischemic attack) (Resolved) Acute blood loss anemia (Acute) CHF (congestive heart failure) (Acute) GI bleed (Acute) Multiple fractures of ribs of right side (Acute) Pelvic fracture (Resolved) Surgical History Hip joint replacement status (Resolved) History of tonsillectomy (Resolved) S/P KALYN-BSO (Resolved) History of bilateral salpingo-oophorectomy History of total abdominal hysterectomy Family History Mother Congestive heart failure Type 2 diabetes mellitus without complications Essential hypertension Myocardial infarction Hypertension Father Hodgkins lymphoma Brother Colon cancer Throat cancer Grandmother Myocardial infarction Stroke Social History Preferred Language: Welsh Communication Ability: Effective Stacker Driver Required: No Beliefs That Will Affect Care: None Current Living Situation: Spouse Other Information That Helps Us Care for You: No Feels Safe at Home: Yes Safety Concerns: Feels Safe At This Time Smoking Status: Never smoker Hx Alcohol Use: No Hx Substance Use: No caffeine: Yes Seatbelt Use: always Results & Data Vital Signs Vital Signs - 24 hr 03/06/19 15:25 03/06/19 17:42 03/06/19 18:00 Temperature 36.8 C Temperature Source Oral Sepsis Recent Fever Within 48 Hours No Sepsis New/Unexplained Change in Mental Status No Sepsis Action Taken by Nursing No Action Required Pulse Rate 83 91 H 91 H Pulse Rate from SpO2 Sensor 88 89 Respiratory Rate 18 20 29 H Respiratory Effort / Characteristics Non-Labored Respiratory Depth Normal Blood Pressure 139/66 Blood Pressure Mean 90 Pulse Oximetry 95 95 96 Oxygen Delivery Method Room Air 03/06/19 18:30 03/06/19 19:00 03/06/19 19:01 Temperature Temperature Source Sepsis Recent Fever Within 48 Hours Sepsis New/Unexplained Change in Mental Status Sepsis Action Taken by Nursing Pulse Rate 85 102 H 104 H Pulse Rate from SpO2 Sensor 85 102 H 104 H Respiratory Rate 25 H 25 H 24 Respiratory Effort / Characteristics Respiratory Depth Blood Pressure 158/95 H Blood Pressure Mean 116 Pulse Oximetry 94 93 90 Oxygen Delivery Method 03/06/19 19:08 03/06/19 19:30 03/06/19 20:00 Temperature Temperature Source Sepsis Recent Fever Within 48 Hours Sepsis New/Unexplained Change in Mental Status Sepsis Action Taken by Nursing Pulse Rate 99 H 96 H 101 H Pulse Rate from SpO2 Sensor 97 H 101 H Respiratory Rate 20 25 H 26 H Respiratory Effort / Characteristics Respiratory Depth Blood Pressure Blood Pressure Mean Pulse Oximetry 94 95 94 Oxygen Delivery Method Room Air 03/06/19 20:30 03/06/19 21:00 03/06/19 21:21 Temperature Temperature Source Sepsis Recent Fever Within 48 Hours Sepsis New/Unexplained Change in Mental Status Sepsis Action Taken by Nursing Pulse Rate Pulse Rate from SpO2 Sensor 101 H 95 H 98 H Respiratory Rate Respiratory Effort / Characteristics Respiratory Depth Blood Pressure 160/85 H Blood Pressure Mean 110 Pulse Oximetry 95 93 93 Oxygen Delivery Method 03/06/19 21:22 03/06/19 21:30 Temperature Temperature Source Sepsis Recent Fever Within 48 Hours Sepsis New/Unexplained Change in Mental Status Sepsis Action Taken by Nursing Pulse Rate 99 H Pulse Rate from SpO2 Sensor 101 H Respiratory Rate 22 Respiratory Effort / Characteristics Respiratory Depth Blood Pressure 160/85 H Blood Pressure Mean 110 Pulse Oximetry 95 93 Oxygen Delivery Method Room Air Home Medications Current Medication List: was personally reviewed by me Laboratory Data Attestation: I reviewed the patient's lab results. Result diagrams: 03/06/19 17:38 03/06/19 17:38 Lab Results 10/28/19 10/28/19 10/28/19 Range/Units 17:38 17:38 17:38 WBC 6.63 (4.8-10.8) K/uL RBC 3.58 L (4.2-5.4) M/uL Hgb 10.6 L (12.0-16.0) g/dL Hct 33.9 L (37-47) % MCV 94.7 (80-100) fL MCH 29.6 (25-34) pg MCHC 31.3 L (32-36) g/dL RDW Std Deviation 46.9 H (36.4-46.3) fL RDW Coeff of Erin 13.6 (11.5-14.5) % Plt Count 246 (130-400) K/uL MPV 11.0 H (7.4-10.4) fL Immature Gran % (Auto) 0.0 % Neut % (Auto) 66.4 % Lymph % (Auto) 23.8 % Hays % (Auto) 7.5 % Eos % (Auto) 2.1 % Baso % (Auto) 0.2 % Immature Gran # (Auto) 0.00 (0.00-0.02) K/uL Neut # (Auto) 4.40 (1.4-6.5) K/uL Lymph # (Auto) 1.58 (1.2-3.4) K/uL Hays # (Auto) 0.50 (0.11-0.59) K/uL Eos # (Auto) 0.14 (0-0.5) K/uL Baso # (Auto) 0.01 (0-0.2) K/uL PT 11.2 (9.0-12.0) Seconds INR 1.1 (0.9-1.1) APTT 23.2 (21.0-31.0) Seconds PTT Ratio 0.9 Sodium 143 (136-145) mmol/L Potassium 3.8 (3.5-5.1) mmol/L Chloride 110 H (98-107) mmol/L Carbon Dioxide 27 (21-32) mmol/L Anion Gap 7.0 (3-11) BUN 30 H (7-18) mg/dl Creatinine 0.99 (0.6-1.2) mg/dl Est Cr Clr Drug Dosing 36.1 ml/min Est GFR ( Amer) 60.6 Est GFR (Non-Af Amer) 52.3 BUN/Creatinine Ratio 29.9 H (10-20) Glucose 107 H (70-99) mg/dl Calcium 8.8 (8.5-10.1) mg/dl Total Bilirubin 0.2 (0.2-1) mg/dl AST 15 (15-37) U/L ALT 17 (12-78) U/L Alkaline Phosphatase 123 H (45-117) U/L Troponin I < 0.015 (0-0.045) ng/ml Total Protein 7.0 (6.4-8.2) gm/dl Albumin 3.6 (3.4-5.0) gm/dl Globulin 3.4 (2.5-4.0) gm/dl Albumin/Globulin Ratio 1.1 (0.9-2) Lipase 112 (73-393) U/L Administered Medications Acetaminophen (Tylenol) 650 mg PO Q4H PRN PRN Reason: Pain or Fever Stop: 04/05/19 23:18 Last Admin: 03/06/19 23:46 Dose: 650 mg Documented by: [id number] Ioversol (Optiray 320 125ml) 117 ml IV ONCE PRN PRN Reason: Interaction Checking Stop: 03/10/19 18:42 Last Admin: 03/06/19 18:43 Dose: 117 ml Documented by: [id number] Imaging Data Radiologist's Impression: Radiology results as stated below per my review and the radiologist's interpretation: BILATERAL LOWER EXTREMITY VENOUS DOPPLER HISTORY: Acute pain and swelling of the lower extremity Lower extremity edema. Pt with hx DVT LLE COMPARISON STUDY: Duplex venous Doppler study 05/08/2018. FINDINGS: There is normal compressibility, flow, and augmentation within the left lower extremity deep venous structures. Occlusive deep venous thrombosis involves one of the two paired peroneal veins of the right lower extremity. No additional deep venous thrombosis within the right lower extremity. IMPRESSION: 1. Occlusive deep venous thrombosis of the right peroneal vein. 2. No sonographic evidence of left lower extremity deep venous thrombosis. Electronically signed by: Pritesh Banegas M.D. 03/06/2019 2:[address] ANGIOGRAM OF THE CHEST CLINICAL HISTORY: Shortness of breath. Possible pulmonary embolism. DVT. COMPARISON STUDY: Noncontrast study dated 10/27/2015 TECHNIQUE: Following the IV administration of 117 mL of Optiray-320, CT guy ogram of the thorax was performed from the thoracic inlet to the lung bases utilizing the pulmonary embolus protocol. Images are reviewed in the axial, sagittal, and coronal planes. IV contrast was administered without complication. MIP imaging was performed. A dose lowering technique was utilized adhering to the principles of ALARA. CT DOSE: 470.39 mGycm FINDINGS: There is a large hiatal hernia. No pathologically enlarged axillary mediastinal or hilar lymph nodes were visualized. There was no evidence of thoracic aortic dilatation. There were no pulmonary artery filling defects to indicate acute pulmonary embolism. There are no significant pleural effusions. There is no focal pulmonary consolidation. There is slight mosaic attenuation along is likely secondary to mild airway disease. There is a kyphoscoliosis. There are multiple mild thoracic compression deformities. There is an old left-sided rib fracture. IMPRESSION: 1. No evidence of acute pulmonary embolism 2. No evidence of focal pulmonary consolidation 3. Kyphoscoliosis. 4. Large hiatal hernia Electronically signed by: Tez العلي M.D. 03/06/2019 6:59 PM ECG Data Attestation: I personally reviewed and interpreted this ECG as follows: Indication: SOB/dyspnea Rate (beats per minute): 99 Rhythm: sinus rhythm Findings: + other (Premature supraventricular contraction, normal QRS, normal axis) and + nonspecific-ST abn; no ST elevation Blood Pressure Blood Pressure Findings: Elevated blood pressure Blood Pressure Disposition: further management by hospitalist Discharge Plan Visit Data *Final* Discharge Date/Time: 03/06/19 22:53 Chief Complaint: Referred by Doctor Stated Complaint: BAD ULTR WAS AT ED Provider: Colton Peres Discharge Problem: DVT (deep venous thrombosis), Anemia, History of intracerebral hemorrhage without residual deficit, History of GI bleed Patient Disposition: Admitted As Inpatient Discharge Instructions Interventions: ED Discharge Assessment Last Done: 03/06/19 22:53 Discharge Problem: DVT (deep venous thrombosis) Qualifiers: Chronicity: unspecified Laterality: unspecified laterality Anemia Qualifiers: Anemia type: unspecified type Qualified Code(s): D64.9 - Anemia, unspecified The scribe's documentation has been prepared under my direction and personally reviewed by me in its entirety. I confirm that the note above accurately reflects all work, treatment, procedures, and medical decision making performed by me.
[2019-03-07] MEDS: METOPROLOL TARTRATE 25 MG TAB PO SCH ×3 (00:14→20:35)
[2019-03-07] MEDS: DOCUSATE SODIUM 100 MG CAP PO SCH (00:14)
[2019-03-07] MEDS: FERROUS GLUCONATE 324 MG TAB PO SCH (00:15)
[2019-03-07] MEDS ORDERED: dilTIAZem HCL 120 MG CAPCR PO SCH (09:00)
[2019-03-07] MEDS: CHOLECALCIFEROL 1,000 UNITS TAB PO SCH (09:18)
[2019-03-07] MEDS: FUROSEMIDE 40 MG TAB PO SCH (09:18)
--- NOTE | 2019-03-07 10:01 | Family Medicine Progress Note ---
Date of Service March 07, 2019 Assessment & Plan (1) Acute deep vein thrombosis (DVT) of right peroneal vein: Patient is a pleasant 84 year old female presenting with chief complaint of b/l LE swelling, which upon doppler revealed DVT in the R peroneal vein. DVT R Peroneal Vein with hx DVT L Iliofemoral Vein -Patient has B/L LE swelling with +DVT present in R peroneal vein on Doppler -Hx of DVT in L iliofemoral vein in December 2017 secondary to trauma. -Chest CT negative for acute PE -Vascular surgery was consulted for ?placement of IVC filter - recommended not at this time unless patient has an active bleed and is unable to be anticoagulated. -Extensive discussion held between patient, , and [id number] about the varying choices including IVC, Warfarin, NOAC, and watchful waiting. -Patient noted she would like to attempt NOAC with Xarelto since she has had problems with Eliquis in the past. -Xarelto 20mg QD started, skip loading dose as patient is at an increased risk -Interaction with Diltiazem noted, will monitor -Will monitor CBC in AM and consider DC if stable with expectation for regular Hgb checks in the outpatient setting. Hx GI Bleed and Intracerebral Hemorrhage -Noted anemia 2/2 GI bleed when being treated for DVT in December of 2017 with Eliquis. -Noted Hx Intracerebral hemorrhage as patient is at increased bleeding risk. Primary Lateral Sclerosis with Hemiparesis R Arm -Primary lateral sclerosis/right hemiparesis -Stable examination. -Patient does require help in transfers, and does not walk without assistance. HTN Continue metoprolol tartrate 25 mg p.o. twice daily and diltiazem 20 mg p.o. daily. Hold furosemide 40 mg daily. FEN/GI - Full DVT - Xarelto 20mg QD Code - DNR/DNI Dispo - Med/Surg tele Present on Admission?: Yes (2) History of GI bleed: Present on Admission?: Yes (3) Essential hypertension: Present on Admission?: Yes (4) Deep vein thrombosis (DVT) of left iliofemoral vein: Present on Admission?: Yes (5) History of intracerebral hemorrhage without residual deficit: Present on Admission?: Yes (6) Primary lateral sclerosis: Present on Admission?: Yes (7) Hemiparesis, right: Present on Admission?: Yes Supervising Physician Co-Signing Physician Notes I personally examined the patient and verified all berry points of history and exam, discussed case, and agree with decision making with Dr Watts. Time in approximately 445, time out approximately 5:30 PM Patient feeling okay. No bleeding right now. Extensive discussion with patient, , and future [id number] in regards to risk-benefit and multiple approaches. I led the discussion by explaining quite clearly that "we are working to make the best bad choice" given the difficulty of the situation of recurrent clotting in the context of a woman who had a significant GI bleed a little less than a year ago. Discussed watchful waiting with serial ultrasounds and the risks that that would entail, versus trial of anticoagulation and the risks that that would entail. Discussed different anticoagulants versus each other particularly in regards to bleeding risk, and discussed close monitoring for either watchful waiting with the clot or following for any GI bleeding with the anticoagulant. After a long and extensive discussion and answering all questions the best my ability they have opted for anticoagulation with a DOAC. Vitals noted, in general she is awake and alert pleasant no distress, HEENT normal cephalic atraumatic mucous members are moist. Breathing unlabored no accessory muscle use good effort. Skin shows no rashes no pallor or icterus. Neuro shows her to be fairly immobile and weak but nothing that appears to be a acute deficit. 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 After extensive discussions as above outlined, we all opt for a cautious trial of anticoagulation. We will start Xarelto tonight (we discussed that generally the newer anticoagulants have a less bleeding risk than Coumadin, but she did recall feeling like she had some side effect with apixaban beyond simply the GI bleed) we will follow hemoglobin tomorrow, if she is completely stable we can look towards home with close outpatient follow-up may be as soon as tomorrow, versus ongoing watchful waiting in the hospital. After discharge we will check a hemoglobin again by the end of the week and then very frequently thereafter. We discussed monitoring for any weak/lightheaded/dyspnea. She expressed very good understanding, she and her and her future [id number] all asked very good questions. possible interaction with dilt noted - will have close monitoring and will forego loading dose range and start at 20mg daily (especially since not a large proximal DVT or PE) Greater than 30 minutes [id number] as above noted Subjective Patient seen and examined at the bedside this AM with her present in the room. Patient and both very pleasant and aware of her current situation. Stated that they understand she's in a tough spot when it comes to treatment. The patient herself notes that she is not currently having any pain in her L leg. No other complaints at this time. Review of Systems Constitutional: + weakness; no fever and no chills Eyes: no eye pain Ear, Nose, Mouth, Throat: no ear pain and no dizziness Respiratory: + dyspnea on exertion; no cough, no chest congestion, no hemoptysis and no pain on inspiration Cardiovascular: + dyspnea on exertion; no chest pain, no chest pain at rest, no radiating jaw, neck or arm pain and no palpitations Gastrointestinal: no abdominal pain, no nausea, no vomiting, no constipation and no diarrhea/loose stools Genitourinary: no dysuria Musculoskeletal: + muscle weakness and + muscle atrophy Integumentary: no rash Neurologic: + paralysis; no dizziness Physical Exam Constitutional: + frail appearing and cooperative; no acute distress Eyes: PERRL, conjunctivae normal, anicteric sclerae ENMT: external ear and nose normal, oropharynx normal Ears: no hearing impairment Neck: trachea midline Respiratory: normal respiratory effort, lungs clear to auscultation Cardiovascular: Rate/Rhythm: regular rate and regular rhythm Vessels: posterior tibial pulses present, dorsalis pedis pulses present and radial pulses present; no carotid bruit Extremities: normal capillary refill and + edema (+2 BLE); no calf tenderness (Denies calf tenderness b/l) Gastrointestinal (Abdomen): normal bowel sounds, soft, nontender, no hepatosplenomegaly Musculoskeletal: Head/Neck/Chest: normocephalic and head atraumatic Extremities: + limited ROM of extremities (R extremity flexed and held against body. ) Skin: no rashes, warm and dry Neurologic: + focal motor deficit (R arm paresis) and awake; not confused and not obtunded Cranial Nerves: PERRL, normal accommodation, EOM intact bilaterally, tongue midline, normal hearing, able to rotate head bilaterally and symmetric palate elevation Psychiatric: A+Ox3, euthymic affect Eye Contact: good eye contact Results & Data Vital Signs (Past 12 Hours) Vital Signs Temp Pulse Pulse Resp BP BP BP 03/07/19 07:53 37.2 C 81 18 144/69 H 03/07/19 07:52 68 03/07/19 04:37 36.4 C L 77 22 161/76 H 03/07/19 01:12 75 03/06/19 23:20 36.7 C 107 H 20 168/77 H 03/06/19 23:19 36.6 C 75 18 91/45 L 03/06/19 22:44 104 H 22 146/94 H 03/06/19 22:30 24 Pulse Ox 03/07/19 07:53 97 03/07/19 07:52 03/07/19 04:37 98 03/07/19 01:12 03/06/19 23:20 936 H 03/06/19 23:19 96 03/06/19 22:44 95 03/06/19 22:30 92 Laboratory Results Abnormal lab results 03/07/19 Range/Units 09:53 RBC 3.49 L (4.2-5.4) M/uL Hgb 10.4 L (12.0-16.0) g/dL Hct 33.1 L (37-47) % MCHC 31.4 L (32-36) g/dL RDW Std Deviation 47.5 H (36.4-46.3) fL MPV 10.7 H (7.4-10.4) fL Medications Administered Current Inpatient Medications Acetaminophen (Tylenol) 650 mg PO Q4H PRN PRN Reason: Pain or Fever Stop: 04/05/19 23:18 Last Admin: 03/06/19 23:46 Dose: 650 mg Documented by: Diltiazem HCl (Cardizem Cd) 120 mg PO DAILY [facility] Stop: 04/06/19 08:59 Last Admin: 03/07/19 09:18 Dose: 120 mg Documented by: Docusate Sodium (Colace) 100 mg PO Q2D@0900 [facility] Stop: 04/05/19 23:18 Last Admin: 03/07/19 00:14 Dose: 100 mg Documented by: Ferrous Gluconate (Ferrous Gluconate) 324 mg PO Q2D@0900 [facility] Stop: 04/05/19 23:18 Last Admin: 03/07/19 00:15 Dose: Not Given Documented by: Furosemide (Lasix) 40 mg PO DAILY [facility] Stop: 04/06/19 08:59 Last Admin: 03/07/19 09:18 Dose: 40 mg Documented by: Hydroxyzine HCl (Vistaril) 25 mg PO BID PRN PRN Reason: anxiety Stop: 04/05/19 23:18 Ioversol (Optiray 320 125ml) 117 ml IV ONCE PRN PRN Reason: Interaction Checking Stop: 03/10/19 18:42 Last Admin: 03/06/19 18:43 Dose: 117 ml Documented by: Metoprolol Tartrate (Lopressor) 25 mg PO BID [facility] Stop: 04/05/19 23:18 Last Admin: 03/07/19 09:16 Dose: 25 mg Documented by: Ondansetron HCl (Zofran) 4 mg IV Q6H PRN PRN Reason: Nausea Stop: 04/05/19 23:18 Rivaroxaban (Xarelto) 20 mg PO TODAY@1700 [facility] Stop: 04/07/19 16:59 Vitamin D (Vitamin D3) 5,000 units PO DAILY [facility] Stop: 04/06/19 08:59 Last Admin: 03/07/19 09:18 Dose: 5,000 units Documented by: PG Care Time/CCT Total # of Minutes Spent Total Time Spent with Patient: Total time spent is greater than 50% in coordination of care (as documented) at patient's floor/unit and/or counseling patient: Prolonged Care Time Prolonged Care Time: Yes Total Prolonged Care Time: 30 Critical Care Time Prolonged Care Time Prolonged Care Time: Yes Total Prolonged Care Time: 30 Resident Activity Tracking Resident Involvement: Resident Care Provided Care Provided: Adult Hospital Medicine
[2019-03-07 10:04] LABS: Basophils # (auto) 0.02 K/uL (0-0.2); Basophils % (auto) 0.4 %; Eosinophils # (auto) 0.13 K/uL (0-0.5); Eosinophils % (auto) 2.5 %; Hematocrit (blood only) 33.1 % (37-47); Hemoglobin 10.4 g/dL (12.0-16.0); Lymphocytes # (auto) 1.24 K/uL (1.2-3.4); Lymphocytes % (auto) 24.2 %; Mean Corpuscular Hemoglobin 29.8 pg (25-34); Mean Corpuscular Hgb Conc 31.4 g/dL (32-36); Mean Corpuscular Volume 94.8 fL (80-100); Mean Platelet Volume 10.7 fL (7.4-10.4); Monocytes # (auto) 0.47 K/uL (0.11-0.59); Monocytes % (auto) 9.2 %; Neutrophils # (auto) 3.27 K/uL (1.4-6.5); Neutrophils % (auto) 63.7 %; Platelet Count 222 K/uL (130-400); RDW Coefficient of Variation 13.8 % (11.5-14.5); RDW Standard Deviation 47.5 fL (36.4-46.3); Red Blood Count 3.49 M/uL (4.2-5.4); White Blood Count 5.13 K/uL (4.8-10.8)
--- NOTE | 2019-03-07 10:18 | Consultation ---
Date of Consultation March 07, 2019 Assessment & Plan (1) Acute deep vein thrombosis (DVT) of right peroneal vein: Pt with small DVT in RLE peroneal vein. Pt has not had evidence of GI bleeding in 10 months. Recommend anticoagulation trial. No indications for IVC filter at this time. If pt develops signs of GI bleeding and AC needs to be stopped, would be happy to reconsider for IVC filter. Please call if needed. Patient was seen by PA and chart reviewed by me. Agree with exam and treatment plan of the Vascular PA. Present on Admission?: Yes History of Present Illness Reason for Consultation: RLE DVT, possible IVC filter Attending Physician: Alex Olivera, DO History of Present Illness 84 yo f with multiple medical problems, including primary lateral sclerosis and R arm paresis, HX of L femoral V DVT after trauma, CHF, osteoporosis, HTN, bladder ca, hypothyroidism, admitted with acute RLE DVT in peroneal V, seen in consultation today for same and possible IVC filter insertion. Pt's is also present. Pt states she suffered a fall in 12/2017 that caused mulitple pelvic fractures and had a L femoral DVT at that time. Was transferred to [facility] and started on Eliquis. She also has hx of an intracranial bleed after a fall as well. Pt was admitted at [facility] in 04/2018 for GI bleed and her eliquis was stopped d/t completed treatment and presumed GI bleeding. Pt states no other hx of DVT in past. Pt states she called her PCP d/t pain she was experiencing in R dorsal foot, and a venous US was ordered for yesterday that showed DVT in 1 of 2 paired peroneal veins in RLE. Pt was admitted for further treatment. Per pt and , pt has had edema in BLE for a long time and her PCP recently increased her lasix d/t this. Denies any R calf pain. Denies fever, chest pain, recent illness, abd pain, N/V, rest pain, other complaints. Pt does not ambulate any significant distance, but is able to pivot for transfer. Venous US demonstrates DVT in 1 of 2 paired peroneal veins in RLE. Allergies Allergy/AdvReac Type Severity Reaction Status Date / Time Sulfa (Sulfonamide Allergy Unknown HANDS Verified 03/06/19 16:57 Antibiotics) SWELLED Home Medications Home Medications Medication Instructions Recorded Confirmed Type diltiazem HCl 120 mg PO DAILY 05/08/18 03/06/19 History cholecalciferol (vitamin D3) 5,000 5,000 units PO DAILY tab 10/12/18 03/06/19 History unit tablet metoprolol tartrate 25 mg tablet 25 mg PO BID #180 tab 11/28/18 03/06/19 Rx ferrous gluconate 324 mg (38 mg 324 mg PO Q48H tab 12/23/18 03/06/19 History iron) tablet hydroxyzine HCl 25 mg tablet 25 mg PO BID PRN #30 tab 01/11/19 03/06/19 Rx furosemide 40 mg tablet 40 mg PO DAILY #90 tab 02/13/19 03/06/19 Rx docusate sodium 100 mg capsule 100 mg PO Q2D cap 03/06/19 03/06/19 History Patient History Medical History Hypothyroidism (Acute) Acute bronchitis with bronchospasm (Acute) Bilateral pleural effusion (Acute) Carpal tunnel syndrome, bilateral (Acute) Chronic diastolic (congestive) heart failure (Chronic) Chronic osteoarthritis (Acute) DVT of leg (deep venous thrombosis) (Acute) Disorder of bone (Acute) Dyspnea on exertion (Acute) Gait disturbance (Acute) Lumbar compression fracture (Acute) Muscle spasticity (Acute) Muscular deconditioning (Acute) Nocturia (Acute) Numbness of left hand (Acute) Other specified acquired deformities of right upper arm (Acute) Polyneuropathy (Acute) Stroke syndrome (Acute) Trochanteric bursitis of left hip (Acute) Urinary incontinence (Acute) Vitamin D deficiency (Acute) Vulvovaginitis (Acute) Hemiparesis, right (Chronic) Bladder neoplasm Osteoporosis (Chronic) Essential hypertension (Chronic) Anemia (Acute) Left femoral vein DVT (Acute) Primary lateral sclerosis (Chronic) TIA (transient ischemic attack) (Resolved) Acute blood loss anemia (Acute) CHF (congestive heart failure) (Acute) GI bleed (Acute) Multiple fractures of ribs of right side (Acute) Pelvic fracture (Resolved) Surgical History Hip joint replacement status (Resolved) History of tonsillectomy (Resolved) S/P KALYN-BSO (Resolved) History of bilateral salpingo-oophorectomy History of total abdominal hysterectomy Family History Mother Congestive heart failure Type 2 diabetes mellitus without complications Essential hypertension Myocardial infarction Hypertension Father Hodgkins lymphoma Brother Colon cancer Throat cancer Grandmother Myocardial infarction Stroke Social History Preferred Language: Monegasque Communication Ability: Effective Package Line Operator Required: No Beliefs That Will Affect Care: None Current Living Situation: Spouse Other Information That Helps Us Care for You: No Feels Safe at Home: Yes Safety Concerns: Feels Safe At This Time Smoking Status: Never smoker Hx Alcohol Use: No Hx Substance Use: No caffeine: Yes Seatbelt Use: always Review of Systems Review of Systems: All systems reviewed & are unremarkable except as noted in HPI & below Physical Exam Constitutional: + ill appearing (chronically), + frail appearing, cooperative and comfortable; not in distress and not combative Eyes: PERRL, conjunctivae normal, anicteric sclerae ENMT: external ear and nose normal, oropharynx normal Ears: no hearing impairment Neck: trachea midline Respiratory: normal respiratory effort, lungs clear to auscultation Cardiovascular: Rate/Rhythm: regular rate and regular rhythm Vessels: normal peripheral pulses, femoral pulses present, posterior tibial pulses present, dorsalis pedis pulses present and radial pulses present; no carotid bruit Extremities: normal capillary refill and + edema (+2 BLE) Gastrointestinal (Abdomen): normal bowel sounds, soft, nontender, no hepatosplenomegaly Musculoskeletal: no cyanosis or clubbing, extremities motor strength 5/5 Skin: no rashes, warm and dry Neurologic: + focal motor deficit (R arm paresis) and awake; not confused and not obtunded Psychiatric: A+Ox3, euthymic affect Results & Data Vital Signs (Past 12 Hours) Vital Signs Temp Pulse Pulse Resp BP BP BP 03/07/19 07:53 37.2 C 81 18 144/69 H 03/07/19 07:52 68 03/07/19 04:37 36.4 C L 77 22 161/76 H 03/07/19 01:12 75 03/06/19 23:20 36.7 C 107 H 20 168/77 H 03/06/19 23:19 36.6 C 75 18 91/45 L 03/06/19 22:44 104 H 22 146/94 H 03/06/19 22:30 24 03/06/19 22:00 Pulse Ox 03/07/19 07:53 97 03/07/19 07:52 03/07/19 04:37 98 03/07/19 01:12 03/06/19 23:20 936 H 03/06/19 23:19 96 03/06/19 22:44 95 03/06/19 22:30 92 03/06/19 22:00 96
[2019-03-07] MEDS ORDERED: RIVAROXABAN 20 MG TAB PO STA ×2 (17:29→17:56)
[2019-03-07] MEDS ORDERED: DABIGATRAN ETEXILATE 75 MG CAP PO STA (17:44)
[2019-03-07] MEDS: ACETAMINOPHEN 325 MG TAB PO PRN (23:51)
[2019-03-08 06:22] LABS: Hematocrit (blood only) 30.7 % (37-47); Hemoglobin 10.1 g/dL (12.0-16.0); Mean Corpuscular Hemoglobin 30.3 pg (25-34); Mean Corpuscular Hgb Conc 32.9 g/dL (32-36); Mean Corpuscular Volume 92.2 fL (80-100); Mean Platelet Volume 10.8 fL (7.4-10.4); Platelet Count 212 K/uL (130-400); RDW Coefficient of Variation 13.5 % (11.5-14.5); RDW Standard Deviation 45.7 fL (36.4-46.3); Red Blood Count 3.33 M/uL (4.2-5.4)
--- NOTE | 2019-03-08 06:42 | CT Scan Report ---
CT head/brain wo con CLINICAL HISTORY: 84 years-old Female with WHOML on xeralto. Acute head injury TECHNIQUE: Multiple axial CT images of the head were obtained without contrast. A dose lowering tech nique was utilized adhering to the principles of ALARA. CT DOSE: 614.27 mGy.cm COMPARISON: Head CT 12/13/2017 FINDINGS: No acute intracranial hemorrhage, midline shift, intracranial mass, hydrocephalus, territorial ischem ia or abnormal extra-axial collection. Age-related involutional changes. 6 mm hypodense focus of the right lentiform nucleus with adjacent calcification is unchanged suggestive of remote lacunar infarct . Scattered white matter hypodensities suggest chronic microvascular ischemic disease. Cerebral vascu lar calcifications are also noted. The calvarium is intact. Mild polypoid mucosal thickening of the inferior right maxillary sinus. Hyp oplasia of the frontal sinuses. Mild mucosal thickening of the ethmoid air cells. The mastoid air pamela ls are clear. Soft tissues and orbits are unremarkable. IMPRESSION: No acute intracranial abnormality. The above report was generated using voice recognition software. It may contain grammatical, syntax o r spelling errors. Electronically signed by: Pritesh Banegas M.D. 03/08/2019 6:40 AM
[2019-03-08 06:53] LABS: Creatinine Clr Calc Pharmacy 41.4 ml/min; Est GFR (African American) 67.1; Est GFR (Non-African American) 57.9
[2019-03-08] MEDS: FERROUS GLUCONATE 324 MG TAB PO SCH (08:57)
[2019-03-08] MEDS: DOCUSATE SODIUM 100 MG CAP PO SCH (08:57)
[2019-03-08] MEDS: CHOLECALCIFEROL 1,000 UNITS TAB PO SCH (08:57)
[2019-03-08] MEDS ORDERED: DABIGATRAN ETEXILATE 75 MG CAP PO SCH (09:00)
[2019-03-08] MEDS ORDERED: METOPROLOL TARTRATE 50 MG TAB PO SCH (09:00)
[2019-03-08] MEDS: FUROSEMIDE 40 MG TAB PO SCH (09:00)
[2019-03-08] MEDS ORDERED: dilTIAZem HCL 120 MG CAPCR PO SCH (09:00)
[2019-03-08] MEDS ORDERED: RIVAROXABAN 20 MG TAB PO SCH ×3 (09:00→17:00)
--- NOTE | 2019-03-08 11:12 | Discharge Summary ---
Date of Service March 08, 2019 Admission HPI Per Admitting Provider The patient is an 84-year-old female with a past medical history including intracranial bleed and GI bleed, previously on anticoagulation for left femoral vein DVT, who was found to have a right peroneal vein DVT and outpatient venous Dopplers today. In the emergency department, she underwent a CTA of the chest that was negative for PE. She was referred for evaluation for admission for further management. Admission Exam Per Admitting Provider The patient is awake, alert and oriented 3, well developed and well nourished, normocephalic and atraumatic, lying in bed and in no acute distress. HEENT--PERRL, EOMI, mucous membranes and oropharynx dry. Neck--supple. No JVD. No bruits. Thyroid normal, trachea midline, no adenopathy. Heart--normal S1 and S2. No murmurs, rubs or gallops. Lungs--clear bilaterally, no respiratory distress, no accessory muscle use. Abdomen--normal bowel sounds and soft. Nontender. Nondistended. Extremities--no cyanosis or clubbing. No edema. There are good distal pulses b/l. Dermatologic--normal skin turgor, normal color, no abnormal lymph nodes, no rash. Neurologic--cranial nerves II through XII grossly intact. Right hemiparesis Rheumatologic--limited by neuro deficiency Psychiatric--normal affect. Principal Diagnosis DVT Discharge Exam Constitutional + frail appearing and cooperative; no acute distress Eyes PERRL, conjunctivae normal, anicteric sclerae ENMT external ear and nose normal, oropharynx normal Ears: no hearing impairment Neck trachea midline Respiratory normal respiratory effort, lungs clear to auscultation Cardiovascular Rate/Rhythm: regular rate and regular rhythm Vessels: posterior tibial pulses present, dorsalis pedis pulses present and radial pulses present; no carotid bruit Extremities: normal capillary refill and + edema (+2 BLE); no calf tenderness (Denies calf tenderness b/l) Gastrointestinal (Abdomen) normal bowel sounds, soft, nontender, no hepatosplenomegaly Musculoskeletal Head/Neck/Chest: normocephalic and head atraumatic Extremities: + limited ROM of extremities (R extremity flexed and held against body. ) Skin no rashes, warm and dry Neurologic + focal motor deficit (R arm paresis) and awake; not confused and not obtunded Cranial Nerves: PERRL, normal accommodation, EOM intact bilaterally, tongue midline, normal hearing, able to rotate head bilaterally and symmetric palate elevation Psychiatric A+Ox3, euthymic affect Eye Contact: good eye contact Discharge Data Allergies Allergy/AdvReac Type Severity Reaction Status Date / Time Sulfa (Sulfonamide Allergy Unknown HANDS Verified 03/06/19 16:57 Antibiotics) SWELLED Consultations 03/06/19 20:26 ED Decision to Admit Stat 03/06/19 23:19 Consult Vascular Surgery Routine Ordered Studies 03/06/19 16:07 CT angio chest PE protocol Stat 03/08/19 00:28 CT head/brain wo con Urgent Hospital Course (1) Acute deep vein thrombosis (DVT) of right peroneal vein: Patient is a pleasant 84 year old female presenting with chief complaint of b/l LE swelling, which upon doppler revealed DVT in the R peroneal vein. DVT R Peroneal Vein with hx DVT L Iliofemoral Vein -Patient has B/L LE swelling with +DVT present in R peroneal vein on Doppler -Hx of DVT in L iliofemoral vein in December 2017 secondary to trauma. -Chest CT negative for acute PE -Vascular surgery was consulted for ?placement of IVC filter - No surgical intervention indicated at this time. -Extensive discussion held between patient, , and [id number] about the varying choices including IVC, Warfarin, NOAC, and watchful waiting. -Patient noted she would like to attempt NOAC with Xarelto since she has had problems with Eliquis in the past. -Xarelto 20mg QD started, skip loading dose as patient is at an increased risk -Diltiazem reduced to 60mg inpatient 2/2 interactions with Xaralto -- DC'd upon discharge. -Metoprolol was increased to 100mg BID -Hgb was stable on day of discharge -Continue to check Hgb in the outpatient setting weekly with home nursing. -Doppler in 4 weeks to screen for DVT and determine need for continued anticoagulation. Hx GI Bleed and Intracerebral Hemorrhage -Noted anemia 2/2 GI bleed when being treated for DVT in December of 2017 with Eliquis. -Noted Hx Intracerebral hemorrhage as patient is at increased bleeding risk. Primary Lateral Sclerosis with Hemiparesis R Arm -Primary lateral sclerosis/right hemiparesis -Stable examination. -Patient does require help in transfers, and does not walk without assistance. HTN -DC Diltiazem on discharge -Metoprolol increased to 100mg BID -Held furosemide 40 mg daily. FEN/GI - Full DVT - Xarelto 20mg QD Code - DNR/DNI Dispo - Home (2) History of GI bleed: (3) Essential hypertension: (4) Deep vein thrombosis (DVT) of left iliofemoral vein: (5) History of intracerebral hemorrhage without residual deficit: (6) Primary lateral sclerosis: (7) Hemiparesis, right: Total Time Total Time Spent Total Time Spent (In Minutes): <30 Discharge Plan Discharge Items Patient Disposition: Home - Home Health Services Reason For Visit: RLE DVT Discharge Diagnosis: DVT R Peroneal Vein Activity: Per Instructions section Non-emergency contact: Primary Care Provider Call non-emergency contact if: you have any medication questions, your symptoms worsen and your temperature is above 101 Follow-up/Referrals: Anoop Townsend MD [Primary Care Provider] - 03/14/19 3:00 pm (Please, follow up at Dr. Townsend's office with his associate, Raven Hope PA-C, on WednesdayMarch 14 at 3:00 pm. *If you need to change this appointment, call the office at [phone].) Diet: Regular Addtl Attending Provider Instructions: Ms. Bello, you were admitted to [facility] after it was discovered you had a distal venous thrombus (blood clot) in a vein in your Right Knee. While here we discussed the options for treatment including Watchful Waiting, IVF Filter Placement, and Anticoagulation with either a NOAC (Xarelto, Eliquis, Pradaxa) or Warfarin (Coumadin). You decided that you would prefer to treat the clot with a blood thinner and were put on Xarelto 20mg. Your blood counts were closely monitored while you were here and they appear to be stable. Upon discharge, please do the followin) Follow up with your PCP within the next 3-5 days to have your blood counts rechecked. 2) Take your blood thinner (Xarelto) 20mg once a day with food at 5PM, you can vegetable picker the prescription at the pharmacy you noted. 3) Your blood pressure medications have been adjusted as below: -Metoprolol 50mg by mouth twice a day. -Diltiazem (Cardizem) discontinued. -Please continue to take your remaining medications as prescribed -Please discuss with your PCP about having a Venous Doppler Study in the next 4- 6 weeks to screen for resolution of the clot. -If your symptoms worsen or you notice fever, headache, increased fatigue, or pa in, please call your PCP or return to the ED for evaluation. Pending Studies at Discharge: No Stand-Alone Forms: My [facility], Smoking Cessation Medications and DC Order Prescriptions: New Xarelto 20 mg Tablet 20 mg PO TODAY@1700 30 Days Qty: 30 RF: 0 metoprolol tartrate 50 mg Tablet 50 mg PO BID 30 Days Qty: 60 RF: 2 Continued hydroxyzine HCl 25 mg tablet 25 mg PO BID PRN (Reason: anxiety) Qty: 30 RF: 3 cholecalciferol (vitamin D3) 5,000 unit tablet 5,000 units PO DAILY RF: 0 ferrous gluconate 324 mg (38 mg iron) tablet 324 mg PO Q48H RF: 0 furosemide 40 mg tablet 40 mg PO DAILY Qty: 90 RF: 3 docusate sodium [Colace] 100 mg capsule 100 mg PO Q2D RF: 0 Discontinued metoprolol tartrate 25 mg tablet 25 mg PO BID Qty: 180 RF: 3 diltiazem HCl 120 mg Capsule,Extended Release 12 Hr 120 mg PO DAILY RF: 0 Discharge Orders: Discharge Order (Routine); Ordered 03/08/19 Ordered By: Gustabo Hair/Other Patient Handouts: Rivaroxaban Oral tablet Rivaroxaban Oral tablet, DVT, DVT Complications, DVT Prevent, DVT Tx, DVT Dc Admission Data Admit Date/Time: 03/06/19 21:58 Attending Provider: Alex Olivera Admit Provider: Jsese Huff Primary Care Provider: Anoop Townsend Other Providers: Jesse Huff ; John Paul Wilkins Other Interventions: Discharge Summary Assessment (RN) Last Done: 03/08/19 13:11 DC Date/Time DO NOT enter until pt leaves facility: 03/08/19 14:28 Supervising Physician Co-Signing Physician Notes I personally examined the patient and verified all berry points of history and exam, discussed case, and agree with decision making with Dr Watts. Feeling okay. No bleeding. Reiterated symptoms to watch for, reiterated plan. Otherwise feels comfortable going home. Vitals noted, in general she is awake and alert pleasant no distress, HEENT normal cephalic atraumatic mucous members are moist. Breathing unlabored no accessory muscle use good effort. Skin shows no rashes no pallor or icterus. Neuro shows her to be fairly immobile and weak but nothing that appears to be a acute deficit. 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 After extensive discussions as previously outlined, we all opt for a cautious trial of anticoagulation. She is tolerating Xarelto reasonably well so far and showing no bleeding. We had an extensive discussion on what to watch for as far as signs or symptoms of bleeding. She will have CBC checked on Wednesday and then weekly thereafter, we discussed signs and symptoms to watch for as far as needing to have a CBC sooner. We discussed that given she is a recurrent clotting patient that from that perspective she would be lifelong anticoagulation, but given that she is also a significant bleeding risk, she is more likely to be someone who will have a continuous revisit and rebalance of her risks and benefits with anticoagulation based on acuity of clot versus difficulty with bleeding. Stable for home, otherwise as above Resident Activity Tracking Resident Involvement: Resident Care Provided Care Provided: Adult Hospital Medicine
== END 2019-03-08 14:28 | disposition home health service (06) | DRG 300 ==
LOC: ED 15:15 → SUATTDRO 21:58 → 2S 21:58

== ENCOUNTER 2019-03-28 16:12 | Inpatient (IN) ==
[2019-03-28] MEDS ORDERED: PANTOprazole 80 MG in DEXTROSE 5% 100 ML IV ONE (16:30)
--- NOTE | 2019-03-28 17:08 | XRay Report ---
XR chest 1V portable CLINICAL HISTORY: 84 years-old Female presenting with Weakness. TECHNIQUE: Portable upright AP view of the chest was obtained. COMPARISON: 11/07/2018. FINDINGS: Atherosclerosis of the aortic arch. Cardiac silhouette enlarged increased from prior. Prominence of t he main pulmonary artery is suspected. The left lung demonstrates possible pleural thickening or trac e effusion new or increased from prior. Right lung clear. Trace right pleural effusion or chronic mariajose nting of the right costophrenic angle. No large pneumothorax. Osteopenia. Hiatal hernia suspected. IMPRESSION: 1. Cardiomegaly, which is slightly worse than on prior. No significant volume overload or congestive change. 2. Left pleural thickening or trace effusion, which may be new or increased from prior. Electronically signed by: Isak Cary M.D. 03/28/2019 5:07 PM
[2019-03-28 17:22] LABS: Hematocrit (blood only) 19.1 % (37-47); Mean Corpuscular Hemoglobin 30.6 pg (25-34); Mean Corpuscular Hgb Conc 31.4 g/dL (32-36); Mean Corpuscular Volume 97.4 fL (80-100); Mean Platelet Volume 10.3 fL (7.4-10.4); Platelet Count 271 K/uL (130-400); RDW Coefficient of Variation 15.9 % (11.5-14.5); Red Blood Count 1.96 M/uL (4.2-5.4); White Blood Count 5.68 K/uL (4.8-10.8)
[2019-03-28 17:24] LABS: INR 1.1 (0.9-1.1); Partial Thromboplastin Ratio 0.8; Partial Thromboplastin Time 22.2 Seconds (21.0-31.0); Prothrombin Time 11.3 Seconds (9.0-12.0)
[2019-03-28 17:27] LABS: Alanine Aminotransferase 18 U/L (12-78); Albumin Level 3.1 gm/dl (3.4-5.0); Aspartate Aminotransferase 16 U/L (15-37); BUN Creatinine Ratio 28.3 (10-20); Bilirubin Direct < 0.1 mg/dl (0-0.2); Blood Urea Nitrogen 27 mg/dl (7-18); Calcium 8.4 mg/dl (8.5-10.1); Carbon Dioxide 21 mmol/L (21-32); Chloride 109 mmol/L (98-107); Creatinine Clr Calc Pharmacy 38.2 ml/min; Est GFR (African American) 62.9; Est GFR (Non-African American) 54.3; Glucose 95 mg/dl (70-99); Lipase 162 U/L (73-393); Magnesium 1.9 mg/dl (1.8-2.4); Potassium 3.7 mmol/L (3.5-5.1); Sodium 141 mmol/L (136-145)
[2019-03-28 17:30] LABS: Basophils # (auto) 0.01 K/uL (0-0.2); Basophils % (auto) 0.2 %; Eosinophils # (auto) 0.19 K/uL (0-0.5); Eosinophils % (auto) 3.3 %; Immature Granulocytes # (auto) 0.01 K/uL (0.00-0.02); Immature Granulocytes % (auto) 0.2 %; Lymphocytes # (auto) 1.49 K/uL (1.2-3.4); Lymphocytes % (auto) 26.2 %; Monocytes # (auto) 0.53 K/uL (0.11-0.59); Monocytes % (auto) 9.3 %; Neutrophils # (auto) 3.45 K/uL (1.4-6.5); Neutrophils % (auto) 60.8 %; Polychromasia 1+
[2019-03-28] MEDS ORDERED: SODIUM CHLORIDE 0.9% 250 ML IV PRN ×2 (17:31→20:34)
[2019-03-28 17:32] LABS: Alkaline Phosphatase 100 U/L (45-117); Bilirubin,Total 0.2 mg/dl (0.2-1); Total Protein 6.2 gm/dl (6.4-8.2); Troponin I < 0.015 ng/ml (0-0.045)
[2019-03-28] MEDS: PANTOprazole 40 MG in DEXTROSE 5% 100 ML IV SCH ×2 (17:45→21:27)
--- NOTE | 2019-03-28 18:46 | History & Physical Report ---
Date of Service March 28, 2019 Assessment & Plan (1) Upper GI bleed: Halie is an 84-year-old female with a past medical history of DVT, stroke without residual deficit, intracerebral hemorrhage, GI bleeding, hypothyroidism, pleural effusion, chronic diastolic heart failure with EF 55-60% in 04/2018, TIA, and primary right-sided lateral sclerosis who was diagnosed in February 2019 with a right peroneal DVT and was placed on apixaban therapy, and who presents to the hospital with 3 days of increasing shortness of breath, hematuria, and melena. Acute upper GI bleed Hemoglobin acutely decreased from approximately 10-6.0 g/dL Type and screen ordered, 2 units packed red blood cells ordered CBC no differential 1 hour after red blood cell transfusions complete, then in the morning 2 peripheral IVs in left arm placed Hemodynamically stable No history of varices or cirrhosis Status post Protonix 80 mg IV x1, on Protonix GTT currently, anticipate conversion to 40 mg IV twice daily tomorrow Hold Xarelto No NSAIDs, aspirin Transfusion threshold 7.0 No epigastric tenderness, right lower quadrant.? Empiric treatment versus GI consult for EGD Right peroneal DVT Hold Doac for acute bleed Venous Doppler to evaluate for clot burden/resolution She has had 2 episodes of GI bleeding with both courses of anticoagulants over the last 2 years. She is not a good anticoagulation candidate. Was not felt to be a strong surgical candidate at prior admission, but also does not feel comfortable with no treatment and increased risk of stroke given her history May consider vascular consult for IVC filter evaluation if she continues to have clot burden but anticoagulation is contraindicated due to bleeding Chronic diastolic heart failure Last EF 04/28 1855-60% Continue metoprolol tartrate 50 mg p.o. twice daily Continue furosemide 20 mg p.o. every morning Lasix 20 mg after first unit of packed red blood cells is complete History of anemia Transfusion parameters as above [employer] OVER[employer] ferrous gluconate 324 mg daily Hypothyroidism Continue levothyroxine 75 mcg every morning Primary lateral sclerosis Stable, at baseline. No signs of new focal neurologic deficits. Outpatient providers Dr. Sharma. Diet: N.p.o. DVT prophylaxis: SCDs. Pharmacologic prophylaxis contraindicated Disposition: PCU/telemetry CODE STATUS: DNR/DNI, confirmed with patient at bedside (2) Deep vein thrombosis (DVT) of left iliofemoral vein: (3) Acute deep vein thrombosis (DVT) of right peroneal vein: (4) DVT (deep venous thrombosis): (5) Anemia: (6) History of intracerebral hemorrhage without residual deficit: (7) History of GI bleed: (8) Hypothyroidism: (9) Acute bronchitis with bronchospasm: (10) Bilateral pleural effusion: (11) Carpal tunnel syndrome, bilateral: (12) Chronic diastolic (congestive) heart failure: (13) Chronic osteoarthritis: (14) Dyspnea on exertion: (15) Muscle spasticity: (16) Muscular deconditioning: (17) Nocturia: (18) Numbness of left hand: (19) Primary lateral sclerosis: History of Present Illness Chief Complaint: Shortness of breath, melena Primary Care Provider: Frank Townsend MD Halie is an 84-year-old female with a past medical history of DVT, stroke without residual deficit, intracerebral hemorrhage, GI bleeding, hypothyroidism, pleural effusion, chronic diastolic heart failure with EF 55-60% in 04/2018, TIA, and primary right-sided lateral sclerosis who was diagnosed in February 2019 with a right peroneal DVT and was placed on apixaban therapy, and who presents t o the [facility] with 3 days of increasing shortness of breath, hematuria, and melena. Halie is seen at the bedside with her who is her caregiver. They report that about 3 to 4 days ago Halie developed blood in her urine and slight shortness of breath. Her shortness of breath progressively increased over the last 3 days, and she presented today when it became very concerning to her. Her notes that she takes iron so her bowel movements are dark and blackish at baseline, but in the last 3 to 4 days they have been much bandar with an unusual sticky quality. Halie denies chest pain, chest pressure, palpitations, syncope, presyncope, new focal neurologic deficits. She has felt a little lightheaded and weak intermittently. She is not able to walk at baseline, and uses a wheelchair to get around with her who assist with transfers due to lateral sclerosis. She has been nauseous, but has not had any vomiting. She has no history of alcohol abuse or liver disease, and has never had any known varices or cirrhosis. Her last colonoscopy was at age 75, up until that point she had no polyps and no history of diverticulitis. She has had intermittent GERD, with her last episode treated with ranitidine several years ago. She denies abdominal pain today. No diarrhea or constipation in the last few days. She endorses red-tinged urine, no problems urinating today, no dysuria. No difficulty with needing extra pressure to urinate today. Her prior left femoral vein DVT in 04/2018 was thought to be provoked in the setting of a traumatic injury. She was treated with apixaban at that time, which was discontinued when repeat Dopplers showed resolution of the clot and she had had an episode of GI bleeding at that time. At her last hospital admission with discharge 03/06 2019 when she had a right peroneal clot of unknown etiology a extensive discussion was had between her and the hospitalist provider between the risks and benefits of anticoagulation, a vena cava filter, and no treatment. She elected for apixaban therapy at that time. Her primary care physician is Dr. Townsend She follows with Dr. Sharma, neurology for her neurologic deficits and lateral sclerosis Medical history, reviewed, updated Surgical history, reviewed, updated Social history: Lives in [place], [place] with her Denies current and former tobacco use Allergies Allergy/AdvReac Type Severity Reaction Status Date / Time Sulfa (Sulfonamide Allergy Unknown HANDS Verified 03/28/19 17:22 Antibiotics) SWELLED Home Medications Home Medications Medication Instructions Recorded Confirmed Type cholecalciferol (vitamin D3) 5,000 5,000 units PO QPM tab 10/12/18 03/28/19 History unit tablet ferrous gluconate 324 mg (38 mg 324 mg PO Q2D tab 12/23/18 03/28/19 History iron) tablet docusate sodium 100 mg capsule 100 mg PO Q2D cap 03/06/19 03/28/19 History metoprolol tartrate 50 mg PO BID 30 Days #60 tab 03/08/19 03/28/19 Rx furosemide 20 mg PO QAM 03/28/19 03/28/19 History hydroxyzine HCl 25 mg PO BID PRN 03/28/19 03/28/19 History levothyroxine 75 mcg PO QAM 03/28/19 03/28/19 History rivaroxaban [Xarelto] 20 mg PO DAILY@1700 03/28/19 03/28/19 History Past Med/Surg History Medical History Acute blood loss anemia (Acute) Acute bronchitis with bronchospasm (Acute) Anemia (Acute) Bilateral pleural effusion (Acute) Bladder neoplasm Carpal tunnel syndrome, bilateral (Acute) CHF (congestive heart failure) (Acute) Chronic diastolic (congestive) heart failure (Chronic) Chronic osteoarthritis (Acute) Disorder of bone (Acute) DVT of leg (deep venous thrombosis) (Acute) Dyspnea on exertion (Acute) Essential hypertension (Chronic) Gait disturbance (Acute) GI bleed (Acute) Hemiparesis, right (Chronic) Hypothyroidism (Acute) Left femoral vein DVT (Acute) Lumbar compression fracture (Acute) Multiple fractures of ribs of right side (Acute) Muscle spasticity (Acute) Muscular deconditioning (Acute) Nocturia (Acute) Numbness of left hand (Acute) Osteoporosis (Chronic) Other specified acquired deformities of right upper arm (Acute) Pelvic fracture (Resolved) Polyneuropathy (Acute) Primary lateral sclerosis (Chronic) Stroke syndrome (Acute) TIA (transient ischemic attack) (Resolved) Trochanteric bursitis of left hip (Acute) Urinary incontinence (Acute) Vitamin D deficiency (Acute) Vulvovaginitis (Acute) Surgical History Hip joint replacement status (Resolved) History of bilateral salpingo-oophorectomy History of tonsillectomy (Resolved) History of total abdominal hysterectomy S/P KALYN-BSO (Resolved) Family History Mother Congestive heart failure Type 2 diabetes mellitus without complications Essential hypertension Myocardial infarction Hypertension Father Hodgkins lymphoma Brother Colon cancer Throat cancer Grandmother Myocardial infarction Stroke Social History Preferred Language: Romanian Communication Ability: Effective 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 NAD. Cooperative. Increased speech latency. Speech fluent, thought process linear and goal-directed. HEENT: Atraumatic, normocephalic. Pupils equal and reactive to light and accommodation. Pallor present. Extraocular movements intact without nystagmus. External ear and nasal anatomy intact without deformity. Mucous membranes tacky. No posterior pharynx erythema, exudate. Neck supple, nontender. No anterior or posterior cervical chain adenopathy. No clavicular adenopathy. Pulm: Moderate air movement CTAB A&P. Trace left-sided wheeze on expiration with slightly decreased air movement, otherwise no wheezes, rales or rhonchi. Symmetrical chest rise. No increase in work of breathing. No respiratory distress. Cardiac: RRR, 2/6 systolic murmur,-rg. Radial pulses intact and symmetrical. PT pulses intact and symmetrical. Abdominal: Soft, nonrigid, bowel sounds present. No epigastric tenderness. No tenderness to light palpation. Right lower quadrant tenderness to deep palpat ion. No organomegaly appreciated. Extremity: Right hand in flexion and internally rotated, index finger internally rotated, no strength at baseline due to primary lateral sclerosis. Sensation intact to soft touch in distal extremities bilaterally, slightly decreased in left hand compared to right. Hip flexion, ankle dorsiflexion/plantarflexion intact with full strength bilaterally. 1+ pitting edema to the knees bilaterally. Constitutional: WD/WN, vitals as above Eyes: normal visual lopez by confrontation and + anicteric sclerae Neck: normal visual inspection and trachea midline Respiratory: normal respiratory effort, lungs clear to auscultation Cardiovascular: Rate/Rhythm: regular rate and regular rhythm Gastrointestinal (Abdomen): Inspection/Auscultation: abdomen not distended Percussion/Palpation: abdomen soft; abdomen nontender Musculoskeletal: Head/Neck/Chest: normocephalic and head atraumatic 1+ pitting LE edema, + pedal pulses Skin: no rashes, warm and dry Neurologic: awake; not confused Speech / Cognition: normal speech Psychiatric: A+Ox3, euthymic affect Lymphatic: Exam as done by Melyssa Davis DO Results & Data Vital Signs (Past 12 Hours) Vital Signs Temp Pulse Pulse Resp BP BP Pulse Ox 03/28/19 18:31 36.2 C L 90 24 132/69 93 03/28/19 18:14 36.8 C 101 H 22 126/70 92 03/28/19 17:45 99 H 25 H 133/64 93 03/28/19 16:18 36.6 C 101 H 26 H 93 Supervising Physician Co-Signing Physician Notes Pt seen and examined by me. Pt had no abd pain, n/v. She has dark stools at baseline due to iron use, but over the last few days her stool was even more dark and there was blood in her urine. Denies chest pain or SOB. Tolerating PO without issue. Hx of GIB on xarelto in 2018 as well. There had been discussion about possible filter placement on last admission, however it was determined that she was not a good surgical candidate and there would be a trial of xarelto. Plans for LE US next week to determine if clot was still present in an effort to limit the amount of time on xarelto. Agree with HPI/ROS as noted by resident See above for my exam in PE section Agree with plan as outlined above GIB related to xarelto use Hematuria noted as well LE US to determine clot burden, which can help to determine risk/benefit to filter placement PRBC with lasix between units for Hb 6.0 Resident Activity Tracking Resident Involvement: Resident Care Provided Care Provided: Adult Hospital Medicine (1) DVT (deep venous thrombosis) Chronicity: unspecified Laterality: unspecified laterality (2) Anemia Anemia type: unspecified type Qualified Code(s): D64.9 - Anemia, unspecified
--- NOTE | 2019-03-28 19:49 | Billing Data ---
Coding Level of Care Code 86220 Initial Inpt Care Lvl 3
[2019-03-28] MEDS ORDERED: FUROSEMIDE 20 MG TAB PO SCH (21:00)
[2019-03-28] MEDS: METOPROLOL TARTRATE 50 MG TAB PO SCH (22:17)
[2019-03-28] MEDS: CHOLECALCIFEROL 1,000 UNITS TAB PO SCH (22:17)
--- NOTE | 2019-03-28 22:35 | Emergency Department Note ---
Entered by Jayda Cotter acting as a scribe for ED Provider Note Name: CHIKA TAPIA Age: 84 Arrives Via: Ambulance Informant: Patient CC: GI bleed HPI: [id number] arrives for evaluation of new onset dark stool that started since being discharged from the hospital last week. The patient reports that she was discharged last week for a DVT and was started on Xarelto. She states that she was told to follow up if she noticed any dark stools. She notes that she takes iron but her stools are darker than her baseline. She reports that she had an associated episode of shortness of breath today. She states that she had some nausea but denies any vomiting or abdominal pain. The patient notes that she is not currently nauseous, but nursing staff states that the patient received Zofran prior to arrival by EMS. The patient endorses a throbbing headache earlier today that has since resolved. Her notes that the patient is slightly paler today than usual. The patient states that she has a history of GI bleeds of unknown origin. She notes that she has received blood transfusions in the past. ROS: See above HPI for pertinent positives & negatives. A total of 10 systems reviewed and were otherwise negative. Past Medical History:See Below Past Surgical History:See Below Family History:See Below Social History:See Below Home Medications:See Below Allergies:Sulfa drugs Vitals:BP: 133/64; Pulse: 99; Resp: 25; Temp: 97.9F; O2 Sat: 93% RA Physical Exam: GENERAL: Patient is elderly and mildly anxious appearing and in no acute distress. EYES: No scleral icterus, unremarkable pupils. Pale conjunctiva. ENT: Mucous membranes moist, no nasal congestion. NECK: No masses appreciated, nomeningismus, trachea is midline. RESPIRATORY: No dyspnea. Clear to auscultation and equal bilaterally. No wheeze, no rhonchi. CARDIOVASCULAR: Regular rate and rhythm.No murmurs, rubs, gallops appreciated. GASTROINTESTINAL: Abdomen soft, non-tender, no peritonitis.Bowel sounds positive.No masses appreciated. : Normal perirectal area. Black tarry heme positive stool without blood. BACK: No midline tenderness, no CVA tenderness EXTREMITIES: No cyanosis, no edema. Contracture of entire right upper extremity. NEUROLOGIC: Alert and oriented, no acute motor or sensory deficits, cranial nerves grossly intact, mild right facial droop. Right leg weakness. SKIN: No rash, no jaundice, no diaphoresis. ED Course: Prior Medical Record, Triage/Nursing Notes, Medications, Allergies reviewed by Me Vital Signs: reviewed and remarkable for no significant abnormalities Labs:Reviewed and remarkable for anemia Interventions: saline lock, 2 Unit PRBC, Protonix bolus/gtt Imaging: Radiology results as stated below per my review and the radiologist's interpretation: XR chest 1V portable CLINICAL HISTORY: 84 years-old Female presenting with Weakness. TECHNIQUE: Portable upright AP view of the chest was obtained. COMPARISON: 11/07/2018. FINDINGS: Atherosclerosis of the aortic arch. Cardiac silhouette enlarged increased from prior. Prominence of the main pulmonary artery is suspected. The left lung demonstrates possible pleural thickening or trace effusion new or increased from prior. Right lung clear. Trace right pleural effusion or chronic blunting of the right costophrenic angle. No large pneumothorax. Osteopenia. Hiatal hernia suspected. IMPRESSION: 1. Cardiomegaly, which is slightly worse than on prior. No significant volume overload or congestive change. 2. Left pleural thickening or trace effusion, which may be new or increased from prior. Electronically signed by: Isak Cary M.D. 03/28/2019 5:07 PM EKG:Per My Interpretation: Indication Weakness: NSR 94 bpm, qtc 472, no ectopy no ischemia. Similar to 03/06/19 Reassessments/Times: 1617:The patient was evaluated in room C09. A complete history and physical examination was performed. 1720: Patient consents verbally for blood transfusion at this time. She has not signed consent yet due to past stroke. 1737: [facility] hospitalist has been paged at this time. 1740: I discussed the patients case with Dr. Davis, [facility], who will evaluate the patient for further management and care. Patient verbalized agreement to the plan. 1830: Patient is receiving blood transfusion at this time with no complaints. Blood pressure:Normal.No Referral necessary Disposition:Hospitalization Differentials:Etiologies such as diverticulosis, AVM, coagulopathy, colitis, inflammatory bowel disease, malignancy, Cecy-Boyle tear, esophagitis, peptic ulcer disease, variceal bleed, gastritis, epistaxis, fissure, hemorrhoids amongst other pathologies. Medical Decision Makin yr old female with known right leg DVT recently started on Xarelto in setting of previous ICH and GI Bleed. She arrives after having black stools and feeling weak/short of breath over the last 24 hours. She is pale appearing and return HgB is 6. EKG without ischemia and BP OK. She was consented for transfusion and this was started. She has clearly black tarry bloody stools and no doubt this is GI bleed thus started on Protonix gtt. Hospitalist consulted and will bring her in. Impression: Upper GI bleed Acute Blood Loss Anemia Critical Care Time: I have personally spent greater than 35 minutes of critical care time in the direct management of this patient. Acute GI Bleed with severe anemia on Xarelto requiring transfusion. This was a life/limb threatening event. This includes time spent evaluating patient, direct bedside care, chart review, placing orders, interpretation of diagnostic studies, discussion with consultants, patie nt, and family members, as well as other required patient management activities. This 35 minutes is in excess of all separately billable procedures. Impression & Plan Upper GI bleed, Acute blood loss anemia Past Med/Surg History Medical History Acute blood loss anemia (Acute) Acute bronchitis with bronchospasm (Acute) Anemia (Acute) Bilateral pleural effusion (Acute) Bladder neoplasm Carpal tunnel syndrome, bilateral (Acute) CHF (congestive heart failure) (Acute) Chronic diastolic (congestive) heart failure (Chronic) Chronic osteoarthritis (Acute) Disorder of bone (Acute) DVT of leg (deep venous thrombosis) (Acute) Dyspnea on exertion (Acute) Essential hypertension (Chronic) Gait disturbance (Acute) GI bleed (Acute) Hemiparesis, right (Chronic) Hypothyroidism (Acute) Left femoral vein DVT (Acute) Lumbar compression fracture (Acute) Multiple fractures of ribs of right side (Acute) Muscle spasticity (Acute) Muscular deconditioning (Acute) Nocturia (Acute) Numbness of left hand (Acute) Osteoporosis (Chronic) Other specified acquired deformities of right upper arm (Acute) Pelvic fracture (Resolved) Polyneuropathy (Acute) Primary lateral sclerosis (Chronic) Stroke syndrome (Acute) TIA (transient ischemic attack) (Resolved) Trochanteric bursitis of left hip (Acute) Urinary incontinence (Acute) Vitamin D deficiency (Acute) Vulvovaginitis (Acute) Surgical History Hip joint replacement status (Resolved) History of bilateral salpingo-oophorectomy History of tonsillectomy (Resolved) History of total abdominal hysterectomy S/P KALYN-BSO (Resolved) Family History Mother Congestive heart failure Type 2 diabetes mellitus without complications Essential hypertension Myocardial infarction Hypertension Father Hodgkins lymphoma Brother Colon cancer Throat cancer Grandmother Myocardial infarction Stroke Social History Preferred Language: Vietnamese Communication Ability: Effective 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 Required: No Beliefs That Will Affect Care: None Current Living Situation: Spouse Feels Safe at Home: Yes Smoking Status: Never smoker Hx Alcohol Use: No Hx Substance Use: No caffeine: Yes Seatbelt Use: always Results & Data Vital Signs Vital Signs - 24 hr 03/28/19 16:18 03/28/19 17:45 03/28/19 18:14 Temperature 36.6 C 36.8 C Temperature Source Oral Oral Pulse Rate 101 H 101 H Pulse Rate [Left] 99 H Pulse Rhythm Regular Pulse Rhythm [Left] Regular Pulse Strength Normal Respiratory Rate 26 H 25 H 22 Respiratory Effort / Characteristics Non-Labored Spontaneous Non-Labored Respiratory Depth Normal Normal Respiratory Pattern Regular Regular Blood Pressure 126/70 Blood Pressure [Left Arm] 133/64 Blood Pressure Mean 88 Blood Pressure Mean [Left Arm] 87 Pulse Oximetry 93 93 92 Oxygen Delivery Method Room Air Room Air Sepsis Recent Fever Within 48 Hours No Sepsis New/Unexplained Change in Mental Status No Sepsis Action Taken by Nursing No Action Required 03/28/19 18:31 03/28/19 18:45 03/28/19 18:47 Temperature 36.2 C L 36.8 C 36.9 C Temperature Source Oral Oral Oral Pulse Rate 90 92 H 112 H Pulse Rate [Left] Pulse Rhythm Pulse Rhythm [Left] Pulse Strength Respiratory Rate 24 20 22 Respiratory Effort / Characteristics Respiratory Depth Respiratory Pattern Blood Pressure 132/69 121/60 123/73 Blood Pressure [Left Arm] Blood Pressure Mean 90 80 89 Blood Pressure Mean [Left Arm] Pulse Oximetry 93 92 92 Oxygen Delivery Method Sepsis Recent Fever Within 48 Hours Sepsis New/Unexplained Change in Mental Status Sepsis Action Taken by Care Home Medications Current Medication List: was personally reviewed by me Laboratory Data Attestation: I reviewed the patient's lab results. Result diagrams: 03/28/19 16:51 03/28/19 16:51 Lab Results 03/28/19 03/28/19 03/28/19 Range/Units 16:51 16:51 16:51 WBC 5.68 (4.8-10.8) K/uL RBC 1.96 L (4.2-5.4) M/uL Hgb 6.0 L* (12.0-16.0) g/dL Hct 19.1 L* (37-47) % MCV 97.4 (80-100) fL MCH 30.6 (25-34) pg MCHC 31.4 L (32-36) g/dL RDW Std Deviation 55.0 H (36.4-46.3) fL RDW Coeff of Erin 15.9 H (11.5-14.5) % Plt Count 271 (130-400) K/uL MPV 10.3 (7.4-10.4) fL Immature Gran % (Auto) 0.2 % Neut % (Auto) 60.8 % Lymph % (Auto) 26.2 % Nance % (Auto) 9.3 % Eos % (Auto) 3.3 % Baso % (Auto) 0.2 % Immature Gran # (Auto) 0.01 (0.00-0.02) K/uL Neut # (Auto) 3.45 (1.4-6.5) K/uL Lymph # (Auto) 1.49 (1.2-3.4) K/uL Nance # (Auto) 0.53 (0.11-0.59) K/uL Eos # (Auto) 0.19 (0-0.5) K/uL Baso # (Auto) 0.01 (0-0.2) K/uL Polychromasia 1+ PT 11.3 (9.0-12.0) Seconds INR 1.1 (0.9-1.1) APTT 22.2 (21.0-31.0) Seconds PTT Ratio 0.8 Sodium 141 (136-145) mmol/L Potassium 3.7 (3.5-5.1) mmol/L Chloride 109 H (98-107) mmol/L Carbon Dioxide 21 (21-32) mmol/L Anion Gap 10.0 (3-11) BUN 27 H (7-18) mg/dl Creatinine 0.96 (0.6-1.2) mg/dl Est Cr Clr Drug Dosing 38.2 ml/min Est GFR ( Amer) 62.9 Est GFR (Non-Af Amer) 54.3 BUN/Creatinine Ratio 28.3 H (10-20) Glucose 95 (70-99) mg/dl Calcium 8.4 L (8.5-10.1) mg/dl Magnesium 1.9 (1.8-2.4) mg/dl Total Bilirubin 0.2 (0.2-1) mg/dl Direct Bilirubin < 0.1 (0-0.2) mg/dl AST 16 (15-37) U/L ALT 18 (12-78) U/L Alkaline Phosphatase 100 (45-117) U/L Troponin I < 0.015 (0-0.045) ng/ml Total Protein 6.2 L (6.4-8.2) gm/dl Albumin 3.1 L (3.4-5.0) gm/dl Lipase 162 (73-393) U/L Blood Type Antibody Screen Crossmatch 03/28/19 Range/Units 16:51 WBC (4.8-10.8) K/uL RBC (4.2-5.4) M/uL Hgb (12.0-16.0) g/dL Hct (37-47) % MCV (80-100) fL MCH (25-34) pg MCHC (32-36) g/dL RDW Std Deviation (36.4-46.3) fL RDW Coeff of Erin (11.5-14.5) % Plt Count (130-400) K/uL MPV (7.4-10.4) fL Immature Gran % (Auto) % Neut % (Auto) % Lymph % (Auto) % Nance % (Auto) % Eos % (Auto) % Baso % (Auto) % Immature Gran # (Auto) (0.00-0.02) K/uL Neut # (Auto) (1.4-6.5) K/uL Lymph # (Auto) (1.2-3.4) K/uL Nance # (Auto) (0.11-0.59) K/uL Eos # (Auto) (0-0.5) K/uL Baso # (Auto) (0-0.2) K/uL Polychromasia PT (9.0-12.0) Seconds INR (0.9-1.1) APTT (21.0-31.0) Seconds PTT Ratio Sodium (136-145) mmol/L Potassium (3.5-5.1) mmol/L Chloride (98-107) mmol/L Carbon Dioxide (21-32) mmol/L Anion Gap (3-11) BUN (7-18) mg/dl Creatinine (0.6-1.2) mg/dl Est Cr Clr Drug Dosing ml/min Est GFR ( Amer) Est GFR (Non-Af Amer) BUN/Creatinine Ratio (10-20) Glucose (70-99) mg/dl Calcium (8.5-10.1) mg/dl Magnesium (1.8-2.4) mg/dl Total Bilirubin (0.2-1) mg/dl Direct Bilirubin (0-0.2) mg/dl AST (15-37) U/L ALT (12-78) U/L Alkaline Phosphatase (45-117) U/L Troponin I (0-0.045) ng/ml Total Protein (6.4-8.2) gm/dl Albumin (3.4-5.0) gm/dl Lipase (73-393) U/L Blood Type O Positive Antibody Screen NEGATIVE Crossmatch See Detail Administered Medications Furosemide (Lasix) 20 mg PO TODAY@2100 [facility] Stop: 03/29/19 06:00 Last Admin: 03/28/19 22:17 Dose: 20 mg Documented by: [id number] Pantoprazole Sodium 40 mg/ (Dextrose) 100 mls @ 20 mls/hr IV Q5H KACIE Stop: 04/27/19 16:29 Last Admin: 03/28/19 21:27 Dose: 20 mls/hr Documented by: [id number] Infusion: 03/28/19 21:27 Dose: 20 mls/hr Documented by: [id number] Admin: 03/28/19 17:45 Dose: 20 mls/hr Documented by: [id number] Metoprolol Tartrate (Lopressor) 50 mg PO BID KACIE Stop: 04/27/19 20:59 Last Admin: 03/28/19 22:17 Dose: 50 mg Documented by: [id number] Vitamin D (Vitamin D3) 5,000 units PO QPM KACIE Stop: 04/27/19 20:59 Last Admin: 03/28/19 22:17 Dose: Not Given Documented by: [id number] Discontinued Medications Pantoprazole Sodium 80 mg/ (Dextrose) 120 mls @ 480 mls/hr IV NOW ONE Stop: 03/28/19 16:44 Last Infusion: 03/28/19 17:34 Dose: 0 mls/hr Documented by: [id number] Admin: 03/28/19 17:05 Dose: 480 mls/hr Documented by: [id number] Blood Pressure Blood Pressure Findings: Elevated blood pressure Blood Pressure Disposition: did not require urgent referral Discharge Plan Visit Data *Final* Discharge Date/Time: 03/28/19 19:38 Chief Complaint: GI Bleed Stated Complaint: SOB, DARK STOOL ED Provider: Jarad Horn Discharge Problem: Upper GI bleed, Acute blood loss anemia Patient Disposition: Admitted As Inpatient Discharge Instructions Interventions: ED Discharge Assessment Last Done: 03/28/19 19:38 The scribe's documentation has been prepared under my direction and personally reviewed by me in its entirety. I confirm that the note above accurately reflects all work, treatment, procedures, and medical decision making performed by me.
[2019-03-29] MEDS: PANTOprazole 40 MG in DEXTROSE 5% 100 ML IV SCH ×3 (02:14→12:38)
[2019-03-29 03:41] LABS: Basophils # (auto) 0.01 K/uL (0-0.2); Basophils % (auto) 0.2 %; Eosinophils # (auto) 0.18 K/uL (0-0.5); Eosinophils % (auto) 3.3 %; Hematocrit (blood only) 25.8 % (37-47); Hemoglobin 8.4 g/dL (12.0-16.0); Immature Granulocytes # (auto) 0.01 K/uL (0.00-0.02); Immature Granulocytes % (auto) 0.2 %; Lymphocytes # (auto) 1.24 K/uL (1.2-3.4); Lymphocytes % (auto) 22.8 %; Mean Corpuscular Hemoglobin 30.5 pg (25-34); Mean Corpuscular Hgb Conc 32.6 g/dL (32-36); Mean Corpuscular Volume 93.8 fL (80-100); Mean Platelet Volume 10.3 fL (7.4-10.4); Monocytes # (auto) 0.54 K/uL (0.11-0.59); Monocytes % (auto) 9.9 %; Neutrophils # (auto) 3.45 K/uL (1.4-6.5); Neutrophils % (auto) 63.6 %; Platelet Count 231 K/uL (130-400); RDW Coefficient of Variation 15.8 % (11.5-14.5); RDW Standard Deviation 52.3 fL (36.4-46.3); Red Blood Count 2.75 M/uL (4.2-5.4); White Blood Count 5.43 K/uL (4.8-10.8)
[2019-03-29 04:09] LABS: BUN Creatinine Ratio 22.7 (10-20); Calcium 8.1 mg/dl (8.5-10.1); Creatinine Clr Calc Pharmacy 38.2 ml/min; Est GFR (African American) 62.9; Est GFR (Non-African American) 54.3; Potassium 3.8 mmol/L (3.5-5.1)
--- NOTE | 2019-03-29 06:35 | Ultrasound Report ---
US venous doppler LE RT HISTORY: 84 years-old Female reevaluation of R peroneal DVT follow-up study in a patient with occlus kailash deep venous thrombosis of the right peroneal vein described on recent Doppler study COMPARISON: Duplex venous Doppler study 03/06/2018 TECHNIQUE: Multiple real-time sonographic images of the right lower extremity deep venous structures were obtained assessing grayscale appearance, color and spectral flow FINDINGS: Occlusive deep venous thrombosis involves one of the paired peroneal veins compatible with occlusive thrombus which was also noted on prior study. The remaining deep venous structures of the right lower extremity are unremarkable and completely compressible. IMPRESSION: 1. Occlusive deep venous thrombosis of the right peroneal vein redemonstrated. 2. No progressive deep venous thrombosis identified. The above report was generated using voice recognition software. It may contain grammatical, syntax o r spelling errors. Electronically signed by: Pritesh Banegas M.D. 03/29/2019 6:33 AM
[2019-03-29] MEDS: LEVOTHYROXINE SODIUM 75 MCG TABLET PO SCH (06:42)
[2019-03-29] MEDS: METOPROLOL TARTRATE 50 MG TAB PO SCH ×2 (09:00→20:29)
[2019-03-29] MEDS: FUROSEMIDE 20 MG TAB PO SCH (09:00)
[2019-03-29] MEDS: DOCUSATE SODIUM 100 MG CAP PO SCH (09:00)
--- NOTE | 2019-03-29 09:37 | Gastrointestinal Consultation ---
Date of Consultation March 29, 2019 Assessment & Plan (1) Acute blood loss anemia: 84 year old female with history of DVT on Xarelto, last dose 03/28 w/ prior history of GIB on xarelto, CVA, hypothyroidism, pleural effusion, chronic diastolic heart failure with EF 55-60% in 04/2018 admitted w/ symptomatic anemia, HGB 6.0 w/ BUN elevation at 27. She was made NPO, started on IV PPI drip w/ AC held. S/P RBCs x 2 units w/ appropriate response in HGB to 8.4. DDX to induce gastritis, PUD etc - NPO - IV PPI x 48 hours - Hold Xarelto - Will defer ongoing discussion regarding safety of anticoagulation moving forward to the primary team - Stop NSAIDs (she notes was using advil at home more frequently of recent) - Trend HGB - Monitor and document all GI output - Tranfuse PRN per protocol - We did discuss endoscopy - Pt is very hesitant to this test - Family at bedside who notes they do not also feel strongly about pursuing endoscopy - I had asked that she remain NPO in the event urgent endoscopy is warranted Will follow. Thank you for allowing us to participate in the care of this patient. Please call with any acute changes, questions or concerns. Please see addendum below with additional recommendation from my supervising physician. Present on Admission?: Yes Supervising Physician Co-Signing Physician Notes I have seen and examined the patient with GAURI Webster whose note reflects our findings and plan. Melena. Anemia. On NSAIDs. Abd mildly tender. PPI gtt running. EGD planned for today. History of Present Illness Reason for Consultation: GIB Requesting Physician: Maykel Attending Physician: Flakita Brar MD History of Present Illness 84 year old female with history of DVT on Xarelto since February, stroke without residual deficit, intracerebral hemorrhage, GI bleeding last year while on Xarelto, hypothyroidism, pleural effusion, chronic diastolic heart failure with EF 55-60% in 04/2018, TIA who presented through the ED for evaluation of progressive SOB - admitted w/ symptomatic anemia. GI asked to evaluate for dark stools. Pt was seen and evaluated, family at bedside. Notes dark stools at baseline on PO iron. However, over the past 3/4 days noted dark, black stools w/ incraesed frequency suggests she moved her bowesl between 1-3 times daily. No BRBPR. No UGI symptoms specifically no abdominal pain, nausea, vomiting, change in appeetite. Denies any lightheadedness or dizziness. She does not recall seeing any blood in urine however, H&P notes she also had some hematuria. NSAIDs: ASA, advil daily AC: xarelto In the ED, HGB 6.0 w/ BUN 27. She was transfused x 2 units w/ appropriate response and repeat HGB this AM 8.3 w/ BUN 22. Venous doppler shows persistent DVT. EGD 2016: unremarkable Colonoscopy 2011: OSH no record currently available Allergies Allergy/AdvReac Type Severity Reaction Status Date / Time Sulfa (Sulfonamide Allergy Unknown HANDS Verified 03/28/19 17:22 Antibiotics) SWELLED Home Medications Home Medications Medication Instructions Recorded Confirmed Type cholecalciferol (vitamin D3) 5,000 5,000 units PO QPM tab 10/12/18 03/28/19 History unit tablet ferrous gluconate 324 mg (38 mg 324 mg PO Q2D tab 12/23/18 03/28/19 History iron) tablet docusate sodium 100 mg capsule 100 mg PO Q2D cap 03/06/19 03/28/19 History metoprolol tartrate 50 mg PO BID 30 Days #60 tab 03/08/19 03/28/19 Rx furosemide 20 mg PO QAM 03/28/19 03/28/19 History hydroxyzine HCl 25 mg PO BID PRN 03/28/19 03/28/19 History levothyroxine 75 mcg PO QAM 03/28/19 03/28/19 History rivaroxaban [Xarelto] 20 mg PO DAILY@1700 03/28/19 03/28/19 History Patient History Medical History Acute blood loss anemia (Acute) Acute bronchitis with bronchospasm (Acute) Anemia (Acute) Bilateral pleural effusion (Acute) Bladder neoplasm Carpal tunnel syndrome, bilateral (Acute) CHF (congestive heart failure) (Acute) Chronic diastolic (congestive) heart failure (Chronic) Chronic osteoarthritis (Acute) Disorder of bone (Acute) DVT of leg (deep venous thrombosis) (Acute) Dyspnea on exertion (Acute) Essential hypertension (Chronic) Gait disturbance (Acute) GI bleed (Acute) Hemiparesis, right (Chronic) Hypothyroidism (Acute) Left femoral vein DVT (Acute) Lumbar compression fracture (Acute) Multiple fractures of ribs of right side (Acute) Muscle spasticity (Acute) Muscular deconditioning (Acute) Nocturia (Acute) Numbness of left hand (Acute) Osteoporosis (Chronic) Other specified acquired deformities of right upper arm (Acute) Pelvic fracture (Resolved) Polyneuropathy (Acute) Primary lateral sclerosis (Chronic) Stroke syndrome (Acute) TIA (transient ischemic attack) (Resolved) Trochanteric bursitis of left hip (Acute) Urinary incontinence (Acute) Vitamin D deficiency (Acute) Vulvovaginitis (Acute) Surgical History Hip joint replacement status (Resolved) History of bilateral salpingo-oophorectomy History of tonsillectomy (Resolved) History of total abdominal hysterectomy S/P KALYN-BSO (Resolved) Family History Mother Congestive heart failure Type 2 diabetes mellitus without complications Essential hypertension Myocardial infarction Hypertension Father Hodgkins lymphoma Brother Colon cancer Throat cancer Grandmother Myocardial infarction Stroke Social History Preferred Language: [place] African Communication Ability: Effective Yarn Spinner Required: No Beliefs That Will Affect Care: None marital status: Current Living Situation: Spouse Feels Safe at Home: Yes Smoking Status: Never smoker Hx Alcohol Use: No Hx Substance Use: No caffeine: Yes Seatbelt Use: always Review of Systems Constitutional: + fatigue; no fever and no chills Respiratory: + dyspnea and + dyspnea on exertion; no cough and no chest congestion Cardiovascular: + dyspnea; no chest pain and no chest pain at rest Gastrointestinal: + change in stools and + melena; no abdominal pain, no belching, no bloating, no early satiety, no heartburn, no nausea, no vomiting, no coffee ground emesis, no hematemesis, no pain with swallowing, no dysphagia, no cramping, no excessive flatulence, no change in bowel habits, no constipation, no diarrhea/loose stools, no fecal incontinence and no blood in stools Physical Exam Constitutional: well nourished; no acute distress Neck: trachea midline Respiratory: normal respiratory effort Cardiovascular: Rate/Rhythm: regular rate and regular rhythm Gastrointestinal (Abdomen): normal bowel sounds, soft, nontender, no he patosplenomegaly Results & Data Vital Signs (Past 12 Hours) Vital Signs Temp Pulse Pulse Pulse Resp BP BP 03/29/19 07:33 37 C 80 22 137/69 03/29/19 03:47 36.8 C 77 18 108/66 03/29/19 01:42 36.6 C 81 18 121/66 03/29/19 00:43 36.7 C 82 18 131/71 03/28/19 23:55 100 H 03/28/19 23:43 36.7 C 90 20 137/74 03/28/19 23:13 91 H 18 114/61 03/28/19 22:58 36.9 C 92 H 18 127/62 03/28/19 22:39 36.9 C 93 H 18 120/61 Pulse Ox 03/29/19 07:33 97 03/29/19 03:47 97 03/29/19 01:42 94 03/29/19 00:43 97 03/28/19 23:55 03/28/19 23:43 98 03/28/19 23:13 03/28/19 22:58 99 03/28/19 22:39 99 Laboratory Results 03/29/19 03/29/19 03/29/19 Range/Units 09:29 03:29 03:29 WBC 6.28 5.43 (4.8-10.8) K/uL RBC 2.80 L 2.75 L (4.2-5.4) M/uL Hgb 8.4 L 8.4 L (12.0-16.0) g/dL Hct 26.0 L 25.8 L (37-47) % MCV 92.9 93.8 (80-100) fL MCH 30.0 30.5 (25-34) pg MCHC 32.3 32.6 (32-36) g/dL RDW Std Deviation 52.4 H 52.3 H (36.4-46.3) fL RDW Coeff of Erin 15.8 H 15.8 H (11.5-14.5) % Plt Count 245 231 (130-400) K/uL MPV 10.1 10.3 (7.4-10.4) fL Immature Gran % (Auto) 0.0 0.2 % Neut % (Auto) 74.2 63.6 % Lymph % (Auto) 15.1 22.8 % [place] % (Auto) 8.3 9.9 % Eos % (Auto) 2.1 3.3 % Baso % (Auto) 0.3 0.2 % Immature Gran # (Auto) 0.00 0.01 (0.00-0.02) K/uL Neut # (Auto) 4.66 3.45 (1.4-6.5) K/uL Lymph # (Auto) 0.95 L 1.24 (1.2-3.4) K/uL [place] # (Auto) 0.52 0.54 (0.11-0.59) K/uL Eos # (Auto) 0.13 0.18 (0-0.5) K/uL Baso # (Auto) 0.02 0.01 (0-0.2) K/uL Polychromasia PT (9.0-12.0) Seconds INR (0.9-1.1) APTT (21.0-31.0) Seconds PTT Ratio Sodium 143 (136-145) mmol/L Potassium 3.8 (3.5-5.1) mmol/L Chloride 111 H (98-107) mmol/L Carbon Dioxide 25 (21-32) mmol/L Anion Gap 7.0 (3-11) BUN 22 H (7-18) mg/dl Creatinine 0.96 (0.6-1.2) mg/dl Est Cr Clr Drug Dosing 38.2 ml/min Est GFR ( Amer) 62.9 Est GFR (Non-Af Amer) 54.3 BUN/Creatinine Ratio 22.7 H (10-20) Glucose 95 (70-99) mg/dl Calcium 8.1 L (8.5-10.1) mg/dl Magnesium (1.8-2.4) mg/dl Total Bilirubin (0.2-1) mg/dl Direct Bilirubin (0-0.2) mg/dl AST (15-37) U/L ALT (12-78) U/L Alkaline Phosphatase (45-117) U/L Troponin I (0-0.045) ng/ml Total Protein (6.4-8.2) gm/dl Albumin (3.4-5.0) gm/dl Lipase (73-393) U/L Blood Type Antibody Screen Crossmatch 03/28/19 03/28/19 03/28/19 Range/Units 16:51 16:51 16:51 WBC (4.8-10.8) K/uL RBC (4.2-5.4) M/uL Hgb (12.0-16.0) g/dL Hct (37-47) % MCV (80-100) fL MCH (25-34) pg MCHC (32-36) g/dL RDW Std Deviation (36.4-46.3) fL RDW Coeff of Erin (11.5-14.5) % Plt Count (130-400) K/uL MPV (7.4-10.4) fL Immature Gran % (Auto) % Neut % (Auto) % Lymph % (Auto) % [place] % (Auto) % Eos % (Auto) % Baso % (Auto) % Immature Gran # (Auto) (0.00-0.02) K/uL Neut # (Auto) (1.4-6.5) K/uL Lymph # (Auto) (1.2-3.4) K/uL [place] # (Auto) (0.11-0.59) K/uL Eos # (Auto) (0-0.5) K/uL Baso # (Auto) (0-0.2) K/uL Polychromasia PT 11.3 (9.0-12.0) Seconds INR 1.1 (0.9-1.1) APTT 22.2 (21.0-31.0) Seconds PTT Ratio 0.8 Sodium 141 (136-145) mmol/L Potassium 3.7 (3.5-5.1) mmol/L Chloride 109 H (98-107) mmol/L Carbon Dioxide 21 (21-32) mmol/L Anion Gap 10.0 (3-11) BUN 27 H (7-18) mg/dl Creatinine 0.96 (0.6-1.2) mg/dl Est Cr Clr Drug Dosing 38.2 ml/min Est GFR ( Amer) 62.9 Est GFR (Non-Af Amer) 54.3 BUN/Creatinine Ratio 28.3 H (10-20) Glucose 95 (70-99) mg/dl Calcium 8.4 L (8.5-10.1) mg/dl Magnesium 1.9 (1.8-2.4) mg/dl Total Bilirubin 0.2 (0.2-1) mg/dl Direct Bilirubin < 0.1 (0-0.2) mg/dl AST 16 (15-37) U/L ALT 18 (12-78) U/L Alkaline Phosphatase 100 (45-117) U/L Troponin I < 0.015 (0-0.045) ng/ml Total Protein 6.2 L (6.4-8.2) gm/dl Albumin 3.1 L (3.4-5.0) gm/dl Lipase 162 (73-393) U/L Blood Type O Positive Antibody Screen NEGATIVE Crossmatch See Detail 03/28/19 Range/Units 16:51 WBC 5.68 (4.8-10.8) K/uL RBC 1.96 L (4.2-5.4) M/uL Hgb 6.0 L* (12.0-16.0) g/dL Hct 19.1 L* (37-47) % MCV 97.4 (80-100) fL MCH 30.6 (25-34) pg MCHC 31.4 L (32-36) g/dL RDW Std Deviation 55.0 H (36.4-46.3) fL RDW Coeff of Erin 15.9 H (11.5-14.5) % Plt Count 271 (130-400) K/uL MPV 10.3 (7.4-10.4) fL Immature Gran % (Auto) 0.2 % Neut % (Auto) 60.8 % Lymph % (Auto) 26.2 % [place] % (Auto) 9.3 % Eos % (Auto) 3.3 % Baso % (Auto) 0.2 % Immature Gran # (Auto) 0.01 (0.00-0.02) K/uL Neut # (Auto) 3.45 (1.4-6.5) K/uL Lymph # (Auto) 1.49 (1.2-3.4) K/uL [place] # (Auto) 0.53 (0.11-0.59) K/uL Eos # (Auto) 0.19 (0-0.5) K/uL Baso # (Auto) 0.01 (0-0.2) K/uL Polychromasia 1+ PT (9.0-12.0) Seconds INR (0.9-1.1) APTT (21.0-31.0) Seconds PTT Ratio Sodium (136-145) mmol/L Potassium (3.5-5.1) mmol/L Chloride (98-107) mmol/L Carbon Dioxide (21-32) mmol/L Anion Gap (3-11) BUN (7-18) mg/dl Creatinine (0.6-1.2) mg/dl Est Cr Clr Drug Dosing ml/min Est GFR ( Amer) Est GFR (Non-Af Amer) BUN/Creatinine Ratio (10-20) Glucose (70-99) mg/dl Calcium (8.5-10.1) mg/dl Magnesium (1.8-2.4) mg/dl Total Bilirubin (0.2-1) mg/dl Direct Bilirubin (0-0.2) mg/dl AST (15-37) U/L ALT (12-78) U/L Alkaline Phosphatase (45-117) U/L Troponin I (0-0.045) ng/ml Total Protein (6.4-8.2) gm/dl Albumin (3.4-5.0) gm/dl Lipase (73-393) U/L Blood Type Antibody Screen Crossmatch
[2019-03-29 09:40] LABS: Basophils # (auto) 0.02 K/uL (0-0.2); Basophils % (auto) 0.3 %; Eosinophils # (auto) 0.13 K/uL (0-0.5); Eosinophils % (auto) 2.1 %; Hemoglobin 8.4 g/dL (12.0-16.0); Lymphocytes # (auto) 0.95 K/uL (1.2-3.4); Lymphocytes % (auto) 15.1 %; Mean Corpuscular Hgb Conc 32.3 g/dL (32-36); Mean Corpuscular Volume 92.9 fL (80-100); Mean Platelet Volume 10.1 fL (7.4-10.4); Monocytes # (auto) 0.52 K/uL (0.11-0.59); Monocytes % (auto) 8.3 %; Neutrophils # (auto) 4.66 K/uL (1.4-6.5); Neutrophils % (auto) 74.2 %; Platelet Count 245 K/uL (130-400); RDW Coefficient of Variation 15.8 % (11.5-14.5); RDW Standard Deviation 52.4 fL (36.4-46.3); White Blood Count 6.28 K/uL (4.8-10.8)
--- NOTE | 2019-03-29 10:41 | Hospitalist Progress Note ---
Date of Service March 29, 2019 Assessment & Plan (1) Upper GI bleed: Halie is an 84-year-old female with a past medical history of DVT, stroke without residual deficit, intracerebral hemorrhage, GI bleeding, hypothyroidism, pleural effusion, chronic diastolic heart failure with EF 55-60% in 04/2018, TIA, and primary right-sided lateral sclerosis who was diagnosed in February 2019 with a right peroneal DVT and was placed on Xarelto therapy, and who presents to the hospital with 3 days of increasing shortness of breath, hematuria, and melena. Acute upper GI bleed-this is a recurrent GI bleed for her in the setting of taking anticoagulation. She reports she was also taking Advil multiple times daily for chronic pains Hemoglobin acutely decreased from approximately 10--> 6.0 on admission Type and screen ordered, 2 units packed red blood cells given and now hgb up to 8.7 and stable No further melena since admission remains Hemodynamically stable -EGD here with small hiatal hernia, otherwise normal -GI offered colonoscopy but pt declines at this time -could be AVM in small bowel, colon Seems to be resolved now -advised against any further NSAIDs, aspirin -ok to dc PPI gtt -permanently discontinue any anticoagulation moving forward-discussed with pt and and they are in agreement -follow CBC again in the AM and transfuse if <8 or hemodynamically unstable (2) Acute deep vein thrombosis (DVT) of right peroneal vein: Right peroneal DVT recently diagnosed and placed on Xarelto Now discontinued Xarelto due to acute GI bleeding Repeat Doppler here shows same clot as previous, not propagated, not changed -discussed case with Dr. Ramirez on the phone-he reviewed the Doppler and case--states that since clot is in peroneal vein and not changed from previous, would not place IVC filter -advised pt and to watch for signs of worsening DVT such as swelling, pain, redness, etc. in RLE-if had propagation or enlargement of clot, would reconsider IVC filter -she SHOULD NOT go on any further anticoagulation at this time secondary to multiple major bleeding issues (3) Anemia: Acute blood loss anemia in setting of chronic anemia as above -transfused -continue FeSO4 -follow CBC -dc anticoagulation (4) Chronic diastolic (congestive) heart failure: Last EF 04/2018 was 55-60% No evidence of volume overload at this time, is now euvolemic (was hypovolemic) Continue furosemide 20 mg p.o. every morning (5) History of intracerebral hemorrhage without residual deficit: secondary to trauma in setting of taking Eliquis-now off AC (6) Hypothyroidism: TSH 0.669 in 05/2018 Continue levothyroxine 75 mcg every morning (7) Bilateral pleural effusion: Trace effusions with evidence of chronic pleural thickening on CXR With upper airway audible wheezing on exam No h/o smoking, COPD, or asthma -continue chronic qhs O2 (8) Primary lateral sclerosis: Chronic, has right sidede hemiparesis -supportive care -is non-ambulatory (9) DVT prophylaxis: Left leg SCD only-removed RLE SCD this AM -no chemical means due to GI bleeding Dispo-remain on PCU, if no further bleeding, hemodynamically stable and hgb stable, can dc to home tomorrow Subjective No BMs at all today, no bleeding from anywhere else. Hgb up from previous s/p PRBC transfusion and stable on serial checks. Pt denies headache or lightheadedness. Reports chronic wheezing and SOB. No chest pain or abd pain, no heartburn, no nuasea-in fact, was feeling hungry when I saw her before the EGD. I came back to see her later in the eveningto review results and she remained stable, no changes from the AM and was tolerating clears diet. Discussed her case with GI [employer] Tele with MALLORIER, Giselle, rates 80-100 Review of Systems Review of Systems: All systems reviewed & are unremarkable except as noted in HPI & below Physical Exam Constitutional: average body habitus; no acute distress and not ill appearing Eyes: + anicteric sclerae ENMT: external ear and nose normal, oropharynx normal Neck: trachea midline, no thyromegaly Respiratory: normal respiratory effort and + audible wheezes (upper airway wheezes); no labored breathing and does not use accessory muscles Auscultation: no diminished lung sounds, no crackles and no rhonchi Cardiovascular: RRR, no murmur, no edema Gastrointestinal (Abdomen): normal bowel sounds, soft, nontender, no hepatosplenomegaly Musculoskeletal: Extremities: extremities normal to inspection; no cyanosis and no clubbing Skin: no rashes, warm and dry Neurologic: moves all extremities, + focal motor deficit (weakness in RUE and RLE) and awake Psychiatric: A+Ox3, euthymic affect Results & Data Vital Signs (Past 12 Hours) Vital Signs Temp Pulse Pulse Pulse Resp BP BP 03/29/19 07:33 37 C 80 22 137/69 03/29/19 03:47 36.8 C 77 18 108/66 03/29/19 01:42 36.6 C 81 18 121/66 03/29/19 00:43 36.7 C 82 18 131/71 03/28/19 23:55 100 H 03/28/19 23:43 36.7 C 90 20 137/74 03/28/19 23:13 91 H 18 114/61 03/28/19 22:58 36.9 C 92 H 18 127/62 Pulse Ox 03/29/19 07:33 97 03/29/19 03:47 97 03/29/19 01:42 94 03/29/19 00:43 97 03/28/19 23:55 03/28/19 23:43 98 03/28/19 23:13 03/28/19 22:58 99 Laboratory Results 03/29/19 03/29/19 03/29/19 Range/Units 14:44 09:29 03:29 WBC 7.08 6.28 (4.8-10.8) K/uL RBC 2.89 L 2.80 L (4.2-5.4) M/uL Hgb 8.7 L 8.4 L (12.0-16.0) g/dL Hct 27.0 L 26.0 L (37-47) % MCV 93.4 92.9 (80-100) fL MCH 30.1 30.0 (25-34) pg MCHC 32.2 32.3 (32-36) g/dL RDW Std Deviation 52.8 H 52.4 H (36.4-46.3) fL RDW Coeff of Erin 15.7 H 15.8 H (11.5-14.5) % Plt Count 246 245 (130-400) K/uL MPV 10.4 10.1 (7.4-10.4) fL Immature Gran % (Auto) 0.0 % Neut % (Auto) 74.2 % Lymph % (Auto) 15.1 % [place] % (Auto) 8.3 % Eos % (Auto) 2.1 % Baso % (Auto) 0.3 % Immature Gran # (Auto) 0.00 (0.00-0.02) K/uL Neut # (Auto) 4.66 (1.4-6.5) K/uL Lymph # (Auto) 0.95 L (1.2-3.4) K/uL [place] # (Auto) 0.52 (0.11-0.59) K/uL Eos # (Auto) 0.13 (0-0.5) K/uL Baso # (Auto) 0.02 (0-0.2) K/uL Sodium 143 (136-145) mmol/L Potassium 3.8 (3.5-5.1) mmol/L Chloride 111 H (98-107) mmol/L Carbon Dioxide 25 (21-32) mmol/L Anion Gap 7.0 (3-11) BUN 22 H (7-18) mg/dl Creatinine 0.96 (0.6-1.2) mg/dl Est Cr Clr Drug Dosing 38.2 ml/min Est GFR ( Amer) 62.9 Est GFR (Non-Af Amer) 54.3 BUN/Creatinine Ratio 22.7 H (10-20) Glucose 95 (70-99) mg/dl Calcium 8.1 L (8.5-10.1) mg/dl Crossmatch 03/29/19 03/28/19 Range/Units 03:29 16:51 WBC 5.43 (4.8-10.8) K/uL RBC 2.75 L (4.2-5.4) M/uL Hgb 8.4 L (12.0-16.0) g/dL Hct 25.8 L (37-47) % MCV 93.8 (80-100) fL MCH 30.5 (25-34) pg MCHC 32.6 (32-36) g/dL RDW Std Deviation 52.3 H (36.4-46.3) fL RDW Coeff of Erin 15.8 H (11.5-14.5) % Plt Count 231 (130-400) K/uL MPV 10.3 (7.4-10.4) fL Immature Gran % (Auto) 0.2 % Neut % (Auto) 63.6 % Lymph % (Auto) 22.8 % [place] % (Auto) 9.9 % Eos % (Auto) 3.3 % Baso % (Auto) 0.2 % Immature Gran # (Auto) 0.01 (0.00-0.02) K/uL Neut # (Auto) 3.45 (1.4-6.5) K/uL Lymph # (Auto) 1.24 (1.2-3.4) K/uL [place] # (Auto) 0.54 (0.11-0.59) K/uL Eos # (Auto) 0.18 (0-0.5) K/uL Baso # (Auto) 0.01 (0-0.2) K/uL Sodium (136-145) mmol/L Potassium (3.5-5.1) mmol/L Chloride (98-107) mmol/L Carbon Dioxide (21-32) mmol/L Anion Gap (3-11) BUN (7-18) mg/dl Creatinine (0.6-1.2) mg/dl Est Cr Clr Drug Dosing ml/min Est GFR ( Amer) Est GFR (Non-Af Amer) BUN/Creatinine Ratio (10-20) Glucose (70-99) mg/dl Calcium (8.5-10.1) mg/dl Crossmatch See Detail PG Care Time/CCT Total # of Minutes Spent Total Time Spent with Patient: Total time spent is greater than 50% in coordination of care (as documented) at patient's floor/unit and/or counseling patient: (1) Anemia Anemia type: unspecified type Qualified Code(s): D64.9 - Anemia, unspecified
[2019-03-29] MEDS ORDERED: ATROPINE SULFATE 0.1 MG/ML 10ML SYR IV PRN ×2 (13:01→13:10)
[2019-03-29] MEDS ORDERED: ePHEDrine sulfate 50 MG/ML AMP IV PRN ×2 (13:01→13:10)
--- NOTE | 2019-03-29 13:01 | Anesthesiology Consultation ---
Date of Service March 29, 2019 Assessment & Plan (1) Encounter for pre-operative examination: Chart Review Chart Review: Acceptable Risk for Surgery and Patient NOT seen in Pre Admission Testing Consults Requested none History Surgery Operation Date: 03/29/19 16:30 Proposed Procedures p Esophagogastroduodenoscopy Dr Villegas - Jayda Villegas Height/Weight Height: 5 ft Weight: 68.5 kg Allergies Allergy/AdvReac Type Severity Reaction Status Date / Time Sulfa (Sulfonamide Allergy Unknown HANDS Verified 03/28/19 17:22 Antibiotics) SWELLED Medications Home Medications Medication Instructions Recorded Confirmed Last Taken cholecalciferol (vitamin D3) 5,000 5,000 units PO QPM tab 10/12/18 03/28/19 03/27/19 unit tablet ferrous gluconate 324 mg (38 mg 324 mg PO Q2D tab 12/23/18 03/28/19 Unknown iron) tablet docusate sodium 100 mg capsule 100 mg PO Q2D cap 03/06/19 03/28/19 Unknown metoprolol tartrate 50 mg PO BID 30 Days #60 tab 03/08/19 03/28/19 03/28/19 AM DOSE furosemide 20 mg PO QAM 03/28/19 03/28/19 03/28/19 hydroxyzine HCl 25 mg PO BID PRN 03/28/19 03/28/19 Unknown levothyroxine 75 mcg PO QAM 03/28/19 03/28/19 03/28/19 rivaroxaban [Xarelto] 20 mg PO DAILY@1700 03/28/19 03/28/19 03/27/19 Active Medications Generic Name Dose Route Start Last Admin Trade Name Freq PRN Reason Stop Dose Admin Pantoprazole Sodium 40 mg/ 100 mls @ 20 mls/hr 03/28/19 16:30 03/29/19 12:38 Dextrose IV 04/27/19 16:29 20 mls/hr Q5H KACIE Administration Levothyroxine Sodium 75 mcg 03/29/19 06:30 03/29/19 06:42 Synthroid PO 04/28/19 06:29 75 mcg DAILYBB KACIE Administration Metoprolol Tartrate 50 mg 03/28/19 21:00 03/28/19 22:17 Lopressor PO 04/27/19 20:59 50 mg BID KACIE Administration Vitamin D 5,000 units 03/28/19 21:00 03/28/19 22:17 Vitamin D3 PO 04/27/19 20:59 Not Given QPM KACIE Past Medical History Medical History Acute blood loss anemia (Acute) Acute bronchitis with bronchospasm (Acute) Anemia (Acute) Bilateral pleural effusion (Acute) Bladder neoplasm Carpal tunnel syndrome, bilateral (Acute) CHF (congestive heart failure) (Acute) Chronic diastolic (congestive) heart failure (Chronic) Chronic osteoarthritis (Acute) Disorder of bone (Acute) DVT of leg (deep venous thrombosis) (Acute) Dyspnea on exertion (Acute) Essential hypertension (Chronic) Gait disturbance (Acute) GI bleed (Acute) Hemiparesis, right (Chronic) Hypothyroidism (Acute) Left femoral vein DVT (Acute) Lumbar compression fracture (Acute) Multiple fractures of ribs of right side (Acute) Muscle spasticity (Acute) Muscular deconditioning (Acute) Nocturia (Acute) Numbness of left hand (Acute) Osteoporosis (Chronic) Other specified acquired deformities of right upper arm (Acute) Pelvic fracture (Resolved) Polyneuropathy (Acute) Primary lateral sclerosis (Chronic) Stroke syndrome (Acute) TIA (transient ischemic attack) (Resolved) Trochanteric bursitis of left hip (Acute) Urinary incontinence (Acute) Vitamin D deficiency (Acute) Vulvovaginitis (Acute) Past Family History Family History Mother Congestive heart failure Type 2 diabetes mellitus without complications Essential hypertension Myocardial infarction Hypertension Father Hodgkins lymphoma Brother Colon cancer Throat cancer Grandmother Myocardial infarction Stroke Past Surgical History Surgical History Hip joint replacement status (Resolved) History of bilateral salpingo-oophorectomy History of tonsillectomy (Resolved) History of total abdominal hysterectomy S/P KALYN-BSO (Resolved) Social History Smoking Status: Never smoker Hx Alcohol Use: No Hx Substance Use: No Physical Exam Vital Signs Last Vital Signs Temp 36.6 C 03/29/19 11:48 Pulse 92 H 03/29/19 11:48 Resp 18 03/29/19 11:48 BP 129/74 03/29/19 11:48 Pulse Ox 90 03/29/19 11:48 Testing Laboratory Results 03/29/19 09:29 03/29/19 03:29 PT 11.3 Seconds (9.0-12.0) 03/28/19 16:51 INR 1.1 (0.9-1.1) 03/28/19 16:51 APTT 22.2 Seconds (21.0-31.0) 03/28/19 16:51 Blood Type O Positive 03/28/19 16:51 Antibody Screen NEGATIVE 03/28/19 16:51
--- NOTE | 2019-03-29 13:35 | Communication Note ---
Date of Service: March 29, 2019 S/P EGD without source of UGI blood loss identified. If anemia persists, last colonoscopy around 2010, can consider repeat colonoscopy. Will defer this decision to primary team and primary care provider endoscopic technician her advanced age. Will sign off. Recall if needed.
--- NOTE | 2019-03-29 13:40 | GI REPORT ---
Patient Name: Halie Bello Procedure Date: 03/29/2019 1:09 PM Date of : 1935 Admit Type: Inpatient Age: 84 Gender: Female Attending MD: Jayda Villegas DO Procedure: Upper GI endoscopy Providers: Jayda Villegas DO Referring MD: Frank Townsend Indications: Melena Medicines: Propofol per Anesthesia Complications: No immediate complications. Estimated blood loss: None. Estimated Blood Loss: Estimated blood loss: none. Procedure: Pre-Anesthesia Assessment: - Prior to the procedure, a History and Physical was performed, and patient medications, allergies and sensitivities were reviewed. The patient's tolerance of previous anesthesia was reviewed. - The risks and benefits of the procedure and the sedation options and risks were discussed with the patient. All questions were answered and informed consent was obtained. - Patient identification and proposed procedure were verified prior to the procedure by the physician and the nurse. The procedure was verified in the pre-procedure area in the procedure room. - Mental Status Examination: alert and oriented. Airway Examination: normal oropharyngeal airway and neck mobility. Respiratory Examination: clear to auscultation. CV Examination: normal. Abdominal Examination: bowel sounds present, abdomen soft and non-tender, no masses or organomegaly noted. - ASA Grade Assessment: III - A patient with severe systemic disease. After obtaining informed consent, the endoscope was passed under direct vision. Throughout the procedure, the patient's blood pressure, pulse, and oxygen saturations were monitored continuously. The scope was introduced through the mouth, and advanced to the second part of duodenum. The upper GI endoscopy was accomplished without difficulty. The patient tolerated the procedure well. Findings: The esophagus was normal. A large hiatal hernia was present. The examined duodenum was normal. Impression: - Normal esophagus. - Large hiatal hernia. - Normal examined duodenum. - No specimens collected. Recommendation: - Return patient to [facility] for ongoing care. Jayda Villegas D.O. Jayda Villegas DO 03/29/2019 1:40:11 PM This report has been signed electronically. Note Initiated On: 03/29/2019 1:09 PM Number of Addenda: 0 I attest to the content of the Intraoperative Record and orders documented therein, exceptions below {[id number]}
[2019-03-29] MEDS ORDERED: ONDANSETRON INJ 2 MG/ML 2 ML VIAL ONE (13:41)
[2019-03-29] MEDS ORDERED: PROPOFOL IV EMULSION 10 MG/ML 20 ML VIAL IV ONE (13:41)
[2019-03-29] MEDS ORDERED: GLYCOPYRROLATE 0.2 MG/ML VIAL ONE (13:41)
[2019-03-29] MEDS ORDERED: LIDOCAINE HCL 2% 2 ML VIAL/AMP(20MG/ML) INFIL ONE (13:41)
[2019-03-29 14:50] LABS: Hemoglobin 8.7 g/dL (12.0-16.0); Mean Corpuscular Hemoglobin 30.1 pg (25-34); Mean Corpuscular Hgb Conc 32.2 g/dL (32-36); Mean Corpuscular Volume 93.4 fL (80-100); Mean Platelet Volume 10.4 fL (7.4-10.4); Platelet Count 246 K/uL (130-400); RDW Coefficient of Variation 15.7 % (11.5-14.5); RDW Standard Deviation 52.8 fL (36.4-46.3); Red Blood Count 2.89 M/uL (4.2-5.4); White Blood Count 7.08 K/uL (4.8-10.8)
--- NOTE | 2019-03-29 16:50 | Anesthesiology Progress Note ---
Date of Service March 29, 2019 Anesthesia Post Procedure Vital Signs Vital Signs: Temp Pulse Pulse Pulse Resp BP BP 03/29/19 15:28 37.0 C 93 H 22 144/71 H 03/29/19 14:38 36.6 C 62 22 129/81 03/29/19 14:06 95 H 18 115/76 03/29/19 13:51 93 H 18 126/70 03/29/19 13:36 90 16 111/58 L 03/29/19 13:01 37.0 C 99 H 20 140/74 03/29/19 11:48 36.6 C 92 H 18 129/74 03/29/19 07:35 99 H 03/29/19 07:33 37 C 80 22 137/69 03/29/19 03:47 36.8 C 77 18 108/66 03/29/19 01:42 36.6 C 81 18 121/66 03/29/19 00:43 36.7 C 82 18 131/71 03/28/19 23:55 100 H 03/28/19 23:43 36.7 C 90 20 137/74 03/28/19 23:13 91 H 18 114/61 03/28/19 22:58 36.9 C 92 H 18 127/62 03/28/19 22:39 36.9 C 93 H 18 120/61 03/28/19 20:41 36.6 C 101 H 18 123/63 03/28/19 20:17 36.9 C 94 H 17 135/71 03/28/19 18:47 36.9 C 112 H 22 123/73 03/28/19 18:45 36.8 C 92 H 20 121/60 03/28/19 18:31 36.2 C L 90 24 132/69 03/28/19 18:14 36.8 C 101 H 22 126/70 03/28/19 17:45 99 H 25 H 133/64 Pulse Ox 03/29/19 15:28 98 03/29/19 14:38 93 03/29/19 14:06 98 03/29/19 13:51 98 03/29/19 13:36 96 03/29/19 13:01 95 03/29/19 11:48 90 03/29/19 07:35 03/29/19 07:33 97 03/29/19 03:47 97 03/29/19 01:42 94 03/29/19 00:43 97 03/28/19 23:55 03/28/19 23:43 98 03/28/19 23:13 03/28/19 22:58 99 03/28/19 22:39 99 03/28/19 20:41 92 03/28/19 20:17 91 03/28/19 18:47 92 03/28/19 18:45 92 03/28/19 18:31 93 03/28/19 18:14 92 03/28/19 17:45 93 Transfer of Care Handoff Completed per policy Notes Mental Status: alert / awake / arousable Patient Amnestic to Procedure: Yes Nausea / Vomiting: adequately controlled Pain: adequately controlled Airway Patency, RR, SpO2: stable & adequate BP & HR: stable & adequate Hydration State: stable & adequate Anesthetic Complications: no major complications apparent and Pt Satisfied with anesthetic care
[2019-03-29] MEDS: CHOLECALCIFEROL 1,000 UNITS TAB PO SCH (20:30)
[2019-03-29] MEDS: ACETAMINOPHEN 325 MG TAB PO PRN (22:34)
[2019-03-29] MEDS ORDERED: ALBUT/IPRATROP 3MG/0.5MG NEB 3 ML VIAL NEB STA (22:40)
[2019-03-29] MEDS ORDERED: FUROSEMIDE 20 MG in SYRINGE 0 ML IV ONE (23:30)
[2019-03-30] MEDS: LEVOTHYROXINE SODIUM 75 MCG TABLET PO SCH (05:23)
[2019-03-30 06:13] LABS: Basophils # (auto) 0.01 K/uL (0-0.2); Basophils % (auto) 0.1 %; Eosinophils # (auto) 0.08 K/uL (0-0.5); Eosinophils % (auto) 1.2 %; Hematocrit (blood only) 26.8 % (37-47); Hemoglobin 8.6 g/dL (12.0-16.0); Immature Granulocytes # (auto) 0.01 K/uL (0.00-0.02); Immature Granulocytes % (auto) 0.1 %; Lymphocytes # (auto) 0.74 K/uL (1.2-3.4); Lymphocytes % (auto) 10.9 %; Mean Corpuscular Hemoglobin 30.1 pg (25-34); Mean Corpuscular Hgb Conc 32.1 g/dL (32-36); Mean Corpuscular Volume 93.7 fL (80-100); Mean Platelet Volume 10.6 fL (7.4-10.4); Monocytes # (auto) 0.83 K/uL (0.11-0.59); Monocytes % (auto) 12.3 %; Neutrophils % (auto) 75.4 %; Platelet Count 234 K/uL (130-400); RDW Coefficient of Variation 15.4 % (11.5-14.5); RDW Standard Deviation 51.9 fL (36.4-46.3); Red Blood Count 2.86 M/uL (4.2-5.4); White Blood Count 6.77 K/uL (4.8-10.8)
[2019-03-30 06:49] LABS: BUN Creatinine Ratio 14.7 (10-20); Calcium 8.4 mg/dl (8.5-10.1); Creatinine Clr Calc Pharmacy 37.2 ml/min; Est GFR (African American) 63.7; Potassium 3.4 mmol/L (3.5-5.1)
--- NOTE | 2019-03-30 07:53 | XRay Report ---
XR chest 1V portable HISTORY: Shortness of breath. COMPARISON: Chest 03/28/2019. FINDINGS: Interval interstitial and vascular thickening consistent with mild pulmonary edema. No pneu mothorax. Small bilateral pleural effusions. The heart remains mildly enlarged. IMPRESSION: Interval development of mild interstitial pulmonary edema and small bilateral pleural effusions. Electronically signed by: Terry Centeno M.D. 03/30/2019 7:51 AM
[2019-03-30] MEDS: FUROSEMIDE 20 MG TAB PO SCH (08:06)
[2019-03-30] MEDS: METOPROLOL TARTRATE 50 MG TAB PO SCH ×2 (08:06→20:06)
[2019-03-30] MEDS ORDERED: POTASSIUM CHLORIDE 20 MEQ TABCR PO STA (09:27)
[2019-03-30] MEDS ORDERED: FUROSEMIDE 20 MG in SYRINGE 0 ML IV ONE ×2 (09:35→16:45)
--- NOTE | 2019-03-30 10:19 | Anesthesiology Progress Note ---
Date of Service March 30, 2019 Anesthesia Post Procedure Vital Signs Vital Signs: Temp Pulse Resp BP Pulse Ox 03/30/19 08:00 37.0 C 95 H 26 H 146/67 H 94 03/30/19 04:20 37.2 C 84 20 154/65 H 97 03/30/19 00:00 37.2 C 92 H 20 112/72 96 03/29/19 22:54 93 H 28 H 96 03/29/19 22:29 37.2 C 99 H 20 127/69 86 L 03/29/19 19:16 36.8 C 104 H 18 133/78 94 03/29/19 15:28 37.0 C 93 H 22 144/71 H 98 03/29/19 14:38 36.6 C 62 22 129/81 93 03/29/19 14:06 95 H 18 115/76 98 03/29/19 13:51 93 H 18 126/70 98 03/29/19 13:36 90 16 111/58 L 96 03/29/19 13:01 37.0 C 99 H 20 140/74 95 03/29/19 11:48 36.6 C 92 H 18 129/74 90 Transfer of Care Handoff Completed per policy Notes Mental Status: alert / awake / arousable Patient Amnestic to Procedure: Yes Nausea / Vomiting: adequately controlled Pain: adequately controlled Airway Patency, RR, SpO2: stable & adequate BP & HR: stable & adequate Hydration State: stable & adequate Anesthetic Complications: no major complications apparent and Pt Satisfied with anesthetic care
[2019-03-30] MEDS: ALBUT/IPRATROP 3MG/0.5MG NEB 3 ML VIAL NEB PRN ×2 (12:47→19:46)
--- NOTE | 2019-03-30 16:32 | Hospitalist Progress Note ---
Date of Service March 30, 2019 Assessment & Plan (1) Upper GI bleed: Halie is an 84-year-old female with a past medical history of DVT, stroke without residual deficit, intracerebral hemorrhage, GI bleeding, hypothyroidism, pleural effusion, chronic diastolic heart failure with EF 55-60% in 04/2018, TIA, and primary right-sided lateral sclerosis who was diagnosed in February 2019 with a right peroneal DVT and was placed on Xarelto therapy, and who presents to the hospital with 3 days of increasing shortness of breath, hematuria, and melena. Acute upper GI bleed-this is a recurrent GI bleed for her in the setting of taking anticoagulation. She reports she was also taking Advil multiple times daily for chronic pains Hemoglobin acutely decreased from approximately 10--> 6.0 on admission 2 units packed red blood cells given and now hgb up to 8.7 and stable again today at 8.6 No further GI bleeding except some old blood/melena stool remains Hemodynamically stable -EGD here with small hiatal hernia, otherwise normal -GI offered colonoscopy but pt declines at this time -could be AVM in small bowel, colon Seems to be resolved now -advised against any further NSAIDs, aspirin -have since dcd PPI gtt -permanently discontinue any anticoagulation moving forward-discussed with pt and and they are in agreement -follow CBC again in the AM and transfuse if <8 or hemodynamically unstable -adv diet to low fiber (2) Acute deep vein thrombosis (DVT) of right peroneal vein: Right peroneal DVT recently diagnosed and placed on Xarelto Now discontinued Xarelto due to acute GI bleeding Repeat Doppler here shows same clot as previous, not propagated, not changed -discussed case with Dr. Ramirez on the phone-he reviewed the Doppler and case--states that since clot is in peroneal vein and not changed from previous, would not place IVC filter -advised pt and to watch for signs of worsening DVT such as swelling, pain, redness, etc. in RLE-if had propagation or enlargement of clot, would reconsider IVC filter -she SHOULD NOT go on any further anticoagulation at this time secondary to multiple major bleeding issues (3) Anemia: Acute blood loss anemia in setting of chronic anemia as above -transfused and now stable -continue FeSO4 -follow CBC -dc anticoagulation (4) Chronic diastolic (congestive) heart failure: Acute on chronic diastolic CHF -developed worsening resp distress, pulm edema, worsening pleural effusions, hypoxia overnight after PRBC transfusion on 03/29-03/30 --continue IV lasix-given twice today and diuresing, improving -continue diuresis as needed and then return to home lasix po dosing -follow I/Os -wean off O2 as needed Last EF 12/2018 was 55-60% (5) Bilateral pleural effusion: Trace effusions with evidence of chronic pleural thickening on CXR on admission Now worsening as above with acute CHF With continued upper airway audible wheezing on exam No h/o smoking, COPD, or asthma -continue chronic qhs O2 and continuous O2 as above -make alb nebs scheduled QID (6) History of intracerebral hemorrhage without residual deficit: secondary to trauma in setting of taking Eliquis-now off AC (7) Hypothyroidism: TSH 0.669 in 05/2018 Continue levothyroxine 75 mcg every morning (8) Primary lateral sclerosis: Chronic, has right sided hemiparesis -supportive care -is non-ambulatory (9) Hypokalemia: secondary to loop diuretic -replace with po KCl -follow BMP, Mag in AM (10) Acute respiratory failure with hypoxia: as above -continue supplemental O2 to keep POx> 90% -continue diuresis -continue nebs scheduled (11) Dysphagia: has some occasional coughing with swallowing as noted by RN Speech eval appreciated -plan for video swallow tomorrow (12) DVT prophylaxis: Left leg SCD only-removed RLE SCD -no chemical means due to GI bleeding Dispo-remain on PCU, continue to treat acute CHF and if improved, can dc to home tomorrow Subjective Had worsening dyspnea overnight, requiring 4LNC which persists today. Was given IV lasix and has been diuresing quite a bit now, feeling better, but still SOB and wheezing. CXR showed worsening pulm edema and effusions Only had one small, dark stool today as per RN. Denies chest pain, no abd pain or heartburn. Otherwise feels fine Tele with NSR, ST Review of Systems Review of Systems: All systems reviewed & are unremarkable except as noted in HPI & below Physical Exam Constitutional: average body habitus; no acute distress and not ill appearing Eyes: + anicteric sclerae Neck: trachea midline, no thyromegaly Respiratory: normal respiratory effort; no labored breathing and does not use accessory muscles Auscultation: + crackles (bibasilar) and + wheezes (scattered exp wheezes bilat); no diminished lung sounds and no rhonchi Cardiovascular: RRR, no murmur, no edema Gastrointestinal (Abdomen): normal bowel sounds, soft, nontender, no hepatosplenomegaly Musculoskeletal: Extremities: extremities normal to inspection; no cyanosis and no clubbing Skin: no rashes, warm and dry Neurologic: moves all extremities, + focal motor deficit (weakness in RUE and RLE) and awake Psychiatric: A+Ox3, euthymic affect Results & Data Vital Signs (Past 12 Hours) Vital Signs Temp Pulse Pulse Resp BP Pulse Ox 03/30/19 15:14 36.4 C L 100 H 20 132/70 93 03/30/19 12:47 80 22 95 03/30/19 11:26 36.5 C 84 17 124/68 95 03/30/19 08:00 37.0 C 91 H 95 H 26 H 146/67 H 94 Laboratory Results 03/30/19 03/30/19 Range/Units 05:49 05:49 WBC 6.77 (4.8-10.8) K/uL RBC 2.86 L (4.2-5.4) M/uL Hgb 8.6 L (12.0-16.0) g/dL Hct 26.8 L (37-47) % MCV 93.7 (80-100) fL MCH 30.1 (25-34) pg MCHC 32.1 (32-36) g/dL RDW Std Deviation 51.9 H (36.4-46.3) fL RDW Coeff of Erin 15.4 H (11.5-14.5) % Plt Count 234 (130-400) K/uL MPV 10.6 H (7.4-10.4) fL Immature Gran % (Auto) 0.1 % Neut % (Auto) 75.4 % Lymph % (Auto) 10.9 % [place] % (Auto) 12.3 % Eos % (Auto) 1.2 % Baso % (Auto) 0.1 % Immature Gran # (Auto) 0.01 (0.00-0.02) K/uL Neut # (Auto) 5.10 (1.4-6.5) K/uL Lymph # (Auto) 0.74 L (1.2-3.4) K/uL [place] # (Auto) 0.83 H (0.11-0.59) K/uL Eos # (Auto) 0.08 (0-0.5) K/uL Baso # (Auto) 0.01 (0-0.2) K/uL Sodium 141 (136-145) mmol/L Potassium 3.4 L (3.5-5.1) mmol/L Chloride 109 H (98-107) mmol/L Carbon Dioxide 26 (21-32) mmol/L Anion Gap 6.0 (3-11) BUN 14 (7-18) mg/dl Creatinine 0.95 (0.6-1.2) mg/dl Est Cr Clr Drug Dosing 37.2 ml/min Est GFR ( Amer) 63.7 Est GFR (Non-Af Amer) 55.0 BUN/Creatinine Ratio 14.7 (10-20) Glucose 93 (70-99) mg/dl Calcium 8.4 L (8.5-10.1) mg/dl PG Care Time/CCT Total # of Minutes Spent Total Time Spent with Patient: Total time spent is greater than 50% in coordination of care (as documented) at patient's floor/unit and/or counseling patient: (1) Anemia Anemia type: unspecified type Qualified Code(s): D64.9 - Anemia, unspecified
[2019-03-30] MEDS: CHOLECALCIFEROL 1,000 UNITS TAB PO SCH (20:07)
[2019-03-31] MEDS: ACETAMINOPHEN 325 MG TAB PO PRN ×3 (04:27→23:30)
[2019-03-31] MEDS: LEVOTHYROXINE SODIUM 75 MCG TABLET PO SCH (05:44)
[2019-03-31 06:02] LABS: Eosinophils % (auto) 1.4 %; Hematocrit (blood only) 26.3 % (37-47); Hemoglobin 8.5 g/dL (12.0-16.0); Immature Granulocytes # (auto) 0.01 K/uL (0.00-0.02); Immature Granulocytes % (auto) 0.1 %; Lymphocytes # (auto) 0.95 K/uL (1.2-3.4); Lymphocytes % (auto) 13.3 %; Mean Corpuscular Hemoglobin 30.1 pg (25-34); Mean Corpuscular Hgb Conc 32.3 g/dL (32-36); Mean Corpuscular Volume 93.3 fL (80-100); Mean Platelet Volume 10.1 fL (7.4-10.4); Monocytes # (auto) 0.84 K/uL (0.11-0.59); Monocytes % (auto) 11.8 %; Neutrophils # (auto) 5.24 K/uL (1.4-6.5); Neutrophils % (auto) 73.4 %; Platelet Count 227 K/uL (130-400); RDW Standard Deviation 50.7 fL (36.4-46.3); Red Blood Count 2.82 M/uL (4.2-5.4); White Blood Count 7.14 K/uL (4.8-10.8)
[2019-03-31 06:34] LABS: BUN Creatinine Ratio 13.9 (10-20); Calcium 8.4 mg/dl (8.5-10.1); Creatinine Clr Calc Pharmacy 37.6 ml/min; Est GFR (African American) 64.6; Est GFR (Non-African American) 55.7; Magnesium 1.8 mg/dl (1.8-2.4); Potassium 3.4 mmol/L (3.5-5.1)
[2019-03-31] MEDS: ALBUT/IPRATROP 3MG/0.5MG NEB 3 ML VIAL NEB SCH ×4 (07:02→19:17)
[2019-03-31] MEDS ORDERED: KETOROLAC 30 MG/ML VIAL IV ONE (07:03)
[2019-03-31] MEDS ORDERED: MoRPHine SULFATE 2 MG/ML CARP IV STA ×2 (07:04→09:19)
[2019-03-31] MEDS: DOCUSATE SODIUM 100 MG CAP PO SCH (07:40)
[2019-03-31] MEDS: METOPROLOL TARTRATE 50 MG TAB PO SCH ×2 (07:43→20:08)
[2019-03-31] MEDS ORDERED: POTASSIUM CHLORIDE 20 MEQ/15 ML UDC PO STA (09:12)
[2019-03-31] MEDS ORDERED: FUROSEMIDE 20 MG in SYRINGE 0 ML IV STA (09:19)
[2019-03-31] MEDS ORDERED: MAGNESIUM SULFATE / D5W 1 GM/100 ML BAG IV STA (09:20)
[2019-03-31] MEDS: POTASSIUM CHLORIDE / WTR 10 MEQ/100 ML PLCT IV SCH ×2 (10:21→11:13)
--- NOTE | 2019-03-31 11:24 | Hospitalist Progress Note ---
Date of Service March 31, 2019 Assessment & Plan (1) Upper GI bleed: Halie is an 84-year-old female with a past medical history of DVT, stroke without residual deficit, intracerebral hemorrhage, GI bleeding, hypothyroidism, pleural effusion, chronic diastolic heart failure with EF 55-60% in 04/2018, TIA, and primary right-sided lateral sclerosis who was diagnosed in February 2019 with a right peroneal DVT and was placed on Xarelto therapy, and who presents to the hospital with 3 days of increasing shortness of breath, hematuria, and melena. Acute upper GI bleed-this is a recurrent GI bleed for her in the setting of taking anticoagulation. She reports she was also taking Advil multiple times daily for chronic pains Hemoglobin acutely decreased from approximately 10--> 6.0 on admission 2 units packed red blood cells given and now hgb up to 8.7 and stable for the third day in a row now at 8.5 No further GI bleeding except some old blood/melena stool the day after admission remains Hemodynamically stable -EGD here with small hiatal hernia, otherwise normal -GI offered colonoscopy but pt declines at this time -could have been an AVM in small bowel, colon Seems to be resolved now -advised against any further NSAIDs, aspirin -have since dcd PPI gtt and will start Protonix 40 mg once daily while on prednisone for ankle pain as below -permanently discontinue any anticoagulation moving forward-discussed with pt and and they are in agreement -follow CBC again in the AM and transfuse if <8 or hemodynamically unstable -Tolerating low fiber diet (2) Acute deep vein thrombosis (DVT) of right peroneal vein: Right peroneal DVT recently diagnosed in 02/2019 and placed on Xarelto Now discontinued Xarelto due to acute GI bleeding Repeat Doppler here shows same clot as previous, not propagated, not changed -discussed case with Dr. Wilkins of vascular surgery on the phone-he reviewed the Doppler and case--states that since clot is in peroneal vein and not changed from previous, would not place IVC filter -advised pt and to watch for signs of worsening DVT such as swelling, pain, redness, etc. in RLE-if had propagation or enlargement of clot, would reconsider IVC filter -she SHOULD NOT go on any further anticoagulation at this time secondary to multiple major bleeding issues (3) Ankle pain, right: Acute in onset overnight in the setting of IV diuresis Seems consistent with early acute gout attack in the right great toe and ankle X-ray negative Uric acid elevated -Start prednisone 40mg daily x5-day course -Start PPI while on prednisone -Continue morphine as needed for pain-avoid NSAIDs given recent GI bleed -Observe for improvement-hopeful to see improvement by tomorrow (4) Anemia: Acute blood loss anemia in setting of chronic anemia as above -transfused and now stable -continue FeSO4 -follow CBC -dcd anticoagulation (5) Chronic diastolic (congestive) heart failure: Acute on chronic diastolic CHF -developed worsening resp distress, pulm edema, worsening pleural effusions, hypoxia overnight after PRBC transfusion on 03/29-03/30 Now much improved and weaned down to 2 L nasal cannula after IV diuresis, Weight is down --continue IV lasix--give 20 mg again this morning -continue diuresis as needed and then return to home lasix po dosing -follow I/Os -wean off O2 as needed Last EF 12/2018 was 55-60% (6) Bilateral pleural effusion: Trace effusions with evidence of chronic pleural thickening on CXR on admission Had worsening as above with acute on chronic diastolic CHF No h/o smoking, COPD, or asthma -continue chronic qhs O2 and continuous O2 as above -make alb nebs scheduled QID -Continue diuresis (7) History of intracerebral hemorrhage without residual deficit: secondary to trauma in setting of taking Eliquis-now off AC (8) Hypothyroidism: TSH 0.669 in 05/2018 Continue levothyroxine 75 mcg every morning (9) Primary lateral sclerosis: Chronic, has right sided hemiparesis -supportive care -is non-ambulatory (10) Hypokalemia: secondary to loop diuretic -replace with po/IV KCl -follow BMP, Mag in AM (11) Acute respiratory failure with hypoxia: as above-improving with diuresis -continue supplemental O2 to keep POx> 90% -continue diuresis -continue nebs scheduled (12) Dysphagia: has some occasional coughing with swallowing as noted by RN Manny leon appreciated -video swallow without evidence of aspiration on 03/31 (13) DVT prophylaxis: Left leg SCD only-removed RLE SCD -no chemical means due to GI bleeding Dispo-remain on PCU, continue to treat acute CHF, acute hypoxic respiratory failure, and presumed gout Plan is home with home health Subjective Patient reports her shortness of breath is much improved and she is putting out good urine with IV Lasix. However, she developed acute onset of right anterior ankle and great toe pain overnight but is exquisite. Pain is worse with movement of the toe and ankle both passively and actively. She received a dose of IV morphine overnight which did not do much for her pain. She has never had anything like this before and is not similar to her usual muscle spasms she gets from her primary lateral sclerosis. She has no history of gout Denies chest pains or headache, no lightheadedness, no nausea or vomiting. She is tolerating p.o. No further melena and in fact has had no bowel movement at all since yesterday small 1. Telemetry with normal sinus rhythm in the 90s with 2 small bursts under 1 minute of SVT in the 150 range for rate were asymptomatic Review of Systems Review of Systems: All systems reviewed & are unremarkable except as noted in HPI & below Physical Exam Constitutional: average body habitus; no acute distress and not ill appearing Eyes: + anicteric sclerae ENMT: Ears: no hearing impairment and no external ear abnormality Neck: trachea midline, no thyromegaly Respiratory: normal respiratory effort; no labored breathing and does not use accessory muscles Auscultation: + crackles (Mild bibasilar but much improved from previous); no diminished lung sounds, no rhonchi and no wheezes Cardiovascular: RRR, no murmur, no edema Gastrointestinal (Abdomen): normal bowel sounds, soft, nontender, no hepatosplenomegaly Musculoskeletal: Extremities: + extremities abnormal to inspection (Has atrophy of muscles and flexion contractures of the right upper extremity), no cyanosis and no clubbing Ankle: ankle normal to inspection, no effusion, no skin erythema and no joint line tenderness (ankle) Right ankle with tenderness anteriorly, mild increase in warmth, no effusion, no erythema, with tenderness with dorsiflexion of great toe and ankle Pedal pulses 2+, cap refill is excellent, there is no evidence of ischemia Skin: no rashes, warm and dry Neurologic: moves all extremities, + focal motor deficit (weakness in RUE and RLE) and awake Psychiatric: A+Ox3, euthymic affect Genitourinary: Pure wick catheter in place with clear yellow urine Results & Data Vital Signs (Past 12 Hours) Vital Signs Temp Pulse Pulse Resp BP Pulse Ox 03/31/19 08:00 81 03/31/19 07:59 36.7 C 91 H 18 136/71 90 03/31/19 07:04 100 H 26 H 93 03/31/19 04:00 37.0 C 95 H 22 125/74 95 03/31/19 01:00 81 03/30/19 23:43 37.2 C 97 H 22 125/78 97 Laboratory Results Lab results reviewed Diagnostic Findings X-ray images of the right ankle personally reviewed by me-no fractures or bony erosions, with osteoporosis noted PG Care Time/CCT Total # of Minutes Spent Total Time Spent with Patient: Total time spent is greater than 50% in coordination of care (as documented) at patient's floor/unit and/or counseling patient: (1) Anemia Anemia type: unspecified type Qualified Code(s): D64.9 - Anemia, unspecified
--- NOTE | 2019-03-31 12:31 | XRay Report ---
XR ankle RT min 3V routine CLINICAL HISTORY: spontaneous right ankle pain pain COMPARISON: None. DISCUSSION: Generalized degenerative change all major bony structures. Osteoporosis. No well-defined fracture. Small heel spur. Subtalar joint is intact. There is no evidence for soft tissue swelling. IMPRESSION: Generalized degenerative change. Osteoporosis. Small heel spur. The above report was generated using voice recognition software. It may contain grammatical, syntax or spelling errors. Electronically signed by: Jermaine Mullen M.D. 03/31/2019 12:30 PM
[2019-03-31] MEDS: PANTOprazole 40 MG TAB PO SCH (12:34)
[2019-03-31] MEDS: predniSONE 20 MG TAB PO SCH (12:34)
--- NOTE | 2019-03-31 13:48 | Fluoroscopy Report ---
FL video swallow HISTORY: GI bleed. assess for aspiration TECHNIQUE: Video fluoroscopic evaluation of swallowing was performed in the AP and lateral projection s by the speech pathology staff. The patient is fed nectar-thick and thin liquid barium, a barium coa blair wafer, and barium pudding. FLUOROSCOPY TIME: 1 minute. A cine loop submitted. COMPARISON STUDY: None. FINDINGS: There is normal hyoid excursion and epiglottic deflection. No significant penetration or as piration identified. Swallowing function is within normal limits. Mild vallecular residue seen throug hout the examination. IMPRESSION: 1. No aspiration identified. 2. Please see the speech pathologist report for detailed findings and recommendations. Electronically signed by: Terry Centeno M.D. 03/31/2019 1:47 PM
[2019-03-31] MEDS: MoRPHine SULFATE 4 MG/ML 1 ML CARP\\VIAL IV PRN ×2 (15:26→21:47)
[2019-03-31] MEDS ORDERED: POTASSIUM CHLORIDE 20 MEQ TABCR PO STA (15:57)
[2019-03-31] MEDS: CHOLECALCIFEROL 1,000 UNITS TAB PO SCH (20:08)
[2019-04-01] MEDS: LEVOTHYROXINE SODIUM 75 MCG TABLET PO SCH (05:14)
[2019-04-01 06:25] LABS: Eosinophils # (auto) 0.01 K/uL (0-0.5); Eosinophils % (auto) 0.1 %; Hematocrit (blood only) 28.2 % (37-47); Hemoglobin 8.8 g/dL (12.0-16.0); Immature Granulocytes # (auto) 0.01 K/uL (0.00-0.02); Immature Granulocytes % (auto) 0.1 %; Lymphocytes # (auto) 0.91 K/uL (1.2-3.4); Lymphocytes % (auto) 11.8 %; Mean Corpuscular Hemoglobin 29.1 pg (25-34); Mean Corpuscular Hgb Conc 31.2 g/dL (32-36); Mean Corpuscular Volume 93.4 fL (80-100); Mean Platelet Volume 10.5 fL (7.4-10.4); Monocytes # (auto) 0.54 K/uL (0.11-0.59); Neutrophils # (auto) 6.22 K/uL (1.4-6.5); Platelet Count 272 K/uL (130-400); RDW Coefficient of Variation 14.5 % (11.5-14.5); RDW Standard Deviation 49.6 fL (36.4-46.3); Red Blood Count 3.02 M/uL (4.2-5.4); White Blood Count 7.69 K/uL (4.8-10.8)
[2019-04-01 07:03] LABS: BUN Creatinine Ratio 20.5 (10-20); Calcium 9.1 mg/dl (8.5-10.1); Creatinine Clr Calc Pharmacy 34.5 ml/min; Est GFR (African American) 57.8; Est GFR (Non-African American) 49.9; Potassium 4.8 mmol/L (3.5-5.1)
[2019-04-01] MEDS: ALBUT/IPRATROP 3MG/0.5MG NEB 3 ML VIAL NEB SCH ×2 (07:18→11:21)
[2019-04-01] MEDS: METOPROLOL TARTRATE 50 MG TAB PO SCH (07:45)
[2019-04-01] MEDS: predniSONE 20 MG TAB PO SCH (07:45)
[2019-04-01] MEDS: PANTOprazole 40 MG TAB PO SCH (07:45)
[2019-04-01] MEDS: ACETAMINOPHEN 325 MG TAB PO PRN (11:47)
--- NOTE | 2019-04-01 12:54 | Discharge Summary ---
Date of Service April 01, 2019 Admission HPI Per Admitting Provider Halie is an 84-year-old female with a past medical history of DVT, stroke without residual deficit, intracerebral hemorrhage, GI bleeding, hypothyroidism, pleural effusion, chronic diastolic heart failure with EF 55-60% in 04/2018, TIA, and primary right-sided lateral sclerosis who was diagnosed in February 2019 with a right peroneal DVT and was placed on apixaban therapy, and who presents to the hospital with 3 days of increasing shortness of breath, hematuria, and melena. Halie is seen at the bedside with her who is her caregiver. They report that about 3 to 4 days ago Halie developed blood in her urine and slight shortness of breath. Her shortness of breath progressively increased over the last 3 days, and she presented today when it became very concerning to her. Her notes that she takes iron so her bowel movements are dark and blackish at baseline, but in the last 3 to 4 days they have been much bandar with an unusual sticky quality. Halie denies chest pain, chest pressure, palpitations, syncope, presyncope, new focal neurologic deficits. She has felt a little lightheaded and weak intermittently. She is not able to walk at baseline, and uses a wheelchair to get around with her who assist with transfers due to lateral sclerosis. She has been nauseous, but has not had any vomiting. She has no history of alcohol abuse or liver disease, and has never h ad any known varices or cirrhosis. Her last colonoscopy was at age 75, up until that point she had no polyps and no history of diverticulitis. She has had intermittent GERD, with her last episode treated with ranitidine several years ago. She denies abdominal pain today. No diarrhea or constipation in the last few days. She endorses red-tinged urine, no problems urinating today, no dysuria. No difficulty with needing extra pressure to urinate today. Her prior left femoral vein DVT in 04/2018 was thought to be provoked in the setting of a traumatic injury. She was treated with apixaban at that time, which was discontinued when repeat Dopplers showed resolution of the clot and she had had an episode of GI bleeding at that time. At her last hospital admission with discharge 03/06 2019 when she had a right peroneal clot of unknown etiology a extensive discussion was had between her and the hospitalist provider between the risks and benefits of anticoagulation, a vena cava filter, and no treatment. She elected for apixaban therapy at that time. Her primary care physician is Dr. Townsend She follows with Dr. Sharma, neurology for her neurologic deficits and lateral sclerosis Medical history, reviewed, updated Surgical history, reviewed, updated Social history: Lives in [place], [place] with her Denies current and former tobacco use Principal Diagnosis GI Bleed, Acute blood loss anemia Discharge Exam Constitutional average body habitus; no acute distress and not ill appearing Eyes + anicteric sclerae ENMT external ear and nose normal, oropharynx normal Ears: no hearing impairment and no external ear abnormality Neck trachea midline, no thyromegaly Respiratory normal respiratory effort, lungs clear to auscultation weaned off O2 Cardiovascular RRR, no murmur, no edema Gastrointestinal (Abdomen) normal bowel sounds, soft, nontender, no hepatosplenomegaly Musculoskeletal Extremities: + extremities abnormal to inspection (Has atrophy of muscles and flexion contractures of the right upper extremity), no cyanosis and no clubbing Ankle: ankle normal to inspection, no effusion, no skin erythema and no joint line tenderness (ankle) +pain with ROM of right ankle but much improved,less painful from yesterday Skin no rashes, warm and dry Neurologic moves all extremities, + focal motor deficit (weakness in RUE and RLE) and awake Psychiatric A+Ox3, euthymic affect Discharge Data Allergies Allergy/AdvReac Type Severity Reaction Status Date / Time Sulfa (Sulfonamide Allergy Unknown HANDS Verified 03/28/19 17:22 Antibiotics) SWELLED Consultations 03/28/19 17:40 ED Decision to Admit Stat 03/29/19 08:57 Consult Gastroenterology Routine Procedures Performed Operation Date: 03/29/19 16:30 Actual Procedures p Esophagogastroduodenoscopy - Jayda Villegas Ordered Studies 03/29/19 20:24 US venous doppler LE RT Urgent 03/31/19 12:45 FL video swallow Routine CXR x 2 Right ankle xray Hospital Course (1) Upper GI bleed: Halie is an 84-year-old female with a past medical history of DVT, stroke without residual deficit, intracerebral hemorrhage, GI bleeding, hypothyroidism, pleural effusion, chronic diastolic heart failure with EF 55-60% in 04/2018, TIA, and primary right-sided lateral sclerosis who was diagnosed in February 2019 with a right peroneal DVT and was placed on Xarelto therapy, and who presents to the hospital with 3 days of increasing shortness of breath, hematuria, and melena. Acute upper GI bleed-this is a recurrent GI bleed for her in the setting of taking anticoagulation. She reports she was also taking Advil multiple times daily for chronic pains Hemoglobin acutely decreased from approximately 10--> 6.0 on admission 2 units packed red blood cells given and now hgb up to 8.7 and stable for the third day in a row now at 8.8 No further GI bleeding except some old blood/melena stool the day after admission remains Hemodynamically stable -EGD here with small hiatal hernia, otherwise normal -GI offered colonoscopy but pt declines at this time -could have been an AVM in small bowel, colon Seems to be resolved now -advised against any further NSAIDs, aspirin -have since dcd PPI gtt and no need for PPI going home -permanently discontinued any anticoagulation moving forward-discussed with pt and and they are in agreement -follow CBC as outpt in 1-2 weeks -Tolerating low fiber diet (2) Acute deep vein thrombosis (DVT) of right peroneal vein: Right peroneal DVT recently diagnosed in 02/2019 and placed on Xarelto Now discontinued Xarelto due to acute GI bleeding Repeat Doppler here shows same clot as previous, not propagated, not changed -discussed case with Dr. Wilkins of vascular surgery on the phone-he reviewed the Doppler and case--states that since clot is in peroneal vein and not changed from previous, would not place IVC filter -advised pt and to watch for signs of worsening DVT such as swelling, pain, redness, etc. in RLE-if had propagation or enlargement of clot, would reconsider IVC filter -she SHOULD NOT go on any further anticoagulation at this time secondary to multiple major bleeding issues (3) Ankle pain, right: Acute in onset overnight in the setting of IV diuresis Seems consistent with early acute gout attack in the right great toe and ankle X-ray negative Uric acid elevated -Started prednisone 40mg daily daily and had significant improvement in 24 hours--finish out course of prednisone 40mg daily x 7 days -avoid NSAIDs given recent GI bleed (4) Anemia: Acute blood loss anemia in setting of chronic anemia as above -transfused and now stable -continue FeSO4 -follow CBC as outpt -dcd anticoagulation (5) Chronic diastolic (congestive) heart failure: Acute on chronic diastolic CHF-now resolved -developed worsening resp distress, pulm edema, worsening pleural effusions, hypoxia overnight after PRBC transfusion on 03/29-03/30 -now weaned off O2 after IV diuresis, Weight is down -return to home lasix po dosing Last EF 12/2018 was 55-60% (6) Bilateral pleural effusion: Trace effusions with evidence of chronic pleural thickening on CXR on admission Had worsening as above with acute on chronic diastolic CHF Now improved on exam No h/o smoking, COPD, or asthma -continue chronic qhs O2 (7) History of intracerebral hemorrhage without residual deficit: secondary to trauma in setting of taking Eliquis-now off AC (8) Hypothyroidism: TSH 0.669 in 05/2018 Continue levothyroxine 75 mcg every morning (9) Primary lateral sclerosis: Chronic, has right sided hemiparesis -supportive care -is non-ambulatory (10) Hypokalemia: secondary to loop diuretic now resolved (11) Acute respiratory failure with hypoxia: as above-now resolved with diuresis -continue supplemental O2 qhs (12) Dysphagia: has some occasional coughing with swallowing as noted by RN Manny cancino -video swallow without evidence of aspiration on 03/31 (13) DVT prophylaxis: Left leg SCD only-removed RLE SCD -no chemical means due to GI bleeding Dispo-stable for dc to home Has caregivers through the [facility] Total Time Total Time Spent Total Time Spent (In Minutes): 35 min Total Time Includes: Examination of the Patient, Discharge Planning and Medication Reconciliation Discharge Plan Discharge Items Patient Disposition: Home - Self-Care Reason For Visit: ACUTE GIB Discharge Diagnosis: Acute GI Bleed, Acute blood loss anemia, Gout Condition on Discharge: Fair Activity: Resume your previous activity Non-emergency contact: Primary Care Provider Call non-emergency contact if: you have any medication questions, your symptoms worsen, your pain is not controlled, your pain is worsening, your pain is unusual for you and your pain is concerning for you Follow-up/Referrals: Anoop Townsend MD [Primary Care Provider] - 04/05/19 3:00 pm (Please, follow up at Dr. Townsend's office with his associate, Prachi ASTORGA, on WednesdayApril 05 at 3:00 pm. *If you need to change this appointment, call the office at [phone].) Diet: Regular Addtl Attending Provider Instructions: You were admitted with severe anemia due to bleeding in your gut. You were transfused blood and have not had any further bleeding. The endoscopy from above did not show any area of bleeding. Your Xarelto was STOPPED and should not be restarted. If you develop worsening swelling or redness of the legs, please call your docotr right away as these could be signs of an enlarging or new blood clot. You then had low oxygen levels from excessive fluid and were given lasix to get rid of the fluid. You developed a suspected gout attack in your right ankle which is improving with prednisone-please finish out 5 more days of prednisone. Follow up with your PCP as scheduled for you. Pending Studies at Discharge: No Stand-Alone Forms: My [facility] Medications and DC Order Prescriptions: New acetaminophen [Mapap (acetaminophen)] 325 mg Tablet 650 mg PO Q4H PRN (Reason: pain) Qty: 30 RF: 0 prednisone 20 mg Tablet 40 mg PO QAM Qty: 10 RF: 0 oxycodone-acetaminophen [Percocet] 5-325 mg tablet 1 tab PO Q6H PRN (Reason: pain) Qty: 10 RF: 0 Continued cholecalciferol (vitamin D3) 5,000 unit tablet 5,000 units PO QPM RF: 0 ferrous gluconate 324 mg (38 mg iron) tablet 324 mg PO Q2D RF: 0 docusate sodium [Colace] 100 mg capsule 100 mg PO Q2D RF: 0 metoprolol tartrate 50 mg Tablet 50 mg PO BID 30 Days Qty: 60 RF: 2 levothyroxine 75 mcg tablet 75 mcg PO QAM RF: 0 furosemide 20 mg tablet 20 mg PO QAM RF: 0 hydroxyzine HCl 25 mg tablet 25 mg PO BID PRN (Reason: Anxiety) RF: 0 Discontinued Xarelto 20 mg tablet 20 mg PO DAILY@1700 RF: 0 Discharge Orders: Discharge Order (Routine); Ordered 04/01/19 Ordered By: Flakita Brar Admission Data Admit Date/Time: 03/28/19 19:17 Attending Provider: Flakita Brar Admit Provider: Isak Irvin Primary Care Provider: Anoop Townsend Other Providers: Melyssa Davis Emily Other Interventions: Discharge Summary Assessment (RN) Last Done: 03/29/19 14:11
== END 2019-04-01 13:59 | disposition home or self-care (01) | DRG 377 ==
LOC: ED 16:12 → 2S 19:17 → SUATTDRO 19:17 → 2S 19:38

== ENCOUNTER 2020-05-21 21:36 | Inpatient (IN) ==
--- NOTE | 2020-05-21 23:04 | Emergency Department Note ---
History of Present Illness General Chief complaint: Weakness Stated complaint: UNABLE TO SWALLOW Time Seen by Provider: 05/21/20 21:48 Source: patient Mode of arrival: ambulatory Limitations: other (dysarthria, difficult to understand) History of Present Illness This patient is an 85-year-old female who presents to the emergency department accompanied by her due to worsening weakness. Patient has a history of primary lateral sclerosis which has been rapidly progressive over the past several months. The patient was seen here earlier today due to some apparent drooping of the left side of her mouth. Apparently the patient does have a history of some facial drooping but it seems to be worse and she was drooling. The patient's says that there was a work-up including blood work and a CT scan and nothing was found so she was sent home. He states that he gave her some coke when they got home and she was able to drink this all right, however when he tried to give her some chicken and rice, it fell back out of her mouth. He states that she seems to be weaker than normal. He states that she does not walk, but is typically able to stand when he gets her up, however she was unable to do this tonight and he was unable to get her to the bedside commode. He reports that earlier this afternoon, she was unable to talk or answer him, however this had resolved. Per EMS, there was no change in the patient's condi tion from the time that she was discharged from here earlier until she presented tonight. The patient's is concerned because he does not feel he will be able to properly take care of her at home given her increased weakness. Patient is not on any anticoagulants and the patient's states that she is unable to take them because she had severe bleeding when taking them before. Home Medications Medication Instructions Recorded Confirmed Type cholecalciferol (vitamin D3) 125 5,000 units PO QPM tab 10/12/18 05/21/20 History mcg (5,000 unit) tablet ferrous gluconate 324 mg (38 mg 324 mg PO Q2D tab 12/23/18 05/21/20 History iron) tablet metoprolol tartrate 50 mg tablet 50 mg PO BID #180 tab 07/17/19 05/21/20 Rx levothyroxine 75 mcg tablet 75 mcg PO QAM #90 tab 12/06/19 05/21/20 Rx furosemide 20 mg tablet 10 mg PO QAM #90 tab 02/21/20 05/21/20 Rx Allergies Allergy/AdvReac Type Severity Reaction Status Date / Time apixaban [From Eliquis] Allergy Unknown bleeding Verified 05/21/20 16:20 Sulfa (Sulfonamide Allergy Unknown HANDS Verified 05/21/20 16:20 Antibiotics) SWELLED rivaroxaban [From Xarelto] AdvReac Severe bleeding Verified 05/21/20 16:20 Past Med/Surg History Medical History Anemia Bilateral pleural effusion Bladder neoplasm Bronchopneumonia Carpal tunnel syndrome, bilateral Chronic diastolic (congestive) heart failure Chronic osteoarthritis Deep venous thrombosis (DVT) of right peroneal vein Disorder of bone Dyspnea on exertion Edema Essential hypertension Gait disturbance GI bleed Hemiparesis, right Hiatal hernia History of GI bleed History of intracerebral hemorrhage without residual deficit Hypothyroidism Kyphoscoliosis Left femoral vein DVT Lumbar compression fracture Multiple fractures of ribs of right side Muscle spasticity Muscular deconditioning Nocturia Normal left ventricular systolic function Numbness of left hand Osteoporosis Other specified acquired deformities of right upper arm Pelvic fracture Polyneuropathy Primary lateral sclerosis Restrictive lung disease Stroke syndrome TIA (transient ischemic attack) Trochanteric bursitis of left hip Urinary incontinence Venous insufficiency Vitamin D deficiency Vulvovaginitis Surgical History Hip joint replacement status History of bilateral salpingo-oophorectomy History of tonsillectomy History of total abdominal hysterectomy S/P KALYN-BSO Family History Mother Congestive heart failure Type 2 diabetes mellitus without complications Essential hypertension Myocardial infarction Hypertension Father Hodgkins lymphoma Brother Colon cancer Throat cancer Grandmother Myocardial infarction Stroke Denies family history of Ovarian cancer Prostate cancer Diabetes Breast cancer Lung cancer Social History Smoking Status: Never smoker Second Hand Exposure: No; Hx Alcohol Use: No Hx Substance Use: No Preferred Language: Icelandic Communication Ability: Effective Visual Impairment: No Limitations Hearing Ability: Normal [employer]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 [employer] Required: No Beliefs That Will Affect Care: None marital status: Current Living Situation: Spouse current occupational status: retired Feels Safe at Home: Yes Childhood Exposure to Second-Hand Smoke: No caffeine: Yes Dental Care, Regularly: Yes Physical Activity Frequency: Does not Exercise Seatbelt Use: always Sunscreen Use: No Assistive Devices: Oxygen - at Night and Wheelchair Assistive Devices Comment: 3l hs Review of Systems A total of 10 systems reviewed and were otherwise negative Physical Exam Vital Signs Vital Signs - 24 hr 05/21/20 22:01 05/21/20 22:36 05/21/20 23:00 Temperature 36.9 C Temperature Source Oral Pulse Rate 89 85 80 Pulse Rate [Brachial] Pulse Rate from SpO2 Sensor 86 80 Respiratory Rate 18 34 H 27 H Blood Pressure 170/95 H 174/85 H 167/78 H Blood Pressure [Right Arm] Blood Pressure Mean 120 111 106 Blood Pressure Mean [Right Arm] Pulse Oximetry 96 92 91 Oxygen Delivery Method Nasal Cannula Nasal Cannula Nasal Cannula Oxygen Flow Rate 2 2 2 Sepsis Recent Fever Within 48 Hours No Sepsis New/Unexplained Change in Mental Status N/A Sepsis Action Taken by Nursing No Action Required 05/21/20 23:55 05/22/20 00:20 Temperature 36.8 C Temperature Source Oral Pulse Rate 82 Pulse Rate [Brachial] 85 Pulse Rate from SpO2 Sensor Respiratory Rate 18 16 Blood Pressure 125/67 Blood Pressure [Right Arm] 190/96 H Blood Pressure Mean Blood Pressure Mean [Right Arm] 127 Pulse Oximetry 98 96 Oxygen Delivery Method Nasal Cannula Nasal Cannula Oxygen Flow Rate 2 2 Sepsis Recent Fever Within 48 Hours Sepsis New/Unexplained Change in Mental Status Sepsis Action Taken by Nursing VITALS: Vitals are noted on the nurse's note and reviewed by myself. GENERAL: This is an 85-year-old female, chronically ill-appearing. SKIN: The skin was without rashes. EARS: External auditory canals clear, tympanic membranes pearly can without erythema or effusion bilaterally. EYES: Pupils equal round and reactive to light and accommodation. MOUTH: Mucous membranes dry. Mild left-sided facial droop noted. NECK: Supple without nuchal rigidity. No lymphadenopathy. HEART: Regular rate and rhythm without murmurs gallops or rubs. LUNGS: On oxygen via nasal cannula. Clear to auscultation bilaterally without wheezes, rales or rhonchi. No retractions or accessory muscle use. ABDOMEN: Positive bowel sounds x 4. Soft, nontender. MUSCULOSKELETAL: All 4 extremities are contracted and full musculoskeletal exam is difficult to perform due to this. Patient does appear to have some left- sided weakness, although unclear if this is due to muscle contracture. NEURO: Patient is alert and oriented. Significant dysarthria noted and most responses are difficult to understand. Course Consultations Consultation #1: Dr. Robert QUINONES hospitalist Administered Medications Lactated Ringer's (Lr) 1,000 mls @ 80 mls/hr IV .[id number] KACIE Stop: 05/23/20 01:46 Last Admin: 05/22/20 01:15 Dose: 80 mls/hr Documented by: [id number] Discontinued Medications Aspirin (Aspirin 81 Mg Ectab) 81 mg PO NOW STA Stop: 05/22/20 01:39 Last Admin: 05/22/20 03:08 Dose: Not Given Documented by: [id number] Aspirin (Aspirin 300 Mg Supp) 300 mg TN ONE ONE Stop: 05/22/20 03:09 Last Admin: 05/22/20 03:35 Dose: 300 mg Documented by: [id number] Metoprolol Tartrate (Metoprolol Tartrate 1 Mg/Ml Vial) 5 mg IV ONE STA Stop: 05/22/20 01:06 Last Admin: 05/22/20 01:32 Dose: Not Given Documented by: [id number] Medical Decision Making Differential Diagnosis Infection, dehydration, metabolic abnormality, hypo/hyperglycemia, electrolyte disturbance, anemia, hypoxia, cardiac sources, intracerebral event, toxicologic, neurologic, as well as other pathologies. Medical Records Attestation: I reviewed the patient's medical records. Patient seen earlier today, had labs and CT - felt to be at her baseline and discharged home. Home Medications Current Medication List: was personally reviewed by me Laboratory Data Attestation: I reviewed the patient's lab results. Result diagrams: 05/22/20 01:14 05/22/20 01:14 Lab Results 05/21/20 05/21/20 Range/Units 22:36 22:36 COVID-19 Eval Order Covid19 IDNow [facility] SARS-CoV-2, RNA, NAAT NEGATIVE (NEGATIVE) MDM Narrative The patient is an 85-year-old female who presents today for evaluation of weakness. Patient was seen here earlier today and had a full work-up which was negative. She was discharged home at that time as it was felt that she was at her baseline. Her brings her back because she seems to be more weak than normal tonight. He did have difficulty feeding her and states that the food dropped out of her mouth. She does appear to have a slight facial droop, although it is very difficult to obtain a neuro exam on her due to her musculoskeletal contractures and baseline dysarthria. It is certainly possible that the patient may have had a stroke. She would not be a good TPA candidate given the length of time since her onset of symptoms and adverse reactions to anticoagulants in the past. The patient certainly cannot return home as her h usband is having difficulty taking care of her. The case was discussed with the [facility] hospitalist, Dr. Jones, who agreed to evaluate the patient for further care. MRI was ordered and pending at time of admission. Impression & Plan Weakness, Stroke-like symptoms Discharge Plan Visit Data Chief Complaint: Weakness Stated Complaint: UNABLE TO SWALLOW ED Provider: Chele Angel ED Midlevel Provider: Bryanna Larson Discharge Problem: Weakness, Stroke-like symptoms Patient Disposition: Admitted As Inpatient Discharge Instructions Interventions: ED Discharge Assessment Last Done: 05/21/20 23:55
--- NOTE | 2020-05-21 23:24 | History & Physical Report ---
Date of Service May 21, 2020 Assessment & Plan (1) CVA (cerebral vascular accident): 85yo C female with history of progressive PLS presenting with worsening weakness, garbled speech found to have small acute infarct right insula and subacute infarct right frost radiata. Patient with poor neurological baseline due to underlying PLS - has flexion contractures and immobility of bilateral UEs as well as difficulty with ambulation. notes major changes are in patient's speech as well as her balance. He is currently having a difficult time understanding her and is unable to assist her with ambulation. Desired discharge plan for the patient and is discharge home with around the clock care. Patient does not wish to be placed in a facility at this time. -Admit to medical with telemetry -Neuro checks and NIHSS per protocol -Aspiration and Fall precautions -Hold Metoprolol to allow for permissive HTN -Check lipid panel, AIC -Check CTA Head and neck -Check 2D echo -ASA 81mg po daily, Plavix 75mg po daily and Atorvastatin 40mg po daily -PT/OT evaluation -Speech evaluation -Neurology consultation appreciated (2) Hypertension: Blood pressure stable at present -Hold Metoprolol to allow for permissive HTN Present on Admission?: Yes (3) Hypothyroidism: Chronic -Check TSH -Continue Synthroid 75mcg daily - switched to IV Present on Admission?: Yes (4) Chronic diastolic (congestive) heart failure: Patient appears euvolemic at present -Continue to monitor Present on Admission?: Yes (5) Primary lateral sclerosis: Chronic. Progressive. Patient follows with Neurology. She was treated wtih Baclofen and Tizanidine in the past for limb spasticity. Was recommended trial of Methocarbamol 500mg po TID - does not appear to have taken this -Continue to monitor F/E/N - LR at 80mL/hr x 2 liters, monitor electrolytes and correct as needed, NPO for now pending speech/swallow evaluation Ppx - SCDs Code - DNR/DNI Dispo - Admit to med/tele History of Present Illness Chief Complaint: weakness Primary Care Provider: Frank Townsend MD Halie Bello is an 85yo female with rapidly progressing Primary Lateral Sclerosis. Patient was seen in the ER earlier today with concerns for a CVA after she developed facial droop and slurred speech. Imaging was unremarkable and symptoms improved, therefore she was discharged home. When she got home she had some Coca Cola but had difficulty swallowing. She was unable to eat or walk and had difficulty with ambulation. Her has caretakers in the home during the day but he provides care between 19:00 at 08:00 daily. He is concerned that he will be unable to care for her in her current state. Patient with markedly garbled speech but is able to answer questions appropriately with some effort. When asked how she is feeling she responds "lousy". She denies pain, WALL, CP, SOB or cough. ER course: Covid NEGATIVE Allergies Allergy/AdvReac Type Severity Reaction Status Date / Time apixaban [From Eliquis] Allergy Unknown bleeding Verified 05/21/20 16:20 Sulfa (Sulfonamide Allergy Unknown HANDS Verified 05/21/20 16:20 Antibiotics) SWELLED rivaroxaban [From Xarelto] AdvReac Severe bleeding Verified 05/21/20 16:20 Home Medications Medication Instructions Recorded Confirmed Type cholecalciferol (vitamin D3) 125 5,000 units PO QPM tab 10/12/18 05/21/20 History mcg (5,000 unit) tablet ferrous gluconate 324 mg (38 mg 324 mg PO Q2D tab 12/23/18 05/21/20 History iron) tablet metoprolol tartrate 50 mg tablet 50 mg PO BID #180 tab 07/17/19 05/21/20 Rx levothyroxine 75 mcg tablet 75 mcg PO QAM #90 tab 12/06/19 05/21/20 Rx furosemide 20 mg tablet 10 mg PO QAM #90 tab 02/21/20 05/21/20 Rx Past Med/Surg History Medical History (Updated 05/22/20 @ 01:45 by Luda Jones DO) Anemia Bilateral pleural effusion Bladder neoplasm Bronchopneumonia Carpal tunnel syndrome, bilateral Chronic diastolic (congestive) heart failure Chronic osteoarthritis Deep venous thrombosis (DVT) of right peroneal vein Disorder of bone Dyspnea on exertion Edema Essential hypertension Gait disturbance GI bleed Hemiparesis, right Hiatal hernia History of GI bleed History of intracerebral hemorrhage without residual deficit Hypothyroidism Kyphoscoliosis Left femoral vein DVT Lumbar compression fracture Multiple fractures of ribs of right side Muscle spasticity Muscular deconditioning Nocturia Normal left ventricular systolic function Numbness of left hand Osteoporosis Other specified acquired deformities of right upper arm Pelvic fracture Polyneuropathy Primary lateral sclerosis Restrictive lung disease Stroke syndrome TIA (transient ischemic attack) Trochanteric bursitis of left hip Urinary incontinence Venous insufficiency Vitamin D deficiency Vulvovaginitis Surgical History Hip joint replacement status History of bilateral salpingo-oophorectomy History of tonsillectomy History of total abdominal hysterectomy S/P KALYN-BSO Family History Mother Congestive heart failure Type 2 diabetes mellitus without complications Essential hypertension Myocardial infarction Hypertension Father Hodgkins lymphoma Brother Colon cancer Throat cancer Grandmother Myocardial infarction Stroke Denies family history of Ovarian cancer Prostate cancer Diabetes Breast cancer Lung cancer Social History Smoking Status: Never smoker Second Hand Exposure: No; Hx Alcohol Use: No Hx Substance Use: No Preferred Language: Algerian Communication Ability: Effective Visual Impairment: No Limitations Hearing Ability: Normal 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 Beliefs That Will Affect Care: None marital status: Current Living Situation: Spouse current occupational status: retired Feels Safe at Home: Yes Childhood Exposure to Second-Hand Smoke: No caffeine: Yes Dental Care, Regularly: Yes Physical Activity Frequency: Does not Exercise Seatbelt Use: always Sunscreen Use: No Assistive Devices: None Review of Systems Review of Systems: All systems reviewed & are unremarkable except as noted in HPI & below ROS obtained from as well as patient Physical Exam Physical Exam: General: patient resting comfortably, NAD, chronically ill in appearance, AA&O x 3 -speech garbled Skin: warm, dry, intact, no rashes or lesions HEENT: NC/AT, PERRL, anicteric sclera, conjunctiva without injection, external ear normal to inspection and nontender, nares patent, moist mucus membranes, dentition intact, no oropharyngeal lesions, neck supple, trachea midline, no LAD, no thyromegaly, no JVD Heart: +S1/S2, regular, no m/r/g Lungs: equal air entry bilaterally, no rales/rhonchi/wheezes Abd: +BS, soft, NT/ND, no masses/organomegaly/ascites Ext: warm, 2+ pulses in UE/LE bilaterally, no clubbing/cyanosis or edema Neuro: AA&O x 3, speech garbled, patient slow to respond to questioning, flexion contractures of bilateral UE - unable to mobilize Results & Data Results & Data ([facility]) Vital Signs (Past 12 Hours) Vital Signs Temp Pulse Resp BP Pulse Ox 05/21/20 23:00 80 27 H 167/78 H 91 05/21/20 22:36 85 34 H 174/85 H 92 05/21/20 22:01 36.9 C 89 18 170/95 H 96 Laboratory Results Lab Results 05/21/20 05/21/20 Range/Units 22:36 22:36 [facility]19 [facility] SARS-[facility]-2, RNA, NAAT NEGATIVE (NEGATIVE) Diagnostic Findings CXR - per my interpretation - patient with kyphoscoliosis, increased pulmonary markings and poor inspiratory film, calcified aortic knob, ?progression of airspace disease in [place] Brain MRI - results discussed with STAT-rad at [employer] of [employer] - patient with small acute infarct involving the right insula measuring 5mm. Probable additional small late acute or subacute infarct involving right posterior frontal frost radiata. Chronic lacunar infarcts in right thalamus and basal ganglia. Periventricular T2/Flari white matter hyperintensities, nonspecific but most commonly related to chronic small vessel ischemic changes. Global cerebral volume loss. Retention cyst in right maxillary sinus. Code Status & VTE Plan VTE Prophylaxis Plan VTE Prophylaxis will be ordered: Yes PG Care Time/CCT Total # of Minutes Spent Total Time Spent with Patient: Total time spent is greater than 50% in coordination of care (as documented) at patient's floor/unit and/or counseling patient: Coding Level of Care Code 78195 Initial Inpt Care Lvl 3 Diagnoses CVA (cerebral vascular accident) I63.9 CVA mechanism: unspecified Hypertension I10 Hypertension type: essential hypertension Hypothyroidism E03.9 Hypothyroidism type: unspecified Chronic diastolic (congestive) heart failure I50.32 Primary lateral sclerosis G12.23 (1) Hypothyroidism Hypothyroidism type: unspecified Qualified Code(s): E03.9 - Hypothyroidism, unspecified (2) Hypertension Hypertension type: essential hypertension Qualified Code(s): I10 - Essential (primary) hypertension (3) CVA (cerebral vascular accident) CVA mechanism: unspecified Qualified Code(s): I63.9 - Cerebral infarction, unspecified
[2020-05-22] MEDS ORDERED: ONDANSETRON INJ 2 MG/ML 2 ML VIAL IV PRN (00:47)
[2020-05-22] MEDS ORDERED: METOPROLOL TARTRATE 1 MG/ML VIAL IV STA ×2 (01:05→10:10)
[2020-05-22] MEDS: LACTATED RINGER'S 1,000 ML IV SCH ×2 (01:15→14:18)
[2020-05-22 01:32] LABS: Basophils # (auto) 0.01 K/uL (0-0.2); Basophils % (auto) 0.1 %; Eosinophils # (auto) 0.06 K/uL (0-0.5); Eosinophils % (auto) 0.9 %; Hematocrit (blood only) 37.4 % (37-47); Hemoglobin 12.6 g/dL (12.0-16.0); Immature Granulocytes # (auto) 0.01 K/uL (0.00-0.02); Immature Granulocytes % (auto) 0.1 %; Lymphocytes # (auto) 1.24 K/uL (1.2-3.4); Lymphocytes % (auto) 18.5 %; Mean Corpuscular Hgb Conc 33.7 g/dL (32-36); Mean Corpuscular Volume 94.9 fL (80-100); Mean Platelet Volume 11.7 fL (7.4-10.4); Monocytes # (auto) 0.68 K/uL (0.11-0.59); Monocytes % (auto) 10.1 %; Neutrophils % (auto) 70.3 %; Platelet Count 203 K/uL (130-400); RDW Coefficient of Variation 13.5 % (11.5-14.5); RDW Standard Deviation 47.4 fL (36.4-46.3); Red Blood Count 3.94 M/uL (4.2-5.4)
[2020-05-22] MEDS ORDERED: ASPIRIN 81 MG ECTAB PO STA (01:38)
[2020-05-22 01:50] LABS: Albumin Level 3.3 gm/dl (3.4-5.0); BUN Creatinine Ratio 23.3 (10-20); Bilirubin Direct 0.2 mg/dl (0-0.2); Calcium 8.5 mg/dl (8.5-10.1); Est GFR (Non-African American) 75.1; Magnesium 2.2 mg/dl (1.8-2.4); Potassium 3.8 mmol/L (3.5-5.1)
[2020-05-22 02:01] LABS: Bilirubin,Total 0.6 mg/dl (0.2-1); Phosphorus 3.3 mg/dl (2.5-4.9); Thyroid Stimulating Hormone 1.01 uIu/ml (0.300-4.500); Total Protein 6.8 gm/dl (6.4-8.2)
[2020-05-22] MEDS ORDERED: ASPIRIN 300 MG SUPP PR ONE (03:08)
[2020-05-22] MEDS ORDERED: METOPROLOL TARTRATE 1 MG/ML VIAL IV SCH (04:00)
[2020-05-22 06:53] LABS: Chol HDL Ratio 4; Cholesterol 160 mg/dl (0-200); HDL Cholesterol 44 mg/dl; LDL Cholesterol Calculated 93 mg/dl; Triglycerides 116 mg/dl (0-150); VLDL Cholesterol 23 mg/dl
--- NOTE | 2020-05-22 07:34 | Magnetic Resonance Report ---
MRI OF THE BRAIN WITHOUT CONTRAST CLINICAL HISTORY: Increased weakness. Left facial droop. COMPARISON STUDY: MRI of the brain July 30, 2016. Head CT May 21, 2020. TECHNIQUE: Utilizing a 1.5 Shazia magnet and dedicated coil, multiplanar, multiecho imaging of the bra in was performed without IV contrast. FINDINGS: This study is mildly compromised by motion artifact. However, this exam is diagnostic. Ely ral small acute infarcts within the right insular cortex and right frost radiata are noted. The infa rct within the right insular cortex measures 5 mm. There is no mass effect. No acute hemorrhage is pr esent. Mild ventricular dilatation is due to atrophy. Basilar cisterns are patent. There are no extra -axial collections. No intracranial masses identified on this unenhanced examination. White matter T2 hyperintense foci suggest small vessel disease. Calvarial signal is slightly diminished. However, th is is unchanged since exam of July 30, 2016 and likely benign. IMPRESSION: 1. Several small acute infarcts within the right insular cortex and right frost radiata. No mass eff ect. No hemorrhage. 2. Exam moderately compromised by motion artifact. 3. Moderate atrophy and small vessel disease. ACT 112: Negative or not required by law. Electronically signed by: Etienne Paredes M.D. 05/22/2020 7:33 AM
[2020-05-22 07:39] LABS: Estimated Average Glucose 114 mg/dl; Hemoglobin A1C 5.6 % (4.5-5.6)
[2020-05-22 07:39] LABS: Appearance Urine Turbid (Clear); Bacteria Urine Automated 1+ (Negative); Bilirubin Urine Negative (Negative); Blood Urine Negative (Negative); Color Urine Yellow; Epithelial Cell Urine Auto >30 /lpf (0-5); Glucose Urine UA Negative (Negative); Ketones Urine Negative (Negative); Leukocyte Esterase Urine 1+ (Negative); Nitrite Urine Negative (Negative); Protein Urine 1+ (Negative); Specific Gravity Urine 1.027 (1.000-1.030); Urobilinogen Urine Negative (Negative); WBC Urine Automated >30 /hpf (0-5)
--- NOTE | 2020-05-22 07:49 | XRay Report ---
XR chest 1V portable CLINICAL HISTORY: Airspace opacity. COMPARISON STUDY: Chest radiograph May 21, 2020. FINDINGS: Cardiomegaly is unchanged. There is no evidence for pulmonary edema. A hiatal hernia is aga in noted. There are old bilateral rib fractures. Left mid and lower lung airspace opacity persists. IMPRESSION: Persistent left mid and lower lung airspace opacity which may reflect an infectious proc ess or atelectasis. ACT 112: Negative or not required by law. Electronically signed by: Etienne Paredes M.D. 05/22/2020 7:48 AM
[2020-05-22] MEDS ORDERED: ENOXAPARIN INJ 40 MG/0.4 ML SYR SQ SCH (08:00)
[2020-05-22 08:11] LABS: RBC Urine Automated 0-4 /hpf (0-4)
[2020-05-22] MEDS ORDERED: ASPIRIN 81 MG ECTAB PO SCH (09:00)
--- NOTE | 2020-05-22 09:14 | Neurology Consultation ---
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 She has severe weakness and spasticity with flexion contractions in the upper extremities and extensor contractions in the lower extremities right greater than left side bilaterally. There are no sensory deficits or cognitive issues. She does have dysarthria and swallowing problems due to tongue weakness bilaterally. She is bed-bound and her is having significant difficulty caring for her at home despite the home aides. Feeding has been difficult as well. Unfortunately, there is no treatment for this condition. She has tried and failed multiple medications to treat spasticity. In addition, the patient has had an acute right hemispheric small stroke x2 in the basal ganglia area. This is accounted for some acute increase in left-sided facial weakness and dysarthria. The strokes are small and are likely small vessel ischemic disease in origin. Risk factors for stroke include hypertension and advanced age. Patient has a history of DVT but every time she is given anticoagulation she has bleeding episodes. Recommendations: 1. consider physical, occupational, and speech therapy consults. Perhaps there is something that can be done for her despite her progressive condition and new stroke. 2. Social service consult to connect with the patient's for options regarding long-term care patient. 3. Consider clopidogrel 75 mg daily alone for ischemic stroke prevention. I would not give her aspirin and Plavix because she had a bleeding episode on both in the past. she is not a candidate for anticoagulation at this time. 4. feeding her is going to be difficult and she may need a G-tube to bypass swallowing. 5. Control blood pressure as you are doing aiming for a mean arterial pressure of 95-100. 6. The patient is not a high dose statin candidate , and her lipid levels were unremarkable. 7. Patient may need Richmond catheter placement /indwelling Richmond as she is not able to use the bedpan efficiently , and intermittent straight cath is difficult due to her severe leg spasticity/scissoring. 8. Echocardiogram is pending Overall, I spent a total of 145 minutes with this case including extensive review of records, review of old and new MRI films, review of the new MRI films and Radiology with Dr. Centeno, discussion of the case with the patient's via telephone, direct evaluation the patient at bedside, and discussion of the case with the patient at bedside, RN at bedside, and Lilli Houser PA-C , including differential diagnosis and treatment options. History of Present Illness Reason for Consultation: Patient is an 85-year-old, who I was asked to see at the request of Dr. Jones, for neurologic consultation regarding stroke on the background of a degenerative neurologic disease, primary lateral sclerosis. Requesting Physician: Dr. Jones Attending Physician: Jese Gil MD History of Present Illness I first saw this patient in April of 2016. At that time she was having a progression of right arm greater than leg weakness , starting originally around 2011. by 2014 she was worse and saw Dr. Aguilar. She was told that she had a form of Parkinson's disease but Parkinson's medication had no effect. When I saw her she had upper motor neuron signs in the arm greater than leg with increased reflexes and weakness. She had no bulbar signs, parkinsonism, cognitive defects, or any sensory deficits. MRI of the brain was unremarkable an MRI of the cervical spine showed no myelopathy or other issues. Extensive laboratory studies were unremarkable as well. I believe this patient fit the diagnosis of pure progressive upper motor neuron dysfunction, primary lateral sclerosis. She did not have any lower motor neuron signs and EMG and nerve conduction study at that time was unremarkable. Therefore, I did not think she had amyotrophic lateral sclerosis. Patient tried and failed baclofen, tizanidine, and Botox for her significant spasticity. Over time she progressively became more spastic in the right side and then started getting the spasticity in the left side. In July of 2016 she was hospitalized for an episode of confusion and speech issue thought to be a TIA. MRI showed no stroke and Dr. Jones saw the patient in consultation. in February of 2017 she had a fall and was noted on CT scan did to see patchy areas of subarachnoid hemorrhage /hemorrhagic contusion in the right frontal lobe. At the time she was on aspirin Plavix. She was sent to [facility], antiplatelet medication was discontinued, and she recovered with no further sequelae. By 2017 she was having some slurred speech and falling because of worse right leg weakness. Physical therapy and rehab and helped her pain but did not make a difference in her spasticity and weakness. She had DVTI was put on anticoagulant. Due to bleeding she was discontinued. In February of 2019 she had right lower extremity DVT and was put on anticoagulation again. In March of 2019 she had a GI bleed in all anticoagulation has been stopped since then. I last saw her in December of 2019. She continues to be progressively weak and spastic. The right side was nonfunctioning and she could not walk. The left side was becoming very weak and spastic as well. She is at home with home a dates but the feels that is getting very difficult to care for her. On May 21, 2020 the patient was sitting when suddenly she became "unresponsive" with a left facial droop and drooling. She was not talking. By the time the EMS arrived her symptoms had markedly improved although there may been a slight droop at the corner of the mouth on the left. Patient's feels that this is baseline. She arrived to the emergency room May 21 at 1306, with a temperature 36.6, pulse 97 regular, respiratory rate 18 comfortable, blood pressure 177/90, and O2 saturation 93%. Physical exam was described as near baseline although there was dysarthria and left facial droop at the corner of the mouth. CBC and Chem profile were unremarkable. Urinalysis was normal in Covid-[address] scan of the head was unremarkable and chest x-ray shows some atelectasis in the left lower lobe. MRI of the brain revealed new tiny infarct on the right in 2 areas near the basal ganglia. I reviewed these films with Dr. Centeno in Radiology. This morning the patient has been in sinus rhythm overnight and CBC and Chem profile were unremarkable this morning. Hemoglobin A1c was 5.6, triglyceride 116, total cholesterol 160. The patient denies pain or confusion. Allergies Allergy/AdvReac Type Severity Reaction Status Date / Time apixaban [From Eliquis] Allergy Unknown bleeding Verified 05/21/20 16:20 Sulfa (Sulfonamide Allergy Unknown HANDS Verified 05/21/20 16:20 Antibiotics) SWELLED rivaroxaban [From Xarelto] AdvReac Severe bleeding Verified 05/21/20 16:20 Home Medications Medication Instructions Recorded Confirmed Type cholecalciferol (vitamin D3) 125 5,000 units PO QPM tab 10/12/18 05/21/20 History mcg (5,000 unit) tablet ferrous gluconate 324 mg (38 mg 324 mg PO Q2D tab 12/23/18 05/21/20 History iron) tablet metoprolol tartrate 50 mg tablet 50 mg PO BID #180 tab 07/17/19 05/21/20 Rx levothyroxine 75 mcg tablet 75 mcg PO QAM #90 tab 12/06/19 05/21/20 Rx furosemide 20 mg tablet 10 mg PO QAM #90 tab 02/21/20 05/21/20 Rx Patient History Medical History Anemia Bilateral pleural effusion Bladder neoplasm Bronchopneumonia Carpal tunnel syndrome, bilateral Chronic diastolic (congestive) heart failure Chronic osteoarthritis Deep venous thrombosis (DVT) of right peroneal vein Disorder of bone Dyspnea on exertion Edema Essential hypertension Gait disturbance GI bleed Hemiparesis, right Hiatal hernia History of GI bleed History of intracerebral hemorrhage without residual deficit Hypothyroidism Kyphoscoliosis Left femoral vein DVT Lumbar compression fracture Multiple fractures of ribs of right side Muscle spasticity Muscular deconditioning Nocturia Normal left ventricular systolic function Numbness of left hand Osteoporosis Other specified acquired deformities of right upper arm Pelvic fracture Polyneuropathy Primary lateral sclerosis Restrictive lung disease Stroke syndrome TIA (transient ischemic attack) Trochanteric bursitis of left hip Urinary incontinence Venous insufficiency Vitamin D deficiency Vulvovaginitis Surgical History Hip joint replacement status History of bilateral salpingo-oophorectomy History of tonsillectomy History of total abdominal hysterectomy S/P KALYN-BSO Family History Mother Congestive heart failure Type 2 diabetes mellitus without complications Essential hypertension Myocardial infarction Hypertension Father Hodgkins lymphoma Brother Colon cancer Throat cancer Grandmother Myocardial infarction Stroke Denies family history of Ovarian cancer Prostate cancer Diabetes Breast cancer Lung cancer Social History Smoking Status: Never smoker Second Hand Exposure: No; Hx Alcohol Use: No Hx Substance Use: No Preferred Language: Persian Communication Ability: Effective Visual Impairment: No Limitations Hearing Ability: Normal Adjuster Electrical Contacts Required: No Beliefs That Will Affect Care: None marital status: Current Living Situation: Spouse current occupational status: retired Feels Safe at Home: Yes Childhood Exposure to Second-Hand Smoke: No caffeine: Yes Dental Care, Regularly: Yes Physical Activity Frequency: Does not Exercise Seatbelt Use: always Sunscreen Use: No Assistive Devices: Oxygen - at Night and Wheelchair Assistive Devices Comment: 3l hs Review of Systems Review of Systems: Review of systems was very difficult because of severe dysarthria. There may be some vision issues but I could not ascertain what they were and it did not seem to be double vision, blurry vision, or loss of vision. She states that she does have some problems swallowing more with liquids than solids. Exam (Neuro) Physical Exam: The patient is right-handed. The patient is awake, alert, and attentive. Speech is very dysarthria. She is oriented and is in a normal mood and affect. Memory testing is difficult because of the severe dysarthria and she tends do much better with questions requiring a yes or no answer. The discs are sharp with positive venous pulsations bilaterally. There are no exudates, hemorrhages, or blood vessel changes seen. Pupils are 4 mm bilaterally and reactive to light. Extraocular eye muscles are intact without nystagmus. Visual acuity and visual lopez seem normal grossly to confrontation. There are no deficits to sensation in the face in all 3 distributions of the fifth cranial nerve bilaterally. Jaw opening and closing was normal bilaterally. Corneal reflexes are positive bilaterally. Facial strength is weak bilaterally. She has a droop of the corner of the mouth left. Hearing seems normal bilaterally. Palate moves well without asymmetry. There is 4/5 sternocleidomastoid and trapezius (shoulder shrug) strength bilaterally. Tongue is midline And is weak bilaterally Neck has a decreased range of motion without discomfort. Neck flexion strength is 5/5. Gait and stance cannot be tested as she is bed-bound. She cannot even sit up in bed. The patient has severe, right greater than left, spastic flexion/ contraction of the upper extremities. She cannot be straightened out at the elbows. The left fingers can be straightened out although it gives her pain. The right cannot. She does have 2/5 wired sweatband cutter in the left hand with some 1/5 movement other parts of the limb. The right upper extremity is 0/5. Leg strength is very difficult to ascertain because she has Severe right greater than left extensor spasms and scissoring. She has 1/5 strength in the legs bilaterally moving the limbs too much at the joints creates pain. The limbs have no atrophy or fasciculations noted Sensory examination is intact to touch and pin throughout all 4 limbs diffusely. Reflexes are 2/4 in the biceps, triceps, brachioradialis on the left. These reflexes on the right are absent due to contracture. Quadriceps tendon reflexes are 1/for and Achilles tendon reflexes are 2/4 bilaterally. There is no clonus bilaterally. Toes are upgoing with plantar stimulation bilaterally. Peripheral pulses are present and of normal quality distally in all 4 limbs. There is no peripheral edema noted in the limbs. Results & Data ([facility]) Vital Signs (Past 12 Hours) Vital Signs Temp Pulse Pulse Pulse Resp BP BP 05/22/20 07:33 96 H 05/22/20 07:30 36.9 C 95 H 15 187/95 H 05/22/20 03:53 37.1 C 107 H 18 181/80 H 05/22/20 02:21 76 05/22/20 00:20 36.8 C 85 16 05/21/20 23:55 82 18 125/67 05/21/20 23:00 80 27 H 167/78 H 05/21/20 22:36 85 34 H 174/85 H 05/21/20 22:01 36.9 C 89 18 170/95 H BP Pulse Ox 05/22/20 07:33 05/22/20 07:30 95 05/22/20 03:53 05/22/20 02:21 05/22/20 00:20 190/96 H 96 05/21/20 23:55 98 05/21/20 23:00 91 05/21/20 22:36 92 05/21/20 22:01 96 PG Care Time/CCT Total # of Minutes Spent Total Time Spent with Patient: Total time spent is greater than 50% in coordination of care (as documented) at patient's floor/unit and/or counseling patient: Coding Level of Care Code 33004 Initial Inpt Care Lvl 3 Diagnoses CVA (cerebral vascular accident) I63.9 CVA mechanism: unspecified Primary lateral sclerosis G12.23 Muscle spasticity M62.838 Hypertension I10 Hypertension type: essential hypertension Time Spent (min) 145 Comment bill as time: [id number] plus [id number] to the [id number] (1) CVA (cerebral vascular accident) CVA mechanism: unspecified Qualified Code(s): I63.9 - Cerebral infarction, unspecified (2) Hypertension Hypertension type: essential hypertension Qualified Code(s): I10 - Essential (primary) hypertension
--- NOTE | 2020-05-22 09:25 | Hospitalist Progress Note ---
Date of Service May 22, 2020 Assessment & Plan (1) CVA (cerebral vascular accident): 85yo C female with history of progressive PLS presenting with worsening weakness, garbled speech found to have small acute infarct right insula and subacute infarct right frost radiata. Patient with poor neurological baseline due to underlying PLS - has flexion contractures and immobility of bilateral UEs as well as difficulty with ambulation. notes major changes are in patient's speech as well as her balance. He is currently having a difficult time understanding her and is unable to assist her with ambulation. Desired discharge plan for the patient and is discharge home with around the clock care. Patient does not wish to be placed in a facility at this time. CXR with likely atelectasis as patient with decreased inspiratory effort. Prior dx PNA although denies sob/cough and sat 95% on RA 300mg ASA administered rectally given issues with swallowing on admission and all other mediations held and patient made NPO until cleared by speech * MRI Brain with acute RIGHT hemispheric stroke x 2 basal ganglia area -- would explain increase in L facial weakness/dysarthria. * Neurology consulted -- appreciate assistance. Strokes small and likely small vessel ischemic disease in origin * Recommendations to obtain better BP control -- placed on lisinopril 5mg daily will likely need continued * Despite hx DVT, patient not ideal cadidate for anticoagulation as she has had bleeding episodes in the past x 2 * Lipid panel without abn -- not candidate for high dose statin * A1c 5.6 * CTA Head/neck pending -- IV team to obtain 18G (per discussion with Dr. Sharma, prior done several years ago and doubt much added benefit from obtaining but ok as already previously ordered) * ECHO with normal LV systolic function. moderate asymmetric LVH, LA/RA moderate dilation. Aortic valve sclerosis mild, without significant stenosis. Moderate mitral annular calcification. RVSP elevated 50-60mmHg (will obtain overnight pox) * PT/OT with recs for rehab but patient would liketo go home with help. CM assisting * Speech evaluation * -- minced/moist diet. meds in carrier * -- continue to monitor for dysphagia/issues -- may need further work-up * -- patient will need fed. HOB 30 degrees at all times. small bites/sips. better with a straw. * -- speech to follow for tolerance * D/c ASA * Continue plavix 75mg daily, atorvastatin 40mg * CM following -- will need further care if unable to provide. dose all overnight care and has caregivers during the day. * Permissive HTN to obtain MAP 95-100. BP currently 197/75 but did just receive her metoprolol (had not been given morning medications) Urinary frequency Monitor Urine Culture -- patient with increased frequency/urge. WBC without elevation but did have L shift on admission. possible UTI although epi=wbc. Follow. Would consider gonzalez catheter as she is not able to use bedpan efficiently and st cath difficult d/t spasticity -- will hold off for now given possible infection but did discuss with as option moving forward. (2) Hypertension: * permissive HTN allowed * Resumed metoprolol * Added lisinopril * BP 197/75 -- see above * monitor (3) Hypothyroidism: * Chronic. 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 Patient follows with Neurology. She was treated wtih Baclofen and Tizanidine in the past for limb spasticity. Was recommended trial of Methocarbamol 500mg po TID - does not appear to have taken this and would not like to at this time * Dr. Sharma consulted as above * Bedbound essentially and patient has caregivers and for 30/11 care. Hx DVT d/t such but not able to be placed on anticoagulation d/t bleeding issues in the past. No adjustments made Ppx - SCDs no chemoproph given hx bleeding Code - DNR/DNI Dispo - possible discharge tomorrow Admission and Anticipated Discharge Date Admission Date: May 22, 2020 Subjective Patient evaluated this morning. She had been seen by Dr Sharma this morning. Discussed continuing plavix along given her bleeding in the past. Will need to obtain better blood pressure control. Pain in her legs, chronic, and would not like anything for pain at this time. She states Dr. Sharma told her she would be able to go home today. Discussed several studies still pending but we will try and get her discharged as soon as possible and as safely as possible. Speech eval this morning passed but patient did admit to having a little choking with water but tolerated pills in carrier without much issue. discussed if continues to have issues with swallowing will re-eval and discussion was had about peg tube/etc and patient stated her had one in the past for a year and it was a mess and that she would not like to ever go through that. This information was confirmed with patient's on telephone update this evening. Patient does note frequently feeling like she needs to urinate but has small amounts and difficulty with bed barrios transfers. Discussed possible UTI and that we will monitor culture. She may benefit from gonzalez in the future given contractures. She is aware of progressive nature of disease but would not like to discuss goals of care with palliative care team while in the hospital at this time. Did become slightly tearful when she realized her would not be able to visit her while in the hospital. Discussed with nursing about purewick -- only 1 available canister to use in the room and being utilized by roommate. However, will assess roommates need and apply if possible to prevent having to transfer patient as she does have some pain. Review of Systems Review of Systems: All systems reviewed & are unremarkable except as noted in HPI & below Physical Exam Constitutional: WD/WN, vitals as above comfortable; no acute distress Eyes: + anicteric sclerae and PERRL ENMT: mmm Neck: normal visual inspection and trachea midline Respiratory: normal respiratory effort, lungs clear to auscultation Cardiovascular: RRR, no murmur, no edema Gastrointestinal (Abdomen): normal bowel sounds, soft, nontender, no hepatosplenomegaly Skin: warm, dry Neurologic: speech garbled, dysarthric weak facial strength bilaterally decreased strength of tongue with opposition bilaterally severe flexion contaction of upper extremities which are painful with ROM 2/5 yeast culture developer strength L hand and 1/5 UE, 0/5 RUE sensation intact throughout reflexes 2/4 bilaterally pulses palpable and equal bilaterally Psychiatric: Orientation: alert, oriented x 3 and cooperative Lymphatic: no cervical or axillary lymphadenopathy Results & Data Results & Data ([facility]) Vital Signs (Past 12 Hours) Vital Signs Temp Pulse Pulse Pulse Resp BP BP 05/22/20 07:33 96 H 05/22/20 07:30 36.9 C 95 H 15 187/95 H 05/22/20 03:53 37.1 C 107 H 18 181/80 H 05/22/20 02:21 76 05/22/20 00:20 36.8 C 85 16 05/21/20 23:55 82 18 125/67 05/21/20 23:00 80 27 H 167/78 H 05/21/20 22:36 85 34 H 174/85 H 05/21/20 22:01 36.9 C 89 18 170/95 H BP Pulse Ox 05/22/20 07:33 05/22/20 07:30 95 05/22/20 03:53 05/22/20 02:21 05/22/20 00:20 190/96 H 96 05/21/20 23:55 98 05/21/20 23:00 91 05/21/20 22:36 92 05/21/20 22:01 96 Laboratory Results 05/22/20 05/22/20 05/22/20 Range/Units 07:22 05:22 05:22 WBC (4.8-10.8) K/uL RBC (4.2-5.4) M/uL Hgb (12.0-16.0) g/dL Hct (37-47) % MCV (80-100) fL MCH (25-34) pg MCHC (32-36) g/dL RDW Std Deviation (36.4-46.3) fL RDW Coeff of Erin (11.5-14.5) % Plt Count (130-400) K/uL MPV (7.4-10.4) fL Immature Gran % (Auto) % Neut % (Auto) % Lymph % (Auto) % Spink % (Auto) % Eos % (Auto) % Baso % (Auto) % Neut # (Auto) (1.4-6.5) K/uL Lymph # (Auto) (1.2-3.4) K/uL Spink # (Auto) (0.11-0.59) K/uL Eos # (Auto) (0-0.5) K/uL Baso # (Auto) (0-0.2) K/uL Immature Gran # (Auto) (0.00-0.02) K/uL Sodium (136-145) mmol/L Potassium (3.5-5.1) mmol/L Chloride (98-107) mmol/L Carbon Dioxide (21-32) mmol/L Anion Gap (3-11) BUN (7-18) mg/dl Creatinine (0.6-1.2) mg/dl Est Cr Clr Drug Dosing ml/min Est GFR ( Amer) Est GFR (Non-Af Amer) BUN/Creatinine Ratio (10-20) Glucose (70-99) mg/dl Estimat Average Glucose 114 mg/dl Hemoglobin A1c 5.6 (4.5-5.6) % Calcium (8.5-10.1) mg/dl Phosphorus (2.5-4.9) mg/dl Magnesium (1.8-2.4) mg/dl Total Bilirubin (0.2-1) mg/dl Direct Bilirubin (0-0.2) mg/dl AST (15-37) U/L ALT (12-78) U/L Alkaline Phosphatase (45-117) U/L Total Protein (6.4-8.2) gm/dl Albumin (3.4-5.0) gm/dl Triglycerides 116 (0-150) mg/dl Cholesterol 160 (0-200) mg/dl LDL Cholesterol, Calc 93 mg/dl VLDL Cholesterol, Calc 23 mg/dl HDL Cholesterol 44 mg/dl Cholesterol/HDL Ratio 4 Procalcitonin (0-0.5) ng/ml TSH (0.300-4.500) uIu/ml Urine Color Yellow Urine Appearance Turbid A (Clear) Urine pH 6.0 (4.5-7.5) Ur Specific [place] 1.027 (1.000-1.030) Urine Protein 1+ H (Negative) Urine Glucose (UA) Negative (Negative) Urine Ketones Negative (Negative) Urine Blood Negative (Negative) Urine Nitrite Negative (Negative) Urine Bilirubin Negative (Negative) Urine Urobilinogen Negative (Negative) Ur Leukocyte Esterase 1+ H (Negative) Urine WBC (Auto) >30 H (0-5) /hpf Urine RBC (Auto) 0-4 (0-4) /hpf U Hyaline Cast (Auto) 1-5 (0-5) /lpf U Epithel Cells (Auto) >30 H (0-5) /lpf Urine Bacteria (Auto) 1+ H (Negative) Urine Yeast Not Reportable COVID-19 Eval Order SARS-CoV-2, RNA, NAAT (NEGATIVE) 05/22/20 05/22/20 05/22/20 Range/Units 01:14 01:14 01:14 WBC 6.70 (4.8-10.8) K/uL RBC 3.94 L (4.2-5.4) M/uL Hgb 12.6 (12.0-16.0) g/dL Hct 37.4 (37-47) % MCV 94.9 (80-100) fL MCH 32.0 (25-34) pg MCHC 33.7 (32-36) g/dL RDW Std Deviation 47.4 H (36.4-46.3) fL RDW Coeff of Erin 13.5 (11.5-14.5) % Plt Count 203 (130-400) K/uL MPV 11.7 H (7.4-10.4) fL Immature Gran % (Auto) 0.1 % Neut % (Auto) 70.3 % Lymph % (Auto) 18.5 % Spink % (Auto) 10.1 % Eos % (Auto) 0.9 % Baso % (Auto) 0.1 % Neut # (Auto) 4.70 (1.4-6.5) K/uL Lymph # (Auto) 1.24 (1.2-3.4) K/uL Spink # (Auto) 0.68 H (0.11-0.59) K/uL Eos # (Auto) 0.06 (0-0.5) K/uL Baso # (Auto) 0.01 (0-0.2) K/uL Immature Gran # (Auto) 0.01 (0.00-0.02) K/uL Sodium 141 (136-145) mmol/L Potassium 3.8 (3.5-5.1) mmol/L Chloride 110 H (98-107) mmol/L Carbon Dioxide 25 (21-32) mmol/L Anion Gap 6.0 (3-11) BUN 17 (7-18) mg/dl Creatinine 0.73 (0.6-1.2) mg/dl Est Cr Clr Drug Dosing 50.0 ml/min Est GFR ( Amer) 87.0 Est GFR (Non-Af Amer) 75.1 BUN/Creatinine Ratio 23.3 H (10-20) Glucose 115 H (70-99) mg/dl Estimat Average Glucose mg/dl Hemoglobin A1c (4.5-5.6) % Calcium 8.5 (8.5-10.1) mg/dl Phosphorus 3.3 (2.5-4.9) mg/dl Magnesium 2.2 (1.8-2.4) mg/dl Total Bilirubin 0.6 (0.2-1) mg/dl Direct Bilirubin 0.2 (0-0.2) mg/dl AST 16 (15-37) U/L ALT 24 (12-78) U/L Alkaline Phosphatase 113 (45-117) U/L Total Protein 6.8 (6.4-8.2) gm/dl Albumin 3.3 L (3.4-5.0) gm/dl Triglycerides (0-150) mg/dl Cholesterol (0-200) mg/dl LDL Cholesterol, Calc mg/dl VLDL Cholesterol, Calc mg/dl HDL Cholesterol mg/dl Cholesterol/HDL Ratio Procalcitonin < 0.05 (0-0.5) ng/ml TSH 1.010 (0.300-4.500) uIu/ml Urine Color Urine Appearance (Clear) Urine pH (4.5-7.5) Ur Specific [place] (1.000-1.030) Urine Protein (Negative) Urine Glucose (UA) (Negative) Urine Ketones (Negative) Urine Blood (Negative) Urine Nitrite (Negative) Urine Bilirubin (Negative) Urine Urobilinogen (Negative) Ur Leukocyte Esterase (Negative) Urine WBC (Auto) (0-5) /hpf Urine RBC (Auto) (0-4) /hpf U Hyaline Cast (Auto) (0-5) /lpf U Epithel Cells (Auto) (0-5) /lpf Urine Bacteria (Auto) (Negative) Urine Yeast COVID-19 Eval Order SARS-CoV-2, RNA, NAAT (NEGATIVE) 05/21/20 05/21/20 Range/Units 22:36 22:36 WBC (4.8-10.8) K/uL RBC (4.2-5.4) M/uL Hgb (12.0-16.0) g/dL Hct (37-47) % MCV (80-100) fL MCH (25-34) pg MCHC (32-36) g/dL RDW Std Deviation (36.4-46.3) fL RDW Coeff of Erin (11.5-14.5) % Plt Count (130-400) K/uL MPV (7.4-10.4) fL Immature Gran % (Auto) % Neut % (Auto) % Lymph % (Auto) % Spink % (Auto) % Eos % (Auto) % Baso % (Auto) % Neut # (Auto) (1.4-6.5) K/uL Lymph # (Auto) (1.2-3.4) K/uL Spink # (Auto) (0.11-0.59) K/uL Eos # (Auto) (0-0.5) K/uL Baso # (Auto) (0-0.2) K/uL Immature Gran # (Auto) (0.00-0.02) K/uL Sodium (136-145) mmol/L Potassium (3.5-5.1) mmol/L Chloride (98-107) mmol/L Carbon Dioxide (21-32) mmol/L Anion Gap (3-11) BUN (7-18) mg/dl Creatinine (0.6-1.2) mg/dl Est Cr Clr Drug Dosing ml/min Est GFR ( Amer) Est GFR (Non-Af Amer) BUN/Creatinine Ratio (10-20) Glucose (70-99) mg/dl Estimat Average Glucose mg/dl Hemoglobin A1c (4.5-5.6) % Calcium (8.5-10.1) mg/dl Phosphorus (2.5-4.9) mg/dl Magnesium (1.8-2.4) mg/dl Total Bilirubin (0.2-1) mg/dl Direct Bilirubin (0-0.2) mg/dl AST (15-37) U/L ALT (12-78) U/L Alkaline Phosphatase (45-117) U/L Total Protein (6.4-8.2) gm/dl Albumin (3.4-5.0) gm/dl Triglycerides (0-150) mg/dl Cholesterol (0-200) mg/dl LDL Cholesterol, Calc mg/dl VLDL Cholesterol, Calc mg/dl HDL Cholesterol mg/dl Cholesterol/HDL Ratio Procalcitonin (0-0.5) ng/ml TSH (0.300-4.500) uIu/ml Urine Color Urine Appearance (Clear) Urine pH (4.5-7.5) Ur Specific [place] (1.000-1.030) Urine Protein (Negative) Urine Glucose (UA) (Negative) Urine Ketones (Negative) Urine Blood (Negative) Urine Nitrite (Negative) Urine Bilirubin (Negative) Urine Urobilinogen (Negative) Ur Leukocyte Esterase (Negative) Urine WBC (Auto) (0-5) /hpf Urine RBC (Auto) (0-4) /hpf U Hyaline Cast (Auto) (0-5) /lpf U Epithel Cells (Auto) (0-5) /lpf Urine Bacteria (Auto) (Negative) Urine Yeast COVID-19 Eval Order Covid19 IDNow atMLAC SARS-CoV-2, RNA, NAAT NEGATIVE (NEGATIVE) Diagnostic Findings IMPRESSION: 1. Several small acute infarcts within the right insular cortex and right frost radiata. No mass effect. No hemorrhage. 2. Exam moderately compromised by motion artifact. 3. Moderate atrophy and small vessel disease. CXR IMPRESSION: Persistent left mid and lower lung airspace opacity which may reflect an infectious process or atelectasis. ECHOCARDIOGRAM PG Care Time/CCT Total # of Minutes Spent Total Time Spent with Patient: Total time spent is greater than 50% in coordination of care (as documented) at patient's floor/unit and/or counseling patient: Coding Level of Care Code 80852 Subseq Hosp Care Lvl 3 Diagnoses CVA (cerebral vascular accident) I63.9 CVA mechanism: unspecified Hypertension I10 Hypertension type: essential hypertension Hypothyroidism E03.9 Hypothyroidism type: unspecified Chronic diastolic (congestive) heart failure I50.32 Primary lateral sclerosis G12.23 (1) CVA (cerebral vascular accident) CVA mechanism: unspecified Qualified Code(s): I63.9 - Cerebral infarction, unspecified (2) Hypertension Hypertension type: essential hypertension Qualified Code(s): I10 - Essential (primary) hypertension (3) Hypothyroidism Hypothyroidism type: unspecified Qualified Code(s): E03.9 - Hypothyroidism, unspecified
[2020-05-22] MEDS: ATORVASTATIN 40 MG TAB PO SCH (09:53)
[2020-05-22] MEDS: CLOPIDOGREL BISULFATE 75 MG TAB PO SCH ×2 (09:53→15:38)
--- NOTE | 2020-05-22 10:11 | XCELERA ---
[id number]
[2020-05-22] MEDS ORDERED: lisinopril 5 MG TAB PO ONE (14:23)
[2020-05-22] MEDS: METOPROLOL TARTRATE 50 MG TAB PO SCH ×2 (15:37→20:47)
[2020-05-22] MEDS: CHOLECALCIFEROL 1,000 UNITS 25 MCG TAB PO SCH (20:47)
[2020-05-22] MEDS: DOCUSATE SODIUM 100 MG CAP PO SCH (20:48)
[2020-05-23] MEDS ORDERED: FUROSEMIDE 20 MG in SYRINGE 0 ML IV ONE (02:00)
[2020-05-23] MEDS: LEVOTHYROXINE SODIUM 75 MCG TABLET PO SCH (07:22)
[2020-05-23] MEDS: ATORVASTATIN 40 MG TAB PO SCH (08:50)
[2020-05-23] MEDS: FUROSEMIDE 20 MG TAB PO SCH (08:50)
[2020-05-23] MEDS: FERROUS GLUCONATE 324 MG TAB PO SCH (08:50)
[2020-05-23] MEDS: DOCUSATE SODIUM 100 MG CAP PO SCH ×2 (08:51→20:36)
[2020-05-23] MEDS: METOPROLOL TARTRATE 50 MG TAB PO SCH (09:13)
[2020-05-23] MEDS: CLOPIDOGREL BISULFATE 75 MG TAB PO SCH (09:13)
--- NOTE | 2020-05-23 09:28 | Hospitalist Progress Note ---
Date of Service May 23, 2020 Assessment & Plan (1) CVA (cerebral vascular accident): 85yo C female with history of progressive PLS presenting with worsening weakness, garbled speech found to have small acute infarct right insula and subacute infarct right frost radiata. Patient with poor neurological baseline due to underlying PLS - has flexion contractures and immobility of bilateral UEs as well as difficulty with ambulation. notes major changes are in patient's speech as well as her balance. He is currently having a difficult time understanding her and is unable to assist her with ambulation. Desired discharge plan for the patient and is discharge home with around the clock care. Patient does not wish to be placed in a facility at this time. CXR with likely atelectasis as patient with decreased inspiratory effort. Prior dx PNA although denies sob/cough and sat 94% on RA 300mg ASA administered rectally given issues with swallowing on admission * MRI Brain with acute RIGHT hemispheric stroke x 2 basal ganglia area -- would explain increase in L facial weakness/dysarthria. * Neurology consulted -- appreciate assistance. Strokes small and likely small vessel ischemic disease in origin * Recommendations to obtain better BP control -- placed on lisinopril 5mg daily will likely need continued * Despite hx DVT, patient not ideal candidate for anticoagulation as she has had bleeding episodes in the past x 2 * Lipid panel without abn -- not candidate for high dose statin * A1c 5.6 * CTA Head/neck pending -- IV team to obtain 18G (per discussion with Dr. Sharma, prior done several years ago and doubt much added benefit from obtaining but ok as already previously ordered) --> as unable to obtain 18G, conversation with neurology and ok not to obtain this study as will not change course of treatment for this patient * ECHO with normal LV systolic function. moderate asymmetric LVH, LA/RA moderate dilation. Aortic valve sclerosis mild, without significant stenosis. Moderate mitral annular calcification. RVSP elevated 50-60mmHg * Overnight pulse ox with desat events for >20 min -- will arrange for overnight oxygen to be worn * D/c ASA * Continue plavix 75mg daily, atorvastatin 40mg * CM following -- will need further care if unable to provide. dose all overnight care and has caregivers during the day. * Permissive HTN to obtain MAP 95-100. BP currently 197/75 but did just receive her metoprolol (had not been given morning medications) * PT/OT with recs for rehab but patient would liketo go home with help. CM assisting * Speech evaluation * -- minced/moist diet. meds in carrier * -- continue to monitor for dysphagia/issues -- may need further work-up * -- patient will need fed. HOB 30 degrees at all times. small bites/sips. better with a straw. * -- speech to follow for tolerance * Video swallow with silent aspiration of thin liquids --> discussed with speech and to get thickener for liquids and patient will need to be on a nectar thick, minced/moist diet at discharge. He is going to the pharmacy today to see about getting in anticipation for d/c tomorrow. * CM arranging for SOFTWARE EDUCATOR at discharge -- they will be able to see her on Wednesday per conversation this afternoon Urinary frequency Monitor Urine Culture -- patient with increased frequency/urge. WBC without elevation but did have L shift on admission. possible UTI although epi=wbc. Discussed with micro, and likely alpha strep but is re-incubating until tomorrow Follow. Would consider gonzalez catheter as she is not able to use bedpan efficiently and st cath difficult d/t spasticity -- will hold off for now given possible infection but did discuss with as option moving forward. Will re-eval tomorrow for gonzalez at discharge for ease with and care moving forward (2) Hypertension: * permissive HTN allowed * Resumed metoprolol * Added lisinopril yesterday and will continue today and at discharge * BP 175/78 (did not yet get the lisinopril) * Continue to monitor (3) Hypothyroidism: * Chronic. TSH 1.01 * Continue Synthroid 75mcg daily (4) Chronic diastolic (congestive) heart failure: * Patient appears euvolemic at present although got a dose of lasix 20mg IV this morning by overnight team for increased shortness of breath * CXR with interval resolution of perihilar airspace opacities. 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 Patient follows with Neurology. She was treated wtih Baclofen and Tizanidine in the past for limb spasticity. Was recommended trial of Methocarbamol 500mg po TID - does not appear to have taken this and would not like to at this time * Dr. Sharma consulted as above * Bedbound essentially and patient has caregivers and for 30/11 care. Hx DVT d/t such but not able to be placed on anticoagulation d/t bleeding issues in the past. No adjustments made Hypokalemia K 3.4 on AM labs -- ordered 10meq Kdur and will repeat BMP in AM DVT Prophylaxis SCDs ordered (not previously done) no chemoproph given hx bleeding Code - DNR/DNI Dispo - hopeful discharge tomorrow morning Admission and Anticipated Discharge Date Admission Date: May 22, 2020 Subjective Patient evaluated following swallowing study. She had repeat episode of choking on water last evening. Discussed aspiration of thin liquids and need for nectar thick moving forward. Discussed with to medicinal plant picker today for hopeful discharge tomorrow and will provide information regarding this for help. Will also contact CM about arranging SOFTWARE EDUCATOR at discharge. No fever, chills, chest pain, shortness of breath, abdominal pain, nausea or vomiting noted at this time. Patient hopeful for discharge early tomorrow morning. Unfortunately, unable to get additional caregivers at home at this time but feels he will be able to take her home at this time. If continues to progress will need to consider placement in the future. Questions/concerns answered at this time. Review of Systems Review of Systems: All systems reviewed & are unremarkable except as noted in HPI & below Physical Exam Constitutional: WD/WN, vitals as above comfortable; no acute distress Eyes: + anicteric sclerae and PERRL ENMT: mmm Neck: normal visual inspection and trachea midline Respiratory: normal respiratory effort, lungs clear to auscultation Cardiovascular: RRR, no murmur, no edema Gastrointestinal (Abdomen): normal bowel sounds, soft, nontender, no hepat osplenomegaly Skin: warm, dry Neurologic: speech garbled, dysarthric but able to understand a little better today. difficulty with word finding and does better with y/n questions weak facial strength bilaterally decreased strength of tongue with opposition bilaterally severe flexion contraction of upper extremities which are painful with ROM 2/5 mechanical equipment sales engineer strength L hand and 1/5 UE, 0/5 RUE sensation intact throughout reflexes 2/4 bilaterally pulses palpable and equal bilaterally Psychiatric: Orientation: alert, oriented x 3 and cooperative Lymphatic: no cervical or axillary lymphadenopathy Results & Data Results & Data ([facility]) Vital Signs (Past 12 Hours) Vital Signs Temp Pulse Pulse Pulse Resp BP BP 05/23/20 08:56 166/72 H 05/23/20 08:02 36.4 C L 89 16 92/52 L 05/23/20 07:41 81 05/23/20 03:37 36.6 C 84 20 163/84 H 05/23/20 02:23 71 05/23/20 02:17 73 175/77 H 05/23/20 02:03 78 05/22/20 23:09 36.6 C 65 20 146/79 H 05/22/20 21:45 78 Pulse Ox Pulse Ox 05/23/20 08:56 05/23/20 08:02 90 05/23/20 07:41 05/23/20 03:37 90 05/23/20 02:23 05/23/20 02:17 05/23/20 02:03 91 05/22/20 23:09 95 05/22/20 21:45 93 Laboratory Results 05/23/20 05/23/20 Range/Units 09:37 09:37 WBC 7.31 (4.8-10.8) K/uL RBC 4.18 L (4.2-5.4) M/uL Hgb 13.0 (12.0-16.0) g/dL Hct 39.3 (37-47) % MCV 94.0 (80-100) fL MCH 31.1 (25-34) pg MCHC 33.1 (32-36) g/dL RDW Std Deviation 45.9 (36.4-46.3) fL RDW Coeff of Erin 13.2 (11.5-14.5) % Plt Count 190 (130-400) K/uL MPV 11.7 H (7.4-10.4) fL Immature Gran % (Auto) 0.3 % Neut % (Auto) 76.3 % Lymph % (Auto) 13.4 % [place] % (Auto) 8.3 % Eos % (Auto) 1.4 % Baso % (Auto) 0.3 % Neut # (Auto) 5.58 (1.4-6.5) K/uL Lymph # (Auto) 0.98 L (1.2-3.4) K/uL [place] # (Auto) 0.61 H (0.11-0.59) K/uL Eos # (Auto) 0.10 (0-0.5) K/uL Baso # (Auto) 0.02 (0-0.2) K/uL Immature Gran # (Auto) 0.02 (0.00-0.02) K/uL Sodium 138 (136-145) mmol/L Potassium 3.4 L (3.5-5.1) mmol/L Chloride 105 (98-107) mmol/L Carbon Dioxide 27 (21-32) mmol/L Anion Gap 6.0 (3-11) BUN 13 (7-18) mg/dl Creatinine 0.75 (0.6-1.2) mg/dl Est Cr Clr Drug Dosing 47.9 ml/min Est GFR ( Amer) 84.2 Est GFR (Non-Af Amer) 72.7 BUN/Creatinine Ratio 17.9 (10-20) Glucose 121 H (70-99) mg/dl Calcium 8.4 L (8.5-10.1) mg/dl Total Bilirubin 0.9 (0.2-1) mg/dl AST 17 (15-37) U/L ALT 23 (12-78) U/L Alkaline Phosphatase 118 H (45-117) U/L Total Protein 6.8 (6.4-8.2) gm/dl Albumin 3.3 L (3.4-5.0) gm/dl Globulin 3.5 (2.5-4.0) gm/dl Albumin/Globulin Ratio 0.9 (0.9-2) Diagnostic Findings CXR IMPRESSION: 1. Interval resolution of the perihilar airspace opacities 2. Peripheral left lung opacity, likely relating to focal pleural thickening perhaps secondary to an old rib fracture [place] Video Swallow IMPRESSION: 1. Trace silent aspiration of thin liquids. 2. Please see the speech pathologist report for detailed findings and recommendations. PG Care Time/CCT Total # of Minutes Spent Total Time Spent with Patient: Total time spent is greater than 50% in coordination of care (as documented) at patient's floor/unit and/or counseling patient: Coding Level of Care Code 75742 Subseq Hosp Care Lvl 2 Diagnoses CVA (cerebral vascular accident) I63.9 CVA mechanism: unspecified Hypertension I10 Hypertension type: essential hypertension Hypothyroidism E03.9 Hypothyroidism type: unspecified Chronic diastolic (congestive) heart failure I50.32 Primary lateral sclerosis G12.23 (1) Hypothyroidism Hypothyroidism type: unspecified Qualified Code(s): E03.9 - Hypothyroidism, unspecified (2) Hypertension Hypertension type: essential hypertension Qualified Code(s): I10 - Essential (primary) hypertension (3) CVA (cerebral vascular accident) CVA mechanism: unspecified Qualified Code(s): I63.9 - Cerebral infarction, unspecified
[2020-05-23 09:54] LABS: Basophils # (auto) 0.02 K/uL (0-0.2); Basophils % (auto) 0.3 %; Eosinophils % (auto) 1.4 %; Hematocrit (blood only) 39.3 % (37-47); Immature Granulocytes # (auto) 0.02 K/uL (0.00-0.02); Immature Granulocytes % (auto) 0.3 %; Lymphocytes # (auto) 0.98 K/uL (1.2-3.4); Lymphocytes % (auto) 13.4 %; Mean Corpuscular Hemoglobin 31.1 pg (25-34); Mean Corpuscular Hgb Conc 33.1 g/dL (32-36); Mean Platelet Volume 11.7 fL (7.4-10.4); Monocytes # (auto) 0.61 K/uL (0.11-0.59); Monocytes % (auto) 8.3 %; Neutrophils # (auto) 5.58 K/uL (1.4-6.5); Neutrophils % (auto) 76.3 %; Platelet Count 190 K/uL (130-400); RDW Coefficient of Variation 13.2 % (11.5-14.5); RDW Standard Deviation 45.9 fL (36.4-46.3); Red Blood Count 4.18 M/uL (4.2-5.4); White Blood Count 7.31 K/uL (4.8-10.8)
[2020-05-23 10:17] LABS: Albumin Level 3.3 gm/dl (3.4-5.0); BUN Creatinine Ratio 17.9 (10-20); Calcium 8.4 mg/dl (8.5-10.1); Creatinine Clr Calc Pharmacy 47.9 ml/min; Est GFR (African American) 84.2; Est GFR (Non-African American) 72.7; Potassium 3.4 mmol/L (3.5-5.1)
[2020-05-23 10:20] LABS: Albumin Globulin Ratio 0.9 (0.9-2); Bilirubin,Total 0.9 mg/dl (0.2-1); Globulin 3.5 gm/dl (2.5-4.0); Total Protein 6.8 gm/dl (6.4-8.2)
--- NOTE | 2020-05-23 13:48 | XRay Report ---
XR chest 1V portable CLINICAL HISTORY: f/u ?aspiration SHORTNESS OF BREATH. ABNORMAL CHEST X-RAY. COMPARISON STUDY: 05/22/2020 FINDINGS: The heart is at the upper limits of normal in size. There is no lobar consolidation. A brandon pheral left lung opacity on the current study likely relates to focal pleural thickening.[There is be en resolution of the previously identified perihilar airspace opacities IMPRESSION: 1. Interval resolution of the perihilar airspace opacities 2. Peripheral left lung opacity, likely relating to focal pleural thickening perhaps secondary to an old rib fracture ACT 112: Negative or not required by law. Electronically signed by: Tez العلي M.D. 05/23/2020 1:46 PM
--- NOTE | 2020-05-23 14:15 | Fluoroscopy Report ---
FL video swallow HISTORY: Suspected aspiration TECHNIQUE: Video fluoroscopic evaluation of swallowing was performed in the AP and lateral projection s by the speech pathology staff. The patient is fed nectar-thick and thin liquid barium, a barium coa blair wafer, and barium pudding. FLUOROSCOPY TIME: 2.2 minutes. NUMBER OF FLUOROSCOPY IMAGES: 0 COMPARISON STUDY: 03/31/2019 FINDINGS: The patient swallowed thin liquid barium via teaspoon. There was aspiration. A swallowed vi a cup and there was silent aspiration. There is no aspiration when swallowing nectar thick liquids pu tting or cracker with paste. IMPRESSION: 1. Trace silent aspiration of thin liquids. 2. Please see the speech pathologist report for detailed findings and recommendations. ACT 112: Negative or not required by law. Electronically signed by: Tez العلي M.D. 05/23/2020 2:14 PM
[2020-05-23] MEDS ORDERED: POTASSIUM CHLORIDE 10 MEQ TABCR PO ONE (16:45)
[2020-05-23] MEDS: lisinopril 5 MG TAB PO SCH (17:18)
[2020-05-23] MEDS: CHOLECALCIFEROL 1,000 UNITS 25 MCG TAB PO SCH (20:36)
[2020-05-23] MEDS: METOPROLOL TARTRATE 25 MG TAB PO SCH (20:38)
[2020-05-24] MEDS: LEVOTHYROXINE SODIUM 75 MCG TABLET PO SCH (05:38)
[2020-05-24 07:16] LABS: Alanine Aminotransferase 23 U/L (12-78); Albumin Globulin Ratio 0.9 (0.9-2); Albumin Level 3.2 gm/dl (3.4-5.0); Alkaline Phosphatase 108 U/L (45-117); BUN Creatinine Ratio 19.3 (10-20); Bilirubin,Total 0.8 mg/dl (0.2-1); Blood Urea Nitrogen 14 mg/dl (7-18); Calcium 8.4 mg/dl (8.5-10.1); Carbon Dioxide 23 mmol/L (21-32); Chloride 107 mmol/L (98-107); Creatinine Clr Calc Pharmacy 48.6 ml/min; Est GFR (African American) 85.6; Est GFR (Non-African American) 73.9; Globulin 3.4 gm/dl (2.5-4.0); Glucose 101 mg/dl (70-99); Phosphorus 3.6 mg/dl (2.5-4.9); Sodium 137 mmol/L (136-145); Total Protein 6.6 gm/dl (6.4-8.2)
[2020-05-24] MEDS: DOCUSATE SODIUM 100 MG CAP PO SCH ×2 (07:36→19:31)
[2020-05-24] MEDS: ATORVASTATIN 40 MG TAB PO SCH (07:37)
[2020-05-24] MEDS: CLOPIDOGREL BISULFATE 75 MG TAB PO SCH (07:37)
[2020-05-24] MEDS: METOPROLOL TARTRATE 25 MG TAB PO SCH (07:37)
[2020-05-24] MEDS: FUROSEMIDE 20 MG TAB PO SCH (07:37)
[2020-05-24] MEDS: lisinopril 5 MG TAB PO SCH (07:38)
[2020-05-24 07:43] LABS: Potassium 3.7 mmol/L (3.5-5.1)
--- NOTE | 2020-05-24 08:09 | Neurology Consultation ---
Date of Consultation May 24, 2020 Assessment & Plan (1) CVA (cerebral vascular accident): (2) Primary lateral sclerosis: (3) Muscle spasticity: (4) Hypertension: This patient has a chronic progressive neurologic condition over the last 8 years, consistent with primary lateral sclerosis. She has severe weakness and spasticity with flexion contractions in the upper extremities and extensor contractions in the lower extremities right greater than left side bilaterally. There are no sensory deficits or cognitive issues. She does have dysarthria and swallowing problems due to tongue weakness bilaterally. She is bed-bound and her is having significant difficulty caring for her at home despite the home aides. Feeding has been difficult as well. Unfortunately, there is no treatment for this condition. She has tried and failed multiple medications to treat spasticity. In addition, the patient has had an acute right hemispheric small stroke x2 in the basal ganglia area. This is accounted for some acute increase in left-sided facial weakness and dysarthria. The strokes are small and are likely small vessel ischemic disease in origin. Risk factors for stroke include hypertension and advanced age. Patient has a history of DVT but every time she is given anticoagulation she has bleeding episodes. Recommendations: 1. consider physical, occupational, and speech therapy consults. Perhaps there is something that can be done for her despite her progressive condition and new stroke. 2. Social service consult to connect with the patient's for options regarding long-term care patient. 3. Consider clopidogrel 75 mg daily alone for ischemic stroke prevention. I would not give her aspirin and Plavix because she had a bleeding episode on both in the past. she is not a candidate for anticoagulation at this time. 4. feeding her is going to be difficult and she may need a G-tube to bypass swallowing. 5. Control blood pressure as you are doing aiming for a mean arterial pressure of 95-100. 6. The patient is not a high dose statin candidate , and her lipid levels were unremarkable. 7. Patient may need Richmond catheter placement /indwelling Richmond as she is not able to use the bedpan efficiently , and intermittent straight cath is difficult due to her severe leg spasticity/scissoring. 8. Echocardiogram is pending Overall, I spent a total of 145 minutes with this case including extensive review of records, review of old and new MRI films, review of the new MRI films and Radiology with Dr. Centeno, discussion of the case with the patient's via telephone, direct evaluation the patient at bedside, and discussion of the case with the patient at bedside, RN at bedside, and Lilli Houser PA-C , including differential diagnosis and treatment options. History of Present Illness Attending Physician: Jese Gil MD Allergies Allergy/AdvReac Type Severity Reaction Status Date / Time apixaban [From Eliquis] Allergy Unknown bleeding Verified 05/21/20 16:20 Sulfa (Sulfonamide Allergy Unknown HANDS Verified 05/21/20 16:20 Antibiotics) SWELLED rivaroxaban [From Xarelto] AdvReac Severe bleeding Verified 05/21/20 16:20 Home Medications Medication Instructions Recorded Confirmed Type cholecalciferol (vitamin D3) 125 5,000 units PO QPM tab 10/12/18 05/21/20 History mcg (5,000 unit) tablet ferrous gluconate 324 mg (38 mg 324 mg PO Q2D tab 12/23/18 05/21/20 History iron) tablet metoprolol tartrate 50 mg tablet 50 mg PO BID #180 tab 07/17/19 05/21/20 Rx levothyroxine 75 mcg tablet 75 mcg PO QAM #90 tab 12/06/19 05/21/20 Rx furosemide 20 mg tablet 10 mg PO QAM #90 tab 02/21/20 05/21/20 Rx Patient History Medical History Anemia Bilateral pleural effusion Bladder neoplasm Bronchopneumonia Carpal tunnel syndrome, bilateral Chronic diastolic (congestive) heart failure Chronic osteoarthritis Deep venous thrombosis (DVT) of right peroneal vein Disorder of bone Dyspnea on exertion Edema Essential hypertension Gait disturbance GI bleed Hemiparesis, right Hiatal hernia History of GI bleed History of intracerebral hemorrhage without residual deficit Hypothyroidism Kyphoscoliosis Left femoral vein DVT Lumbar compression fracture Multiple fractures of ribs of right side Muscle spasticity Muscular deconditioning Nocturia Normal left ventricular systolic function Numbness of left hand Osteoporosis Other specified acquired deformities of right upper arm Pelvic fracture Polyneuropathy Primary lateral sclerosis Restrictive lung disease Stroke syndrome TIA (transient ischemic attack) Trochanteric bursitis of left hip Urinary incontinence Venous insufficiency Vitamin D deficiency Vulvovaginitis Surgical History Hip joint replacement status History of bilateral salpingo-oophorectomy History of tonsillectomy History of total abdominal hysterectomy S/P KALYN-BSO Family History Mother Congestive heart failure Type 2 diabetes mellitus without complications Essential hypertension Myocardial infarction Hypertension Father Hodgkins lymphoma Brother Colon cancer Throat cancer Grandmother Myocardial infarction Stroke Denies family history of Ovarian cancer Prostate cancer Diabetes Breast cancer Lung cancer Social History Smoking Status: Never smoker Second Hand Exposure: No; Hx Alcohol Use: No Hx Substance Use: No Preferred Language: Hungarian Communication Ability: Effective Visual Impairment: No Limitations Hearing Ability: Normal Ammunition Officer Required: No Beliefs That Will Affect Care: None marital status: Current Living Situation: Spouse current occupational status: retired Feels Safe at Home: Yes Childhood Exposure to Second-Hand Smoke: No caffeine: Yes Dental Care, Regularly: Yes Physical Activity Frequency: Does not Exercise Seatbelt Use: always Sunscreen Use: No Assistive Devices: None Assistive Devices Comment: 3l hs Results & Data ([facility]) Vital Signs (Past 12 Hours) Vital Signs Temp Pulse Pulse Resp BP Pulse Ox 05/24/20 07:39 36.6 C 106 H 20 168/94 H 95 05/24/20 06:58 84 05/24/20 03:51 36.6 C 64 18 149/72 H 92 05/23/20 23:17 36.9 C 80 20 166/82 H 92 05/23/20 23:16 69 PG Care Time/CCT Total # of Minutes Spent Total Time Spent with Patient: Total time spent is greater than 50% in coordination of care (as documented) at patient's floor/unit and/or counseling patient: Coding Diagnoses CVA (cerebral vascular accident) I63.9 CVA mechanism: unspecified Primary lateral sclerosis G12.23 Muscle spasticity M62.838 Hypertension I10 Hypertension type: essential hypertension (1) CVA (cerebral vascular accident) CVA mechanism: unspecified Qualified Code(s): I63.9 - Cerebral infarction, unspecified (2) Hypertension Hypertension type: essential hypertension Qualified Code(s): I10 - Essential (primary) hypertension
--- NOTE | 2020-05-24 08:23 | Neurology Progress Note ---
Date of Service May 24, 2020 Assessment & Plan (1) CVA (cerebral vascular accident): (2) Primary lateral sclerosis: (3) Muscle spasticity: (4) Hypertension: This patient has a chronic progressive neurologic condition over the last 8 years, consistent with primary lateral sclerosis. She has severe weakness and spasticity with flexion contractions in the upper extremities and extensor contractions in the lower extremities right greater than left side bilaterally. There are no sensory deficits or cognitive issues. She does have dysarthria and swallowing problems due to tongue weakness bilaterally. Swallowing study reveals aspiration on liquids. She is bed-bound and her is having significant difficulty caring for her at home despite the home aides. Feeding has been difficult as well. Unfortunately, there is no treatment for this condition. She has tried and failed multiple medications to treat spasticity. In addition, the patient has had an acute right hemispheric small stroke x2 in the basal ganglia area. This is accounted for some acute increase in left-sided facial weakness and dysarthria. The strokes are small and are likely small vessel ischemic disease in origin. Clinically, I think she is improved from the acute deficits she has this stroke. Risk factors for stroke include hypertension and advanced age. She still has some hypertension. Patient has a history of DVT but every time she is given anticoagulation she has bleeding episodes. Recommendations: 1. Continue physical, occupational, and speech therapy. Perhaps there is something that can be done for her despite her progressive condition and new stroke. 2. Social service consult to connect with the patient's for options regarding long-term care patient. it seems this if the and patient want her to go home. This is fine if she has extra help. 3. Clopidogrel 75 mg daily alone for ischemic stroke prevention. Keep off aspirin, because she had a bleeding episode on both in the past. she is not a candidate for anticoagulation at this time. 4. [place] thick liquids and solids for feeding. 5. Control blood pressure as you are doing aiming for a mean arterial pressure of 95-100. 6. The patient is not a high dose statin candidate , and her lipid levels were unremarkable. 7. Patient may need Richmond catheter placement /indwelling Richmond as she is not able to use the bedpan efficiently , and intermittent straight cath is difficult due to her severe leg spasticity/scissoring. Overall, I spent a total of 35 minutes with this case including review of new MRI films, direct evaluation the patient at bedside, and discussion of the case with the patient at bedside, RN at bedside, and Lilli Houser PA-C , including differential diagnosis and treatment options. Admission and Anticipated Discharge Date Admission Date: May 22, 2020 Subjective Patient is not having any pain and is sitting up in bed very awake and alert. Echocardiogram showed no source of embolus. chemistry profile today was unremarkable. Patient underwent video fluoroscopic swallowing study and was aspirating on liquids. This was not the case with nectar thick liquids Overnight monitoring has revealed some PVCs, PACs and a brief run of V-tach. Currently she is in sinus rhythm. patient still has elevated blood pressure read ings. Results & Data ([facility]) Vital Signs (Past 12 Hours) Vital Signs Temp Pulse Pulse Resp BP Pulse Ox 05/24/20 07:39 36.6 C 106 H 20 168/94 H 95 05/24/20 06:58 84 05/24/20 03:51 36.6 C 64 18 149/72 H 92 05/23/20 23:17 36.9 C 80 20 166/82 H 92 05/23/20 23:16 69 Exam (Neuro) Physical Exam: She is awake and alert. Speech is somewhat dysarthric mechanically weakness in her tongue limps. She has also hesitant with her speech because she gets short of breath with talking. She is more understandable today than she was on the . Extraocular muscles are intact without nystagmus. She has a slight droop of the corner mouth on the left but with voluntary smile both sides move fairly well. Tongue is midline is weak with strength bilaterally. Palate raises. She has no movement with severe spastic contractures in the right upper extremity. She can flex and extend her left finger some but it is painful her to do this She has 2/5 strength proximally in the legs and 1-2/distally PG Care Time/CCT Total # of Minutes Spent Total Time Spent with Patient: Total time spent is greater than 50% in coordination of care (as documented) at patient's floor/unit and/or counseling patient: Coding Level of Care Code 55541 Subseq Hosp Care Lvl 3 Diagnoses CVA (cerebral vascular accident) I63.9 CVA mechanism: unspecified Primary lateral sclerosis G12.23 Muscle spasticity M62.838 Hypertension I10 Hypertension type: essential hypertension Time Spent (min) 35 (1) Hypertension Hypertension type: essential hypertension Qualified Code(s): I10 - Essential (primary) hypertension (2) CVA (cerebral vascular accident) CVA mechanism: unspecified Qualified Code(s): I63.9 - Cerebral infarction, unspecified
[2020-05-24] MEDS ORDERED: MAGNESIUM SULFATE / D5W 1 GM/100 ML BAG IV ONE (08:45)
[2020-05-24] MEDS ORDERED: LEVOTHYROXINE SODIUM 75 MCG in SYRINGE 0 ML IV SCH (09:00)
--- NOTE | 2020-05-24 11:34 | Cardiology Consultation ---
Date of Consultation May 24, 2020 Assessment & Plan (1) CVA (cerebral vascular accident): She presented with symptoms compatible with an acute neurologic event, evaluation has demonstrated small strokes. This is felt to be due to hypertensive disease, although now with the finding of atrial fibrillation perhaps it represents embolism. I would leave that determination up to neurology, but if it is compatible with embolization anticoagulation may need to be considered, or possibly use of the watchman device although that requires anticoagulation for at least a short time. (2) Hypertension: She has quite severe hypertension. She is on moderate dose beta-blockade (metoprolol tartrate 50 mg twice daily) and increasing this dose may be beneficial to controlling her blood pressure. I will leave blood pressure control up to neurology and the primary service, my recommendations if they feel it is safe to drop her blood pressure more would be to go up on the beta-madelyn as that will also help with her arrhythmia. (3) Wide-complex tachycardia: Her wide-complex tachycardia appears to be in association with a rapid irregular narrow complex rhythm which I believe is paroxysmal atrial fibrilla tion. I believe this represents aberrancy. My approach would be to treat her atrial fibrillation (either with rate control, antiarrhythmic therapy, or both as noted elsewhere) and see whether that controls the wide-complex tachycardia as well. (4) Paroxysmal atrial fibrillation: She has what appears to be paroxysmal atrial fibrillation with some frequency although the duration is not very long when she has it. During the arrhythmia the rate is very fast, rate control may be effective however she does have sinus bradycardia at other times (although not very slow) and I suspect that will not allow adequate rate control with AV bela blocking medications alone. 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 Under the circumstances I think using an antiarrhythmic to control the rhythm may be appropriate, especially given that we may not be able to use an anticoagulant. Although the data is poor that antiarrhythmic therapy can be used for stroke prevention and atrial fibrillation if it is effective in controlling atrial fibrillation it should work on a theoretical basis. I am going to start intravenous amiodarone, in part as a test to see whether it works, which we then can transition to oral if it does. I discussed this with her and she is in agreement. Her liver function tests were normal, she is already on thyroid r eplacement. History of Present Illness Reason for Consultation: Wide-complex tachycardia Attending Physician: Jese Gil MD History of Present Illness This is an 85-year-old woman who has a history of a progressive neurologic condition (primary lateral sclerosis) causing severe ambulatory dysfunction. In addition she had a prior CVA with intracerebral hemorrhage. She has also had DVT and is bedbound. Unfortunately she has had a GI bleed and is felt that she could not tolerate an anticoagulant. She does have a history of hypertension and hypothyroidism for which she is on Synthroid. To my knowledge she has not had cardiac disease identified. She presented with strokelike symptoms on May 21, 2020, evaluation showed several small acute infarcts felt related to hypertension although I do not know that that was proven. She is on platelet inhibitors. An echocardiogram was done on May 22, 2020 and shows normal left ventricular function, moderate asymmetric left ventricular hypertrophy with moderate left and right atrial dilatation. She has aortic sclerosis without significant aortic stenosis. Electrocardiography on admission May 21, 2020 as well as this morning shows sinus rhythm with some inferior ST-T abnormalities. Telemetry however has shown periods of very rapid heart rate with some wide-complex rhythm. At the time my evaluation she has no specific cardiac complaints. She seems unaware of the arrhythmia. She denies lightheadedness or dizziness but she is bedridden. She is awake and alert. Allergies Allergy/AdvReac Type Severity Reaction Status Date / Time apixaban [From Eliquis] Allergy Unknown bleeding Verified 05/21/20 16:20 Sulfa (Sulfonamide Allergy Unknown HANDS Verified 05/21/20 16:20 Antibiotics) SWELLED rivaroxaban [From Xarelto] AdvReac Severe bleeding Verified 05/21/20 16:20 Home Medications Medication Instructions Recorded Confirmed Type cholecalciferol (vitamin D3) 125 5,000 units PO QPM tab 10/12/18 05/21/20 History mcg (5,000 unit) tablet ferrous gluconate 324 mg (38 mg 324 mg PO Q2D tab 12/23/18 05/21/20 History iron) tablet metoprolol tartrate 50 mg tablet 50 mg PO BID #180 tab 07/17/19 05/21/20 Rx levothyroxine 75 mcg tablet 75 mcg PO QAM #90 tab 12/06/19 05/21/20 Rx furosemide 20 mg tablet 10 mg PO QAM #90 tab 02/21/20 05/21/20 Rx Patient History Medical History Anemia Bilateral pleural effusion Bladder neoplasm Bronchopneumonia Carpal tunnel syndrome, bilateral Chronic diastolic (congestive) heart failure Chronic osteoarthritis Deep venous thrombosis (DVT) of right peroneal vein Disorder of bone Dyspnea on exertion Edema Essential hypertension Gait disturbance GI bleed Hemiparesis, right Hiatal hernia History of GI bleed History of intracerebral hemorrhage without residual deficit Hypothyroidism Kyphoscoliosis Left femoral vein DVT Lumbar compression fracture Multiple fractures of ribs of right side Muscle spasticity Muscular deconditioning Nocturia Normal left ventricular systolic function Numbness of left hand Osteoporosis Other specified acquired deformities of right upper arm Pelvic fracture Polyneuropathy Primary lateral sclerosis Restrictive lung disease Stroke syndrome TIA (transient ischemic attack) Trochanteric bursitis of left hip Urinary incontinence Venous insufficiency Vitamin D deficiency Vulvovaginitis Surgical History Hip joint replacement status History of bilateral salpingo-oophorectomy History of tonsillectomy History of total abdominal hysterectomy S/P KALYN-BSO Family History Mother Congestive heart failure Type 2 diabetes mellitus without complications Essential hypertension Myocardial infarction Hypertension Father Hodgkins lymphoma Brother Colon cancer Throat cancer Grandmother Myocardial infarction Stroke Denies family history of Ovarian cancer Prostate cancer Diabetes Breast cancer Lung cancer Social History Smoking Status: Never smoker Second Hand Exposure: No; Hx Alcohol Use: No Hx Substance Use: No Preferred Language: [place] Communication Ability: Effective Visual Impairment: No Limitations Hearing Ability: Normal Wall 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 She does have dysarthria so is little difficult to obtain history. HEENT: Unremarkable Neck: No jugular venous distention, carotid pulses are normal and equal bilaterally without bruits. Pulmonary: Clear to auscultation bilaterally. Cardiac: Regular rhythm with a soft crescendo decrescendo murmur at the base, no gallop or rub. Abdomen: Soft, nontender with normal bowel sounds. Extremities: No edema. Distal pulses intact. Neurologic: She is contracted and cannot follow instructions very well due to her neurologic condition, detailed neurologic examination was not done. Skin: No rash, ecchymoses or petechiae. Results & Data ([facility]) Vital Signs (Past 12 Hours) Vital Signs Temp Pulse Pulse Resp BP Pulse Ox 05/24/20 07:39 36.6 C 106 H 20 168/94 H 95 05/24/20 06:58 84 05/24/20 03:51 36.6 C 64 18 149/72 H 92 Laboratory Results Cardiac Enzymes 05/24/20 05/24/20 05/24/20 Range/Units 06:04 07:19 07:19 AST 22 (15-37) U/L Troponin I 0.019 (0-0.045) ng/ml Comprehensive Metabolic Panel 05/24/20 05/24/20 Range/Units 06:04 07:19 Sodium 137 (136-145) mmol/L Potassium TNP 3.7 Chloride 107 (98-107) mmol/L Carbon Dioxide 23 (21-32) mmol/L BUN 14 (7-18) mg/dl Creatinine 0.74 (0.6-1.2) mg/dl Glucose 101 H (70-99) mg/dl Calcium 8.4 L (8.5-10.1) mg/dl AST 22 (15-37) U/L ALT 23 (12-78) U/L Alkaline Phosphatase 108 (45-117) U/L Total Protein 6.6 (6.4-8.2) gm/dl Albumin 3.2 L (3.4-5.0) gm/dl Intake and Output 05/23/20 05/24/20 05/24/20 22:59 06:59 14:59 Intake Total 50 / 485 200 / 485 100 / 100 Output Total 175 / 1275 300 / 1275 Balance -125 / -790 -100 / -790 100 / 100 Intake: IV 100 / 100 MAGNESIUM SULFATE / D5W 1 gm In 100 / 100 100 ml @ 50 mls/hr IV ONE ONE Rx#:[id number] Oral 50 / 485 200 / 485 Output: Urine Amount (Catheter) 175 / 475 300 / 475 External 175 / 475 300 / 475 Diagnostic Findings Telemetry: I reviewed telemetry in detail. For the most part she is in sinus rhythm with sinus bradycardia at times, however she has periods of a very rapid irregular rate which appears to be atrial fibrillation and then has periods of a wide-complex rhythm in association with the rapid irregular rate. This suggests aberrancy and is very rapid. I have not seen wide-complex rhythms not associated with the rapid irregular rhythm. PG Care Time/CCT Total # of Minutes Spent Total Time Spent with Patient: Total time spent is greater than 50% in coordination of care (as documented) at patient's floor/unit and/or counseling patient: Coding Level of Care Code 05817 Initial Inpt Care Lvl 3 Diagnoses CVA (cerebral vascular accident) I63.9 CVA mechanism: unspecified Hypertension I10 Hypertension type: essential hypertension Wide-complex tachycardia I47.2 Paroxysmal atrial fibrillation I48.0 (1) CVA (cerebral vascular accident) CVA mechanism: unspecified Qualified Code(s): I63.9 - Cerebral infarction, unspecified (2) Hypertension Hypertension type: essential hypertension Qualified Code(s): I10 - Essential (primary) hypertension
[2020-05-24] MEDS ORDERED: STAT IV Infusion **Titration per Protocol STA (11:41)
[2020-05-24] MEDS ORDERED: 0.2 MICRON FILTER SET 1 EA IV ONE (11:41)
[2020-05-24] MEDS ORDERED: AMIODARONE IV BOLUS & DRIP IV STA (11:41)
[2020-05-24] MEDS ORDERED: AMIODARONE / D5W 150 MG/100 ML BAG IV ONE ×2 (11:50→16:00)
[2020-05-24] MEDS ORDERED: AMIODARONE / D5W 360 MG/200 ML BAG IV ONE (12:00)
--- NOTE | 2020-05-24 14:35 | Electrocardiogram Report ---
Test Reason : Blood Pressure : / mmHG Vent. Rate : 077 BPM Atrial Rate : 077 BPM P-R Int : 134 ms QRS Dur : 088 ms QT Int : 406 ms P-R-T Axes : 072 060 002 degrees QTc Int : 459 ms Normal sinus rhythm Possible Inferior infarct , age undetermined Abnormal ECG When compared with ECG of 21-MAY-2020 13:17, Borderline criteria for Inferior infarct are now Present T wave amplitude has increased in Lateral leads Confirmed by Morris Bach ([id number]) on 05/24/2020 2:34:52 PM Referred By: REFERRED SELF Confirmed By:Morris Bach
--- NOTE | 2020-05-24 15:00 | Hospitalist Progress Note ---
Date of Service May 24, 2020 Assessment & Plan (1) CVA (cerebral vascular accident): 85yo C female with history of progressive PLS presenting with worsening weakness, garbled speech found to have small acute infarct right insula and subacute infarct right frost radiata. Patient with poor neurological baseline due to underlying PLS - has flexion contractures and immobility of bilateral UEs as well as difficulty with ambulation. notes major changes are in patient's speech as well as her balance. He is currently having a difficult time understanding her and is unable to assist her with ambulation. Desired discharge plan for the patient and is discharge home with around the clock care. Patient does not wish to be placed in a facility at this time. CXR with likely atelectasis as patient with decreased inspiratory effort. Prior dx PNA although denies sob/cough and sat 94% on RA 300mg ASA administered rectally given issues with swallowing on admission * MRI Brain with acute RIGHT hemispheric stroke x 2 basal ganglia area -- would explain increase in L facial weakness/dysarthria. * Neurology consulted -- appreciate assistance. Strokes small and likely small vessel ischemic disease in origin * Recommendations to obtain better BP control -- placed on lisinopril 5mg daily will likely need continued * Despite hx DVT, patient not ideal candidate for anticoagulation as she has had bleeding episodes in the past x 2 * Lipid panel without abn -- not candidate for high dose statin * A1c 5.6 * CTA Head/neck pending -- IV team to obtain 18G (per discussion with Dr. Sharma, prior done several years ago and doubt much added benefit from obtaining but ok as already previously ordered) --> as unable to obtain 18G, conversation with neurology and ok not to obtain this study as will not change course of treatment for this patient * ECHO with normal LV systolic function. moderate asymmetric LVH, LA/RA moderate dilation. Aortic valve sclerosis mild, without significant stenosis. Moderate mitral annular calcification. RVSP elevated 50-60mmHg * Overnight pulse ox with desat events for >20 min -- will arrange for overnight oxygen to be worn * D/c ASA * Continue plavix 75mg daily, atorvastatin 40mg * CM following -- will need further care if unable to provide. dose all overnight care and has caregivers during the day. * Permissive HTN to obtain MAP 95-100. BP currently 197/75 but did just receive her metoprolol (had not been given morning medications) * PT/OT with recs for rehab but patient would liketo go home with help. CM assisting * Speech evaluation * -- minced/moist diet. meds in carrier * -- continue to monitor for dysphagia/issues -- may need further work-up * -- patient will need fed. HOB 30 degrees at all times. small bites/sips. better with a straw. * -- speech to follow for tolerance * Video swallow with silent aspiration of thin liquids --> discussed with speech and to get thickener for liquids and patient will need to be on a nectar thick, minced/moist diet at discharge. He is going to the pharmacy today to see about getting in anticipation for d/c tomorrow. * CM arranging for [facility] at discharge -- they will be able to see her on Wednesday per conversation this afternoon UPDATE 05/24 -- Patient with increased heart rate up to 190s on telemetry with some wide- rhythm complex -- Denied chest pain, shortness of breath during my encounter, but did endorse some shortness of breath overnight which could have coincided with timing of sustained elevations in HR. Given 1gm IV mag. Mag 2.0 -- Cardiology consulted -- Given history of pAFIB, and small strokes, could be etiology of her acute CVA. Anticoagulation deferred d/t hx bleeding. Will attempt rhythm control with amio gtt. Started 05/24 and transferred to telemetry. Also increased her metoprolol to 75mg BID. Continue to monitor on telemetry Could consider watchman device, although would also require anticoagulation for at least short time and not ideal Urinary frequency Monitor Urine Culture -- patient with increased frequency/urge. WBC without elevation but did have L shift on admission. possible UTI although epi=wbc. Discussed with micro, and likely alpha strep but is re-incubating until tomorrow --> lactobacillus species Would consider gonzalez catheter as she is not able to use bedpan efficiently and st cath difficult d/t spasticity Will re-eval tomorrow for gonzalez at discharge for ease with and care moving forward (2) Hypertension: * permissive HTN allowed * Resumed metoprolol but increased dose to 75mg BID * BP 178/74 * Started on amio gtt given arrhythmia and transferred to PCU * Started on lisinopril 5mg daily -- continuing at discharge * Continue to monitor (3) Hypothyroidism: * Chronic. TSH 1.01 * Continue Synthroid 75mcg daily (4) Chronic diastolic (congestive) heart failure: * Patient appears euvolemic at present although got a dose of lasix 20mg IV this morning by overnight team for increased shortness of breath * CXR with interval resolution of perihilar airspace opacities. 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 Patient follows with Neurology. She was treated wtih Baclofen and Tizanidine in the past for limb spasticity. Was recommended trial of Methocarbamol 500mg po TID - does not appear to have taken this and would not like to at this time * Dr. Sharma consulted as above * Bedbound essentially and patient has caregivers and for 30/11 care. Hx DVT d/t such but not able to be placed on anticoagulation d/t bleeding issues in the past. No adjustments made Hypokalemia Resolved -- K 3.7 on AM labs DVT Prophylaxis SCDs ordered (not previously done) no chemoproph given hx bleeding Code - DNR/DNI Dispo - tx to PCU as not on amio gtt Admission and Anticipated Discharge Date Admission Date: May 22, 2020 Subjective Patient evaluated this morning. Had a difficult evening overnight with nursing staff and feeling neglected. States "they shut the door on me". Discussed arrhythmia on monitor and possible cause of her stroke however given her history of paroxysmal afib, could be etiology. Given issues with anticoagulation in the past, will pursue antiarrhythmic therapy and need to be continued inpatient. Patient initially upset but having to stay, but was agreeable after a time and explaining risks of going home and having this happen again. Endorsed some shortness of breath last evening but stated that nursing told her she was able to talk and that she couldn't be short of breath. She wears 3L NC at night chronically at home. Denies fever, chills, chest pain, abdominal pain, nausea, vomiting at this time. Would like me to call and update . Has been using thickener with liquids and has not had any further choking episodes. Spoke with -- he himself has a headache and elevated BP not on medications at this time and coming to ER for evaluation but hopeful for starting medication and being discharged. Discussed keeping overnight. Agreeable. Questions/concerns addressed at this time. Review of Systems Review of Systems: All systems reviewed & are unremarkable except as noted in HPI & below Physical Exam Constitutional: WD/WN, vitals as above comfortable; no acute distress Eyes: + anicteric sclerae and PERRL ENMT: dry mmm Neck: normal visual inspection and trachea midline Respiratory: normal respiratory effort, lungs clear to auscultation Cardiovascular: Rate/Rhythm: + irregularly irregular Vessels: no JVD Extremities: no edema Gastrointestinal (Abdomen): normal bowel sounds, soft, nontender, no hepatosplenomegaly Musculoskeletal: speech dysarthric but able to understand a little better today. difficulty with word finding at times weak facial strength bilaterally, improved decreased strength of tongue with opposition bilaterally severe flexion contraction of upper extremities which are painful with ROM 2/5 felt washing machine tender strength L hand and 1/5 UE, 0/5 RUE sensation intact throughout reflexes 2/4 bilaterally pulses palpable and equal bilaterally, weak Skin: warm, dry Psychiatric: Orientation: alert, oriented x 3 and cooperative Lymphatic: no cervical or axillary lymphadenopathy Results & Data Results & Data ([facility]) Vital Signs (Past 12 Hours) Vital Signs Temp Pulse Pulse Resp BP Pulse Ox 05/24/20 11:44 36.6 C 93 H 20 178/74 H 90 05/24/20 07:39 36.6 C 106 H 20 168/94 H 95 05/24/20 06:58 84 05/24/20 03:51 36.6 C 64 18 149/72 H 92 Laboratory Results 05/24/20 05/24/20 05/24/20 Range/Units 07:19 07:19 07:19 Sodium (136-145) mmol/L Potassium 3.7 Chloride (98-107) mmol/L Carbon Dioxide (21-32) mmol/L Anion Gap (3-11) BUN (7-18) mg/dl Creatinine (0.6-1.2) mg/dl Est Cr Clr Drug Dosing ml/min Est GFR ( Amer) Est GFR (Non-Af Amer) BUN/Creatinine Ratio (10-20) Glucose (70-99) mg/dl Calcium (8.5-10.1) mg/dl Phosphorus (2.5-4.9) mg/dl Magnesium 2.0 (1.8-2.4) mg/dl Total Bilirubin (0.2-1) mg/dl AST 22 (15-37) U/L ALT (12-78) U/L Alkaline Phosphatase (45-117) U/L Troponin I 0.019 (0-0.045) ng/ml Total Protein (6.4-8.2) gm/dl Albumin (3.4-5.0) gm/dl Globulin (2.5-4.0) gm/dl Albumin/Globulin Ratio (0.9-2) 05/24/20 05/23/20 Range/Units 06:04 09:37 Sodium 137 (136-145) mmol/L Potassium TNP Chloride 107 (98-107) mmol/L Carbon Dioxide 23 (21-32) mmol/L Anion Gap 7.0 (3-11) BUN 14 (7-18) mg/dl Creatinine 0.74 (0.6-1.2) mg/dl Est Cr Clr Drug Dosing 48.6 ml/min Est GFR ( Amer) 85.6 Est GFR (Non-Af Amer) 73.9 BUN/Creatinine Ratio 19.3 (10-20) Glucose 101 H (70-99) mg/dl Calcium 8.4 L (8.5-10.1) mg/dl Phosphorus 3.6 (2.5-4.9) mg/dl Magnesium 1.9 (1.8-2.4) mg/dl Total Bilirubin 0.8 (0.2-1) mg/dl AST (15-37) U/L ALT 23 (12-78) U/L Alkaline Phosphatase 108 (45-117) U/L Troponin I (0-0.045) ng/ml Total Protein 6.6 (6.4-8.2) gm/dl Albumin 3.2 L (3.4-5.0) gm/dl Globulin 3.4 (2.5-4.0) gm/dl Albumin/Globulin Ratio 0.9 (0.9-2) PG Care Time/CCT Total # of Minutes Spent Total Time Spent with Patient: Total time spent is greater than 50% in coordination of care (as documented) at patient's floor/unit and/or counseling patient: Coding Level of Care Code 77803 Subseq Hosp Care Lvl 3 Diagnoses CVA (cerebral vascular accident) I63.9 CVA mechanism: unspecified Hypertension I10 Hypertension type: essential hypertension Hypothyroidism E03.9 Hypothyroidism type: unspecified Chronic diastolic (congestive) heart failure I50.32 Primary lateral sclerosis G12.23 (1) CVA (cerebral vascular accident) CVA mechanism: unspecified Qualified Code(s): I63.9 - Cerebral infarction, unspecified (2) Hypertension Hypertension type: essential hypertension Qualified Code(s): I10 - Essential (primary) hypertension (3) Hypothyroidism Hypothyroidism type: unspecified Qualified Code(s): E03.9 - Hypothyroidism, unspecified
[2020-05-24] MEDS ORDERED: AMIODARONE / D5W 360 MG/200 ML BAG IV SCH (18:00)
[2020-05-24] MEDS: METOPROLOL TARTRATE 50 MG TAB PO SCH (19:31)
[2020-05-24] MEDS: CHOLECALCIFEROL 1,000 UNITS 25 MCG TAB PO SCH (19:31)
[2020-05-24] MEDS: AMIODARONE / D5W 360 MG/200 ML BAG IV SCH (22:12)
[2020-05-25] MEDS: LEVOTHYROXINE SODIUM 75 MCG TABLET PO SCH (04:12)
[2020-05-25] MEDS: FERROUS GLUCONATE 324 MG TAB PO SCH (08:00)
[2020-05-25] MEDS: FUROSEMIDE 20 MG TAB PO SCH (08:00)
[2020-05-25] MEDS: lisinopril 5 MG TAB PO SCH (08:01)
[2020-05-25] MEDS: CLOPIDOGREL BISULFATE 75 MG TAB PO SCH (08:01)
[2020-05-25] MEDS: METOPROLOL TARTRATE 50 MG TAB PO SCH ×2 (08:02→19:50)
[2020-05-25] MEDS: DOCUSATE SODIUM 100 MG CAP PO SCH ×2 (08:02→19:50)
[2020-05-25] MEDS: ATORVASTATIN 40 MG TAB PO SCH (08:02)
--- NOTE | 2020-05-25 08:16 | Hospitalist Progress Note ---
Date of Service May 25, 2020 Assessment & Plan (1) CVA (cerebral vascular accident): 85yo C female with history of progressive PLS presenting with worsening weakness, garbled speech found to have small acute infarct right insula and subacute infarct right frost radiata. Patient with poor neurological baseline due to underlying PLS - has flexion contractures and immobility of bilateral UEs as well as difficulty with ambulation. notes major changes are in patient's speech as well as her balance. He is currently having a difficult time understanding her and is unable to assist her with ambulation. Desired discharge plan for the patient and is discharge home with around the clock care. Patient does not wish to be placed in a facility at this time. CXR with likely atelectasis as patient with decreased inspiratory effort. Prior dx PNA although denies sob/cough and sat 94% on RA 300mg ASA administered rectally given issues with swallowing on admission * MRI Brain with acute RIGHT hemispheric stroke x 2 basal ganglia area -- would explain increase in L facial weakness/dysarthria. * Neurology consulted -- appreciate assistance. Strokes small and likely small vessel ischemic disease in origin * Recommendations to obtain better BP control -- placed on lisinopril 5mg daily will likely need continued * Despite hx DVT, patient not ideal candidate for anticoagulation as she has had bleeding episodes in the past x 2 * Lipid panel without abn -- not candidate for high dose statin * A1c 5.6 * CTA Head/neck pending -- IV team to obtain 18G (per discussion with Dr. Sharma, prior done several years ago and doubt much added benefit from obtaining but ok as already previously ordered) --> as unable to obtain 18G, conversation with neurology and ok not to obtain this study as will not change course of treatment for this patient * ECHO with normal LV systolic function. moderate asymmetric LVH, LA/RA moderate dilation. Aortic valve sclerosis mild, without significant stenosis. Moderate mitral annular calcification. RVSP elevated 50-60mmHg * Overnight pulse ox with desat events for >20 min -- will arrange for overnight oxygen to be worn * D/c ASA * Continue plavix 75mg daily, atorvastatin 40mg * CM following -- will need further care if unable to provide. dose all overnight care and has caregivers during the day. * Permissive HTN to obtain MAP 95-100. BP currently 197/75 but did just receive her metoprolol (had not been given morning medications) * PT/OT with recs for rehab but patient would liketo go home with help. CM assisting * Speech evaluation * -- minced/moist diet. meds in carrier * -- continue to monitor for dysphagia/issues -- may need further work-up * -- patient will need fed. HOB 30 degrees at all times. small bites/sips. better with a straw. * -- speech to follow for tolerance * Video swallow with silent aspiration of thin liquids --> discussed with speech and to get thickener for liquids and patient will need to be on a nectar thick, minced/moist diet at discharge. * CM arranging for [facility] at discharge -- they will be able to see her on Wednesday UPDATE 05/24 -- Patient with increased heart rate up to 190s on telemetry with some wide- rhythm complex -- Denied chest pain, shortness of breath during my encounter, but did endorse some shortness of breath overnight which could have coincided with timing of sustained elevations in HR. Given 1gm IV mag. Mag 2.0 -- Cardiology consulted -- Given history of pAFIB, and small strokes, could be etiology of her acute CVA. Anticoagulation deferred d/t hx bleeding. Will attempt rhythm control with amio gtt. Started 05/24 and transferred to telemetry. Also increased her metoprolol to 75mg BID. Continue to monitor on telemetry Could consider watchman device, although would also require anticoagulation for at least short time and not ideal UPDATE 05/25 Patient continues in NSR on telemetry since initiation of amiodarone and was transitioned to 400mg daily today. Will continue at discharge for next 2 weeks and have her follow up with Dr. Guzman within that time frame. Patient's without caregivers today and will arrange for them in AM to help him picking tech . Discussed gonzalez catheter -- he feels that will be helpful for him at home and we will place prior to discharge. He will need to have f/u with PCP for management on outpatient basis Urinary frequency Monitor Urine Culture -- patient with increased frequency/urge. WBC without elevation but did have L shift on admission. Urine culture with lactobacillus. No urinary symptoms reported currently. No abx at this time Will place gonzalez catheter prior to discharge (2) Hypertension: * permissive HTN allowed * Resumed metoprolol but increased dose to 75mg BID * BP 170/78 * Started lisinopril but will increased lisinopril to 10mg daily * Amio gtt transitioned to PO today for arrhythmia --> HR 50-60s NSR * Continue to monitor (3) Hypothyroidism: * Chronic. TSH 1.01 * Continue Synthroid 75mcg daily (4) Chronic diastolic (congestive) heart failure: * Patient appears euvolemic at present although got a dose of lasix 20mg IV prior evening for increased shortness of breath * CXR with interval resolution of perihilar airspace opacities. 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 Patient follows with Neurology. She was treated wtih Baclofen and Tizanidine in the past for limb spasticity. Was recommended trial of Methocarbamol 500mg po TID - does not appear to have taken this and would not like to at this time * Dr. Sharma consulted as above * Bedbound essentially and patient has caregivers and for 30/11 care. Hx DVT d/t such but not able to be placed on anticoagulation d/t bleeding issues in the past. No adjustments made Hypokalemia Resolved -- K 3.6 on AM labs DVT Prophylaxis SCDs no chemoproph given hx bleeding Code - DNR/DNI Dispo -prolonged inpatient stay. plans for d/c in AM with and caregiver. Of note, possible that patient may end up needing placement, although she states that she is at her baseline. made aware of this and if he is unable to care for her with current aide in place, will have to look into this in the future. CM to make referral to home health today to help with gonzalez management as they just have aide care at this time. Caregivers unavailable until 8am tomorrow, 05/26 Admission and Anticipated Discharge Date Admission Date: May 22, 2020 Subjective Patient evaluated this morning and again seen in the afternoon. Back to her baseline but forgetful at times. No further shortness of breath. Eating/drinking with assistance and thickened liquids. No issues with choking reported. Discussed amiodarone and heart has been in regular rhythm since initiation and we will continue this at discharge and she will need f/u with Dr. Guzman in the next two weeks. Initially, patient to be discharged today however unable to get caregivers until tomorrow and we will hold off at this time. No fever, chills, nausea, vomiting or dysuria reported. Review of Systems Review of Systems: All systems reviewed & are unremarkable except as noted in HPI & below Physical Exam Constitutional: WD/WN, vitals as above comfortable; no acute distress Eyes: + anicteric sclerae and PERRL ENMT: Ears: no hearing impairment Neck: normal visual inspection and trachea midline Respiratory: normal respiratory effort, lungs clear to auscultation Cardiovascular: RRR, no murmur, no edema Vessels: no JVD Extremities: no edema Gastrointestinal (Abdomen): normal bowel sounds, soft, nontender, no hepatosplenomegaly Musculoskeletal: severe flexion contractures limited use of UE. Minimal use with right hand and tap call campos present Neurologic: speech dysarthric but able to understand a little better today. difficulty with word finding at times. occasional forgetfulness. weak facial strength bilaterally, improved decreased strength of tongue with opposition bilaterally severe flexion contraction of upper extremities which are painful with ROM 2/5 junior assistant manager strength L hand and 1/5 UE, 0/5 RUE sensation intact throughout reflexes 2/4 bilaterally pulses palpable and equal bilaterally, weak Psychiatric: Orientation: alert, oriented x 3 and cooperative Lymphatic: no cervical or axillary lymphadenopathy Results & Data Results & Data ([facility] [place]) Vital Signs (Past 12 Hours) Vital Signs Temp Pulse Pulse Resp BP Pulse Ox 05/25/20 03:44 36.3 C L 69 20 160/71 H 93 05/25/20 00:44 64 05/24/20 23:41 36.4 C L 67 20 157/82 H 95 05/24/20 22:35 66 156/78 H Laboratory Results 05/25/20 05/25/20 05/24/20 Range/Units 08:07 08:07 18:07 WBC 5.92 (4.8-10.8) K/uL RBC 4.34 (4.2-5.4) M/uL Hgb 13.6 (12.0-16.0) g/dL Hct 39.9 (37-47) % MCV 91.9 (80-100) fL MCH 31.3 (25-34) pg MCHC 34.1 (32-36) g/dL RDW Std Deviation 44.5 (36.4-46.3) fL RDW Coeff of Erin 13.2 (11.5-14.5) % Plt Count 225 (130-400) K/uL MPV 11.5 H (7.4-10.4) fL Immature Gran % (Auto) 0.0 % Neut % (Auto) 69.3 % Lymph % (Auto) 17.2 % Floyd % (Auto) 9.3 % Eos % (Auto) 3.9 % Baso % (Auto) 0.3 % Neut # (Auto) 4.10 (1.4-6.5) K/uL Lymph # (Auto) 1.02 L (1.2-3.4) K/uL Floyd # (Auto) 0.55 (0.11-0.59) K/uL Eos # (Auto) 0.23 (0-0.5) K/uL Baso # (Auto) 0.02 (0-0.2) K/uL Immature Gran # (Auto) 0.00 (0.00-0.02) K/uL Sodium 141 (136-145) mmol/L Potassium 3.6 (3.5-5.1) mmol/L Chloride 109 H (98-107) mmol/L Carbon Dioxide 22 (21-32) mmol/L Anion Gap 10.0 (3-11) BUN 12 (7-18) mg/dl Creatinine 0.83 (0.6-1.2) mg/dl Est Cr Clr Drug Dosing 39.2 ml/min Est GFR ( Amer) 74.5 Est GFR (Non-Af Amer) 64.3 BUN/Creatinine Ratio 14.9 (10-20) Glucose 102 H (70-99) mg/dl Calcium 8.5 (8.5-10.1) mg/dl Magnesium 2.0 (1.8-2.4) mg/dl Total Bilirubin 0.4 (0.2-1) mg/dl AST 23 (15-37) U/L ALT 24 (12-78) U/L Alkaline Phosphatase 106 (45-117) U/L Troponin I < 0.015 (0-0.045) ng/ml Total Protein 6.4 (6.4-8.2) gm/dl Albumin 3.1 L (3.4-5.0) gm/dl Globulin 3.3 (2.5-4.0) gm/dl Albumin/Globulin Ratio 0.9 (0.9-2) PG Care Time/CCT Total # of Minutes Spent Total Time Spent with Patient: Total time spent is greater than 50% in coordination of care (as documented) at patient's floor/unit and/or counseling patient: Coding Level of Care Code 95570 Subseq Hosp Care Lvl 3 Diagnoses CVA (cerebral vascular accident) I63.9 CVA mechanism: unspecified Hypertension I10 Hypertension type: essential hypertension Hypothyroidism E03.9 Hypothyroidism type: unspecified Chronic diastolic (congestive) heart failure I50.32 Primary lateral sclerosis G12.23 (1) CVA (cerebral vascular accident) CVA mechanism: unspecified Qualified Code(s): I63.9 - Cerebral infarction, unspecified (2) Hypertension Hypertension type: essential hypertension Qualified Code(s): I10 - Essential (primary) hypertension (3) Hypothyroidism Hypothyroidism type: unspecified Qualified Code(s): E03.9 - Hypothyroidism, u nspecified
[2020-05-25 08:31] LABS: Basophils # (auto) 0.02 K/uL (0-0.2); Basophils % (auto) 0.3 %; Eosinophils # (auto) 0.23 K/uL (0-0.5); Eosinophils % (auto) 3.9 %; Hematocrit (blood only) 39.9 % (37-47); Hemoglobin 13.6 g/dL (12.0-16.0); Lymphocytes # (auto) 1.02 K/uL (1.2-3.4); Lymphocytes % (auto) 17.2 %; Mean Corpuscular Hemoglobin 31.3 pg (25-34); Mean Corpuscular Hgb Conc 34.1 g/dL (32-36); Mean Corpuscular Volume 91.9 fL (80-100); Mean Platelet Volume 11.5 fL (7.4-10.4); Monocytes # (auto) 0.55 K/uL (0.11-0.59); Monocytes % (auto) 9.3 %; Neutrophils % (auto) 69.3 %; Platelet Count 225 K/uL (130-400); RDW Coefficient of Variation 13.2 % (11.5-14.5); RDW Standard Deviation 44.5 fL (36.4-46.3); Red Blood Count 4.34 M/uL (4.2-5.4); White Blood Count 5.92 K/uL (4.8-10.8)
[2020-05-25 09:09] LABS: Albumin Level 3.1 gm/dl (3.4-5.0); BUN Creatinine Ratio 14.9 (10-20); Calcium 8.5 mg/dl (8.5-10.1); Creatinine Clr Calc Pharmacy 39.2 ml/min; Est GFR (African American) 74.5; Est GFR (Non-African American) 64.3; Potassium 3.6 mmol/L (3.5-5.1)
[2020-05-25 09:12] LABS: Albumin Globulin Ratio 0.9 (0.9-2); Bilirubin,Total 0.4 mg/dl (0.2-1); Globulin 3.3 gm/dl (2.5-4.0); Total Protein 6.4 gm/dl (6.4-8.2)
[2020-05-25] MEDS ORDERED: lisinopril 5 MG TAB PO ONE (09:34)
[2020-05-25] MEDS: AMIODARONE / D5W 360 MG/200 ML BAG IV SCH (10:19)
[2020-05-25] MEDS: AMIODARONE 200 MG TAB PO SCH (13:53)
[2020-05-25] MEDS ORDERED: hydrALAZINE HCL 20 MG/ML VIAL IV ONE (16:36)
[2020-05-25] MEDS: CHOLECALCIFEROL 1,000 UNITS 25 MCG TAB PO SCH (19:50)
[2020-05-26] MEDS ORDERED: MELATONIN 3 MG TAB PO PRN (03:08)
[2020-05-26] MEDS ORDERED: MELATONIN 3 MG TAB PO ONE (03:42)
[2020-05-26] MEDS: LEVOTHYROXINE SODIUM 75 MCG TABLET PO SCH (03:46)
[2020-05-26 06:38] LABS: Basophils # (auto) 0.02 K/uL (0-0.2); Basophils % (auto) 0.3 %; Eosinophils # (auto) 0.25 K/uL (0-0.5); Eosinophils % (auto) 3.9 %; Hematocrit (blood only) 39.8 % (37-47); Hemoglobin 13.3 g/dL (12.0-16.0); Immature Granulocytes # (auto) 0.01 K/uL (0.00-0.02); Immature Granulocytes % (auto) 0.2 %; Lymphocytes # (auto) 0.96 K/uL (1.2-3.4); Lymphocytes % (auto) 14.8 %; Mean Corpuscular Hgb Conc 33.4 g/dL (32-36); Mean Corpuscular Volume 92.8 fL (80-100); Mean Platelet Volume 11.5 fL (7.4-10.4); Monocytes # (auto) 0.58 K/uL (0.11-0.59); Monocytes % (auto) 8.9 %; Neutrophils # (auto) 4.67 K/uL (1.4-6.5); Neutrophils % (auto) 71.9 %; Platelet Count 226 K/uL (130-400); RDW Coefficient of Variation 13.4 % (11.5-14.5); RDW Standard Deviation 45.4 fL (36.4-46.3); Red Blood Count 4.29 M/uL (4.2-5.4); White Blood Count 6.49 K/uL (4.8-10.8)
[2020-05-26 07:15] LABS: Albumin Level 3.2 gm/dl (3.4-5.0); BUN Creatinine Ratio 15.7 (10-20); Calcium 8.6 mg/dl (8.5-10.1); Creatinine Clr Calc Pharmacy 42.8 ml/min; Est GFR (African American) 82.9; Est GFR (Non-African American) 71.5; Potassium 3.4 mmol/L (3.5-5.1)
[2020-05-26 07:18] LABS: Bilirubin,Total 0.6 mg/dl (0.2-1); Globulin 3.3 gm/dl (2.5-4.0); Total Protein 6.5 gm/dl (6.4-8.2)
[2020-05-26] MEDS ORDERED: hydrALAZINE HCL 20 MG/ML VIAL IV STA (07:40)
[2020-05-26] MEDS: FUROSEMIDE 20 MG TAB PO SCH (08:17)
[2020-05-26] MEDS: ATORVASTATIN 40 MG TAB PO SCH (08:17)
[2020-05-26] MEDS: METOPROLOL TARTRATE 50 MG TAB PO SCH ×2 (08:18→20:05)
[2020-05-26] MEDS: lisinopril 10 MG TAB PO SCH (08:18)
[2020-05-26] MEDS: AMIODARONE 200 MG TAB PO SCH (08:18)
[2020-05-26] MEDS: CLOPIDOGREL BISULFATE 75 MG TAB PO SCH (08:18)
[2020-05-26] MEDS: DOCUSATE SODIUM 100 MG CAP PO SCH ×2 (08:22→20:04)
[2020-05-26] MEDS ORDERED: POTASSIUM CHLORIDE CRTAB 20 MEQ TABCR PO ONE (08:30)
[2020-05-26] MEDS ORDERED: LORazepam 0.25 MG/0.5 ML VIAL IV PRN (08:52)
--- NOTE | 2020-05-26 09:03 | Hospitalist Progress Note ---
Date of Service May 26, 2020 Assessment & Plan (1) CVA (cerebral vascular accident): 85yo C female with history of progressive PLS presenting with worsening weakness, garbled speech found to have small acute infarct right insula and subacute infarct right frost radiata. Patient with poor neurological baseline due to underlying PLS - has flexion contractures and immobility of bilateral UEs as well as difficulty with ambulation. notes major changes are in patient's speech as well as her balance. He is currently having a difficult time understanding her and is unable to assist her with ambulation. Desired discharge plan for the patient and is discharge home with around the clock care. Patient does not wish to be placed in a facility at this time. CXR with likely atelectasis as patient with decreased inspiratory effort. Prior dx PNA although denies sob/cough and sat 94% on RA 300mg ASA administered rectally given issues with swallowing on admission * MRI Brain with acute RIGHT hemispheric stroke x 2 basal ganglia area -- would explain increase in L facial weakness/dysarthria. * Neurology consulted -- appreciate assistance. Strokes small and likely small vessel ischemic disease in origin * Recommendations to obtain better BP control -- placed on lisinopril 5mg daily will likely need continued * Despite hx DVT, patient not ideal candidate for anticoagulation as she has had bleeding episodes in the past x 2 * Lipid panel without abn -- not candidate for high dose statin * A1c 5.6 * CTA Head/neck pending -- IV team to obtain 18G (per discussion with Dr. Sharma, prior done several years ago and doubt much added benefit from obtaining but ok as already previously ordered) --> as unable to obtain 18G, conversation with neurology and ok not to obtain this study as will not change course of treatment for this patient * ECHO with normal LV systolic function. moderate asymmetric LVH, LA/RA moderate dilation. Aortic valve sclerosis mild, without significant stenosis. Moderate mitral annular calcification. RVSP elevated 50-60mmHg * Overnight pulse ox with desat events for >20 min -- will arrange for overnight oxygen to be worn * D/c ASA * Continue plavix 75mg daily, atorvastatin 40mg * CM following -- will need further care if unable to provide. dose all overnight care and has caregivers during the day. * Permissive HTN to obtain MAP 95-100. BP currently 197/75 but did just receive her metoprolol (had not been given morning medications) * PT/OT with recs for rehab but patient would liketo go home with help. CM assisting * Speech evaluation * -- minced/moist diet. meds in carrier * -- continue to monitor for dysphagia/issues -- may need further work-up * -- patient will need fed. HOB 30 degrees at all times. small bites/sips. better with a straw. * -- speech to follow for tolerance * Video swallow with silent aspiration of thin liquids --> discussed with speech and to get thickener for liquids and patient will need to be on a nectar thick, minced/moist diet at discharge. * CM arranging for [facility] at discharge -- they will be able to see her on Wednesday UPDATE 05/24 -- Patient with increased heart rate up to 190s on telemetry with some wide- rhythm complex -- Denied chest pain, shortness of breath during my encounter, but did endorse some shortness of breath overnight which could have coincided with timing of sustained elevations in HR. Given 1gm IV mag. Mag 2.0 -- Cardiology consulted -- Given history of pAFIB, and small strokes, could be etiology of her acute CVA. Anticoagulation deferred d/t hx bleeding. Will attempt rhythm control with amio gtt. Started 05/24 and transferred to telemetry. Also increased her metoprolol to 75mg BID. Continue to monitor on telemetry Could consider watchman device, although would also require anticoagulation for at least short time and not ideal UPDATE 05/25 Patient continues in NSR on telemetry since initiation of amiodarone and was transitioned to 400mg daily today. Will continue at discharge for next 2 weeks and have her follow up with Dr. Guzman within that time frame. 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 Discussed gonzalez catheter -- he feels that will be helpful for him at home and we will place prior to discharge. He will need to have f/u with PCP for management on outpatient basis UPDATE 05/26 Patient continues in normal sinus but had periods of sinus tach up to 107bpm Continued amiodarone and will continue at discharge Discussed UTI with -- will cover empirically with ceftriaxone and transition to oral based on cx Discussed concerns about safety at home/discharge without 24hour care Will have palliative reach out tomorrow for conversation regarding goals of care and will need to re-address need for placement/have CM make referrals BP continued to be elevated and patient with agitation/anxiety and was given dose of Ativan and has been resting quietly following -- consider low dose at d/c to help with anxiety symptoms/labile emotions BP currently 122/86 Urinary frequency Monitor Urine Culture -- patient with increased frequency/urge. WBC without elevation but did have L shift on admission. Urine culture with lactobacillus initially and denied further symptoms and gonzalez was placed for prep for discharge Increased confusion and repeat UA/cx obtained. UA with 2+ blood, 2+ leuk esterase, >30 WBC, 10-30 RBC, 10-20 epi, 4+ bacteria. Cx pending Placed on ceftriaxone empirically -- follow cx Renal US pending Continue to monitor (2) Hypertension: * permissive HTN allowed * Resumed metoprolol 50mg BID since started on amiodarone 400mg daily (prior on gtt and switched to PO on 05/25) and lisinopril 5mg -->increased to 10mg * Continue to monitor (3) Hypothyroidism: * Chronic. TSH 1.01 * Continue Synthroid 75mcg daily (4) Chronic diastolic (congestive) heart failure: * Patient appears euvolemic at present although got a dose of lasix 20mg IV prior evening for increased shortness of breath * CXR with interval resolution of perihilar airspace opacities. 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 Patient follows with Neurology. She was treated wtih Baclofen and Tizanidine in the past for limb spasticity. Was recommended trial of Methocarbamol 500mg po TID - does not appear to have taken this and would not like to at this time * Dr. Sharma consulted as above * Bedbound essentially and patient has caregivers and for 24/7 care. * Hx DVT d/t such but not able to be placed on anticoagulation d/t bleeding is sues in the past. No adjustments made Hypokalemia Resolved -- K 3.4 on AM labs and given 20meq PO. Mag 2.0 Follow DVT Prophylaxis SCDs no chemoproph given hx bleeding Code - DNR/DNI Dispo -prolonged inpatient stay. Of note, possible that patient may end up needing placement, although she states that she is at her baseline. made aware of this and if he is unable to care for her with current aide in place, will have to look into this in the future. CM to make referral to home health today to help with gonzalez management as they just have aide care at this time. Palliative to see tomorrow to discuss goals of care and strongly encouraged to consider placement in facility at discharge Admission and Anticipated Discharge Date Admission Date: May 22, 2020 Subjective Patient evaluated this morning. Had been worked up and agitated overnight with some confusion and was given ativan this morning and is resting comfortably in bed. No acute distress. no pain reported. Discussed urinary tract infection and that we will treat this. Patient was allowed to rest at this time. Discussed with on the phone and he does have reservations about caring for his at home. With only aide care and him being responsible for approx 12 hours overnight...I discussed that it may not be safe for his to return home, especially with his worries about her eating/swallowing and maintaining appropriate diet.. Will treat for UTI. He states his did not want placement at facility, but it just may be too much for him to handle at this time. Discussed that we can continue to monitor overnight as we are monitoring her heart rate and treating UTI, but will ask palliative care to discuss with them tomorrow about goals of care and patient's wishes and may want to move forward with that route in the future if she continues to decline. Will also need to re-discuss making referrals to appropriate facilities. Review of Systems Review of Systems: All systems reviewed & are unremarkable except as noted in HPI & below Physical Exam Constitutional: WD/WN, vitals as above comfortable; no acute distress Eyes: + anicteric sclerae and PERRL ENMT: Ears: no hearing impairment Neck: normal visual inspection and trachea midline Respiratory: normal respiratory effort, lungs clear to auscultation Auscultation: + diminished lung sounds (decreased in the bases); no crackles and no wheezes Cardiovascular: Rate/Rhythm: regular rate and regular rhythm Vessels: no JVD Extremities: no edema Gastrointestinal (Abdomen): normal bowel sounds, soft, nontender, no hepatosplenomegaly Musculoskeletal: speech dysarthric but at baseline. difficulty with word finding at times. occasional forgetfulness and periods of confusion weak facial strength bilaterally, improved decreased strength of tongue with opposition bilaterally severe flexion contraction of upper extremities which are painful with ROM 2/5 clinical documentation manager strength L hand and 1/5 UE, 0/5 RUE sensation intact throughout reflexes 2/4 bilaterally pulses palpable and equal bilaterally, weak Skin: warm dry Psychiatric: Orientation: oriented to person; + not alert (sleepy), + not oriented to place and + not oriented to time Genitourinary: gonzalez draining yellow urine Lymphatic: no cervical or axillary lymphadenopathy Results & Data Results & Data ([facility]) Vital Signs (Past 12 Hours) Vital Signs Temp Pulse Resp BP BP Pulse Ox 05/26/20 07:36 36.6 C 74 18 188/98 H 94 05/26/20 03:33 36.6 C 76 22 173/82 H 93 05/25/20 23:04 36.9 C 68 18 144/69 H 96 Laboratory Results 05/26/20 05/26/20 05/26/20 Range/Units 08:30 06:15 06:15 WBC (4.8-10.8) K/uL RBC (4.2-5.4) M/uL Hgb (12.0-16.0) g/dL Hct (37-47) % MCV (80-100) fL MCH (25-34) pg MCHC (32-36) g/dL RDW Std Deviation (36.4-46.3) fL RDW Coeff of Erin (11.5-14.5) % Plt Count (130-400) K/uL MPV (7.4-10.4) fL Immature Gran % (Auto) % Neut % (Auto) % Lymph % (Auto) % [place] % (Auto) % Eos % (Auto) % Baso % (Auto) % Neut # (Auto) (1.4-6.5) K/uL Lymph # (Auto) (1.2-3.4) K/uL [place] # (Auto) (0.11-0.59) K/uL Eos # (Auto) (0-0.5) K/uL Baso # (Auto) (0-0.2) K/uL Immature Gran # (Auto) (0.00-0.02) K/uL Sodium 140 (136-145) mmol/L Potassium 3.4 L (3.5-5.1) mmol/L Chloride 109 H (98-107) mmol/L Carbon Dioxide 23 (21-32) mmol/L Anion Gap 8.0 (3-11) BUN 12 (7-18) mg/dl Creatinine 0.76 (0.6-1.2) mg/dl Est Cr Clr Drug Dosing 42.8 ml/min Est GFR ( Amer) 82.9 Est GFR (Non-Af Amer) 71.5 BUN/Creatinine Ratio 15.7 (10-20) Glucose 98 (70-99) mg/dl Calcium 8.6 (8.5-10.1) mg/dl Magnesium 2.0 (1.8-2.4) mg/dl Total Bilirubin 0.6 (0.2-1) mg/dl AST 23 (15-37) U/L ALT 25 (12-78) U/L Alkaline Phosphatase 106 (45-117) U/L Total Protein 6.5 (6.4-8.2) gm/dl Albumin 3.2 L (3.4-5.0) gm/dl Globulin 3.3 (2.5-4.0) gm/dl Albumin/Globulin Ratio 1.0 (0.9-2) Urine Color Pending Urine Appearance Pending Urine pH Pending Ur Specific [place] Pending Urine Protein Pending Urine Glucose (UA) Pending Urine Ketones Pending Urine Blood Pending Urine Nitrite Pending Urine Bilirubin Pending Urine Urobilinogen Pending Ur Leukocyte Esterase Pending 05/26/20 05/25/20 Range/Units 06:15 08:07 WBC 6.49 (4.8-10.8) K/uL RBC 4.29 (4.2-5.4) M/uL Hgb 13.3 (12.0-16.0) g/dL Hct 39.8 (37-47) % MCV 92.8 (80-100) fL MCH 31.0 (25-34) pg MCHC 33.4 (32-36) g/dL RDW Std Deviation 45.4 (36.4-46.3) fL RDW Coeff of Erin 13.4 (11.5-14.5) % Plt Count 226 (130-400) K/uL MPV 11.5 H (7.4-10.4) fL Immature Gran % (Auto) 0.2 % Neut % (Auto) 71.9 % Lymph % (Auto) 14.8 % [place] % (Auto) 8.9 % Eos % (Auto) 3.9 % Baso % (Auto) 0.3 % Neut # (Auto) 4.67 (1.4-6.5) K/uL Lymph # (Auto) 0.96 L (1.2-3.4) K/uL [place] # (Auto) 0.58 (0.11-0.59) K/uL Eos # (Auto) 0.25 (0-0.5) K/uL Baso # (Auto) 0.02 (0-0.2) K/uL Immature Gran # (Auto) 0.01 (0.00-0.02) K/uL Sodium 141 (136-145) mmol/L Potassium 3.6 (3.5-5.1) mmol/L Chloride 109 H (98-107) mmol/L Carbon Dioxide 22 (21-32) mmol/L Anion Gap 10.0 (3-11) BUN 12 (7-18) mg/dl Creatinine 0.83 (0.6-1.2) mg/dl Est Cr Clr Drug Dosing 39.2 ml/min Est GFR ( Amer) 74.5 Est GFR (Non-Af Amer) 64.3 BUN/Creatinine Ratio 14.9 (10-20) Glucose 102 H (70-99) mg/dl Calcium 8.5 (8.5-10.1) mg/dl Magnesium 2.0 (1.8-2.4) mg/dl Total Bilirubin 0.4 (0.2-1) mg/dl AST 23 (15-37) U/L ALT 24 (12-78) U/L Alkaline Phosphatase 106 (45-117) U/L Total Protein 6.4 (6.4-8.2) gm/dl Albumin 3.1 L (3.4-5.0) gm/dl Globulin 3.3 (2.5-4.0) gm/dl Albumin/Globulin Ratio 0.9 (0.9-2) Urine Color Urine Appearance Urine pH Ur Specific [place] Urine Protein Urine Glucose (UA) Urine Ketones Urine Blood Urine Nitrite Urine Bilirubin Urine Urobilinogen Ur Leukocyte Esterase PG Care Time/CCT Total # of Minutes Spent Total Time Spent with Patient: Total time spent is greater than 50% in coordination of care (as documented) at patient's floor/unit and/or counseling patient: Coding Level of Care Code 81092 Subseq Hosp Care Lvl 3 Diagnoses CVA (cerebral vascular accident) I63.9 CVA mechanism: unspecified Hypertension I10 Hypertension type: essential hypertension Hypothyroidism E03.9 Hypothyroidism type: unspecified Chronic diastolic (congestive) heart failure I50.32 Primary lateral sclerosis G12.23 (1) CVA (cerebral vascular accident) CVA mechanism: unspecified Qualified Code(s): I63.9 - Cerebral infarction, unspecified (2) Hypertension Hypertension type: essential hypertension Qualified Code(s): I10 - Essential (primary) hypertension (3) Hypothyroidism Hypothyroidism type: unspecified Qualified Code(s): E03.9 - Hypothyroidism, unspecified
[2020-05-26 09:07] LABS: Appearance Urine Cloudy (Clear); Bacteria Urine Automated 4+ (Negative); Bilirubin Urine Negative (Negative); Blood Urine 2+ (Negative); Color Urine Yellow; Glucose Urine UA Negative (Negative); Ketones Urine 1+ (Negative); Leukocyte Esterase Urine 2+ (Negative); Nitrite Urine Negative (Negative); Protein Urine Trace (Negative); Specific Gravity Urine 1.024 (1.000-1.030); Urobilinogen Urine Negative (Negative); WBC Urine Automated >30 /hpf (0-5); pH Urine 5.5 (4.5-7.5)
[2020-05-26 09:23] LABS: Cast Urine Automated >30 /lpf (0-5)
--- NOTE | 2020-05-26 11:52 | Ultrasound Report ---
RENAL ULTRASOUND HISTORY: Urinary tract infection. COMPARISON: None. FINDINGS: Right kidney: 8.6 cm. No hydronephrosis. Normal corticomedullary differentiation and cortical thickne ss. Left kidney: 7.8 cm. The upper and lower poles are partially obscured by overlying bowel gas. No hydr onephrosis. Normal corticomedullary differentiation and cortical thickness. Bladder: Decompressed by [place] catheter and not well visualized. IMPRESSION: No hydronephrosis. ACT 112: Negative or not required by law. Electronically signed by: Terry Centeno M.D. 05/26/2020 11:50 AM
[2020-05-26] MEDS: cefTRIAXone SODIUM 1,000 MG in DEXTROSE 5% 50 ML IV SCH (12:08)
[2020-05-26] MEDS: CHOLECALCIFEROL 1,000 UNITS 25 MCG TAB PO SCH (20:05)
[2020-05-27] MEDS: LEVOTHYROXINE SODIUM 75 MCG TABLET PO SCH (05:37)
[2020-05-27] MEDS: cefTRIAXone SODIUM 1,000 MG in DEXTROSE 5% 50 ML IV SCH (08:49)
[2020-05-27] MEDS: FERROUS GLUCONATE 324 MG TAB PO SCH (08:49)
[2020-05-27] MEDS: FUROSEMIDE 20 MG TAB PO SCH (08:49)
[2020-05-27] MEDS: METOPROLOL TARTRATE 50 MG TAB PO SCH ×2 (08:50→21:03)
[2020-05-27] MEDS: DOCUSATE SODIUM 100 MG CAP PO SCH ×2 (08:50→20:58)
[2020-05-27] MEDS: lisinopril 10 MG TAB PO SCH (08:50)
[2020-05-27] MEDS: CLOPIDOGREL BISULFATE 75 MG TAB PO SCH (08:50)
[2020-05-27] MEDS: AMIODARONE 200 MG TAB PO SCH (08:50)
[2020-05-27] MEDS: ATORVASTATIN 40 MG TAB PO SCH (08:50)
--- NOTE | 2020-05-27 09:02 | Hospitalist Progress Note ---
Date of Service May 27, 2020 Assessment & Plan (1) CVA (cerebral vascular accident): 85yo C female with history of progressive PLS presenting with worsening weakness, garbled speech found to have small acute infarct right insula and subacute infarct right frost radiata. Patient with poor neurological baseline due to underlying PLS - has flexion contractures and immobility of bilateral UEs as well as difficulty with ambulation. notes major changes are in patient's speech as well as her balance. He is currently having a difficult time understanding her and is unable to assist her with ambulation. CTA Head/neck unable to perform due to unable to obtain 18G, conversation with neurology and ok not to obtain this study as will not change course of treatment for this patient MRI Brain with acute RIGHT hemispheric stroke x 2 basal ganglia area -- would explain increase in L facial weakness/dysarthria. Neurology consulted -- appreciate assistance. Strokes small and likely small vessel ischemic disease in origin For first two days, permissive HTN to obtain MAP 95-100. BP currently 197/75. Thereafter, recommendations to obtain better BP control. Currently on lisinopril, toprol, starting norvasc 300mg ASA administered rectally given issues with swallowing on admission, D/c ASA, Continue plavix 75mg daily Despite hx DVT, patient not ideal candidate for anticoagulation as she has had bleeding episodes in the past x 2 Lipid panel without abn -- not candidate for high dose statin, cont atorvastatin 40mg A1c 5.6, not diabetic ECHO with normal LV systolic function. moderate asymmetric LVH, LA/RA moderate dilation. Aortic valve sclerosis mild, without significant stenosis. Moderate mitral annular calcification. RVSP elevated 50-60mmHg PT/OT with recs for rehab but patient would like to go home with help. CM assisting Speech therapy (2) Urinary tract infection: increased frequency/urge. WBC without elevation but did have L shift on admission. Increased confusion Urine culture with lactobacillus 1-17 Placed on ceftriaxone empirically 1-18 repeat urine culture is still pending, patient remains on rocephin Renal US no hydronephrosis Discussed gonzalez catheter -- pt feels that will be helpful for him at home. He will need to have f/u with PCP for management on outpatient basis (3) Dysphagia: Patient will need fed. HOB 30 degrees at all times. small bites/sips. better with a straw. Video swallow with silent aspiration of thin liquids --> discussed with speech and to get thickener for liquids and patient will need to be on a nectar thick, minced/moist diet at discharge. continue to monitor for dysphagia/issues -- may need further work-up CM arranging for [employer] at discharge -- they will be able to see her on Wednesday (4) Acute respiratory failure with hypoxia: Overnight pulse ox with desat events for >20 min -- will arrange for overnight oxygen to be worn (5) Hypertension: * permissive HTN allowed * Resumed metoprolol 50mg BID since started on amiodarone 400mg daily (prior on gtt and switched to PO on 05/25) and lisinopril 5mg -->increased to 10mg * Continue to monitor 05-26 BP continued to be elevated and patient with agitation/anxiety and was given dose of Ativan and has been resting quietly following -- consider low dose at d/c to help with anxiety symptoms/labile emotions BP currently 122/86 05-27 BP 162/78 increase lisinopril to 20mg, start norvasc 5mg at bedtime (6) Paroxysmal atrial fibrillation: 05-24 -- Patient with increased heart rate up to 190s on telemetry with some wide- rhythm complex -- Denied chest pain, shortness of breath during my encounter, but did endorse some shortness of breath overnight which could have coincided with timing of sustained elevations in HR. Given 1gm IV mag. Mag 2.0 -- Cardiology consulted -- Given history of pAFIB, and small strokes, could be etiology of her acute CVA. Anticoagulation deferred d/t hx bleeding. Will attempt rhythm control with amio gtt. Started 05/24 and transferred to telemetry. Also increased her metoprolol to 75mg BID. Continue to monitor on telemetry Could consider watchman device, although would also require anticoagulation for at least short time and not ideal 05-25 Patient continues in NSR on telemetry since initiation of amiodarone and was transitioned to 400mg daily today. Will continue at discharge for next 2 weeks and have her follow up with Dr. Guzman within that time frame. 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 Patient follows with Neurology. She was treated wt Baclofen and Tizanidine in the past for limb spasticity. Was recommended trial of Methocarbamol 500mg po TID - does not appear to have taken this and would not like to at this time * Dr. Sharma consulted as above * Bedbound essentially and patient has caregivers and for 30/11 care. * Hx DVT d/t such but not able to be placed on anticoagulation d/t bleeding issues in the past. No adjustments made (8) Chronic diastolic (congestive) heart failure: Patient appears euvolemic at present although got a dose of lasix 20mg IV prior evening for increased shortness of breath CXR with interval resolution of perihilar airspace opacities. peripheral left lung opacity likely relating to focal pleural thickening perhaps 2nd to old rib fx Continue to monitor 95% on RA 1-18 dry oral mucosa, unable to take many fluids by mouth due to dysphagia, thickened liquids only stop lasix repeat renal function tests in morning (9) Hypothyroidism: * Chronic. TSH 1.01 * Continue Synthroid 75mcg daily DVT Prophylaxis SCDs no chemoproph given hx bleeding Code - DNR/DNI Dispo -prolonged inpatient stay. Of note, possible that patient may end up needing placement, although she states that she is at her baseline. made aware of this and if he is unable to care for her with current aide in place, will have to look into this in the future. Palliative discussing goals of care and strongly encouraged to consider placement in facility at discharge CM to making referrals to home health to help with gonzalez management as they just have aide care at this time. Desired discharge plan for the patient and is discharge home with around the clock care. Patient does not wish to be placed in a facility at this time. Admission and Anticipated Discharge Date Admission Date: May 22, 2020 Subjective Patient is doing well. She feels ready to go home as soon as home health can be set up. She is continuing to cough when drinking, even with thickened liquids. Denies any pain, no sob. No dysuria, diarrhea, nausea or vomiting. No headache. Review of Systems Constitutional: no fever, no chills, no fatigue, no weakness, no anorexia, no weight loss and no weight gain Ear, Nose, Mouth, Throat: no nasal congestion, no sore throat and no dysphagia Respiratory: no cough and no dyspnea Cardiovascular: no chest pain, no dyspnea on exertion, no orthopnea and no palpitations Gastrointestinal: no abdominal pain, no nausea, no vomiting, no hematemesis, no dysphagia, no constipation, no diarrhea/loose stools, no blood in stools and no melena Genitourinary: no dysuria, no urinary frequency, no hematuria and no flank pain Musculoskeletal: no back pain, no joint pain, no myalgia and no muscle weakness Integumentary: no rash, no lesions, no skin ulcer, no erythema, no dry skin and no pruritus Neurologic: no falls, no localized weakness, no generalized weakness, no numbness, no paresthesia, no tremor(s) and no headache(s) Psychiatric: no depression, no suicidal ideation, no homicidal ideation and no anxiety Endocrine: no cold intolerance and no heat intolerance Hematologic / Lymphatic: no easy bleeding and no easy bruising Physical Exam Constitutional: well developed and well nourished; no acute distress Eyes: PERRL, conjunctivae normal, anicteric sclerae ENMT: Mouth: oral mucous membranes not dry Respiratory: normal respiratory effort; no respiratory distress and no labored breathing Auscultation: lungs clear to auscultation bilaterally; no crackles, no rales, no rhonchi and no wheezes Cardiovascular: Rate/Rhythm: regular rate and regular rhythm Heart Sounds: no murmur and no cardiac rub Vessels: normal peripheral pulses and radial pulses present; no JVD Extremities: no edema Gastrointestinal (Abdomen): Inspection/Auscultation: abdomen normal to inspection and normal bowel sounds; abdomen not distended Percussion/Palpation: abdomen soft; abdomen nontender, no guarding, abdomen not rigid and no hepatosplenomegaly Musculoskeletal: Head/Neck/Chest: normocephalic and head atraumatic Spine: no cervical spinal tenderness, no cervical muscular tenderness, no thoracic spinal tenderness and no lumbar spinal tenderness Skin: no rashes, warm and dry Neurologic: CN's II-XI intact bilaterally (facial asymmetry and motor weakness) and moves all extremities (weakness of bilateral UE and LE) Speech / Cognition: + abnormal speech (severe dysarthria) Motor/Sensory: no tremor and no sensory deficit Psychiatric: Orientation: alert, oriented to person, oriented to place and oriented to time Apperance: appropriately groomed; not disheveled Affect: euthymic affect; no anxious affect and no tearful affect Genitourinary: no CVA tenderness no Gonzalez catheter Results & Data Results & Data ([facility]) Vital Signs (Past 12 Hours) Vital Signs Temp Pulse Pulse Resp BP BP Pulse Ox 05/27/20 07:30 36.6 C 77 20 166/72 H 94 05/27/20 04:09 36.5 C 71 18 144/77 H 94 05/27/20 00:02 37.1 C 71 18 150/68 H 94 05/26/20 23:00 63 Medications Administered Current Inpatient Medications Acetaminophen (Acetaminophen 325 Mg Tab) 650 mg PO Q4H PRN PRN Reason: Pain Stop: 06/26/20 11:10 Amiodarone HCl (Amiodarone 200 Mg Tab) 400 mg PO [facility] Stop: 06/24/20 12:14 Last Admin: 05/27/20 08:50 Dose: 400 mg Documented by: Atorvastatin Calcium (Atorvastatin 40 Mg Tab) 40 mg PO [facility] Stop: 06/21/20 08:59 Last Admin: 05/27/20 08:50 Dose: 40 mg Documented by: Clopidogrel Bisulfate (Clopidogrel Bisulfate 75 Mg Tab) [facility] [place] Stop: 06/21/20 08:59 Last Admin: 05/27/20 08:50 Dose: 75 mg Documented by: Docusate Sodium (Docusate Sodium 100 Mg Cap) 100 mg PO BID [facility] Stop: 06/21/20 20:59 Last Admin: 05/27/20 08:50 Dose: Not Given Documented by: Ferrous Gluconate (Ferrous Gluconate 324 Mg Tab) 324 mg PO Q2D [facility] Stop: 06/22/20 08:59 Last Admin: 05/27/20 08:49 Dose: 324 mg Documented by: Furosemide (Furosemide 20 Mg Tab) 10 mg PO QAM [facility] Stop: 06/22/20 08:59 Last Admin: 05/27/20 08:49 Dose: 10 mg Documented by: Lorazepam (Ativan) 0.25 mg in 0.5 mls @ 0.5 mls/min IV Q4H PRN PRN Reason: agitation or anxiety Stop: 06/25/20 08:51 Last Admin: 05/26/20 09:10 Dose: 0.5 mls/min Documented by: Ceftriaxone Sodium 1,000 mg/ (Dextrose) 60 mls @ 100 mls/hr IV DAILY [facility]; Protocol Stop: 05/31/20 10:59 Last Infusion: 05/27/20 09:38 Dose: Infused Documented by: Levothyroxine Sodium (Levothyroxine Sodium 75 Mcg Tablet) 75 mcg PO DAILYBB [facility] Stop: 06/22/20 06:29 Last Admin: 05/27/20 05:37 Dose: 75 mcg Documented by: Lisinopril (Lisinopril 10 Mg Tab) 10 mg PO QAM [facility] Stop: 06/25/20 08:59 Last Admin: 05/27/20 08:50 Dose: 10 mg Documented by: Melatonin (Melatonin 3 Mg Tab) 3 mg PO HS PRN PRN Reason: Sleep Stop: 06/25/20 03:07 Metoprolol Tartrate (Metoprolol Tartrate 50 Mg Tab) 50 mg PO BID [facility] Stop: 06/23/20 20:59 Last Admin: 05/27/20 08:50 Dose: 50 mg Documented by: Ondansetron HCl (Ondansetron Inj 2 Mg/Ml 2 Ml Vial) 4 mg IV Q6H PRN PRN Reason: Nausea Stop: 06/21/20 00:46 Vitamin D (Cholecalciferol 1,000 Units 25 Mcg Tab) 5,000 units PO QPM [facility] Stop: 06/21/20 20:59 Last Admin: 05/26/20 20:05 Dose: 5,000 units Documented by: PG Care Time/CCT Total # of Minutes Spent Total Time Spent with Patient: Total time spent is greater than 50% in coordination of care (as documented) at patient's floor/unit and/or counseling patient: Coding Level of Care Code 70115 Subseq Hosp Care Lvl 2 Diagnoses CVA (cerebral vascular accident) I63.9 CVA mechanism: unspecified Urinary tract infection N30.00 Hematuria presence: without hematuria Urinary tract infection type: acute cystitis Dysphagia R13.10 Dysphagia type: unspecified Acute respiratory failure with hypoxia J96.01 Hypertension I10 Hypertension type: essential hypertension Paroxysmal atrial fibrillation I48.0 Primary lateral sclerosis G12.23 Chronic diastolic (congestive) heart failure I50.32 Hypothyroidism E03.9 Hypothyroidism type: unspecified (1) Urinary tract infection Hematuria presence: without hematuria Urinary tract infection type: acute cystitis Qualified Code(s): N30.00 - Acute cystitis without hematuria (2) Hypothyroidism Hypothyroidism type: unspecified Qualified Code(s): E03.9 - Hypothyroidism, unspecified (3) Hypertension Hypertension type: essential hypertension Qualified Code(s): I10 - Essential (primary) hypertension (4) CVA (cerebral vascular accident) CVA mechanism: unspecified Qualified Code(s): I63.9 - Cerebral infarction, unspecified (5) Dysphagia Dysphagia type: unspecified Qualified Code(s): R13.10 - Dysphagia, unspecified
[2020-05-27] MEDS ORDERED: ACETAMINOPHEN 325 MG TAB PO PRN (11:11)
--- NOTE | 2020-05-27 12:12 | Palliative Care Consultation ---
Date of Consultation May 27, 2020 Assessment & Plan (1) Muscle spasticity: with advanced neurological disease. Consider baclofen for relief of discomfort (2) Pain: Generalized due to immobility and spasticity. Tylenol ordered prn (3) Palliative care encounter: Mrs. Bello very much wants to be at home but recognizes that her needs help with caregiving. She is very emotional today and frustrated with her functional limitations and disease progression. I spoke with her , Silver, on the phone. He has been talking with his children about a plan to care for her at home. He is also working with his nurse case manager for the [employer] program. He understands that she is in the end stages of her disease and wants to be able to care for her at home. We discussed hospice care to provide a dditional, though not 24 hour support. He feels that with caregivers, hospice and family support he could care for her at home and would prefer to have her at home rather than at a SNF. Thank you for allowing us to participate in her care. (4) Primary lateral sclerosis: (5) CVA (cerebral vascular accident): CVA mechanism: unspecified Qualified Code(s): I63.9 - Cerebral infarction, unspecified (6) Paroxysmal atrial fibrillation: (7) Urinary tract infection: Urinary tract infection type: acute cystitis Hematuria presence: without hematuria Qualified Code(s): N30.00 - Acute cystitis without hematuria (8) Hypertension: Hypertension type: essential hypertension Qualified Code(s): I10 - Essential (primary) hypertension History of Present Illness Reason for Consultation: goals of care Requesting Physician: Lilli Houser Attending Physician: Mylene Mcfarlane MD History of Present Illness 85 yo lady with history of primary lateral sclerosis who is bedbound at home with severe contractures and spasticity at baseline. She was noted to have facial droop and garbled speech and found to have two acute/subacute right basal ganglia infarcts. She has hypertension and paroxysmal afib and is not a candidate for anticoagulation. She is dependent for feedings but has tolerated pureed diet and nectar thick liquids. She is awake and alert and c/o generalized pain, particularly in her knees. She notes that she has less knee pain when sitting in her wheelchair and is able to flex her knees. Her has been caring for her at home with caregivers through the [employer] Program. He has daytime caregivers and is own his own at night. He had been feeling like he was not able to care for her at home and we were requested to assist with goals of care discussion. Allergies Allergy/AdvReac Type Severity Reaction Status Date / Time apixaban [From Eliquis] Allergy Unknown bleeding Verified 05/21/20 16:20 Sulfa (Sulfonamide Allergy Unknown HANDS Verified 05/21/20 16:20 Antibiotics) SWELLED rivaroxaban [From Xarelto] AdvReac Severe bleeding Verified 05/21/20 16:20 Home Medications Medication Instructions Recorded Confirmed Type cholecalciferol (vitamin D3) 125 5,000 units PO QPM tab 10/12/18 05/21/20 History mcg (5,000 unit) tablet ferrous gluconate 324 mg (38 mg 324 mg PO Q2D tab 12/23/18 05/21/20 History iron) tablet metoprolol tartrate 50 mg tablet 50 mg PO BID #180 tab 07/17/19 05/21/20 Rx levothyroxine 75 mcg tablet 75 mcg PO QAM #90 tab 12/06/19 05/21/20 Rx furosemide 20 mg tablet 10 mg PO QAM #90 tab 02/21/20 05/21/20 Rx Patient History Medical History Anemia Bilateral pleural effusion Bladder neoplasm Bronchopneumonia Carpal tunnel syndrome, bilateral Chronic diastolic (congestive) heart failure Chronic osteoarthritis Deep venous thrombosis (DVT) of right peroneal vein Disorder of bone Dyspnea on exertion Edema Essential hypertension Gait disturbance GI bleed Hemiparesis, right Hiatal hernia History of GI bleed History of intracerebral hemorrhage without residual deficit Hypothyroidism Kyphoscoliosis Left femoral vein DVT Lumbar compression fracture Multiple fractures of ribs of right side Muscle spasticity Muscular deconditioning Nocturia Normal left ventricular systolic function Numbness of left hand Osteoporosis Other specified acquired deformities of right upper arm Pelvic fracture Polyneuropathy Primary lateral sclerosis Restrictive lung disease Stroke syndrome TIA (transient ischemic attack) Trochanteric bursitis of left hip Urinary incontinence Venous insufficiency Vitamin D deficiency Vulvovaginitis Surgical History Hip joint replacement status History of bilateral salpingo-oophorectomy History of tonsillectomy History of total abdominal hysterectomy S/P KALYN-BSO Family History Mother Congestive heart failure Type 2 diabetes mellitus without complications Essential hypertension Myocardial infarction Hypertension Father Hodgkins lymphoma Brother Colon cancer Throat cancer Grandmother Myocardial infarction Stroke Denies family history of Ovarian cancer Prostate cancer Diabetes Breast cancer Lung cancer Social History Smoking Status: Never smoker Second Hand Exposure: No; Hx Alcohol Use: No Hx Substance Use: No Preferred Language: French Communication Ability: Effective Visual Impairment: No Limitations Hearing Ability: Normal Legend Maker Required: No Beliefs That Will Affect Care: None marital status: Current Living Situation: Spouse current occupational status: retired Feels Safe at Home: Yes Childhood Exposure to Second-Hand Smoke: No caffeine: Yes Dental Care, Regularly: Yes Physical Activity Frequency: Does not Exercise Seatbelt Use: always Sunscreen Use: No Assistive Devices: Mechanical Lift and Oxygen - at Night Assistive Devices Comment: 3l hs Review of Systems Review of Systems: Mcfaddin Symptom Assessment Scale Pain1/3 Dyspnea 0/3 Nausea 0/3 Anorexia 0/3 Anxiety 1/3 Drowsiness 0/3 Constipation 0/3 Palliative Performance Score 30% Physical Exam Constitutional: + ill appearing; + uncomfortable ENMT: Mouth: + dry oral mucous membranes Respiratory: normal respiratory effort; no labored breathing Cardiovascular: Extremities: no edema Gastrointestinal (Abdomen): Percussion/Palpation: abdomen soft; abdomen nontender Musculoskeletal: contractures of upper and lower extremities, unable to wipe nose or feed herself Skin: warm and dry Neurologic: not confused Psychiatric: Orientation: alert and oriented x 3 Affect: + labile affect Results & Data ([facility]) Vital Signs (Past 12 Hours) Vital Signs Temp Pulse Pulse Resp BP BP Pulse Ox 05/27/20 11:10 98.6 F 83 20 162/78 H 98 05/27/20 08:00 62 05/27/20 07:30 97.9 F 77 20 166/72 H 94 05/27/20 04:09 97.7 F 71 18 144/77 H 94 PG Care Time/CCT Total # of Minutes Spent Total Time Spent with Patient: Total time spent is greater than 50% in coordination of care (as documented) at patient's floor/unit and/or counseling patient: total time spent 60 minutes with more than 50% of time spent on goals of care, family support, hospice and symptom management. Coding Level of Care Code 26092 Inpt Consult Level 3 Diagnoses Muscle spasticity M62.838 Pain R52 Palliative care encounter Z51.5 Primary lateral sclerosis G12.23 CVA (cerebral vascular accident) I63.9 CVA mechanism: unspecified Paroxysmal atrial fibrillation I48.0 Urinary tract infection N30.00 Urinary tract infection type: acute cystitis Hematuria presence: without hematuria Hypertension I10 Hypertension type: essential hypertension
[2020-05-27] MEDS ORDERED: amLODIPine BESYLATE 5 MG TAB PO SCH (21:00)
[2020-05-27] MEDS: CHOLECALCIFEROL 1,000 UNITS 25 MCG TAB PO SCH (21:03)
[2020-05-28 06:19] LABS: Basophils # (auto) 0.01 K/uL (0-0.2); Basophils % (auto) 0.2 %; Eosinophils # (auto) 0.23 K/uL (0-0.5); Eosinophils % (auto) 3.9 %; Hematocrit (blood only) 38.4 % (37-47); Hemoglobin 12.8 g/dL (12.0-16.0); Immature Granulocytes # (auto) 0.01 K/uL (0.00-0.02); Immature Granulocytes % (auto) 0.2 %; Lymphocytes # (auto) 1.02 K/uL (1.2-3.4); Lymphocytes % (auto) 17.5 %; Mean Corpuscular Hemoglobin 31.1 pg (25-34); Mean Corpuscular Hgb Conc 33.3 g/dL (32-36); Mean Corpuscular Volume 93.4 fL (80-100); Mean Platelet Volume 11.8 fL (7.4-10.4); Monocytes # (auto) 0.62 K/uL (0.11-0.59); Monocytes % (auto) 10.6 %; Neutrophils # (auto) 3.95 K/uL (1.4-6.5); Neutrophils % (auto) 67.6 %; Platelet Count 247 K/uL (130-400); RDW Coefficient of Variation 13.3 % (11.5-14.5); RDW Standard Deviation 45.5 fL (36.4-46.3); Red Blood Count 4.11 M/uL (4.2-5.4); White Blood Count 5.84 K/uL (4.8-10.8)
[2020-05-28] MEDS: LEVOTHYROXINE SODIUM 75 MCG TABLET PO SCH (06:22)
[2020-05-28 06:49] LABS: BUN Creatinine Ratio 16.5 (10-20); Calcium 8.7 mg/dl (8.5-10.1); Creatinine Clr Calc Pharmacy 38.3 ml/min; Est GFR (African American) 72.4; Est GFR (Non-African American) 62.5; Magnesium 1.8 mg/dl (1.8-2.4); Potassium 3.6 mmol/L (3.5-5.1)
[2020-05-28 06:52] LABS: Albumin Globulin Ratio 0.9 (0.9-2); Bilirubin,Total 0.6 mg/dl (0.2-1); Globulin 3.2 gm/dl (2.5-4.0); Phosphorus 3.8 mg/dl (2.5-4.9); Total Protein 6.2 gm/dl (6.4-8.2)
--- NOTE | 2020-05-28 07:18 | Hospitalist Progress Note ---
Date of Service May 28, 2020 Assessment & Plan (1) CVA (cerebral vascular accident): 85yo C female with history of progressive PLS presenting with worsening weakness, garbled speech found to have small acute infarct right insula and subacute infarct right frost radiata. Patient with poor neurological baseline due to underlying PLS - has flexion contractures and immobility of bilateral UEs as well as difficulty with ambulation. notes major changes are in patient's speech as well as her balance. He is currently having a difficult time understanding her and is unable to assist her with ambulation. CTA Head/neck unable to perform due to unable to obtain 18G, conversation with neurology and ok not to obtain this study as will not change course of treatment for this patient MRI Brain with acute RIGHT hemispheric stroke x 2 basal ganglia area -- would explain increase in L facial weakness/dysarthria. Neurology consulted -- appreciate assistance. Strokes small and likely small vessel ischemic disease in origin For first two days, permissive HTN to obtain MAP 95-100. BP currently 197/75. Thereafter, recommendations to obtain better BP control. Currently on lisinopril, toprol, starting norvasc 300mg ASA administered rectally given issues with swallowing on admission, D/c ASA, Continue plavix 75mg daily Despite hx DVT, patient not ideal candidate for anticoagulation as she has had bleeding episodes in the past x 2 Lipid panel without abn -- not candidate for high dose statin, cont atorvastatin 40mg A1c 5.6, not diabetic ECHO with normal LV systolic function. moderate asymmetric LVH, LA/RA moderate dilation. Aortic valve sclerosis mild, without significant stenosis. Moderate mitral annular calcification. RVSP elevated 50-60mmHg PT/OT with recs for rehab but patient would like to go home with help. CM assisting Speech therapy (2) Urinary tract infection: increased frequency/urge. WBC without elevation but did have L shift on admission. Increased confusion Urine culture with lactobacillus 1-17 Placed on ceftriaxone empirically 18 repeat urine culture is still pending, patient remains on rocephin Renal US no hydronephrosis Discussed gonzalez catheter -- pt feels that will be helpful for him at home. He will need to have f/u with PCP for management on outpatient basis 05-28 urine culture with skin marco antonio only, stop rocephin (3) Dysphagia: Patient will need fed. HOB 30 degrees at all times. small bites/sips. better with a straw. Video swallow with silent aspiration of thin liquids --> discussed with speech and to get thickener for liquids and patient will need to be on a nectar thick, minced/moist diet at discharge. continue to monitor for dysphagia/issues -- may need further work-up CM arranging for [employer] [employer] at discharge -- they will be able to see her on Wednesday (4) Acute respiratory failure with hypoxia: Overnight pulse ox with desat events for >20 min resolved, patient not requiring oxygen since 05-22 (5) Hypertension: permissive HTN allowed initially Resumed metoprolol 50mg BID since started on amiodarone 400mg daily (prior on gtt and switched to PO on 05/25) and lisinopril 5mg -->increased to 10mg 05-26 BP continued to be elevated and patient with agitation/anxiety and was given dose of Ativan and has been resting quietly following -- consider low dose at d/c to help with anxiety symptoms/labile emotions BP currently 122/86 05-27 BP 162/78 increase lisinopril to 20mg, start norvasc 5mg at bedtime (6) Paroxysmal atrial fibrillation: 05-24 -- Patient with increased heart rate up to 190s on telemetry with some wide- rhythm complex -- Denied chest pain, shortness of breath during my encounter, but did endorse some shortness of breath overnight which could have coincided with timing of sustained elevations in HR. Given 1gm IV mag. Mag 2.0 -- Cardiology consulted -- Given history of pAFIB, and small strokes, could be etiology of her acute CVA. Anticoagulation deferred d/t hx bleeding. Will attempt rhythm control with amio gtt. Started 05/24 and transferred to telemetry. Also increased her metoprolol to 75mg BID. Continue to monitor on telemetry Could consider watchman device, although would also require anticoagulation for at least short time and not ideal 05-25 Patient continues in NSR on telemetry since initiation of amiodarone and was transitioned to 400mg daily today. Will continue at discharge for next 2 weeks and have her follow up with Dr. Guzman within that time frame. 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 Patient follows with Neurology. She was treated wtih Baclofen and Tizanidine in the past for limb spasticity. Was recommended trial of Methocarbamol 500mg po TID - does not appear to have taken this and would not like to at this time * Dr. Sharma consulted as above * Bedbound essentially and patient has caregivers and for 30/11 care. * Hx DVT d/t such but not able to be placed on anticoagulation d/t bleeding issues in the past. No adjustments made (8) Chronic diastolic (congestive) heart failure: Patient appears euvolemic at present although got a dose of lasix 20mg IV prior evening for increased shortness of breath CXR with interval resolution of perihilar airspace opacities. peripheral left lung opacity likely relating to focal pleural thickening perhaps 2nd to old rib fx Continue to monitor 95% on RA 1-18 dry oral mucosa, unable to take many fluids by mouth due to dysphagia, thickened liquids only stop lasix repeat renal function tests in morning (9) Hypothyroidism: * Chronic. TSH 1.01 * Continue Synthroid 75mcg daily DVT Prophylaxis SCDs no chemoproph given hx bleeding Code - DNR/DNI Dispo -prolonged inpatient stay. Of note, possible that patient may end up needing placement, although she states that she is at her baseline. made aware of this and if he is unable to care for her with current aide in place, will have to look into this in the future. Palliative discussing goals of care and strongly encouraged to consider placement in facility at discharge CM to making referrals to home health to help with gonzalez management as they just have aide care at this time. Desired discharge plan for the patient and is discharge home with around the clock care. Patient does not wish to be placed in a facility at this time. Admission and Anticipated Discharge Date Admission Date: May 22, 2020 Subjective She is doing well today. Denies new speech difficulties, new weakness. No cough. No trouble swallowing or coughing with meals. Denies chest pain, headache, abdominal pain. Patient has had PLS for 6 years. She was not ambulating prior to arrival in hospital. Tells me she has needed to be fed at baseline. Patient is eager to go home today. Review of Systems Constitutional: no fever, no chills, no fatigue, no weakness, no anorexia, no weight loss and no weight gain Ear, Nose, Mouth, Throat: no nasal congestion, no sore throat and no dysphagia Respiratory: no cough and no dyspnea Cardiovascular: no chest pain, no dyspnea on exertion, no orthopnea and no palpitations Gastrointestinal: no abdominal pain, no nausea, no vomiting, no hematemesis, no dysphagia, no constipation, no diarrhea/loose stools, no blood in stools and no melena Genitourinary: no dysuria, no urinary frequency, no hematuria and no flank pain Musculoskeletal: no back pain, no joint pain, no myalgia and no muscle weakness Integumentary: no rash, no lesions, no skin ulcer, no erythema, no dry skin and no pruritus Neurologic: no falls, no localized weakness, no generalized weakness, no numbness, no paresthesia, no tremor(s) and no headache(s) Psychiatric: no depression, no suicidal ideation, no homicidal ideation and no anxiety Endocrine: no cold intolerance and no heat intolerance Hematologic / Lymphatic: no easy bleeding and no easy bruising Physical Exam Constitutional: well developed and well nourished; no acute distress Eyes: PERRL, conjunctivae normal, anicteric sclerae ENMT: Mouth: oral mucous membranes not dry Respiratory: normal respiratory effort; no respiratory distress and no labored breathing Auscultation: lungs clear to auscultation bilaterally; no crackles, no rales, no rhonchi and no wheezes Cardiovascular: Rate/Rhythm: regular rate and regular rhythm Heart Sounds: no murmur and no cardiac rub Vessels: normal peripheral pulses and radial pulses present; no JVD Extremities: no edema Gastrointestinal (Abdomen): Inspection/Auscultation: abdomen normal to inspection and normal bowel sounds; abdomen not distended Percussion/Palpation: abdomen soft; abdomen nontender, no guarding, abdomen not rigid and no hepatosplenomegaly Musculoskeletal: Head/Neck/Chest: normocephalic and head atraumatic Spine: no cervical spinal tenderness, no cervical muscular tenderness, no thoracic spinal tenderness and no lumbar spinal tenderness Skin: no rashes, warm and dry Neurologic: CN's II-XI intact bilaterally (facial asymmetry and motor weakness) and moves all extremities (weakness of bilateral UE and LE) Speech / Cognition: + abnormal speech (severe dysarthria) Motor/Sensory: no tremor and no sensory deficit Psychiatric: Orientation: alert Apperance: appropriately groomed; not disheveled Affect: euthymic affect; no anxious affect and no tearful affect Genitourinary: no CVA tenderness Results & Data Results & Data ([facility]) Vital Signs (Past 12 Hours) Vital Signs Temp Pulse Resp BP BP Pulse Ox 05/28/20 02:28 36.5 C 68 21 151/68 H 94 05/27/20 22:44 36.7 C 65 21 167/72 H 94 05/27/20 21:04 176/94 H Laboratory Results Abnormal lab results 05/28/20 05/28/20 Range/Units 05:42 05:42 RBC 4.11 L (4.2-5.4) M/uL MPV 11.8 H (7.4-10.4) fL Lymph # (Auto) 1.02 L (1.2-3.4) K/uL [place] # (Auto) 0.62 H (0.11-0.59) K/uL Chloride 110 H (98-107) mmol/L Total Protein 6.2 L (6.4-8.2) gm/dl Albumin 3.0 L (3.4-5.0) gm/dl Diagnostic Findings Microbiology 05/26/20 08:30 Urine,Clean Catch Urine Culture - Final More than three types of organisms present, all high counts mixed probable skin marco antonio - No further identifications or sensitivities to follow. 05/22/20 07:22 Urine,Clean Catch Urine Culture - Final Lactobacillus species Medications Administered Current Inpatient Medications Acetaminophen (Acetaminophen 325 Mg Tab) 650 mg PO Q4H PRN PRN Reason: Pain Stop: 06/26/20 11:10 Amiodarone HCl (Amiodarone 200 Mg Tab) 400 mg PO QAM [facility] Stop: 06/24/20 12:14 Last Admin: 05/28/20 07:46 Dose: 400 mg Documented by: Amlodipine Besylate (Amlodipine Besylate 5 Mg Tab) 5 mg PO QPM [facility] Stop: 06/26/20 20:59 Last Admin: 05/27/20 21:01 Dose: 5 mg Documented by: Atorvastatin Calcium (Atorvastatin 40 Mg Tab) 40 mg PO QAM [facility] Stop: 06/21/20 08:59 Last Admin: 05/28/20 07:46 Dose: 40 mg Documented by: Clopidogrel Bisulfate (Clopidogrel Bisulfate 75 Mg Tab) 75 mg PO QAM [facility] Stop: 06/21/20 08:59 Last Admin: 05/28/20 07:47 Dose: 75 mg Documented by: Docusate Sodium (Docusate Sodium 100 Mg Cap) 100 mg PO BID [facility] Stop: 06/21/20 20:59 Last Admin: 05/28/20 07:47 Dose: Not Given Documented by: Ferrous Gluconate (Ferrous Gluconate 324 Mg Tab) 324 mg PO Q2D [facility] Stop: 06/22/20 08:59 Last Admin: 05/27/20 08:49 Dose: 324 mg Documented by: Lorazepam (Ativan) 0.25 mg in 0.5 mls @ 0.5 mls/min IV Q4H PRN PRN Reason: agitation or anxiety Stop: 06/25/20 08:51 Last Admin: 05/26/20 09:10 Dose: 0.5 mls/min Documented by: Levothyroxine Sodium (Levothyroxine Sodium 75 Mcg Tablet) 75 mcg PO DAILYBB [facility] Stop: 06/22/20 06:29 Last Admin: 05/28/20 06:22 Dose: 75 mcg Documented by: Lisinopril (Lisinopril 20 Mg Tab) 20 mg PO QAM [facility] Stop: 06/27/20 08:59 Last Admin: 05/28/20 07:47 Dose: 20 mg Documented by: Melatonin (Melatonin 3 Mg Tab) 3 mg PO HS PRN PRN Reason: Sleep Stop: 06/25/20 03:07 Last Admin: 05/28/20 02:01 Dose: 3 mg Documented by: Metoprolol Tartrate (Metoprolol Tartrate 50 Mg Tab) 50 mg PO BID [facility] Stop: 06/23/20 20:59 Last Admin: 05/28/20 07:47 Dose: 50 mg Documented by: Ondansetron HCl (Ondansetron Inj 2 Mg/Ml 2 Ml Vial) 4 mg IV Q6H PRN PRN Reason: Nausea Stop: 06/21/20 00:46 Vitamin D (Cholecalciferol 1,000 Units 25 Mcg Tab) 5,000 units PO QPM [facility] Stop: 06/21/20 20:59 Last Admin: 05/27/20 21:03 Dose: 5,000 units Documented by: PG Care Time/CCT Total # of Minutes Spent Total Time Spent with Patient: Total time spent is greater than 50% in coordination of care (as documented) at patient's floor/unit and/or counseling patient: Coding Level of Care Code 23986 Subseq Hosp Care Lvl 2 Diagnoses CVA (cerebral vascular accident) I63.9 CVA mechanism: unspecified Urinary tract infection N30.00 Hematuria presence: without hematuria Urinary tract infection type: acute cystitis Dysphagia R13.10 Dysphagia type: unspecified Acute respiratory failure with hypoxia J96.01 Hypertension I10 Hypertension type: essential hypertension Paroxysmal atrial fibrillation I48.0 Primary lateral sclerosis G12.23 Chronic diastolic (congestive) heart failure I50.32 Hypothyroidism E03.9 Hypothyroidism type: unspecified (1) Urinary tract infection Hematuria presence: without hematuria Urinary tract infection type: acute cystitis Qualified Code(s): N30.00 - Acute cystitis without hematuria (2) Dysphagia Dysphagia type: unspecified Qualified Code(s): R13.10 - Dysphagia, unspecified (3) Hypothyroidism Hypothyroidism type: unspecified Qualified Code(s): E03.9 - Hypothyroidism, unspecified (4) Hypertension Hypertension type: essential hypertension Qualified Code(s): I10 - Essential (primary) hypertension (5) CVA (cerebral vascular accident) CVA mechanism: unspecified Qualified Code(s): I63.9 - Cerebral infarction, unspecified
[2020-05-28] MEDS: ATORVASTATIN 40 MG TAB PO SCH (07:46)
[2020-05-28] MEDS: AMIODARONE 200 MG TAB PO SCH (07:46)
[2020-05-28] MEDS: CLOPIDOGREL BISULFATE 75 MG TAB PO SCH (07:47)
[2020-05-28] MEDS: METOPROLOL TARTRATE 50 MG TAB PO SCH (07:47)
[2020-05-28] MEDS: cefTRIAXone SODIUM 1,000 MG in DEXTROSE 5% 50 ML IV SCH (07:47)
[2020-05-28] MEDS: DOCUSATE SODIUM 100 MG CAP PO SCH (07:47)
[2020-05-28] MEDS ORDERED: lisinopril 20 MG TAB PO SCH (09:00)
--- NOTE | 2020-05-28 14:03 | Discharge Summary ---
Date of Service May 28, 2020 Admission HPI Per Admitting Provider Halie Bello is an 85yo female with rapidly progressing Primary Lateral Sclerosis. Patient was seen in the ER earlier today with concerns for a CVA after she developed facial droop and slurred speech. Imaging was unremarkable and symptoms improved, therefore she was discharged home. When she got home she had some Coca Cola but had difficulty swallowing. She was unable to eat or walk and had difficulty with ambulation. Her has caretakers in the home during the day but he provides care between 19:00 at 08:00 daily. He is concerned that he will be unable to care for her in her current state. Patient with markedly garbled speech but is able to answer questions appropriately with some effort. When asked how she is feeling she responds "lousy". She denies pain, WALL, CP, SOB or cough. ER course: Covid NEGATIVE Principal Diagnosis acute stroke Discharge Exam Constitutional well developed and well nourished; no acute distress Eyes PERRL, conjunctivae normal, anicteric sclerae ENMT Mouth: oral mucous membranes not dry Respiratory normal respiratory effort; no respiratory distress and no labored breathing Auscultation: lungs clear to auscultation bilaterally; no crackles, no rales, no rhonchi and no wheezes Cardiovascular Rate/Rhythm: regular rate and regular rhythm Heart Sounds: no murmur and no cardiac rub Vessels: normal peripheral pulses and radial pulses present; no JVD Extremities: no edema Gastrointestinal (Abdomen) Inspection/Auscultation: abdomen normal to inspection and normal bowel sounds; abdomen not distended Percussion/Palpation: abdomen soft; abdomen nontender, no guarding, abdomen not rigid and no hepatosplenomegaly Musculoskeletal Head/Neck/Chest: normocephalic and head atraumatic Spine: no cervical spinal tenderness, no cervical muscular tenderness, no thoracic spinal tenderness and no lumbar spinal tenderness Skin no rashes, warm and dry Neurologic CN's II-XI intact bilaterally (facial asymmetry and motor weakness) and moves all extremities (weakness of bilateral UE and LE) Speech / Cognition: + abnormal speech (severe dysarthria) Motor/Sensory: no tremor and no sensory deficit Psychiatric Orientation: alert Apperance: appropriately groomed; not disheveled Affect: euthymic affect; no anxious affect and no tearful affect Genitourinary no CVA tenderness Discharge Data Allergies Allergy/AdvReac Type Severity Reaction Status Date / Time apixaban [From Eliquis] Allergy Unknown bleeding Verified 05/21/20 16:20 Sulfa (Sulfonamide Allergy Unknown HANDS Verified 05/21/20 16:20 Antibiotics) SWELLED rivaroxaban [From Xarelto] AdvReac Severe bleeding Verified 05/21/20 16:20 Consultations 05/21/20 22:44 ED Decision to Admit Stat 05/22/20 00:47 Consult Case Management - Discharge Planning Routine 05/22/20 01:34 Consult Neurology Routine 05/24/20 08:32 Consult Cardiology Routine 05/26/20 11:03 Consult Palliative Care Routine Ordered Studies 05/21/20 22:44 MR brain wo con Urgent 05/23/20 13:30 FL video swallow Routine 05/26/20 10:14 US renal/blad retro comp Routine Hospital Course (1) CVA (cerebral vascular accident): 85yo C female with history of progressive PLS presenting with worsening weakness, garbled speech found to have small acute infarct right insula and subacute infarct right frost radiata. Patient with poor neurological baseline due to underlying PLS - has flexion contractures and immobility of bilateral UEs as well as difficulty with ambulation. notes major changes are in patient's speech as well as her balance. He is currently having a difficult time understanding her and is unable to assist her with ambulation. CTA Head/neck unable to perform due to unable to obtain 18G, conversation with neurology and ok not to obtain this study as will not change course of treatment for this patient MRI Brain with acute RIGHT hemispheric stroke x 2 basal ganglia area -- would explain increase in L facial weakness/dysarthria. Neurology consulted -- appreciate assistance. Strokes small and likely small vessel ischemic disease in origin For first two days, permissive HTN to obtain MAP 95-100. BP currently 197/75. Thereafter, recommendations to obtain better BP control. Currently on lisinopril, toprol, starting norvasc 300mg ASA administered rectally given issues with swallowing on admission, D/c ASA, Continue plavix 75mg daily Despite hx DVT, patient not ideal candidate for anticoagulation as she has had bleeding episodes in the past x 2 Lipid panel without abn -- not candidate for high dose statin, cont atorvastatin 40mg A1c 5.6, not diabetic ECHO with normal LV systolic function. moderate asymmetric LVH, LA/RA moderate dilation. Aortic valve sclerosis mild, without significant stenosis. Moderate mitral annular calcification. RVSP elevated 50-60mmHg PT/OT with recs for rehab but patient would like to go home with help. CM assisting Speech therapy (2) Urinary tract infection: increased frequency/urge. WBC without elevation but did have L shift on admission. Increased confusion Urine culture with lactobacillus 05-26 Placed on ceftriaxone empirically 05-27 repeat urine culture is still pending, patient remains on rocephin Renal US no hydronephrosis Discussed gonzalez catheter -- pt feels that will be helpful for him at home. He will need to have f/u with PCP for management on outpatient basis 05-28 urine culture with skin marco antonio only, stop rocephin (3) Dysphagia: Patient will need fed. HOB 30 degrees at all times. small bites/sips. better with a straw. Video swallow with silent aspiration of thin liquids --> discussed with speech and to get thickener for liquids and patient will need to be on a nectar thick, minced/moist diet at discharge. continue to monitor for dysphagia/issues -- may need further work-up CM arranging for [facility] at discharge -- they will be able to see her on Wednesday (4) Acute respiratory failure with hypoxia: Overnight pulse ox with desat events for >20 min resolved, patient not requiring oxygen since 05-22 (5) Hypertension: permissive HTN allowed initially Resumed metoprolol 50mg BID since started on amiodarone 400mg daily (prior on gtt and switched to PO on 05/25) and lisinopril 5mg -->increased to 10mg 05-26 BP continued to be elevated and patient with agitation/anxiety and was given dose of Ativan and has been resting quietly following -- consider low dose at d/c to help with anxiety symptoms/labile emotions BP currently 122/86 05-27 BP 162/78 increase lisinopril to 20mg, start norvasc 5mg at bedtime (6) Paroxysmal atrial fibrillation: 05-24 -- Patient with increased heart rate up to 190s on telemetry with some wide- rhythm complex -- Denied chest pain, shortness of breath during my encounter, but did endorse some shortness of breath overnight which could have coincided with timing of sustained elevations in HR. Given 1gm IV mag. Mag 2.0 -- Cardiology consulted -- Given history of pAFIB, and small strokes, could be etiology of her acute CVA. Anticoagulation deferred d/t hx bleeding. Will attempt rhythm control with amio gtt. Started 05/24 and transferred to telemetry. Also increased her metoprolol to 75mg BID. Continue to monitor on telemetry Could consider watchman device, although would also require anticoagulation for at least short time and not ideal 16 Patient continues in NSR on telemetry since initiation of amiodarone and was transitioned to 400mg daily today. Will continue at discharge for next 2 weeks and have her follow up with Dr. Guzman within that time frame. 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 Patient follows with Neurology. She was treated wtih Baclofen and Tizanidine in the past for limb spasticity. Was recommended trial of Methocarbamol 500mg po TID - does not appear to have taken this and would not like to at this time * Dr. Sharma consulted as above * Bedbound essentially and patient has caregivers and for 30/11 care. * Hx DVT d/t such but not able to be placed on anticoagulation d/t bleeding issues in the past. No adjustments made (8) Chronic diastolic (congestive) heart failure: Patient appears euvolemic at present although got a dose of lasix 20mg IV prior evening for increased shortness of breath CXR with interval resolution of perihilar airspace opacities. peripheral left lung opacity likely relating to focal pleural thickening perhaps 2nd to old rib fx Continue to monitor 95% on RA -18 dry oral mucosa, unable to take many fluids by mouth due to dysphagia, thickened liquids only stop lasix repeat renal function tests in morning (9) Hypothyroidism: * Chronic. TSH 1.01 * Continue Synthroid 75mcg daily DVT Prophylaxis SCDs no chemoproph given hx bleeding Code - DNR/DNI Dispo -prolonged inpatient stay. Of note, possible that patient may end up needing placement, although she states that she is at her baseline. made aware of this and if he is unable to care for her with current aide in place, will have to look into this in the future. Palliative discussing goals of care and strongly encouraged to consider placement in facility at discharge CM to making referrals to home health to help with gonzalez management as they just have aide care at this time. Desired discharge plan for the patient and is discharge home with around the clock care. Patient does not wish to be placed in a facility at this time. Total Time Total Time Spent Total Time Spent (In Minutes): 50 Total Time Includes: Examination of the Patient, Discharge Planning, Medication Reconciliation and Communication With Other Providers Discharge Plan Discharge Items Patient Disposition: Hospice - Home Reason For Visit: WEAKNESS Discharge Diagnosis: acute stroke Activity: Resume your previous activity Non-emergency contact: Primary Care Provider Call non-emergency contact if: you have any medication questions and your symptoms worsen Follow-up/Referrals: Anoop Townsend MD [Primary Care Provider] - (within one week) Diet: Heart Healthy Liquid Consistency: [place] thick Diet Comment: Minced and moist foods Addtl Attending Provider Instructions: Start taking amiodarone 400mg daily to help control your atrial fibrillation Start taking atorvastatin and clopidogrel 75mg daily to help prevent stroke Start taking amlodipine and lisinopril to control your blood pressure Continue speech therapy Follow up with primary care physician for management of the gonzalez catheter Call closing coordinator with any questions or concerns regarding comfort Risk Factors for Stroke: You can reduce your chances of stroke by working with your medical provider to adopt a healthy lifestyle. Some specific ways to lower your chance of stroke are: * If you are a smoker, now is the time to stop smoking cigarettes * If you are diabetic, improve the control of your blood sugars * Avoid excessive amounts of alcohol * Control high blood pressure * Lose weight if you are overweight * Be sure to lead an active lifestyle * Eat a healthy diet low in salt, cholesterol and fat You should know about other risk factors for stroke that you are unable to control. These include: * Age 55 years or older * Male gender * Certain racial groups: , or / * Family History of Stroke, Mini stroke or Heart Attack * Sickle Cell Disease Follow Up: It is important for you to keep your follow up appointments with your medical provider. Who to Call and When: Medical Emergencies: Call 911 immediately if you experience any of the following warning signs and symptoms of Stroke: * Sudden numbness or weakness of the face, arm or leg, especially on one side of the body * Sudden confusion, trouble speaking or understanding * Sudden trouble seeing in one or both eyes * Sudden trouble walking, dizziness, loss of balance or coordination * Sudden severe headache with no cause Do not delay calling 911 if you experience any warning signs or symptoms of a stroke. Delay in seeking medical attention may affect what treatments can be given to you. . Pending Studies at Discharge: No Stand-Alone Forms: My [facility] Medications and DC Order Prescriptions: New clopidogrel 75 mg Tablet 75 mg PO QAM Qty: 30 RF: 0 amiodarone 200 mg Tablet 400 mg PO QAM 30 Days Qty: 60 RF: 0 amlodipine [Norvasc] 5 mg Tablet 5 mg PO QPM 30 Days Qty: 30 RF: 0 atorvastatin 40 mg Tablet 40 mg PO QAM 30 Days Qty: 30 RF: 0 lisinopril 20 mg Tablet 20 mg PO QAM 30 Days Qty: 30 RF: 0 Continued metoprolol tartrate 50 mg tablet 50 mg PO BID Qty: 180 RF: 3 levothyroxine 75 mcg tablet 75 mcg PO QAM Qty: 90 RF: 3 cholecalciferol (vitamin D3) 5,000 unit tablet 5,000 units PO QPM RF: 0 ferrous gluconate 324 mg (38 mg iron) tablet 324 mg PO Q2D RF: 0 Discontinued furosemide 20 mg tablet 10 mg PO QAM Qty: 90 RF: 1 Discharge Orders: Discharge Order (Routine); Ordered 05/28/20 Ordered By: Mylene Mcfarlane Admission Data Admit Date/Time: 05/22/20 00:32 Attending Provider: Mylene Mcfarlane Admit Provider: Luda Jones Primary Care Provider: Anoop Townsend Other Providers: [facility] ; Luda Jones ; Teodoro Sharma ; Morris Bach ; Neris Wells Other Interventions: Discharge Summary Assessment (RN) Last Done: 05/28/20 13:51 Coding Level of Care Code D/C Day Management >30 mins Diagnoses CVA (cerebral vascular accident) I63.9 CVA mechanism: unspecified Urinary tract infection N30.00 Urinary tract infection type: acute cystitis Hematuria presence: without hematuria Dysphagia R13.10 Dysphagia type: unspecified Acute respiratory failure with hypoxia J96.01 Hypertension I10 Hypertension type: essential hypertension Paroxysmal atrial fibrillation I48.0 Primary lateral sclerosis G12.23 Chronic diastolic (congestive) heart failure I50.32 Hypothyroidism E03.9 Hypothyroidism type: unspecified
--- NOTE | 2020-06-07 10:09 | Coding Query ---
CODING QUERY To promote full compliance with coding requirements relating to patient care, provider participation is requested in all cases of hardware engineer uncertainty. Please assist us with the question(s) below: Coding Question(s): There is documentation of Acute Respiratory Failure with Hypoxia beginning on Progress Notes starting on 05/27/20 and through the Discharge Summary and the Discharge Summary documents, "Acute respiratory failure with hypoxia: Overnight pulse ox with desat events for >20 min resolved, patient not requiring oxygen since 05-22". Please specify below, in your clinical opinion, regarding treatment and/or monitoring of the Acute Respiratory Failure with Hypoxia. (X ) there was treatment and/or monitoring for the Acute Respiratory Failure with Hypoxia ( ) there was NO treatment and/or monitoring for the Acute Respiratory Failure with Hypoxia ( ) Other: Please Specify Physician's Response(s): Patient was able to be weaned off oxygen Thank you Cony Moncada Principal Diagnosis: "that condition established after study, to be chiefly responsible for occasioning the admission of the patient to the hospital for care." Co-Existing Principal Diagnosis: "when two or more diagnoses equally meet the criteria for principal diagnosis as determined by the circumstances of admission, diagnostic work up, and/or therapy provided, and the Alphabetic Index, Tabular List, or another coding guideline does not provide sequencing direction, any one of the diagnoses may be sequenced first." "When the physician has documented what appears to be a current diagnosis in the body of the record, but has not included the diagnosis in the final diagnostic statement, the physician should be asked whether the diagnosis should be added." (Source [facility]oding [facility] 2 QTR90. p3-4) SAMANTHA
== END 2020-05-28 16:43 | disposition hospice, home (50) | DRG 64 ==
LOC: ED 21:36 → 2N 23:55 → SUATTDRO 05-22 00:32 → 2N 05-22 00:32 → 2S 05-24 13:45 → 2N 05-27 16:39